=== PATIENT | female | born 1960 | race Caucasian/White ===

== ENCOUNTER 2024-07-13 08:33 | Emergency (ER) | payer OTHER, SELFPAY ==
--- NOTE | ~2024-07-13 | XR_ITS ---
EXAMINATION: XR CHEST CLINICAL INFORMATION: cough, chest pain COMPARISON: None available. TECHNIQUE: 2 views of the chest were obtained. FINDINGS: No significant abnormality is noted involving the heart, lungs, mediastinum, bony thorax or soft tissues. XR/XR chest 2V IMPRESSION: No acute disease Electronically signed by: Eber Ma MD 07/13/2024 09:49 AM [facility]
--- NOTE | 2024-07-13 08:36 | ECG_ITS ---
Test Reason : chest pain Blood Pressure : / mmHG Vent. Rate : 080 BPM Atrial Rate : 080 BPM P-R Int : 156 ms QRS Dur : 072 ms QT Int : 378 ms P-R-T Axes : 052 004 032 degrees QTc Int : 435 ms Normal sinus rhythm Normal ECG No previous ECGs available Referred By: Generic ED Physician Electronically Signed By:LATRICIA ERNANDEZ
[2024-07-13 08:41] VITALS: BP 139/87; PULSE 78; RESP 18; TEMP 35.9; O2SAT 98; BMI 31.2
[2024-07-13 09:02] LABS: Basophils Absolute Auto 0.1 X10*3/uL (0.0-0.2); Basophils Percent Auto 1.5 % (0-2); Eosinophils Absolute Auto 0.3 X10*3/uL (0.0-0.4); Eosinophils Percent Auto 6.4 % (0-4); Hematocrit 39.2 % (37.0-47.0); Hemoglobin 13.3 g/dl (12.0-16.0); Imm Gran Abs Auto 0.01 X10*3/uL (0.00-0.03); Imm Gran Pct Auto 0.2 % (0.0-0.4); Lymphocytes Absolute Auto 2.1 X10*3/uL (1.2-4.9); Lymphocytes Percent Auto 45.8 % (20-40); MANUAL DIFF FLAG SCAN; Mean Corpuscular HGB Conc 33.9 g/dl (31.0-35.0); Mean Corpuscular Hemoglobin 29.2 pg (27.0-33.0); Mean Corpuscular Volume 86.2 fL (80.0-98.0); Mean Platelet Volume 9.6 fL (9.4-12.3); Monocytes Absolute Auto 0.4 X10*3/uL (0.1-1.2); Monocytes Percent Auto 9.3 % (2-11); Neutrophils Absolute Auto 1.7 x10*3/uL (2.0-8.3); Neutrophils Percent Auto 36.8 % (45-73); Platelet Count 269 X10*3/uL (160-400); Red Blood Count 4.55 X10*6/uL (4.20-5.50); Red Cell Distribution Width 13.8 % (11.0-16.0); SCAN SMEAR FLAG 1; White Blood Count 4.5 X10*3/uL (4.8-10.8)
--- NOTE | 2024-07-13 09:16 | ED_ITS ---
HPI - Chest Pain General Chief Complaint: Chest Pain Stated Complaint: Chest pain, high BP Time Seen by Provider: 07/13/24 09:16 Source: patient, family (patient's son) and bilingual interpreter (patient declined an [facility] approved motor vehicle parts interpreter and requested her son interpret for her - patient verbalized understanding the risks involved with this decision.) Mode of arrival: ambulatory Limitations: language barrier (patient declined an [facility] approved motor vehicle parts interpreter and requested her son interpret for her - patient verbalized understanding the risks involved with this decision.) History of Present Illness ED Provider: Tessie López PA-C HPI narrative: Patient is a 64 year old assigned female at with a history of HTN presenting to the emergency department today with chest pain and cough. Patient states that since this morning she has felt weak with chest pain, and a cough. Patient states that her chest pain resolved. Patient denies any dizziness, lightheadedness, abdominal pain, nausea, vomiting, fever, chills, blurry vision, double vision, loss of vision, difficulty breathing, shortness of breath, back pain, night sweats, pain with urination, increased urinary frequency, increased urinary urgency, blood in her urine or stool, syncope or a near syncopal episode, recent trauma or falls, bowel incontinence, bladder incontinence, or any other complaints at this time. Relieving factors: nothing Exacerbating factors: nothing Related Data Previous Rx's ?Medication ?Instructions ?Recorded amoxicillin 875 mg-potassium 1 tab PO BID 10 days #20 tabs 07/13/24 clavulanate 125 mg tablet azithromycin 250 mg tablet See Rx Instructions PO .COMPLEX #6 07/13/24 tabs Allergies Allergy/AdvReac Type Severity Reaction Status Date / Time No Known Allergies Allergy Verified 07/13/24 08:46 Review of Systems 2 Constitutional: Constitutional: Reports no additional constitutional complaints, Denies chills, Denies fever(s) and Denies night sweats Eyes: Eyes: Reports no additional eye complaints, Denies blurry vision, Denies change in vision, Denies diplopia, Denies eye discharge, Denies loss of vision and Denies eye pain ENT: Denies dizziness Cardiovascular: Cardiovascular: Reports no additional cardiovascular complaints, Reports chest pain (now resolved), Denies lightheadedness, Denies Loss of Consciousness and Denies dyspnea Respiratory: Respiratory: Reports no additional respiratory complaints, Reports cough and Denies dyspnea Gastrointestinal: Gastrointestinal: Reports no additional gastrointestinal complaints, Denies abdominal pain, Denies melena, Denies hematochezia, Denies change in bowel habits and Denies change in stool character Genitourinary: Genitourinary: Denies hematuria, Denies urinary frequency, Denies dysuria, Denies urinary incontinence, Denies urinary hesitancy and Denies urinary urgency Musculoskeletal: Musculoskeletal: Reports no additional musculoskeletal complaints, Denies numbness and Denies tingling Neurologic: Denies dizziness, Denies loss of vision, Denies numbness and Denies tingling Psychiatric: Psychiatric: Reports no additional psychiatric complaints Endocrine: Endocrine: Reports no additional endocrine complaints Hematologic/Lymphatic: Hematologic/Lymphatic: Reports no additional hematologic/lymphatic complaints Allergic/Immunologic: Allergic/Immunologic: Reports no additional allergic/immunologic complaints PMFSH Past Medical History Attestation statement: The following information was validated with the patient. (patient's son validated all information) Source: old records reviewed and obtained from family (patient's son provided additional history and confirmed the history provided by the patient.) Social History Social History Advance Directives: No Advance Directives Information Provided: No Physical Exam 2 Vital Signs: Vital Signs: Last Vital Signs Temp 97.8 F 07/13/24 10:37 Pulse 66 07/13/24 10:37 Resp 14 07/13/24 10:37 BP 121/76 07/13/24 10:37 Pulse Ox 97 07/13/24 10:37 O2 Del Method Room Air 07/13/24 10:37 BMI result Body Mass Index 31.2 Const: General: cooperative, no acute distress, alert and awake Nutritional Appearance: well nourished Orientation/consciousness: patient oriented x3 Limitations: no limitations HEENT: Head: Yes normal to inspection and Yes atraumatic Ears: hearing grossly normal bilaterally and external ears normal General nose exam: Normal external nose present, no nasal discharge noted and no epistaxis Face and sinus: Yes normal facial exam, No abrasion and No laceration Mouth: Normal oral and palatal mucosa present, no drooling and no muffled voice Eyes: General: appearance normal, both eyes and all related structures P eriorbital: periorbital findings normal Eyelids: Yes eyelids normal C onjunctivae: conjunctivae normal Pupils: Equal, round and reactive pupils present EOM: EOMs intact bilaterally Neck: Neck: Yes normal visual inspection, Yes full ROM and Yes no lymphadenopathy Chest: Chest palpation & inspection: normal inspection of the chest Resp: Effort & Inspection: normal respiratory effort and able to speak in complete sentences GI: Inspection: Yes normal to inspection Neuro: General: patient oriented x3 and moves all extremities Cranial nerves: Yes Equal, round and reactive pupils present Cognition (Neuro): n ormal cognition Extrem: General: Yes normal to inspection, Yes full ROM and Yes capillary refill normal Psych: Appearance: grossly normal Mental Status: mental status grossly normal Affect: normal affect Attitude: cooperative Thought process: N ormal thought process present Thought content: Normal thought content present Insight: Good insight present (Psych) Medical Decision Making Medical Decision Making [facility] Narrative: Patient is a 64 year old assigned female at with a history of HTN presenting to the emergency department today with now resolved chest pain and a cough. Patient's physical exam was unremarkable. Patient's blood work was unremarkable. Patient's EKG was unremarkable. Patient's chest x-ray showed no acute process. I explained my physical exam findings as well as all test results to the patient and the patient's son. I answered all questions asked by the patient and the patient's son. Given patient's clinical presentation, will treat for atypical pneumonia. I stressed the importance of the patient taking her medication as directed (either prescribed or as the over the counter packaging recommends). I stressed the importance of the patient following up with her primary care provider. I stressed the importance of the patient returning to the emergency department immediately if her symptoms were to worsen or if she were to develop any dizziness, shortness of breath, difficulty breathing, chest pain, blurry vision, loss of vision, nausea, vomiting, abdominal pain, fever, chills, back pain, or any other complaints. Patient and the patient's son verbalized agreement and understanding with this treatment plan and discharge. Differential Diagnosis Differential Diagnoses: The differential diagnosis associated with the presentation includes Atypical chest pain NSTEMI STEMI Atypical pneumonia Admission/Observation Consideration of admission/observation: Escalation of care including admission/observation considered Patient would have been admitted to the hospital had her work up had any findings where hospital admission was appropriate and her clinical presentation warranted hospital admission. Lab Data [facility] Lab Attestation statement: I reviewed the patient's lab results. My interpretation of these results are in the MDM Rationale portion of this note. 07/13/24 08:56 07/13/24 08:56 Labs: Lab Results 07/13/24 Range/Units 08:56 WBC 4.5 L (4.8-10.8) X10*3/uL RBC 4.55 (4.20-5.50) X10*6/uL Hgb 13.3 (12.0-16.0) g/dl Hct 39.2 (37.0-47.0) % MCV 86.2 (80.0-98.0) fL MCH 29.2 (27.0-33.0) pg MCHC 33.9 (31.0-35.0) g/dl RDW 13.8 (11.0-16.0) % Plt Count 269 (160-400) X10*3/uL MPV 9.6 (9.4-12.3) fL Immature Gran % (Auto) 0.2 (0.0-0.4) % Neut % (Auto) 36.8 L (45-73) % Lymph % (Auto) 45.8 H (20-40) % Tillman % (Auto) 9.3 (2-11) % Eos % (Auto) 6.4 H (0-4) % Baso % (Auto) 1.5 (0-2) % Lymph # (Auto) 2.1 (1.2-4.9) X10*3/uL Tillman # (Auto) 0.4 (0.1-1.2) X10*3/uL Eos # (Auto) 0.3 (0.0-0.4) X10*3/uL Baso # (Auto) 0.1 (0.0-0.2) X10*3/uL Abs Immat Gran (auto) 0.01 (0.00-0.03) X10*3/uL Absolute Neuts (auto) 1.7 L (2.0-8.3) x10*3/uL Absolute Nucleated RBC 0.000 (0.0-0.012) X10*3/uL Nucleated RBC % (auto) 0.0 (0.0-0.2) /100WBC Smear Tech's Comments VERIFIED Sodium 142 (135-145) mmol/L Potassium 4.8 (3.3-5.1) mmol/L Chloride 109 H (96-108) mmol/L Carbon Dioxide 25 (22-29) mmol/L Anion Gap 13 (12-20) BUN 10 (9-16) mg/dL Creatinine 0.87 (0.5-1.4) mg/dL Estim Creat Clear Calc 73.9 Estimated GFR > 60 Random Glucose 109 (60-115) mg/dL Calcium 9.2 (8.4-10.2) mg/dL Troponin I High Sens < 2.7 (<3.5-17.0) ng/L Influenza Type A (PCR) NEGATIVE (Negative) Influenza Type B (PCR) NEGATIVE (Negative) RSV RNA Qual (PCR) NEGATIVE (Negative) SARS-CoV-2 RNA (RT-PCR) NEGATIVE (Negative) Independent Interpretation I performed an independent interpretation of an: EKG and Plain X-Ray Interpretation: My interpretation is in agreement with the radiologist's impression of this imaging study. L EXAMINATION: XR CHEST CLINICAL INFORMATION: cough, chest pain COMPARISON: None available. TECHNIQUE: 2 views of the chest were obtained. FINDINGS: No significant abnormality is noted involving the heart, lungs, mediastinum, bony thorax or soft tissues. XR/XR chest 2V IMPRESSION: No acute disease Electronically signed by: Eber Ma MD 07/13/2024 09:49 AM EST Dictated By: Eber Ma MD Signed By: Electronically signed by Eber Ma MD 07/13/24 0949 Vent. Rate: 080 BPM Atrial Rate: 080 BPM P-R Int: 156 ms QRS Dur: 072 ms QT Int: 378 ms P-R-T Axes: 052 004 032 degrees QTc Int: 435 ms Normal sinus rhythm Normal ECG No previous ECGs available DD/ [address]32 Radiology Impression Discussion of test interpretation with radiology: I have reviewed the radiologist's reading. Independent Historian Clinical information obtained from an independent historian. History obtained from or confirmed by: Other (patient's son provided additional history and confirmed the history provided by the patient.) Prescription Management I considered prescription management with: Antibiotic (patient prescribed an antibiotic to cover for possible atypical pneumonia) Chronic Conditions Patient?s care impacted by: Hypertension Discharge Plan Discharge Clinical Impression: Atypical chest pain, Respiratory infection Patient Disposition: Home, Self-Care Instructions: Chest Pain (DC), Upper Respiratory Infection (DC) Additional Instructions: Follow up with your primary care provider. Return to the emergency department immediately if your symptoms worsen or if you develop any dizziness, shortness of breath, difficulty breathing, chest pain, blurry vision, loss of vision, nausea, vomiting, abdominal pain, fever, chills, back pain, or any other complaints. Prescriptions: New azithromycin 250 mg tablet See Rx Instructions .ROUTE .COMPLEX Qty: 6 0RF Rx Instructions: For 250 mg dose pack: take 500 mg today (day 1), then 250 mg for 4 days (days 2-5) amoxicillin-pot clavulanate 875-125 mg tablet 1 tab PO BID 10 Days Qty: 20 0RF Referrals: [facility] Family Medicine [Provider Group] (Call to establish and follow up with a primary care provider. If you already have a primary care provider, please follow up with them. Llame para establecer y hacer un seguimiento con un proveedor de atenci?n primaria. Si ya tiene un proveedor de atenci?n primaria, patrick un seguimiento con ?l.) [facility] Primary CareMariajose [Provider Group] (Call to establish and follow up with a primary care provider. If you already have a primary care provider, please follow up with them. Llame para establecer y hacer un seguimiento con un proveedor de atenci?n primaria. Si ya tiene un proveedor de atenci?n primaria, patrick un seguimiento con ?l.) [facility] Primary CareGretel [Provider Group] (Call to establish and follow up with a primary care provider. If you already have a primary care provider, please follow up with them. Llame para establecer y hacer un seguimiento con un proveedor de atenci?n primaria. Si ya tiene un proveedor de atenci?n primaria, patrick un seguimiento con ?l.) Stand Alone Forms: Work/School Release Discharge Date/Time: 07/13/24 10:44 Print Language: Bengali
[2024-07-13 09:17] LABS: Anion Gap 13 (12-20); Blood Urea Nitrogen 10 mg/dL (9-16); Calcium 9.2 mg/dL (8.4-10.2); Carbon Dioxide 25 mmol/L (22-29); Chloride 109 mmol/L (96-108); Creatinine Clr Calc Pharmacy 73.9; Estimated Glomerular Filt Rate > 60; Glucose Random 109 mg/dL (60-115); Potassium 4.8 mmol/L (3.3-5.1); Sodium 142 mmol/L (135-145)
[2024-07-13 09:26] LABS: Troponin-I High Sensitivity < 2.7 ng/L (<3.5-17.0)
[2024-07-13 09:31] LABS: SLIDE REVIEW VERIFIED
[2024-07-13 09:45] LABS: Influenza A PCR NEGATIVE (Negative); Influenza B PCR NEGATIVE (Negative); Resp Syncy Virus RNA Qual PCR NEGATIVE (Negative); SARS COV2 PCR INHOUSE NEGATIVE (Negative)
--- OUTSIDE RECORDS SUMMARY | 2024-07-13 10:01 | XMS_ITS | Continuity of Care Document ---
Author Organization [facility] Address [address] [place] [address]- Care Team Providers Care Coal Passer Name Role Phone Yoanna Nelson MD Primary Care Physician [phone] Encounter [facility] Date(s): 12/03/23 - 01/02/[address] [id number] Allergies, Adverse Reactions, Alerts Substance Reaction Severity Status gabapentin numbness of tongue Active Immunizations Given and Recorded Vaccine Date Status Refusal Reason tetanus/diphtheria/pertussis, acel(Tdap) 05/13/20 Given tetanus/diphtheria/pertussis, acel(Tdap) 02/07/19 Given influenza virus vaccine, inactivated 1 11/06/17 Gi torin influenza virus vaccine, inactivated 07/09/15 Give n influenza virus vaccine, inactivated 08/03/14 Give n influenza virus vaccine, inactivated 2 11/02/12 Gi torin influenza virus vaccine, inactivated 3 05/24/10 Gi torin Measles/Mumps/Rubella Virus Vaccine 4 01/01/11 Giv en Influenza Vaccine (oldterm) 5 12/17/09 Given influ virus vac, H1N1, inactive(oldterm) 6 12/17/09 Given tetanus-diphtheria toxoids (Td) 7 12/17/09 Given 1Result Comment: [11/06/2017] pt denies allergies to eggs 2Admin Note: VIS GIVEN 3Admin Note: vis 03/26/10 4Admin Note: VIS GIVEN 08/31/02 5Admin Note: vis 6Admin Note: vis 7Admin Note: vis 01/24/94 Medications amLODIPine 5 mg oral tablet 1 tablet, By Mouth, Daily, # 90 tablet, 1 Refills, Maintenance, 11/10/23 5:27:00 EDT, [facility] #[id number], 167, cm, 10/01/23 14:12:00 EST, Height, 86, kg, 09/08/23 17:41:00 EST, Dry Weight Start Date: 11/10/23 Status: Ordered ARIPiprazole 5 mg oral tablet TAKE 1 TABLET BY MOUTH EVERY DAY Start Date: 02/13/22 Status: Ordered calcium (as carbonate)-vitamin D 500 mg-400 intl units oral tablet 1 tablet, By Mouth, 2 times a day, take with food as a supplement for calcium and vitamin D for osteopenia., # 60 tablet, 5 Refills, Maintenance, 08/24/23 14:36:00 EST, [facility] #[id number], Partial fill upon patient request if the prescription... Start Date: 08/24/23 Stop Date: 02/20/24 Status: Ordered Colace sodium 100 mg oral capsule 100 mg, 1, capsule, By Mouth, 2 times a day, PRN, # 100 capsule, Refills 3, Tot. Refills 3, Maintenance, for constipation, 12/31/22 19:35:00 EDT, Route to Pharmacy Electronically, [facility] #[id number], Partial fill upon patient request if the p... Start Date: 12/31/22 Status: Ordered Eucerin Daily Hydration topical lotion 1 application, Topically, 4 times a day, # 600 mL, 5 Refills, Maintenance, 09/01/23 16:25:00 EST, [facility] #[id number], Partial fill upon patient request if the prescription is for a schedule II opioid drug., 1 application Topically 4 times a d... Start Date: 09/01/23 Stop Date: 02/28/24 Status: Ordered FLUoxetine 40 mg oral capsule TAKE 1 CAPSULE BY MOUTH EVERY MORNING Start Date: 02/13/22 Status: Ordered hydrOXYzine pamoate 25 mg oral capsule 1 capsule = 25 mg, By Mouth, 3 times a day, PRN as needed for anxiety, TAKE 1 CAPSULE BY MOUTH THREE TIMES DAILY NEEDED FOR ANXIETY OR SLEEP Start Date: 02/13/22 Status: Ordered magnesium oxide 400 mg oral tablet 1 tablet = 400 mg, By Mouth, Daily, for 30 days, for headaches, # 30 tablet, 6 Refills, Acute 07/12/24 11:28:00 EST, 12/15/23 11:28:00 EDT, Tablet, [facility] #[id number], Partial fill upon patient request if the prescription is for a schedule II... Start Date: 12/15/23 Stop Date: 07/12/24 Status: Ordered MiraLax oral powder for reconstitution = 17 Gm, By Mouth, Daily, PRN Constipation, dissolve in water before taking, # 527 Gm, 5 Refills, Maintenance, 07/14/22 12:22:00 EST, REC Powder, [facility] #[id number], Partial fill upon patient request if the prescription is for a schedule II o... Start Date: 07/14/22 Status: Ordered naproxen 500 mg oral delayed release tablet See Instructions, TAKE 1 TABLET BY MOUTH TWICE DAILY TAKE WITH FOOD ONLY NEEDED FOR LOWER BACK PAIN. TRY NOT TO TAKE DAILY, # 50 tablet, 2 Refills, Maintenance, 10/29/22 15:56:00 EDT, [facility] #[id number], 166, cm, 10/16/22 10:45:00 EST, Hei... Start Date: 10/29/22 Status: Ordered NuLYTELY with Flavor Packs oral powder for reconstitution See Instructions, per GI office, # 4,000 mL, 0 Refills, Maintenance, 07/02/22 12:28:00 EST, [facility] #[id number], Partial fill upon patient request if the prescription is for a schedule II opioid drug., per GI office, 166, cm, 06/05/22 16:18:00... Start Date: 07/02/22 Status: Ordered olanzapine 5 mg oral tablet 5 mg, 1, tablet, By Mouth, Daily at bedtime, # 90 tablet, Refills 0, Maintenance, 12/07/23 8:51:00 EDT, Partial fill upon patient request if the prescription is for a schedule II opioid drug. Start Date: 12/07/23 Status: Ordered omeprazole 20 mg oral enteric coated capsule See Instructions, take 1 tablet by mouth 2 times a day, # 60 tablet, 2 Refills, Maintenance, 06/12/22 13:44:00 EDT, [facility] #[id number], Rx in Tongan, 166, cm, 06/05/22 16:18:00 EDT, Height,87, kg, 06/05/22 16:18:00 EDT, Dry Weight Start Date: 06/12/22 Status: Ordered orthopedic mattress orthopedic mattress, See Instructions, # 1 each, Refills 0, Tot. Refills 0, Maintenance, dx: chronic low back pain ICD10: M54.5 duration: 99, 09/17/23 12:04:00 EST, Supply Start Date: 09/17/23 Status: Ordered orthopedic mattress size orthopedic mattress size , See Instructions, # 1 each, Refills 0, Tot. Refills 0, Maintenance,for help with mobility dx: debility, frequent falls, low back pain ICD10: R53.81,, 09/04/23 9:22:00EST, Supply, 168, cm, 09/01/23 15:43:00 EST, Heig... Start Date: 09/04/23 Status: Ordered riboflavin 400 mg oral tablet 1 tablet = 400 mg, By Mouth, Daily, for headaches d/c prior scripts, # 30 tablet, 5 Refills, Maintenance, 12/15/23 11:31:00 EDT, Tablet, [facility] #[id number], Partial fill upon patient requestif the prescription is for a schedule II opioid... Start Date: 12/15/23 Stop Date: 06/12/24 Status: Ordered SUMAtriptan 25 mg oral tablet 1 tablet = 25 mg, By Mouth, Daily, PRN as needed for migraine headache, may repeat dose in 2 hours if needed; in german do not use more than 2-3 x in a week to abort migraine. disp 9 tab every 30 days., # 9 tablet, 5 Refills, Maintenance, 12/15/23... Start Date: 12/15/23 Status: Ordered Problem List Condition Confirmation Course Effective Dates Status Health Status Informant Cough Confirmed Active Consumption coagulopathy Confirmed Active Dyspnea- nl spirometry, bronchial challenge neg- ? 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 No TB tx. 2Pt referred by Dr. Witt-- [facility]. Pt did not keep sched appt. Case closed. Social History Social History Type Response Smoking Status Never smoker entered on: 11/23/14 Sex Patient Care team information Care Team Personnel Name: Kimber Mcclain RN Position: [facility] RN Member Role: Primary Care Nurse Name: Yoanna Nelson MD Position: [facility] Physician - Primary Care Member Role: PCP Address: Address: [address] [place] [address]- [place] Care Team Related Persons Name: DENYS GONZALES Address: [address] [place] [address] Name: EMILIANO YEH Address: [address] [place] [address]
--- OUTSIDE RECORDS SUMMARY | 2024-07-13 10:01 | XMS_ITS | Continuity of Care Document ---
Author Organization [facility] ter Address [address] [place] [address]- Care Team Providers Care Sccm Administrator Name Role Phone Socorro Kingston MD, I Primary Care Physician [phone] Encounter [facility] Date(s): 06/10/22 - 07/10/[address] [address]- Allergies, Adverse Reactions, Alerts Substance Reaction Severity [...] Given tetanus-diphtheria toxoids (Td) 7 12/17/09 Given Not Given Vaccine Date Status Refusal Reason pneumococcal 23-valent vaccine 8 10/28/20 Not Give n Patient Refuses 1Result Comment: [11/06/2017] pt denies allergies to eggs 2Admin Note: VIS GIVEN 2011- 3Admin Note: vis 03/26/10 4Admin Note: VIS GIVEN 08/31/02 5Admin Note: vis 6Admin Note: vis 7Admin Note: vis 01/24/94 8Result Comment: after med shift given with pros and cons Medications amLODIPine 5 mg oral tablet 1 tablet, By Mouth, Daily, # 90 tablet, 3 Refills, Maintenance, 05/04/22 13:25:00 EDT, [facility] #[id number], 166, cm, 03/17/22 10:16:00 EDT, Height, 92.6, kg, 06/13/21 15:24:00 EDT, Dry Weight Start Date: 05/04/22 Status: Ordered ARIPiprazole 5 mg oral tablet TAKE 1 TABLET BY MOUTH EVERY DAY Start Date: 02/13/22 Status: Ordered EC Naprosyn 500 mg oral enteric coated tablet See Instructions, 1 tab po bid x 7 days, then 1 tab po bid prn pain. take with food., # 30 tablet, 1 Refills, Maintenance, 03/17/22 10:50:00 EDT, [facility] #[id number], Partial fill upon patient request if the prescription is for a schedule II... Start Date: 03/17/22 Status: Ordered FLUoxetine 40 mg oral capsule TAKE 1 CAPSULE BY MOUTH EVERY MORNING Start Date: 02/13/22 Status: Ordered hydrOXYzine pamoate 25 mg oral capsule TAKE 1 CAPSULE BY MOUTH THREE TIMES DAILY NEEDED FOR ANXIETY OR SLEEP Start Date: 02/13/22 Status: Ordered Melatonin 5 mg oral tablet TAKE 1 TO 2 TABLETS BY MOUTH EVERY NIGHT AT BEDTIME NEEDED Start Date: 02/13/22 Status: Ordered NuLYTELY with Flavor Packs oral powder for reconstitution See Instructions, per GI office, # 4,000 mL, 0 Refills, Maintenance, 07/02/22 12:28:00 EST, [facility] #[id number], Partial fill upon patient request if the prescription is for a schedule II opioid drug., per GI office, 166, cm, 06/05/22 16:18:00... Start Date: 07/02/22 Status: Ordered omeprazole 20 mg oral enteric coated capsule See Instructions, take 1 tablet by mouth 2 times a day, # 60 tablet, 2 Refills, Maintenance, 06/12/22 13:44:00 EDT, [facility] #[id number], Rx in Jamaican, 166, cm, 06/05/22 16:18:00 EDT, Height,87, kg, 06/05/22 16:18:00 EDT, Dry Weight Start Date: 06/12/22 Status: Ordered Problem List Condition Confirmation Course [...] TB tx. 2Pt referred by Dr. Witt-- [facility]. Pt did not keep sched appt. Case closed. Social History Social History Type Response Smoking Status Never smoker entered on: 11/23/14 Sex Patient Care team information Care Team Personnel Name: Socorro Kingston MD, I Position: [facility] Primary Care Physician Member Role: PCP Address: Address: [address] [place] [address]- Name: Kimber Mcclain RN Position: [facility] RN Member Role: Primary Care Nurse Care Team Related Persons Name: DENYS GONZALES Address: home [address] [place] [address] Name: EMILIANO YEH Address: [address] [place] [address]
--- OUTSIDE RECORDS SUMMARY | 2024-07-13 10:01 | XMS_ITS | Continuity of Care Document ---
Author Organization [facility] Address [address] [place] [address]- Care Team Providers Care Coat Joiner Name Role Phone Yoanna Nelson MD Primary Care Physician [phone] Encounter [facility] Date(s): 04/24/23 - 05/24/[address] [address] Allergies, Adverse Reactions, Alerts Substance Reaction Severity [...] tablet, By Mouth, Daily, # 90 tablet, 0 Refills, Maintenance, 04/14/23 8:37:00 EDT, [facility] #[id number], 168, cm, 03/27/23 13:30:00 EDT, Height, 91.8, kg, 11/24/22 13:50:00 EDT, Dry Weight Start Date: 04/14/23 Status: Ordered ARIPiprazole 5 mg oral tablet TAKE 1 TABLET BY MOUTH EVERY DAY Start Date: 02/13/22 Status: Ordered calcium (as carbonate)-vitamin D 500 mg-400 intl units oral tablet 1 tablet, By Mouth, 2 times a day, take with food as a supplement for calcium and vitamin D for osteopenia., # 60 tablet, 3 Refills, Maintenance, 10/24/22 13:37:00 EST, [facility] #[id number], Partial fill upon patient request if the prescription... Start Date: 10/24/22 Status: Ordered Colace sodium 100 mg oral capsule 100 mg, 1, capsule, By Mouth, 2 times a day, PRN, # 100 capsule, Refills 3, Tot. Refills 3, Maintenance, for constipation, 12/31/22 19:35:00 EDT, Route to Pharmacy Electronically, [facility] #[id number], Partial fill upon patient request if the p... Start Date: 12/31/22 Status: Ordered FLUoxetine 40 mg oral capsule TAKE 1 CAPSULE BY MOUTH EVERY MORNING Start Date: 02/13/22 Status: Ordered hydrOXYzine pamoate 25 mg oral capsule TAKE 1 CAPSULE BY MOUTH THREE TIMES DAILY NEEDED FOR ANXIETY OR SLEEP Start Date: 02/13/22 Status: Ordered MiraLax oral powder for reconstitution = 17 Gm, By Mouth, Daily, PRN Constipation, dissolve in water before taking, # 527 Gm, 5 Refills, Maintenance, 07/14/22 12:22:00 EST, REC Powder, [facility] #[id number], Partial fill upon patient request if the prescription is for a schedule II o... Start Date: 07/14/22 Status: Ordered MiraLax oral powder for reconstitution = 17 Gm, By Mouth, Daily, dissolve in water before taking, # 255 Gm, 2 Refills, Acute 12/16/23 19:36:00 EDT, 12/31/22 19:35:00 EDT, REC Powder, [facility] #[id number], Partial fill upon patient request if the prescription is for a schedule II opi... Start Date: 12/31/22 Stop Date: 12/16/23 Status: Ordered naproxen 500 mg oral delayed release tablet See Instructions, TAKE 1 TABLET BY MOUTH TWICE DAILY TAKE WITH FOOD ONLY NEEDED FOR LOWER BACK PAIN. TRY NOT TO TAKE DAILY, # 50 tablet, 2 Refills, Maintenance, 10/29/22 15:56:00 EDT, [facility] #[id number], 166, cm, 10/16/22 10:45:00 EST, Hei... Start Date: 10/29/22 Status: Ordered NuLYTELY with Flavor Packs oral powder for reconstitution See Instructions, per GI office, # 4,000 mL, 0 Refills, Maintenance, 07/02/22 12:28:00 EST, [facility] #[id number], Partial fill upon patient request if the prescription is for a schedule II opioid drug., per GI office, 166, cm, 06/05/22 16:18:00... Start Date: 07/02/22 Status: Ordered omeprazole 20 mg oral enteric coated capsule See Instructions, take 1 tablet by mouth 2 times a day, # 60 tablet, 2 Refills, Maintenance, 06/12/22 13:44:00 EDT, [facility] #[id number], Rx in Faroese, 166, cm, 06/05/22 16:18:00 EDT, Height,87, kg, 06/05/22 16:18:00 EDT, Dry Weight Start Date: 06/12/22 Status: Ordered riboflavin 100 mg oral tablet 2 TABS, By Mouth, 2 times a day, for headaches, # 60 tablet, 5 Refills, Maintenance, 08/04/22 8:40:00 EST, Tablet, [facility] #[id number], Partial fill upon patient request if the prescription is for a schedule II opioid drug., 166, cm, 08/04/22... Start Date: 08/04/22 Stop Date: 01/31/23 Status: Ordered SUMAtriptan 25 mg oral tablet 1 tablet = 25 mg, By Mouth, Daily, PRN as needed for migraine headache, may repeat dose in 2 hours if needed; in thai do not use more than 2-3 x in a week to abort migraine. disp 9 tab every 30 days., # 9 tablet, 5 Refills, Maintenance, 10/01/22... Start Date: 10/01/22 Status: Ordered Problem List Condition Confirmation Course [...] TB tx. 2Pt referred by Dr. Witt-- [facility]. Pt did not keep sched appt. Case closed. Social History Social History Type Response Smoking Status Never smoker entered on: 11/23/14 Sex Patient Care team information Care Team Personnel Name: Kimber Mcclain RN Position: [facility] RN Member Role: Primary Care Nurse Name: Yoanna Nelson MD Position: [facility] Physician - Primary Care Member Role: PCP Address: Address: [address] [place] [address]- Care Team Related Persons Name: DENYS GONZALES Address: home [address] [place] [address] Name: EMILIANO YEH Address: [place] [address]
--- OUTSIDE RECORDS SUMMARY | 2024-07-13 10:01 | XMS_ITS | Continuity of Care Document ---
Author Organization [facility] Address [address] [place] [address]- Care Team Providers Care Staffing Analyst Name Role Phone Socorro Kingston MD, I Primary Care Physician [phone] Encounter [facility] Date(s): 11/24/22 - 11/24/[address] [address]- Discharge Disposition: A-D/C Home Attending Physician: Omari Ruiz MD Admitting Physician: Omari Ruiz MD Referring Physician: Omari Ruiz MD Allergies, Adverse Reactions, Alerts Substance Reaction Severity [...] tablet, 3 Refills, Maintenance, 05/04/22 13:25:00 EDT, [facility] #[id number], 166, cm, 03/17/22 10:16:00 EDT, Height, 92.6, [...] tablet, 3 Refills, Maintenance, 10/24/22 13:37:00 EST, [facility] #[id number], Partial fill upon patient request if the prescription... Start Date: 10/24/22 Status: Ordered FLUoxetine 40 mg oral capsule [...] Refills, Maintenance, 07/14/22 12:22:00 EST, REC Powder, [facility] #[id number], Partial fill upon patient request if the prescription is for a schedule II o... Start Date: 07/14/22 Status: Ordered naproxen 500 mg oral delayed release tablet See Instructions, TAKE 1 TABLET BY MOUTH TWICE DAILY TAKE WITH FOOD ONLY NEEDED FOR LOWER BACK PAIN. TRY NOT TO TAKE DAILY, # 50 tablet, 2 Refills, Maintenance, 10/29/22 15:56:00 EDT, [facility] #[id number], 166, cm, 10/16/22 10:45:00 EST, Hei... Start Date: 10/29/22 Status: Ordered NuLYTELY with Flavor Packs oral powder for reconstitution See Instructions, per GI office, # 4,000 mL, 0 Refills, Maintenance, 07/02/22 12:28:00 EST, [facility] #[id number], Partial fill upon patient request if the prescription is for a schedule II opioid drug., per GI office, 166, cm, 06/05/22 16:18:00... Start Date: 07/02/22 Status: Ordered omeprazole 20 mg oral enteric coated capsule See Instructions, take 1 tablet by mouth 2 times a day, # 60 tablet, 2 Refills, Maintenance, 06/12/22 13:44:00 EDT, [facility] #[id number], Rx in Mongolian, 166, cm, 06/05/22 16:18:00 EDT, Height,87, kg, 06/05/22 16:18:00 EDT, Dry Weight Start Date: 06/12/22 Status: Ordered riboflavin 100 mg oral tablet 2 TABS, By Mouth, 2 times a day, for headaches, # 60 tablet, 5 Refills, Maintenance, 08/04/22 8:40:00 EST, Tablet, [facility] #[id number], Partial fill upon patient request if the prescription is for a schedule II opioid drug., 166, cm, 08/04/22... Start Date: 08/04/22 Stop Date: 01/31/23 Status: Ordered SUMAtriptan 25 mg oral tablet 1 tablet = 25 mg, By Mouth, Daily, PRN as needed for migraine headache, may repeat dose in 2 hours if needed; in lithuanian do not use more than 2-3 x [...] did not keep sched appt. Case closed. Vital Signs Most recent to oldest [Reference Range]: 1 2 3 Height 168 cm (11/24/22 1:50 PM) Oxygen Saturation [94-100 %] 100 % (11/24/22 3:10 PM) 100 % (11/24/22 3:05 PM) 99 % (11/24/22 3:00 PM) Pulse Rate [55-90 bpm] 96 bpm *H* (11/24/22 1:50 PM) Blood Pressure [90-138/55-84 mm Hg] 116/77mm Hg (11/24/22 3:10 PM) 109/67mm Hg (11/24/22 3:05 PM) 103/65mm Hg (11/24/22 3:00 PM) Respiratory Rate [16-30 br/min] 12 br/min *L* (11/24/22 3:10 PM) 13 br/min *L* (11/24/22 3:05 PM) 14 br/min *L* (11/24/22 3:00 PM) Temperature [96.8-100.4 DegF] 97.3 DegF (11/24/22 2:50 PM) 97.2 DegF (11/24/22 1:50 PM) Mode of Delivery (Oxygen) Room air (11/24/22 2:50 PM) Room air (11/24/22 1:50 PM) Temperature Route Temporal (11/24/22 2:50 PM) Temporal (11/24/22 1:50 PM) Dry Weight 91.8 kg (11/24/22 1:50 PM) Dry Weight Obtained Via Standing scale (11/24/22 1:50 PM) Social History Social History Type Response Smoking Status Never smoker entered on: 11/23/14 Sex Patient Care team information Care Team Personnel Name: Socorro Kingston MD, I Position: S Primary Care Physician Member Role: PCP Address: Address: [address] [place] [address]- [place] Name: Kimber Mcclain RN Position: S RN Member Role: Primary Care Nurse Care Team Related Persons Name: OMARI GONZALES Address: home [address] [place] [address] Name: EMILIANO YEH Address: home [address] [place] [address]
--- OUTSIDE RECORDS SUMMARY | 2024-07-13 10:01 | XMS_ITS | Continuity of Care Document ---
Author Organization [facility] Address [address] [place] [address]- Care Team Providers Care Artificial Limb Fitter Name Role Phone Socorro Kingston MD, I Primary Care Physician [facility]counter [facility] Date(s): 08/02/21 - 09/01/[address] [address] Allergies, Adverse Reactions, Alerts Substance Reaction Severity [...] shift given with pros and cons Medications ARIPiprazole 5 mg oral tablet 5 mg, 1, tablet, By Mouth, Daily, Refills 0, Maintenance, 06/13/21 15:30:00 EDT, Partial fill upon patient request if the prescription is for a schedule II opioid drug. Start Date: 06/13/21 Status: Ordered FLUoxetine 40 mg oral capsule 1 capsule = 40 mg, By Mouth, Daily, 0 Refills, Maintenance, 06/13/21 15:29:00 EDT, Partial fill upon patient request if the prescription is for a schedule II opioid drug. Start Date: 06/13/21 Status: Ordered Meclizine By Mouth, 3 times a day, 0 Refills, Maintenance, 06/13/21 15:30:00 EDT, Partial fill upon patient request if the prescription is for a schedule II opioid drug. Start Date: 06/13/21 Status: Ordered Zofran 4 mg oral tablet 1 tablet = 4 mg, By Mouth, Every 8 hours, 0 Refills, Maintenance, 06/13/21 15:29:00 EDT, Partial fill upon patient request if the prescription is for a schedule II opioid drug. Start Date: 06/13/21 Status: Ordered Problem List Condition Effective Dates Status Health Status Inform ant Cough(Confirmed) Active Consumption coagulopathy(Confirmed) Active Dyspnea- nl spirometry, bron chial challenge neg- ? 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 No TB tx. 2Pt referred by Dr. Witt-- [facility]. Pt did not keep sched appt. Case closed. Social History Social History Type Response Smoking Status Never smoker entered on: 11/23/14 Sex
--- OUTSIDE RECORDS SUMMARY | 2024-07-13 10:01 | XMS_ITS | Continuity of Care Document ---
Author Organization [facility] ter Address [address] [place] [address]- Care Team Providers Care Social Service Agency Director Name Role Phone Socorro Kingston MD, I Primary Care Physician [phone] [place] [facility] Date(s): 06/14/21 - 07/24/[address] [address] Attending Physician: Socorro Kingston MD, I Admitting Physician: Socorro Kingston MD, I Referring Physician: Socorro Kingston MD, I Allergies, Adverse Reactions, Alerts Substance Reaction Severity [...] TB tx. 2Pt referred by Dr. Witt-- [facility]. Pt did not keep sched appt. Case closed. Social History Social History Type Response Smoking Status Never smoker entered on: 11/23/14 Sex
--- OUTSIDE RECORDS SUMMARY | 2024-07-13 10:02 | XMS_ITS | Continuity of Care Document ---
Author Organization [facility] Address [address] [place] [address]- Care Team Providers Care Esthetician Name Role Phone Thee MCCULLOUGH, Socorro Davidson Primary Care Physician Encounter [facility] Date(s): 02/12/22 - 03/14/[address] [address]- Attending Physician: Eliane Stout Admitting Physician: Eliane Stout Referring Physician: AdmEliane saldana Allergies, Adverse Reactions, Alerts Substance Reaction Severity [...] 2Admin Note: VIS GIVEN 3Admin Note: vis 8/10/10 4Admin Note: VIS GIVEN 08/31/02 5Admin Note: vis 6Admin Note: vis 7Admin Note: vis 01/24/94 8Result Comment: after med shift given with pros and cons Medications amLODIPine 5 mg oral tablet TAKE 1 TABLET BY MOUTH DAILY Start Date: 02/13/22 Status: Ordered ARIPiprazole 5 mg oral tablet TAKE 1 TABLET BY MOUTH EVERY DAY Start Date: 02/13/22 Status: Ordered FLUoxetine 40 mg oral capsule [...] BEDTIME NEEDED Start Date: 02/13/22 Status: Ordered Problem List Condition Effective Dates Status Health Status Inform ant Cough(Confirmed) Active Consumption coagulopathy(Confirmed) Active Dyspnea- nl spirometry, bron chial challenge neg- ? anxiety(Confirmed) Active Postprandial epigastric pain(Confirmed) Active Acid reflux disease(Confirmed) Active Heartburn(Confirmed) Active Heliobacterium(Confirmed) Active Hypercholesterolemia(Confirmed) Active Hernia, inguinal, left(Confirmed) Active Mediastinal mass(Confirmed) Active Neutropenia(Confirmed) Active Obese class I(Confirmed) Active Well woman exam with routine gynecological [...]
--- OUTSIDE RECORDS SUMMARY | 2024-07-13 10:02 | XMS_ITS | Continuity of Care Document ---
Author Organization [facility] Address [address] [place] [address]- Care Team Providers Care Pretzel Packer Name Role Phone Yoanna Nelson MD Primary Care Physician Encounter [facility] [id number] Date(s): 10/01/23 - 10/31/[address] [address]- Attending Physician: Eliane Stout Admitting Physician: Eliane Stout Referring Physician: Eliane Stout Allergies, Adverse Reactions, Alerts Substance Reaction Severity [...] Note: VIS GIVEN 08/31/02 5Admin Note: vis 8/11/9 6Admin Note: vis 7Admin Note: vis 01/24/94 Medications amLODIPine 5 mg oral tablet See Instructions, TAKE 1 TABLET BY MOUTH DAILY, # 90 tablet, 0 Refills, Maintenance, 08/14/23 12:12:00 EST, [facility] #[id number], 168, cm, 08/05/23 9:18:00 EST, Height, 91.8, kg, 11/24/22 13:50:00 EDT, Dry Weight Start Date: 08/14/23 Status: Ordered ARIPiprazole 5 mg oral tablet TAKE 1 TABLET BY MOUTH EVERY DAY Start Date: 02/13/22 Status: Ordered calcium (as carbonate)-vitamin D 500 mg-400 intl units oral tablet 1 tablet, By Mouth, 2 times a day, take with food as a supplement for calcium and vitamin D for osteopenia., # 60 tablet, 5 Refills, Maintenance, 08/24/23 14:36:00 EST, [facility] #[id number], Partial fill upon patient request if the prescription... Start Date: 08/24/23 Stop Date: 02/20/24 Status: Ordered Colace sodium 100 mg oral capsule 100 mg, 1, capsule, By Mouth, 2 times a day, PRN, # 100 capsule, Refills 3, Tot. Refills 3, Maintenance, for constipation, 12/31/22 19:35:00 EDT, Route to Pharmacy Electronically, [facility] #[id number], Partial fill upon patient request if the p... Start Date: 12/31/22 Status: Ordered Eucerin Daily Hydration topical lotion 1 application, Topically, 4 times a day, # 600 mL, 5 Refills, Maintenance, 09/01/23 16:25:00 EST, [facility] #[id number], Partial fill upon patient request if the [...] Refills, Maintenance, 07/14/22 12:22:00 EST, REC Powder, [facility] #[id number], Partial fill upon patient request if the prescription is for a schedule II o... Start Date: 07/14/22 Status: Ordered MiraLax oral powder for reconstitution = 17 Gm, By Mouth, Daily, dissolve in water before taking, # 255 Gm, 2 Refills, Acute 12/16/23 19:36:00 EDT, 12/31/22 19:35:00 EDT, REC Powder, [facility] #[id number], Partial fill upon patient request if the prescription is for a schedule II opi... Start Date: 12/31/22 Stop Date: 12/16/23 Status: Ordered naproxen 500 mg oral delayed release tablet See Instructions, TAKE 1 TABLET BY MOUTH TWICE DAILY TAKE WITH FOOD ONLY NEEDED FOR LOWER BACK PAIN. TRY NOT TO TAKE DAILY, # 50 tablet, 2 Refills, Maintenance, 10/29/22 15:56:00 EDT, [facility] #[id number], 166, cm, 10/16/22 10:45:00 EST, Hei... Start Date: 10/29/22 Status: Ordered NuLYTELY with Flavor Packs oral powder for reconstitution See Instructions, per GI office, # 4,000 mL, 0 Refills, Maintenance, 07/02/22 12:28:00 EST, [facility] #[id number], Partial fill upon patient request if the prescription is for a schedule II opioid drug., per GI office, 166, cm, 06/05/22 16:18:00... Start Date: 07/02/22 Status: Ordered omeprazole 20 mg oral enteric coated capsule See Instructions, take 1 tablet by mouth 2 times a day, # 60 tablet, 2 Refills, Maintenance, 06/12/22 13:44:00 EDT, [facility] #[id number], Rx in Sudanese, 166, cm, 06/05/22 16:18:00 EDT, Height,87, kg, [...] Heig... Start Date: 09/04/23 Status: Ordered riboflavin 100 mg oral tablet 2 tablet = 200 mg, By Mouth, 2 times a day, for headaches, # 120 tablet, 5 Refills, Maintenance, 06/15/23 11:00:00 EDT, Tablet, [facility] #[id number], Partial fill upon patient request if the prescription is for a schedule II opioid drug., 168,... Start Date: 06/15/23 Stop Date: 12/12/23 Status: Ordered SUMAtriptan 25 mg oral tablet 1 tablet = 25 mg, By Mouth, Daily, PRN as needed for migraine headache, may repeat dose in 2 hours if needed; in guyanese do not use more than 2-3 x in a week to abort migraine. disp 9 tab every 30 days., # 9 tablet, 5 Refills, Maintenance, 06/15/23... Start Date: 06/15/23 Status: Ordered Problem List Condition Confirmation Course [...] Status Never smoker entered on: 11/23/14 Sex Note * Dina Velarde: PERFORM, SIGN, VERIFY Event Display: Patient Education/Instruction Authored Date: [id number] [facility] Clinical Summary Person Information Visit Date 04/25/2016 2:25 PM Name JUNE RICKS Age 56 Years 1960 12:00 AM PCP Miryam MCCULLOUGH, Archie PCP Sex Female Race White Ethnicity / Language Sudanese You can now view a summary of your hospital visit from the comfort of your home through a free online portal called [employer]Link. HotLink is a website that allows you to securely view your medical information including discharge summary, medications and follow-up visits. You can also send a secure electronic message to your doctor???s office to request appointments, renew medicationsor just ask a question. You can enroll at [email or web address] or register during your next office visit. Smoking can increase your chances of developing chronic health problems and can cause harmful effects to other family members in your house. If you smoke, you are strongly encouraged to quit. Please call the [place] Smokers??? Helpline at 6-944-GKYBNOW (or ) or log on to [email or web address] for more information. Reason for Visit: Allergy Info: NKA Smoking Status Never smoker Vital Signs Height Weight BMI Blood Pressure / Temperature Pulse Rate Respiratory Rate 02 Sat Mode of Delivery / Medication Information HydrOXYzine (hydroxyzine pamoate 25 mg oral capsule) 1 capsule, Oral, 3 times a day, As Needed, foranxiety, Refills: 1 Omeprazole (omeprazole 20 mg oral enteric coated capsule) 1 capsule, Oral, twice a day, take on a empty stomach, wait 30 min, then eat, Refills: 11 Paroxetine (PARoxetine 20 mg oral tablet) 1 tablet, Oral, Daily, Refills: 11 Ranitidine (ranitidine 150 mg oral tablet) 1 tablet, Oral, twice a day, As Needed, Dyspepsia, Refills: 2 Sumatriptan (sumatriptan 25 mg oral tablet) 1 tablet, Oral, Daily, may repeat dose in 2 hours if needed; in guyanese, As Needed, as needed for migraine headache, Refills: 1 Future Orders No future orders Orders Completed this Visit No visit orders documented Problem List Problem Positive PPD Tuberculosis Heliobacterium Dyspnea PTSD - Post-traumatic stress disorder Left inguinal hernia Neutropenia Disseminated intravascular coagulation Cough Heartburn Gastroesophageal reflux disease Epigastric pain Diagnosis Procedures No Procedures Documented If the following labs have been performed in the last year, the most recent result is displayed below. Diagnostic Results Lab Result Value Date Lead Hemoglobin A1C 5.8 04/30/15 LDL HDL Triglycerides Total Cholesterol Disclaimer: The information provided is of a general nature and is intended to be used in conjunction with the recommendations and advice of your health care practitioner. Every effort has been made to ensure that the information provided is accurate and complete at the time it is provided to you however, as your needs change, or, as new information becomes available, different or additional instructions may be required. If you have questions, please consult with your primary care provider or pharmacist, as appropriate. This information is not intended to serve as substitution for assessment and evaluation by a qualified health care provider. If you do not have a primary care provider, you may find a [facility] provider by calling [facility] at [phone]. For information about the plan of care including goals and instructions for your diagnosis, please see the patient education orders section of this document. Patient Visit Summary: Future Appointments: [facility] 04/25/2016 2:50 PM Pending Follow-Up Instructions Patient Education Materials Additional Instructions: * Mary Hendrickson: PERFORM, SIGN, VERIFY Event Display: Patient Education/Instruction Authored Date: [id number] [facility] Clinical Summary Person Information Name JUNE RICKS Age 51 Years 1960 12:00 AM PCP Archie Witt MD PCP Reason for Visit: Allergy Info: NKA Vital Signs Height Weight BMI Blood Pressure / Temperature Pulse Rate Respiratory Rate 02 Sat Mode of Delivery / Medication Information Acetaminophen-Diphenhydramine (Excedrin PM oral tablet) 1 tablet, Oral, Daily at Bedtime, 14 tablet, Refills: 0 amiTRIPTYLINE (amitriptyline 25 mg oral tablet) 1 tablet, Oral, Daily at Bedtime, 30 tablet, Refills: 1 Bismuth Subsalicylate (bismuth subsalicylate 262 mg oral tablet) 1 tablet, Oral, twice a day, Take before Lunch and Dinner, 28 tablet, Refills: 0 Docusate (docusate sodium 100 mg oral capsule) 1 capsule, Oral, twice a day, with plenty of water. Take while taking tylox to prevent constipation, 6 capsule, As Needed, for constipation, Refills: 0 Ibuprofen (ibuprofen 600 mg oral tablet) 1 tablet, Oral, every 8 hours, 30 tablet, Refills: 1 Metronidazole (metronidazole 500 mg oral tablet) 1 tablet, Oral, twice a day, Take before Lunch andDinner, 28 tablet, Refills: 0 Omeprazole (Prilosec 20 mg oral enteric coated capsule) 1 capsule, Oral, twice a day, Take before Lunch and Dinner, 28 capsule, Refills: 0 Oxycodone / Acetaminophen (Tylox 500 mg-5 mg oral capsule) 1 capsule, Oral, every 4 hours, 18 capsule, As Needed, for pain, Refills: 0 Tetracycline (tetracycline 500 mg oral tablet) 1 tablet, Oral, twice a day, Take before Lunch and Dinner, 28 tablet, Refills: 0 Problem List Date Problem 01/20/11 Positive PPD If the following labs have been performed in the last year, the most recent result is displayed below. Diagnostic Results Lab Result Value Date Lead Hemoglobin A1C LDL HDL Triglycerides Total Cholesterol Disclaimer: The information provided is of a general nature and is intended to be used in conjunction with the recommendations and advice of your health care practitioner. Every effort has been made to ensure that the information provided is accurate and complete at the time it is provided to you however, as your needs change, or, as new information becomes available, different or additional instructions may be required. If you have questions, please consult with your primary care provider or pharmacist, as appropriate. This information is not intended to serve as substitution for assessment and evaluation by a qualified health care provider. If you do not have a primary care provider, you may find a [facility] provider by calling [facility] at [phone]. Patient Education Information Follow-up Details: Patient Education Material: Patient Care team information Care Team Personnel Name: Kimber Mcclain RN Position: [facility] RN Member Role: Primary Care Nurse Name: Yoanna Nelson MD Position: [facility] Physician - Primary Care Member Role: PCP Address: Address: [address] [place] [address]- Care Team Related Persons Name: DENYS GONZALES Address: [place] [address] Name: EMILIANO YEH Address: [place] [address]
--- OUTSIDE RECORDS SUMMARY | 2024-07-13 10:02 | XMS_ITS | Continuity of Care Document ---
Author Organization [facility] Address [address] [place] [address]- Care Team Providers Care Oyster Buyer Name Role Phone Thee MCCULLOUGH, Socorro Davidson Primary Care Physician Encounter [facility] Date(s): 07/16/22 - 08/15/[address] [address]- Allergies, Adverse Reactions, Alerts Substance Reaction Severity [...] tablet, 3 Refills, Maintenance, 05/04/22 13:25:00 EDT, [facility] #[id number], 166, cm, 03/17/22 10:16:00 EDT, Height, 92.6, [...] tablet, 1 Refills, Maintenance, 03/17/22 10:50:00 EDT, [facility] #[id number], Partial fill upon patient request if the [...] BEDTIME NEEDED Start Date: 02/13/22 Status: Ordered MiraLax oral powder for reconstitution = 17 Gm, By Mouth, Daily, PRN Constipation, dissolve in water before taking, # 527 Gm, 5 Refills, Maintenance, 07/14/22 12:22:00 EST, REC Powder, [facility] #[id number], Partial fill upon patient request if the prescription is for a schedule II o... Start Date: 07/14/22 Status: Ordered NuLYTELY with Flavor Packs oral powder for reconstitution See Instructions, per GI office, # 4,000 mL, 0 Refills, Maintenance, 07/02/22 12:28:00 EST, [facility] #[id number], Partial fill upon patient request if the prescription is for a schedule II opioid drug., per GI office, 166, cm, 06/05/22 16:18:00... Start Date: 07/02/22 Status: Ordered omeprazole 20 mg oral enteric coated capsule See Instructions, take 1 tablet by mouth 2 times a day, # 60 tablet, 2 Refills, Maintenance, 06/12/22 13:44:00 EDT, [facility] #[id number], Rx in Persian, 166, cm, 06/05/22 16:18:00 EDT, Height,87, kg, 06/05/22 16:18:00 EDT, Dry Weight Start Date: 06/12/22 Status: Ordered riboflavin 100 mg oral tablet 2 TABS, By Mouth, 2 times a day, for headaches, # 60 tablet, 5 Refills, Maintenance, 08/04/22 8:40:00 EST, Tablet, [facility] #[id number], Partial fill upon patient request if the prescription is for a schedule II opioid drug., 166, cm, 08/04/22... Start Date: 08/04/22 Stop Date: 01/31/23 Status: Ordered Problem List Condition Confirmation Course [...] TB tx. 2Pt referred by Dr. Witt-- [facility]. Pt did not keep sched appt. Case closed. Social History Social History Type Response Smoking Status Never smoker entered on: 11/23/14 Sex Patient Care team information Care Team Personnel Name: Socorro Kingston MD, I Position: [facility] Primary Care Physician Member Role: PCP Address: Address: [address] [place] [id number]- Name: Kimber Mcclain RN Position: [facility] RN Member Role: Primary Care Nurse Care Team Related Persons Name: JANETDENYS STEWART Address: [address] [place] [address] Name: EMILIANO YEH Address: [address] [place] [address]
--- OUTSIDE RECORDS SUMMARY | 2024-07-13 10:02 | XMS_ITS | Continuity of Care Document ---
Author Organization [facility] Address [address] [place] [id number]- Care Team Providers Care Oil Field Operator Name Role Phone Thee MCCULLOUGH, Socorro Davidson Primary Care Physician Encounter [facility] Date(s): 10/26/20 - 10/28/[address] [address] Discharge Disposition: A-D/C Home Attending Physician: Tarah Vang MD Admitting Physician: Curt Connors MD Referring Physician: Not on Staff, Referring MD Allergies, Adverse Reactions, Alerts Substance Reaction [...] shift given with pros and cons Medications acetaminophen 325 mg oral tablet 650 mg, 2, tablet, By Mouth, Every 4 hours, PRN, mild pain, # 90 tablet, Refills 0, Tot. Refills 0,Maintenance, Headache, 10/28/20 12:38:00 EDT, Route to Pharmacy Electronically, [facility], Partial fill upon patient request if the pres... Start Date: 10/28/20 Status: Ordered cholecalciferol 1000 intl units oral capsule 1 capsule = 1,000 International_Units, By Mouth, Daily, # 75 capsule, 0 Refills, Maintenance, 06/21/20 11:57:00 EST, Capsule, [facility] #[id number], 163, cm, 06/21/20 11:12:00 EST, Height, 89.3, kg, 10/21/18 22:10:00 EST, Dry Weight Start Date: 06/21/20 Status: Ordered diclofenac sodium 25 mg oral delayed release tablet 1 tablet = 25 mg, By Mouth, 3 times a day, PRN Pain. Nicaraguan sig. Discontinue Ibuprofen, # 90 tablet, 1 Refills, Maintenance, 05/21/20 15:40:00 EDT, EC Tablet, [facility] #[id number], 163, cm, 05/21/20 15:18:00 EDT, Height, 89.3, kg, 10/21/18 22:... Start Date: 05/21/20 Status: Ordered FLUoxetine 40 mg oral capsule 1 capsule = 40 mg, By Mouth, Daily, # 30 capsule, 0 Refills, Maintenance, 05/13/20 3:32:00 EDT, Capsule Start Date: 05/13/20 Status: Ordered hydrOXYzine hydrochloride 25 mg oral tablet 1 tablet = 25 mg, By Mouth, 2 times a day, take only if needed, prn anxiety, # 60 tablet, 3 Refills, Maintenance, 08/15/20 12:06:00 EST, [facility] #[id number], 163, cm, 07/16/20 16:12:00 EST, Height, 89.3, kg, 10/21/18 22:10:00 EST, Dry Weight Start Date: 08/15/20 Status: Ordered meclizine 25 mg oral tablet 1 tablet = 25 mg, By Mouth, 3 times a day, PRN Motion Sickness, # 90 tablet, 0 Refills, Maintenance, 10/28/20 12:37:00 EDT, Tablet, [facility], Partial fill upon patient request if the prescription is for a schedule II opioid drug., 167.... Start Date: 10/28/20 Status: Ordered omeprazole 20 mg oral enteric coated capsule 1 capsule = 20 mg, By Mouth, Daily, if needed for heartburn, # 90 capsule, 1 Refills, Maintenance, 08/15/20 12:07:00 EST, CR Capsule, [facility] #[id number], Partial fill upon patient request ifthe prescription is for a schedule II opioid drug.,... Start Date: 08/15/20 Status: Ordered Ondansetron = 4 mg, By Mouth, Every 8 hours, PRN Nausea & Vomiting, 0 Refills, Maintenance, 10/27/20 18:10:00 EST, Partial fill upon patient request if the prescription is for a schedule II opioid drug. Start Date: 10/27/20 Status: Ordered propranolol 60 mg oral capsule, extended release 60 mg, 1, capsule, By Mouth, Daily, Refills 0, Maintenance, 10/27/20 18:12:00 EST, Partial fill upon patient request if the prescription is for a schedule II opioid drug. Start Date: 10/27/20 Status: Ordered walker with wheel walker with wheel, See Instructions, # 1 each, Refills 0, Tot. Refills 0, Maintenance, walker with wheel Diagnosis : fall, pain, to assist ADLs, 05/14/20 10:36:00 EDT, Supply Start Date: 05/14/20 Status: Ordered Problem List Condition Effective Dates Status Health Status Inform ant Cough(Confirmed) Active Consumption coagulopathy(Confirmed) Active Dyspnea- nl spirometry, bron chial challenge neg- ? anxiety(Confirmed) Active Postprandial epigastric pain(Confirmed) Active Acid reflux disease(Confirmed) Active Heartburn(Confirmed) Active Heliobacterium(Confirmed) Active Hernia, inguinal, left(Confirmed) Active Mediastinal mass(Confirmed) Active Neutropenia(Confirmed) Active Care Coordination [facility] N kiara Ahuja [id number](Confirmed) Active Well woman exam with routine gynecological exam(Confirmed) Active 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 No TB tx. 2Pt referred by Dr. Witt-- [facility]. Pt did not keep sched appt. Case closed. Vital Signs Most recent to oldest [Reference Range]: 1 2 3 Height 167.4 cm (10/28/20 4:15 PM) 167.4 cm (10/28/20 11:05 AM) 167.4 cm (10/28/20 8:22 AM) Weight 89.4 kg (10/27/20 2:42 PM) Oxygen Saturation [94-100 %] 100 % (10/28/20 4:15 PM) 97 % (10/28/20 11:05 AM) 97 % (10/28/20 8:22 AM) Pulse Rate [55-90 bpm] 66 bpm (10/28/20 4:15 PM) 91 bpm *H* (10/28/20 11:05 AM) 68 bpm (10/28/20 8:22 AM) Body Mass Index [18.5-24.99] 31.9 *>HHI* (10/27/20 2:42 PM) Blood Pressure [90-138/55-84 mm Hg] 135/75mm Hg (10/28/20 4:15 PM) 125/79mm Hg (10/28/20 11:05 AM) 112/75mm Hg (10/28/20 4:33 AM) Respiratory Rate [16-30 br/min] 16 br/min (10/28/20 4:15 PM) 18 br/min (10/28/20 11:05 AM) 18 br/min (10/28/20 8:22 AM) Temperature [96.8-100.4 DegF] 96.6 DegF *L* (10/28/20 4:15 PM) 96.7 DegF *L* (10/28/20 11:05 AM) 96.6 DegF *L* (10/28/20 8:22 AM) Mode of Delivery (Oxygen) Room air (10/28/20 4:15 PM) Room air (10/28/20 11:05 AM) Room air (10/28/20 8:22 AM) Blood pressure sites Arm, left (10/28/20 4:15 PM) Arm, left (10/28/20 11:05 AM) Arm, left (10/28/20 4:33 AM) Temperature Route Temporal (10/28/20 4:15 PM) Temporal (10/28/20 11:05 AM) Temporal (10/28/20 8:22 AM) Dry Weight 89.4 kg (10/27/20 2:42 PM) Weight Obtained Via Standing scale (10/27/20 2:42 PM) Social History Social History Type Response Smoking Status Never smoker entered on: 11/23/14 Sex
--- OUTSIDE RECORDS SUMMARY | 2024-07-13 10:02 | XMS_ITS | Continuity of Care Document ---
Author Organization [facility] Address [address] [place] [address]- Care Team Providers Care Structural Drafter Name Role Phone Omar MCCULLOUGH, Yoanna Primary Care Physician Encounter [facility] Date(s): 10/26/23 - 11/25/[address] [address]- Allergies, Adverse Reactions, Alerts Substance Reaction Severity [...] tablet, 1 Refills, Maintenance, 11/10/23 5:27:00 EDT, [facility][id number], 167, cm, 10/01/23 14:12:00 EST, Height, 86, [...] tablet, 5 Refills, Maintenance, 08/24/23 14:36:00 EST, [facility] #[id number], Partial fill upon patient request if the prescription... Start Date: 08/24/23 Stop Date: 02/20/24 Status: Ordered Colace sodium 100 mg oral capsule 100 mg, 1, capsule, By Mouth, 2 times a day, PRN, # 100 capsule, Refills 3, Tot. Refills 3, Maintenance, for constipation, 12/31/22 19:35:00 EDT, Route to Pharmacy Electronically, [facility] #[id number], Partial fill upon patient request if the p... Start Date: 12/31/22 Status: Ordered Eucerin Daily Hydration topical lotion 1 application, Topically, 4 times a day, # 600 mL, 5 Refills, Maintenance, 09/01/23 16:25:00 EST, [facility] #[id number], Partial fill upon patient request if the [...] Refills, Maintenance, 07/14/22 12:22:00 EST, REC Powder, [facility] #[id number], Partial fill upon patient request if the prescription is for a schedule II o... Start Date: 07/14/22 Status: Ordered MiraLax oral powder for reconstitution = 17 Gm, By Mouth, Daily, dissolve in water before taking, # 255 Gm, 2 Refills, Acute 12/16/23 19:36:00 EDT, 12/31/22 19:35:00 EDT, REC Powder, [facility] #[id number], Partial fill upon patient request if the prescription is for a schedule II opi... Start Date: 12/31/22 Stop Date: 12/16/23 Status: Ordered naproxen 500 mg oral delayed release tablet See Instructions, TAKE 1 TABLET BY MOUTH TWICE DAILY TAKE WITH FOOD ONLY NEEDED FOR LOWER BACK PAIN. TRY NOT TO TAKE DAILY, # 50 tablet, 2 Refills, Maintenance, 10/29/22 15:56:00 EDT, [facility] #[id number], 166, cm, 10/16/22 10:45:00 EST, Hei... Start Date: 10/29/22 Status: Ordered NuLYTELY with Flavor Packs oral powder for reconstitution See Instructions, per GI office, # 4,000 mL, 0 Refills, Maintenance, 07/02/22 12:28:00 EST, [facility] #[id number], Partial fill upon patient request if the prescription is for a schedule II opioid drug., per GI office, 166, cm, 06/05/22 16:18:00... Start Date: 07/02/22 Status: Ordered omeprazole 20 mg oral enteric coated capsule See Instructions, take 1 tablet by mouth 2 times a day, # 60 tablet, 2 Refills, Maintenance, 06/12/22 13:44:00 EDT, [facility] #[id number], Rx in Austrian, 166, cm, 06/05/22 16:18:00 EDT, Height,87, kg, [...] 5 Refills, Maintenance, 06/15/23 11:00:00 EDT, Tablet, [facility][id number], Partial fill upon patient request if the prescription is for a schedule II opioid drug., 168,... Start Date: 06/15/23 Stop Date: 12/12/23 Status: Ordered SUMAtriptan 25 mg oral tablet 1 tablet = 25 mg, By Mouth, Daily, PRN as needed for migraine headache, may repeat dose in 2 hours if needed; in yakut do not use more than 2-3 x [...] TB tx. 2Pt referred by Dr. Witt-- [facility]. Pt did not keep sched appt. Case closed. Social History Social History Type Response Smoking Status Never smoker entered on: 11/23/14 Sex Patient Care team information Care Team Personnel Name: Kimber Mcclain RN Position: [facility] RN Member Role: Primary Care Nurse Name: Yoanna Nelson MD Position: [facility] Physician - Primary Care Member Role: PCP Address: Address: [address] [place] [address]- [place] Care Team Related Persons Name: DENYS GONZALES Address: [address] [place] [address] Name: EMILIANO YEH Address: [address] [place] [address]
--- OUTSIDE RECORDS SUMMARY | 2024-07-13 10:02 | XMS_ITS | Continuity of Care Document ---
Author Organization [facility] Address [address] [place] [address]- Care Team Providers Care Industrial Design Intern Name Role Phone Thee MCCULLOUGH, Socorro Davidson Primary Care Physician [phone] Encounter [facility] Date(s): 10/30/20 - 11/29/[address] [address]- Allergies, Adverse Reactions, Alerts Substance Reaction Severity [...] 10/28/20 12:38:00 EDT, Route to Pharmacy Electronically, [facility], Partial fill upon patient request if the pres... Start Date: 10/28/20 Status: Ordered cholecalciferol 1000 intl units oral capsule 1 capsule = 1,000 International_Units, By Mouth, Daily, # 75 capsule, 0 Refills, Maintenance, 06/21/20 11:57:00 EST, Capsule, [facility] #[id number], 163, cm, 06/21/20 11:12:00 EST, Height, 89.3, kg, 10/21/18 22:10:00 EST, Dry Weight Start Date: 06/21/20 Status: Ordered diclofenac sodium 25 mg oral delayed release tablet 1 tablet = 25 mg, By Mouth, 3 times a day, PRN Pain. Chilean sig. Discontinue Ibuprofen, # 90 tablet, 1 Refills, Maintenance, 05/21/20 15:40:00 EDT, EC Tablet, [facility] #[id number], 163, cm, 05/21/20 15:18:00 EDT, Height, 89.3, [...] tablet, 3 Refills, Maintenance, 08/15/20 12:06:00 EST, [facility] #[id number], 163, cm, 07/16/20 16:12:00 EST, Height, 89.3, kg, 10/21/18 22:10:00 EST, Dry Weight Start Date: 08/15/20 Status: Ordered meclizine 25 mg oral tablet 1 tablet = 25 mg, By Mouth, 3 times a day, PRN Motion Sickness, # 90 tablet, 0 Refills, Maintenance, 10/28/20 12:37:00 EDT, Tablet, [facility], Partial fill upon patient request if the prescription is for a schedule II opioid drug., 167.... Start Date: 10/28/20 Status: Ordered omeprazole 20 mg oral enteric coated capsule 1 capsule = 20 mg, By Mouth, Daily, if needed for heartburn, # 90 capsule, 1 Refills, Maintenance, 08/15/20 12:07:00 EST, CR Capsule, [facility] #[id number], Partial fill upon patient request ifthe prescription [...]
--- OUTSIDE RECORDS SUMMARY | 2024-07-13 10:02 | XMS_ITS | Continuity of Care Document ---
Author Organization [facility] Address [address] [place] [address] [address] [place] [address]- Care Team Providers Care Airplane Inspector Name Role Phone Yoanna Nelson MD Primary Care Physician [phone] Encounter [facility] Date(s): 03/27/23 - 04/03/[address] [place] [address]- Attending Physician: Nabil Lau MD Referring Physician: Yoanna Nelson MD Allergies, Adverse Reactions, Alerts Substance Reaction [...] vis 6Admin Note: vis 7Admin Note: vis 6/10/94 Medications amLODIPine 5 mg oral tablet 1 tablet, By Mouth, Daily, # 90 tablet, 3 Refills, Maintenance, 05/04/22 13:25:00 EDT, [facility] #[id number], 166, cm, 03/17/22 10:16:00 EDT, Height, 92.6, [...] tablet, 3 Refills, Maintenance, 10/24/22 13:37:00 EST, [facility] #[id number], Partial fill upon patient request if the prescription... Start Date: 10/24/22 Status: Ordered Colace sodium 100 mg oral capsule 100 mg, 1, capsule, By Mouth, 2 times a day, PRN, # 100 capsule, Refills 3, Tot. Refills 3, Maintenance, for constipation, 12/31/22 19:35:00 EDT, Route to Pharmacy Electronically, [facility] #[id number], Partial fill upon patient request if the [...] Refills, Maintenance, 07/14/22 12:22:00 EST, REC Powder, [facility] #[id number], Partial fill upon patient request if the prescription is for a schedule II o... Start Date: 07/14/22 Status: Ordered MiraLax oral powder for reconstitution = 17 Gm, By Mouth, Daily, dissolve in water before taking, # 255 Gm, 2 Refills, Acute 12/16/23 19:36:00 EDT, 12/31/22 19:35:00 EDT, REC Powder, [facility] #[id number], Partial fill upon patient request if the prescription is for a schedule II opi... Start Date: 12/31/22 Stop Date: 12/16/23 Status: Ordered naproxen 500 mg oral delayed release tablet See Instructions, TAKE 1 TABLET BY MOUTH TWICE DAILY TAKE WITH FOOD ONLY NEEDED FOR LOWER BACK PAIN. TRY NOT TO TAKE DAILY, # 50 tablet, 2 Refills, Maintenance, 10/29/22 15:56:00 EDT, [facility] #[id number], 166, cm, 10/16/22 10:45:00 EST, Hei... Start Date: 10/29/22 Status: Ordered NuLYTELY with Flavor Packs oral powder for reconstitution See Instructions, per GI office, # 4,000 mL, 0 Refills, Maintenance, 07/02/22 12:28:00 EST, [facility] #[id number], Partial fill upon patient request if the prescription is for a schedule II opioid drug., per GI office, 166, cm, 06/05/22 16:18:00... Start Date: 07/02/22 Status: Ordered omeprazole 20 mg oral enteric coated capsule See Instructions, take 1 tablet by mouth 2 times a day, # 60 tablet, 2 Refills, Maintenance, 06/12/22 13:44:00 EDT, [facility] #[id number], Rx in Tajik, 166, cm, 06/05/22 16:18:00 EDT, Height,87, kg, 06/05/22 16:18:00 EDT, Dry Weight Start Date: 06/12/22 Status: Ordered riboflavin 100 mg oral tablet 2 TABS, By Mouth, 2 times a day, for headaches, # 60 tablet, 5 Refills, Maintenance, 08/04/22 8:40:00 EST, Tablet, [facility] #[id number], Partial fill upon patient request if the prescription is for a schedule II opioid drug., 166, cm, 08/04/22... Start Date: 08/04/22 Stop Date: 01/31/23 Status: Ordered SUMAtriptan 25 mg oral tablet 1 tablet = 25 mg, By Mouth, Daily, PRN as needed for migraine headache, may repeat dose in 2 hours if needed; in czech do not use more than 2-3 x [...] TB tx. 2Pt referred by Dr. Witt-- [facility]. Pt did not keep sched appt. Case closed. Vital Signs Most recent to oldest [Reference Range]: 1 Height 168 cm (03/27/23 1:30 PM) Weight 90.5 kg (03/27/23 1:30 PM) Pulse Rate [55-90 bpm] 80 bpm (03/27/23 1:30 PM) Body Mass Index [18.5-24.99 kg/m2] 32.06 kg/m2 *>HHI* (03/27/23 1:30 PM) Blood Pressure [90-138/55-84 mm Hg] 121/ 77mm Hg (03/27/23 1:30 PM) Temperature [96.8-100.4 DegF] 98.8 DegF (03/27/23 1:30 PM) Temperature Route Temporal (03/27/23 1:30 PM) Social History Social History Type Response Smoking Status Never smoker entered on: 11/23/14 Sex Patient Care team information Care Team Personnel Name: Kimber Mcclain RN Position: [facility] RN Member Role: Primary Care Nurse Name: Yoanna Nelson MD Position: [facility] Physician - Primary Care Member Role: PCP Address: Address: [address] [place] [address]- [place] Care Team Related Persons Name: DENYS GONZALES Address: [address] [address] Name: EMILIANO YEH Address: [place] [address]
--- OUTSIDE RECORDS SUMMARY | 2024-07-13 10:02 | XMS_ITS | Continuity of Care Document ---
Author Organization [facility] ter Address [address] [place] [address]- Care Team Providers Care Erp Manager Name Role Phone Yoanna Nelson MD Primary Care Physician Encounter [facility] Date(s): 12/03/23 - 12/04/[address] [address]- Encounter Diagnosis Cholelithiasis(Final) - 12/04/23 Nausea(Final) - 12/04/23 Discharge Disposition: A-D/C Home Attending Physician: Buffy Mcmillan DO Admitting Physician: Buffy Mcmillan DO Referring Physician: Not on Staff, Referring MD [...] tablet, 1 Refills, Maintenance, 11/10/23 5:27:00 EDT, [facility] #[id number], 167, cm, 10/01/23 14:12:00 EST, Height, 86, [...] tablet, 5 Refills, Maintenance, 08/24/23 14:36:00 EST, [facility] #[id number], Partial fill upon patient request if the prescription... Start Date: 08/24/23 Stop Date: 02/20/24 Status: Ordered Colace sodium 100 mg oral capsule 100 mg, 1, capsule, By Mouth, 2 times a day, PRN, # 100 capsule, Refills 3, Tot. Refills 3, Maintenance, for constipation, 12/31/22 19:35:00 EDT, Route to Pharmacy Electronically, [facility] #[id number], Partial fill upon patient request if the p... Start Date: 12/31/22 Status: Ordered Eucerin Daily Hydration topical lotion 1 application, Topically, 4 times a day, # 600 mL, 5 Refills, Maintenance, 09/01/23 16:25:00 EST, [facility] #[id number], Partial fill upon patient request if the [...] Refills, Maintenance, 07/14/22 12:22:00 EST, REC Powder, [facility] #[id number], Partial fill upon patient request if the prescription is for a schedule II o... Start Date: 07/14/22 Status: Ordered MiraLax oral powder for reconstitution = 17 Gm, By Mouth, Daily, dissolve in water before taking, # 255 Gm, 2 Refills, Acute 12/16/23 19:36:00 EDT, 12/31/22 19:35:00 EDT, REC Powder, [facility] #[id number], Partial fill upon patient request if the prescription is for a schedule II opi... Start Date: 12/31/22 Stop Date: 12/16/23 Status: Ordered MorPHINE Inj 4 mg, Injection, IV Push Slowly, Every 5 minutes for 3 doses/times, PRN for Pain , Moderate, and SBP greater than 100, Routine, 12/04/23 6:36:00 EDT, Stop date Limited # of times Start Date: 12/04/23 Stop Date: 12/04/23 Status: Discontinued naproxen 500 mg oral delayed release tablet See Instructions, TAKE 1 TABLET BY MOUTH TWICE DAILY TAKE WITH FOOD ONLY NEEDED FOR LOWER BACK PAIN. TRY NOT TO TAKE DAILY, # 50 tablet, 2 Refills, Maintenance, 10/29/22 15:56:00 EDT, [facility] #[id number], 166, cm, 10/16/22 10:45:00 EST, Hei... Start Date: 10/29/22 Status: Ordered NuLYTELY with Flavor Packs oral powder for reconstitution See Instructions, per GI office, # 4,000 mL, 0 Refills, Maintenance, 07/02/22 12:28:00 EST, [facility] #[id number], Partial fill upon patient request if the prescription is for a schedule II opioid drug., per GI office, 166, cm, 06/05/22 16:18:00... Start Date: 07/02/22 Status: Ordered omeprazole 20 mg oral enteric coated capsule See Instructions, take 1 tablet by mouth 2 times a day, # 60 tablet, 2 Refills, Maintenance, 06/12/22 13:44:00 EDT, [facility] #[id number], Rx in Mosotho, 166, cm, 06/05/22 16:18:00 EDT, Height,87, kg, 06/05/22 16:18:00 EDT, Dry Weight Start Date: 06/12/22 Status: Ordered orthopedic mattress orthopedic mattress, See Instructions, # 1 each, Refills 0, Tot. Refills 0, Maintenance, dx: chronic low back pain ICD10: M54.5 duration: 99, 09/17/23 12:04:00 EST, Supply Start Date: 09/17/23 Status: Ordered orthopedic mattress size joaquin orthopedic mattress size , See Instructions, # [...] 5 Refills, Maintenance, 06/15/23 11:00:00 EDT, Tablet, [facility] #[id number], Partial fill upon patient request if the prescription is for a schedule II opioid drug., 168,... Start Date: 06/15/23 Stop Date: 12/12/23 Status: Ordered SUMAtriptan 25 mg oral tablet 1 tablet = 25 mg, By Mouth, Daily, PRN as needed for migraine headache, may repeat dose in 2 hours if needed; in french do not use more than 2-3 x [...] did not keep sched appt. Case closed. Results Radiology Reports * Exam Date Time Procedure Performing Provider Status 12/04/23 5:47 AM US RUQ Serroby , Norma; Auth (V erified) Notes: (US RUQ) Reason For Exam: Abdominal Pain;Other: RESULT: US RUQ US RUQ Hx of Present Illness: known PMH of without acute cholecystitis.(referred for surgery but declined ) reports 3 days of rt UQ pain rad to back, increased w food intake, + nausea, no fevers, chest symptoms; Reason: Other:; Abdominal Pain; Clinical Question(s): Cholecystitis COMPARISON: 09/15/2022. FINDINGS: Liver: Normal in size and echotexture. No focal lesion. Mildly nodular hepatic contour. Main portalvein patent with normal hepatopetal direction of flow. Gallbladder: Gallbladder is filled with gallstones yielding a [id number]-[id number]-[id number] complex. Normal wallthickness. No pericholecystic fluid. Negative Marks sign. Biliary Tree: No intrahepatic or extrahepatic bile duct dilation is identified. Common duct measures: 0.3 cm. Pancreas: Obscured by overlying bowel gas. Right kidney: 8.8 cm in length. Normal parenchymal echotexture and thickness. No hydronephrosis, stone or mass. IMPRESSION: The gallbladder is filled with stones yielding a [id number]-[id number] complex, no sonographic evidence for acute cholecystitis. I have personally reviewed the images and I agree with this report. WSN: [id number] Ordering Physician: Linda Frausto Dictated By: Braulio[Radiology] Tatyana MCCULLOUGH Dictated Date/Time: 12/04/23 6:47 am Reviewed By: Cameron Oates MD Signed By: Cameron Oates MD Signed Date/Time: 12/04/23 6:52 am Transcribed By: ANGIE Transcribed Date/Time: 12/04/23 6:37 am Vital Signs Most recent to oldest [Reference Range]: 1 2 3 Height 165 cm (12/04/23 6:29 AM) 165 cm (12/04/23 2:27 AM) 165 cm (12/03/23 11:07 PM) Weight 91.5 kg (12/04/23 6:29 AM) 91.5 kg (12/04/23 2:27 AM) 91.5 kg (12/03/23 11:07 PM) Oxygen Saturation [94-100 %] 99 % (12/04/23 9:10 AM) 98 % (12/04/23 7:32 AM) 99 % (12/04/23 6:29 AM) Pulse Rate [55-90 bpm] 65 bpm (12/04/23 9:10 AM) 61 bpm (12/04/23 7:32 AM) 61 bpm (12/04/23 6:29 AM) Body Mass Index [18.5-24.99 kg/m2] 33.61 kg/m2 *>HHI* (12/04/23 6:29 AM) 33.61 kg/m2 *>HHI* (12/04/23 2:27 AM) 33.61 kg/m2 *>HHI* (12/03/23 11:07 PM) Blood Pressure [90-138/55-84 mm Hg] 122/72mm Hg (12/04/23 9:10 AM) 126/80mm Hg (12/04/23 7:32 AM) 142/76mm Hg *H* (12/04/23 6:29 AM) Respiratory Rate [16-30 br/min] 16 br/min (12/04/23 9:10 AM) 16 br/min (12/04/23 7:36 AM) 16 br/min (12/04/23 7:32 AM) Temperature [96.8-100.4 DegF] 97.7 DegF (12/04/23 7:32 AM) 97.6 DegF (12/04/23 6:29 AM) 98.7 DegF (12/04/23 2:27 AM) Mode of Delivery (Oxygen) Room air (12/04/23 9:10 AM) Room air (12/04/23 7:32 AM) Room air (12/04/23 6:29 AM) Blood pressure sites Arm, right (12/04/23 9:10 AM) Arm, right (12/04/23 7:32 AM) Arm, right (12/04/23 6:29 AM) Temperature Route Oral (12/04/23 7:32 AM) Oral (12/04/23 6:29 AM) Oral (12/04/23 2:27 AM) Dry Weight 91.5 kg (12/04/23 6:29 AM) 91.5 kg (12/04/23 2:27 AM) 91.5 kg (12/03/23 11:07 PM) Social History Social History Type Response Smoking Status Never smoker entered on: 11/23/14 Sex History and physical note * Joseph Tan MD: PERFORM Event Display: History and Physical Hospital Authored Date: [id number] Patient: ??JUNE COHEN ? Age:??63 Years?Sex:??Female?:??1960?? Chief Complaint Abdominal pain and nausea History of Present Illness Patient is a 63-year-old woman with past medical history significant for prediabetes, obesity,??previous H. pylori status posttreatment, GERD??and latent tuberculosis??who presents today??for???19 with??a month of??colicky abdominal pain. ?? Patient says that over the last month while she has been having pain particularly after eating meals.?? She says that she has been taking pantoprazole which is a medication she was previously prescribed but it has not been helping.?? She says that the pain??will resolve between episodes and is??mainly focused in the right upper quadrant and epigastric area.?? She endorses??over the last 24 hours a more significant episode of pain that then resolved??right after arriving to the emergency department.?? She endorses some nausea but no vomiting and has been tolerating p.o. he also endorsed some di arrhea although it sounds as though she had been given??stool softeners in the outpatient setting as she has chronic constipation. ?? On arrival to the emergency department patient was stable, afebrile.?? Biochemical workup revealed no leukocytosis??no??abnormalities of electrolytes BUN and creatinine.?? LFTs all within normal range including AST ALT lipase and bilirubin. ??Patient had a right upper quadrant ultrasound that dem onstrated??large stone burden but no evidence of acute cholecystitis and a normal CBD size. Physical Exam Vitals & Measurements T:??97.7?F?? HR:??61??(Peripheral)?? RR:??16?? BP:??126/80?? SpO2:??98%?? HT:??165??cm?? WT:??91.5??kg?? BMI:??33.61?? General: No acute distress Head: Atraumatic, normocephalic ENT: Clear CV: Regular rate and rhythm Pulmonary: Even and unlabored breathing, no wheezing Abdomen: Abdomen was soft nondistended with tenderness to palpation in the right upper quadrant??and epigastric area Marks's negative Extremities: Demonstrates intact active range of motion Neuro: Appropriate, oriented, cooperative Assessment/Plan Patient is a 63-year-old woman with past medical history significant for prediabetes, obesity,??previous H. pylori status posttreatment, GERD??and latent tuberculosis??with past surgical history significant for bilateral inguinal hernia repairs who presents today??for???19 with??a month of??colickyabdominal pain and a right upper quadrant ultrasound??showing cholelithiasis. ?? Patient's symptomatology is??consistent with??symptomatic cholelithiasis. ??She has no evidence of biochemically??or radiographically of acute cholecystitis.?? She has no biochemical or radiographic evidence of choledocholithiasis.?? Patient's daughter who normally aids her is out of town??and rather than being admitted to the hospital??she would prefer to go home and??come back for elective cholecystectomy. ?? Plan Patient can be discharged from the emergency department as long as she is able to tolerate fluids Our office will reach out to the patient regarding elective??surgery time Patient is not on any blood thinners Our??office is number has been provided in the discharge workflow if she has concerns before her scheduled surgery.?? Please advise the patient to maintain low-fat diet??before surgery ?? ACS surgery??[id number] This plan was discussed with Dr. Peter ?? Problem List/Past Medical History Ongoing Acid reflux disease Consumption coagulopathy Cough Dyspnea- nl spirometry, bronchial challenge neg- ? anxiety Heartburn Heliobacterium Hernia, inguinal, left Hypercholesterolemia Mediastinal mass Neutropenia Obese class I Positive PPD- 26mm 12/27/2007, neg CXR Postprandial epigastric pain Prediabetes PTSD -Son was Killed in 2006 Tuberculosis- latent normal cxr 09/2011 Well woman exam with routine gynecological exam Procedure/Surgical History Upper gastrointestinal endoscopy including esophagus, stomach, and either the duodenum and/or jejunum as appropriate; diagnostic, with or without collection of specimen(s) by brushing or washing (separate procedure): 07/16/16 Left inguinal hernia- repaired: 05/31/15 EGD: 05/02/13 Colonoscopy- nl, but rpt in 2017 due to FHx: 03/02/12 Repair right inguinal hernia: 2005 Tubal Ligation: 1998 Home Medications Amlodipine: 1 tablet, By Mouth, Daily Aripiprazole: TAKE 1 TABLET BY MOUTH EVERY DAY Calcium And Vitamin D Combination: 1 tablet, By Mouth, 2 times a day, take with food as a supplement for calcium and vitamin D for osteopenia. Docusate: 100 mg = 1 capsule, By Mouth, 2 times a day, PRN (for constipation) Durable Medical Equipment (orthopedic mattress size [place]): See Instructions, for help with mobilitydx: debility, frequent falls, low back [id number]: R53.81, Durable Medical Equipment (orthopedic mattress): See Instructions, dx: chronic low back [id number]: M54.5duration: 99 Emollients, Topical: 1 application, Topically, 4 times a day Fluoxetine: TAKE 1 CAPSULE BY MOUTH EVERY MORNING HydrOXYzine: TAKE 1 CAPSULE BY MOUTH THREE TIMES DAILY NEEDED FOR ANXIETY OR SLEEP Naproxen: See Instructions, TAKE 1 TABLET BY MOUTH TWICE DAILY TAKE WITH FOOD ONLY NEEDED FOR LOWER BACK PAIN. TRY NOT TO TAKE DAILY Omeprazole: See Instructions, take 1 tablet by mouth 2 times a day PEG Electrolyte Solution: See Instructions, per GI office Polyethylene Glycol 3350: 17 Gm, By Mouth, Daily, PRN (Constipation), dissolve in water before taking Polyethylene Glycol 3350: 17 Gm, By Mouth, Daily, dissolve in water before taking Riboflavin: 200 mg = 2 tablet, By Mouth, 2 times a day, for headaches Sumatriptan: 25 mg = 1 tablet, By Mouth, Daily, PRN (as needed for migraine headache), may repeat dose in 2 hours if needed; in spanishdo not use more than 2-3 x in a week to abort migraine. disp 9 tab every 30 days. Allergies gabapentin??(numbness of tongue) Social History Alcohol Use: Past. Frequency: 1-2 times per month. Electronic Cigarette/Vaping Electronic Cigarette Use: Never. Employment/School Status: Disabled. Home/Environment Living situation: Home/Independent. Lives with: Children. Substance Abuse Use: Never. Tobacco Never smoker Family History Mother: CAD - Coronary artery disease; Hypertension Father: CAD - Coronary artery disease; Hypertension Lab Results Labs Last 24 Hours BLOOD COUNT & DIFF ? Event Name?? Event Result?? Date/Time?? WBC 5.3 k/mm3 12/03/23 23:47:00 RBC 4.26 m/mm3 12/03/23 23:47:00 Hgb 12.3 Gm/dL 12/03/23 23:47:00 Hct 36.7 % 12/03/23 23:47:00 MCV 86.2 femtoliters 12/03/23 23:47:00 MCH 28.9 pg 12/03/23 23:47:00 MCHC 33.5 g/dL 12/03/23 23:47:00 Platelet Count 315 k/mm3 12/03/23 23:47:00 MPV 9.8 femtoliters 12/03/23 23:47:00 Nucleated RBC (Automated) 0 #/100 WBC'S 12/03/23 23:47:00 ? CHEM GENERAL ? Event Name?? Event Result?? Date/Time?? Sodium 143 mmol/L 12/03/23 23:47:00 Chloride 107 mmol/L 12/03/23 23:47:00 Bicarbonate Level 25 mmol/L 12/03/23 23:47:00 Anion Gap 11 12/03/23 23:47:00 Glucose Level 107 mg/dL??High 12/03/23 23:47:00 BUN 11 mg/dL 12/03/23 23:47:00 Creatinine-Blood 0.9 mg/dL 12/03/23 23:47:00 Alkaline Phosphatase 138 units/L??High 12/03/23 23:47:00 Lipase 41 units/L 12/03/23 23:47:00 AST (SGOT) 17 units/L 12/03/23 23:47:00 ALT (SGPT) 9 units/L 12/03/23 23:47:00 Bilirubin, Total 0.3 mg/dL 12/03/23 23:47:00 ? * Juvenal Peter MD: PERFORM Event Display: History and Physical Hospital Authored Date: I have seen and examined the patient, the above note summarizes my encounter on the recorded date EKG study * Event Display: EKG Authored Date: * Event Display: ECG 12-Lead Authored Date: Please click on pdf link to open report * Event Display: ECG 12-Lead Authored Date: Ventricular Rate: 61 BPM Atrial Rate: 61 BPM P-R Interval: 168 ms QRS Duration: 74 ms Q-T Interval: 408 ms QTC Calculation(Bazett): 410 ms P [place]: 22 degrees R [place]: 23 degrees T [place]: 19 degrees Normal sinus rhythm Normal ECG When compared with ECG of 26-APR-2021 04:14, No significant change was found Confirmed by Bolivar Soriano ([id number]) on 12/04/2023 7:56:34 AM Mart: Bolivar Soriano Patient Care team information Care Team Personnel Name: Kimber Mcclain RN Position: [facility] RN Member Role: Primary Care Nurse Name: Yoanna Nelson MD Position: [facility] Physician - Primary Care Member Role: PCP Address: Address: [address] [place] [address]- Care Team Related Persons Name: DENYS GONZALES Address: [address] [place] [address] Name: EMILIANO YEH Address: home [address] [place] [address]
--- OUTSIDE RECORDS SUMMARY | 2024-07-13 10:02 | XMS_ITS | Continuity of Care Document ---
Author Organization [facility] Address [address] [place] [address]- Care Team Providers Care Barometers Calibrator Name Role Phone Socorro Kingston MD, I Primary Care Physician [phone] Encounter [facility] ACCT R [id number] Date(s): 01/01/21 - 01/31/[address] [address]- Attending Physician: Eliane Stout Admitting Physician: AdmEliane saldana Referring Physician: AdmtrEliane Allergies, Adverse Reactions, Alerts Substance Reaction Severity [...] Note: vis 03/26/10 4Admin Note: VIS GIVEN 1/15/03 5Admin Note: vis 6Admin Note: vis 7Admin Note: vis 01/24/94 8Result Comment: after med shift given with pros and cons Medications acetaminophen 325 mg oral tablet 650 mg, 2, tablet, By Mouth, Every 4 hours, PRN, mild pain, # 90 tablet, Refills 0, Tot. Refills 0,Maintenance, Headache, 10/28/20 12:38:00 EDT, Route to Pharmacy Electronically, [facility], Partial fill upon patient request if the pres... Start Date: 10/28/20 Status: Ordered cholecalciferol 1000 intl units oral capsule 1 capsule = 1,000 International_Units, By Mouth, Daily, # 75 capsule, 0 Refills, Maintenance, 06/21/20 11:57:00 EST, Capsule, [facility] #[id number], 163, cm, 06/21/20 11:12:00 EST, Height, 89.3, kg, 10/21/18 22:10:00 EST, Dry Weight Start Date: 06/21/20 Status: Ordered diclofenac sodium 25 mg oral delayed release tablet 1 tablet = 25 mg, By Mouth, 3 times a day, PRN Pain. Tanzanian sig. Discontinue Ibuprofen, # 90 tablet, 1 Refills, Maintenance, 05/21/20 15:40:00 EDT, EC Tablet, [facility] #[id number], 163, cm, 05/21/20 15:18:00 EDT, Height, 89.3, [...] tablet, 3 Refills, Maintenance, 08/15/20 12:06:00 EST, [facility] #[id number], 163, cm, 07/16/20 16:12:00 EST, Height, 89.3, kg, 10/21/18 22:10:00 EST, Dry Weight Start Date: 08/15/20 Status: Ordered meclizine 25 mg oral tablet 1 tablet = 25 mg, By Mouth, 3 times a day, PRN Motion Sickness, # 90 tablet, 0 Refills, Maintenance, 10/28/20 12:37:00 EDT, Tablet, [facility], Partial fill upon patient request if the prescription is for a schedule II opioid drug., 167.... Start Date: 10/28/20 Status: Ordered omeprazole 20 mg oral enteric coated capsule 1 capsule = 20 mg, By Mouth, Daily, if needed for heartburn, # 90 capsule, 1 Refills, Maintenance, 08/15/20 12:07:00 EST, CR Capsule, [facility] #[id number], Partial fill upon patient request ifthe prescription [...]
--- OUTSIDE RECORDS SUMMARY | 2024-07-13 10:02 | XMS_ITS | Continuity of Care Document ---
Author Organization [facility] Address [address] [place] [address]- Care Team Providers Care Electrical Manager Name Role Phone Yoanna Nelson MD Primary Care Physician Encounter [facility] Date(s): 03/30/24 - 04/29/[address] [address] Allergies, Adverse Reactions, Alerts [...] tablet, 1 Refills, Maintenance, 11/10/23 5:27:00 EDT, [facility] #[id number], 167, cm, 10/01/23 14:12:00 EST, Height, 86, kg, 09/08/23 17:41:00 EST, Dry Weight Start Date: 11/10/23 Status: Ordered ARIPiprazole 5 mg oral tablet TAKE 1 TABLET BY MOUTH EVERY DAY Start Date: 02/13/22 Status: Ordered ARIPiprazole 5 mg oral tablet 5 mg, 1, tablet, By Mouth, Daily, # 30 tablet, Refills 2, Tot. Refills 2, Maintenance, 04/04/24 15:40:00 EDT, Route to Pharmacy Electronically, [facility] #[id number], Partial fill upon patient request if the prescription is for a schedule II opi... Start Date: 04/04/24 Status: Ordered calcium (as carbonate)-vitamin D 500 mg-400 intl units oral tablet 1 tablet, By Mouth, 2 times a day, take with food as a supplement for calcium and vitamin D for osteopenia., # 60 tablet, 5 Refills, Maintenance, 08/24/23 14:36:00 EST, [facility] #[id number], Partial fill upon patient request if the prescription... Start Date: 08/24/23 Stop Date: 02/20/24 Status: Ordered Colace sodium 100 mg oral capsule 100 mg, 1, capsule, By Mouth, 2 times a day, PRN, # 100 capsule, Refills 3, Tot. Refills 3, Maintenance, for constipation, 12/31/22 19:35:00 EDT, Route to Pharmacy Electronically, [facility] #[id number], Partial fill upon patient request if the p... Start Date: 12/31/22 Status: Ordered Eucerin Daily Hydration topical lotion 1 application, Topically, 4 times a day, # 600 mL, 5 Refills, Maintenance, 09/01/23 16:25:00 EST, [facility] #[id number], Partial fill upon patient request if the prescription is for a schedule II opioid drug., 1 application Topically 4 times a d... Start Date: 09/01/23 Stop Date: 02/28/24 Status: Ordered FLUoxetine 40 mg oral capsule TAKE 1 CAPSULE BY MOUTH EVERY MORNING Start Date: 02/13/22 Status: Ordered FLUoxetine 40 mg oral capsule 1 capsule = 40 mg, By Mouth, Daily, # 30 capsule, 2 Refills, Maintenance, 04/04/24 15:39:00 EDT, Capsule, [facility] #[id number], Partial fill upon patient request if the prescription is for a schedule II opioid drug., 168, cm, 04/04/24 15:29:00... Start Date: 04/04/24 Status: Ordered hydrOXYzine hydrochloride 10 mg oral tablet 1 tablet = 10 mg, By Mouth, 4 times a day, PRN for anxiety, # 120 tablet, 2 Refills, Maintenance, 04/04/24 15:39:00 EDT, Tablet, [facility] #[id number], Partial fill upon patient request if the prescription is for a schedule II opioid drug., 168,... Start Date: 04/04/24 Stop Date: 07/03/24 Status: Ordered hydrOXYzine pamoate 25 mg oral [...] 07/12/24 11:28:00 EST, 12/15/23 11:28:00 EDT, Tablet, [facility] #[id number], Partial fill upon patient request if the prescription is for a schedule II... Start Date: 12/15/23 Stop Date: 07/12/24 Status: Ordered MiraLax oral powder for reconstitution = 17 Gm, By Mouth, Daily, PRN Constipation, dissolve in water before taking, # 527 Gm, 5 Refills, Maintenance, 07/14/22 12:22:00 EST, REC Powder, [facility] #[id number], Partial fill upon patient request if the prescription is for a schedule II o... Start Date: 07/14/22 Status: Ordered naproxen 500 mg oral delayed release tablet See Instructions, TAKE 1 TABLET BY MOUTH TWICE DAILY TAKE WITH FOOD ONLY NEEDED FOR LOWER BACK PAIN. TRY NOT TO TAKE DAILY, # 50 tablet, 2 Refills, Maintenance, 10/29/22 15:56:00 EDT, [facility] #[id number], 166, cm, 10/16/22 10:45:00 EST, Hei... Start Date: 10/29/22 Status: Ordered NuLYTELY with Flavor Packs oral powder for reconstitution See Instructions, per GI office, # 4,000 mL, 0 Refills, Maintenance, 07/02/22 12:28:00 EST, [facility] #[id number], Partial fill upon patient request if the [...] tablet, 2 Refills, Maintenance, 06/12/22 13:44:00 EDT, [facility] #[id number], Rx in Guatemalan, 166, cm, 06/05/22 16:18:00 EDT, Height,87, kg, 06/05/22 16:18:00 EDT, Dry Weight Start Date: 06/12/22 Status: Ordered orthopedic mattress orthopedic mattress, See Instructions, # 1 each, Refills 0, Tot. Refills 0, Maintenance, dx: chronic low back pain ICD10: M54.5 duration: 99, 01/29/24 10:23:00 EDT, Supply Start Date: 01/29/24 Status: Ordered orthopedic mattress size joaquin orthopedic [...] 5 Refills, Maintenance, 12/15/23 11:31:00 EDT, Tablet, [facility] #[id number], Partial fill upon patient requestif the prescription is for a schedule II opioid... Start Date: 12/15/23 Stop Date: 06/12/24 Status: Ordered SUMAtriptan 25 mg oral tablet 1 tablet = 25 mg, By Mouth, Daily, PRN as needed for migraine headache, may repeat dose in 2 hours if needed; in kazakh do not use more than 2-3 x [...] TB tx. 2Pt referred by Dr. Witt-- [facility]. Pt did not keep sched appt. Case closed. Social History Social History Type Response Smoking Status Never smoker entered on: 11/23/14 Sex Patient Care team information Care Team Personnel Name: Kimber Mcclain RN Position: [facility] RN Member Role: Primary Care Nurse Name: Yoanna Nelson MD Position: [facility] Physician - Primary Care Member Role: PCP Address: Address: [address] [place] [address]- Care Team Related Persons Name: JANETDENYS Address: home [address] [place] [address] Name: EMILIANO YEH Address: [address] [place] [address]
--- OUTSIDE RECORDS SUMMARY | 2024-07-13 10:02 | XMS_ITS | Continuity of Care Document ---
Author Organization [facility] Address [address] [place] [id number]- Care Team Providers Care Recreation Aide Name Role Phone Socorro Kingston MD, I Primary Care Physician [place] [facility] [place](s[place] 10/20/22 - 11/19/[address] [address] Attending Physician: Eliane Stout Admitting Physician: AdmEliane [...] tablet, 3 Refills, Maintenance, 05/04/22 13:25:00 EDT, [facility] #[id number], 166, cm, 03/17/22 10:16:00 EDT, Height, 92.6, [...] tablet, 3 Refills, Maintenance, 10/24/22 13:37:00 EST, [facility] #[id number], Partial fill upon patient request if the [...] Refills, Maintenance, 07/14/22 12:22:00 EST, REC Powder, [facility] #[id number], Partial fill upon patient request if the prescription is for a schedule II o... Start Date: 07/14/22 Status: Ordered naproxen 500 mg oral delayed release tablet See Instructions, TAKE 1 TABLET BY MOUTH TWICE DAILY TAKE WITH FOOD ONLY NEEDED FOR LOWER BACK PAIN. TRY NOT TO TAKE DAILY, # 50 tablet, 2 Refills, Maintenance, 10/29/22 15:56:00 EDT, [facility] #[id number], 166, cm, 10/16/22 10:45:00 EST, Hei... Start Date: 10/29/22 Status: Ordered NuLYTELY with Flavor Packs oral powder for reconstitution See Instructions, per GI office, # 4,000 mL, 0 Refills, Maintenance, 07/02/22 12:28:00 EST, [facility] #[id number], Partial fill upon patient request if the prescription is for a schedule II opioid drug., per GI office, 166, cm, 06/05/22 16:18:00... Start Date: 07/02/22 Status: Ordered omeprazole 20 mg oral enteric coated capsule See Instructions, take 1 tablet by mouth 2 times a day, # 60 tablet, 2 Refills, Maintenance, 06/12/22 13:44:00 EDT, [facility] #[id number], Rx in Omani, 166, cm, 06/05/22 16:18:00 EDT, Height,87, kg, 06/05/22 16:18:00 EDT, Dry Weight Start Date: 06/12/22 Status: Ordered riboflavin 100 mg oral tablet 2 TABS, By Mouth, 2 times a day, for headaches, # 60 tablet, 5 Refills, Maintenance, 08/04/22 8:40:00 EST, Tablet, [facility][id number], Partial fill upon patient request if the prescription is for a schedule II opioid drug., 166, cm, 08/04/22... Start Date: 08/04/22 Stop Date: 01/31/23 Status: Ordered SUMAtriptan 25 mg oral tablet 1 tablet = 25 mg, By Mouth, Daily, PRN as needed for migraine headache, may repeat dose in 2 hours if needed; in beninese do not use more than 2-3 x [...] TB tx. 2Pt referred by Dr. Witt-- [facility]. Pt did not keep sched appt. Case closed. Social History Social History Type Response Smoking Status Never smoker entered on: 11/23/14 Sex Patient Care team information Care Team Personnel Name: Thee MCCULLOUGH, Socorro Davidson Position: [facility] Primary Care Physician Member Role: PCP Address: Address: [address] [place] [address]- Name: Kimber Mcclain RN Position: [facility] RN Member Role: Primary Care Nurse Care Team Related Persons Name: DENYS GONZALES Address: [address] [place] [address] Name: EMILIANO YEH Address: [address] [place] [address]
--- OUTSIDE RECORDS SUMMARY | 2024-07-13 10:02 | XMS_ITS | Continuity of Care Document ---
Author Organization [facility] Address [address] [place] [address]- Care Team Providers Care Group Counselor Name Role Phone Yoanna Nelson MD Primary Care Physician [phone] [facility] Date(s): 09/08/23 - 09/09/[address] [address]- Encounter Diagnosis Viral illness(Final) - 09/08/23 Discharge Disposition: A-D/C Home Attending Physician: Luis Junior MD Admitting Physician: Luis Junior MD Referring Physician: Not on Staff, Referring [...] tablet, 0 Refills, Maintenance, 08/14/23 12:12:00 EST, [facility] #[id number], 168, cm, 08/05/23 9:18:00 EST, Height, 91.8, kg, 11/24/22 13:50:00 EDT, Dry Weight Start Date: 08/14/23 Status: Ordered ARIPiprazole 5 mg oral tablet TAKE 1 TABLET BY MOUTH EVERY DAY Start Date: 02/13/22 Status: Ordered Augmentin 875 mg-125 mg oral tablet 1 tablet, By Mouth, Every 12 hours, for 7 days, # 14 tablet, 0 Refills, Acute 09/15/23 22:12:00 EST, 09/08/23 22:12:00 EST, Tablet, [facility] #[id number], Partial fill upon patient request if the prescription is for a schedule II opioid drug., 1... Start Date: 09/08/23 Stop Date: 09/15/23 Status: Ordered calcium (as carbonate)-vitamin D 500 mg-400 intl units oral tablet 1 tablet, By Mouth, 2 times a day, take with food as a supplement for calcium and vitamin D for osteopenia., # 60 tablet, 5 Refills, Maintenance, 08/24/23 14:36:00 EST, [facility] #[id number], Partial fill upon patient request if the prescription... Start Date: 08/24/23 Stop Date: 02/20/24 Status: Ordered Colace sodium 100 mg oral capsule 100 mg, 1, capsule, By Mouth, 2 times a day, PRN, # 100 capsule, Refills 3, Tot. Refills 3, Maintenance, for constipation, 12/31/22 19:35:00 EDT, Route to Pharmacy Electronically, [facility] #[id number], Partial fill upon patient request if the p... Start Date: 12/31/22 Status: Ordered Eucerin Daily Hydration topical lotion 1 application, Topically, 4 times a day, # 600 mL, 5 Refills, Maintenance, 09/01/23 16:25:00 EST, [facility] #[id number], Partial fill upon patient request if the [...] Refills, Maintenance, 07/14/22 12:22:00 EST, REC Powder, [facility] #[id number], Partial fill upon patient request if the prescription is for a schedule II o... Start Date: 07/14/22 Status: Ordered MiraLax oral powder for reconstitution = 17 Gm, By Mouth, Daily, dissolve in water before taking, # 255 Gm, 2 Refills, Acute 12/16/23 19:36:00 EDT, 12/31/22 19:35:00 EDT, REC Powder, [facility] #[id number], Partial fill upon patient request if the prescription is for a schedule II opi... Start Date: 12/31/22 Stop Date: 12/16/23 Status: Ordered naproxen 500 mg oral delayed release tablet See Instructions, TAKE 1 TABLET BY MOUTH TWICE DAILY TAKE WITH FOOD ONLY NEEDED FOR LOWER BACK PAIN. TRY NOT TO TAKE DAILY, # 50 tablet, 2 Refills, Maintenance, 10/29/22 15:56:00 EDT, [facility] #[id number], 166, cm, 10/16/22 10:45:00 EST, Hei... Start Date: 10/29/22 Status: Ordered NuLYTELY with Flavor Packs oral powder for reconstitution See Instructions, per GI office, # 4,000 mL, 0 Refills, Maintenance, 07/02/22 12:28:00 EST, [facility] #[id number], Partial fill upon patient request if the prescription is for a schedule II opioid drug., per GI office, 166, cm, 06/05/22 16:18:00... Start Date: 07/02/22 Status: Ordered omeprazole 20 mg oral enteric coated capsule See Instructions, take 1 tablet by mouth 2 times a day, # 60 tablet, 2 Refills, Maintenance, 06/12/22 13:44:00 EDT, [facility] #[id number], Rx in Burkinan, 166, cm, 06/05/22 16:18:00 EDT, Height,87, kg, 06/05/22 16:18:00 EDT, Dry Weight Start Date: 06/12/22 Status: Ordered orthopedic mattress size orthopedic mattress [...] 5 Refills, Maintenance, 06/15/23 11:00:00 EDT, Tablet, [facility] #[id number], Partial fill upon patient request if the prescription is for a schedule II opioid drug., 168,... Start Date: 06/15/23 Stop Date: 12/12/23 Status: Ordered SUMAtriptan 25 mg oral tablet 1 tablet = 25 mg, By Mouth, Daily, PRN as needed for migraine headache, may repeat dose in 2 hours if needed; in barbadian do not use more than 2-3 x [...] Exam Date Time Procedure Performing Provider Status 09/08/23 9:38 PM Chest 2 Views Frontal and Lat Hugh Fraser; Jacqui Notes: (Chest 2 Views Frontal and Lat) Reason For Exam: Shortness of Breath, Fever;Other: RESULT: Chest 2 Views Frontal and Lat Chest 2 Views Frontal and Lat Hx of Present Illness: Patient comes in with left ear pain and reported drainage from the ear.; Reason: Other:; Shortness of Breath, Fever; Clinical Question(s): Pneumonia COMPARISON: 04/23/2021 FINDINGS: LINES AND TUBES: None. LUNGS AND PLEURA: Clear lungs. Normal pulmonary vascularity. No pleural effusion. No pneumothorax. HEART, MEDIASTINUM AND EVA: Heart is normal in size. Normal mediastinal and hilar contour. BONES AND SOFT TISSUES: No acute abnormality. IMPRESSION: No acute abnormality. WSN: [id number] Ordering Physician: Calin Spencer Dictated By: Maykel Centeno MD Dictated Date/Time: 09/08/23 9:41 pm Reviewed By: Maykel Centeno MD Signed By: Maykel Centeno MD Signed Date/Time: 09/08/23 9:41 pm Transcribed By: ANGIE Transcribed Date/Time: 09/08/23 9:41 pm * Exam Date Time Procedure Performing Provider Status 09/08/23 8:[address] Head/Brain W/O Contrast Braeden Laguerre (Verified) Notes: (CT Head/Brain W/O Contrast) Reason For Exam: Headache(s) RESULT: CT Head/Brain W/O Contrast CT Head/Brain W/O Contrast INDICATION: Hx of Present Illness: Patient comes in with left ear pain and reported drainage from the ear.; Reason: Headache(s); Clinical Question(s): Hematoma; Order Comment: TECHNIQUE: Noncontrast head CT using axial technique and reconstructed in axial and coronal planes.Iterative reconstruction techniques are used to optimize dose and image quality. CTDIvol Head: 47.40 mGy, DLP Head: 773 mGy*cm. COMPARISON: 05/13/2022. FINDINGS: Buttermaker Helper view findings, lines and tubes: None. BRAIN AND EXTRA-AXIAL SPACES: No parenchymal hemorrhage, midline shift, or mass effect. Warner-white matter differentiation is wellpreserved. No acute infarct. Ventricles, sulci, and basilar cisterns are normal. No white matter lesions. No subarachnoid hemorrhage. No subdural or epidural collection. CALVARIUM, SKULL BASE, AND SOFT TISSUES: No fractures or suspicious bony lesions. Moderate to severe mucosal thickening in the paranasal sinuses with associated effusions. Trace effusion in the left mastoid air cells without overlying bony abnormality. The right mastoid air cells are clear. Visualized orbits and globes are intact. The extracranial soft tissues are unremarkable. IMPRESSION: No acute intracranial pathology. Pansinusitis. Trace left mastoid air cell effusion without underlying bony abnormality. WSN: [id number] Ordering Physician: Luis Junior Dictated By: Dominik Martinez MD Dictated Date/Time: 09/08/23 8:54 pm Reviewed By: Dominik Martinez MD Signed By: Dominik Martinez MD Signed Date/Time: 09/08/23 8:54 pm Transcribed By: ANGIE Transcribed Date/Time: 09/08/23 8:51 pm Vital Signs Most recent to oldest [Reference Range]: 1 2 3 Height 167 cm (09/08/23 5:41 PM) 167 cm (09/08/23 3:49 PM) 167 cm (09/08/23 1:00 PM) Weight 86 kg (09/08/23 5:41 PM) 86 kg (09/08/23 3:49 PM) 86 kg (09/08/23 1:00 PM) Oxygen Saturation [94-100 %] 100 % (09/08/23 10:11 PM) 100 % (09/08/23 8:48 PM) 98 % (09/08/23 5:41 PM) Pulse Rate [55-90 bpm] 96 bpm *H* (09/08/23 10:11 PM) 78 bpm (09/08/23 8:48 PM) 97 bpm *H* (09/08/23 5:41 PM) Body Mass Index [18.5-24.99 kg/m2] 30.84 kg/m2 *>HHI* (09/08/23 5:41 PM) 30.84 kg/m2 *>HHI* (09/08/23 3:49 PM) 30.84 kg/m2 *>HHI* (09/08/23 1:00 PM) Blood Pressure [90-138/55-84 mm Hg] 138/84mm Hg (09/08/23 10:11 PM) 149/69mm Hg *H* (09/08/23 8:48 PM) 109/73mm Hg (09/08/23 5:41 PM) Respiratory Rate [16-30 br/min] 18 br/min (09/08/23 10:11 PM) 19 br/min (09/08/23 8:48 PM) 18 br/min (09/08/23 5:41 PM) Temperature [96.8-100.4 DegF] 99.1 DegF (09/08/23 10:11 PM) 98.6 DegF (09/08/23 8:48 PM) 98.8 DegF (09/08/23 5:41 PM) Mode of Delivery (Oxygen) Room air (09/08/23 10:11 PM) Room air (09/08/23 8:48 PM) Room air (09/08/23 5:41 PM) Blood pressure sites Arm, left (09/08/23 10:11 PM) Arm, left (09/08/23 8:48 PM) Arm, left (09/08/23 5:41 PM) Temperature Route Oral (09/08/23 10:11 PM) Oral (09/08/23 8:48 PM) Oral (09/08/23 5:41 PM) Dry Weight 86 kg (09/08/23 5:41 PM) 86 kg (09/08/23 3:49 PM) 86 kg (09/08/23 1:00 PM) Weight Obtained Via Patient/family state d (09/08/23 1:00 PM) Dry Weight Obtained Via Patient/family s tated (09/08/23 1:00 PM) Social History Social History Type Response Smoking Status Never smoker entered on: 11/23/14 Sex Patient Care team information Care Team Personnel Name: Kimber Mcclain RN Position: S RN Member Role: Primary Care Nurse Name: Yoanna Nelson MD Position: [facility] Physician - Primary Care Member Role: PCP Address: Address: [address] [place] [address]- Care Team Related Persons Name: DENYS GONZALES Address: home [address] [place] [address] Name: EMILIANO YEH Address: home [address] [place] [address]
--- OUTSIDE RECORDS SUMMARY | 2024-07-13 10:02 | XMS_ITS | Continuity of Care Document ---
Author Organization [facility] Address [address] [place] [address]- Care Team Providers Care Hospitality Host Name Role Phone Socorro Kingston MD, I Primary Care Physician [facility]counter [facility] Date(s): 04/26/21 - 05/26/[address] [address] Allergies, Adverse Reactions, Alerts Substance Reaction Severity Status gabapentin numbness of tongue Active Immunizations Given and Recorded Vaccine Date Status Refusal Reason tetanus/diphtheria/pertussis, acel(Tdap) 05/13/20 Given tetanus/diphtheria/pertussis, acel(Tdap) 02/07/19 Given influenza virus vaccine, inactivated 1 11/06/17 Gi troin influenza virus vaccine, inactivated 07/09/15 Give n [...] tablet 650 mg, 2, tablet, By Mouth, 3 times a day, PRN, # 50 tablet, Refills 1, Tot. Refills 1, Maintenance, Pain , Moderate, 03/25/21 16:28:00 EDT, Route to Pharmacy Electronically, [facility] #[id number], Partial fill upon patient request if the presc... Start Date: 03/25/21 Status: Ordered amLODIPine 5 mg oral tablet 5 mg, 1, tablet, By Mouth, Daily, # 90 tablet, Refills 3, Tot. Refills 3, Maintenance, 05/13/21 10:14:00 EDT, Route to Pharmacy Electronically, [facility] #[id number], Partial fill upon patient request if the prescription is for a schedule II opi... Start Date: 05/13/21 Status: Ordered walker with wheel walker with [...]
--- OUTSIDE RECORDS SUMMARY | 2024-07-13 10:03 | XMS_ITS | Continuity of Care Document ---
Author Organization [facility] ter Address [address] [place] [address]- Care Team Providers Care Adjunct Faculty For Medical Terminology Name Role Phone Socorro Kingston MD, I Primary Care Physician [phone] Encounter [facility] Date(s): 04/23/21 - 04/24/[address] [address]- Encounter Diagnosis Hypertension(Final) - 04/23/21 Discharge Disposition: A-D/C Home Attending Physician: Cely Lujan MD Admitting Physician: Gab Rodrigez MD Referring Physician: Not on Staff, Referring [...] 03/25/21 16:28:00 EDT, Route to Pharmacy Electronically, [facility] #[id number], Partial fill upon patient request if the presc... Start Date: 03/25/21 Status: Ordered Acetaminophen Tablet 650 mg, Tablet, By Mouth, Every 4 hours, PRN for Pain , Mild, Temperature Greater than 100.5, Routine, 04/23/21 14:23:00 EDT Start Date: 04/23/21 Stop Date: 04/25/21 Status: Discontinued amLODIPine 5 mg oral tablet 5 mg, 1, tablet, By Mouth, Daily, # 90 tablet, Refills 0, Tot. Refills 0, Maintenance, 04/24/21 11:55:00 EDT, Route to Pharmacy Electronically, [facility], Partial fill upon patient request if the prescription is for a schedule II opioid... Start Date: 04/24/21 Status: Ordered cefixime 400 mg oral tablet 1 tablet = 400 mg, By Mouth, Daily, # 5 tablet, 0 Refills, Acute 04/29/21 14:15:00 EDT, 04/24/21 11:54:00 EDT, [facility], Partial fill upon patient request if the prescription is for aschedule II opioid drug., 166, cm, 04/24/21 11:08:0... Start Date: 04/24/21 Stop Date: 04/29/21 Status: Ordered walker with wheel walker with [...] not keep sched appt. Case closed. Results Orders for Microbiology Reports Name Date Urine Culture (URINE CULTURE) 04/23/21 Microbiology Reports TEST:Urine Culture STATUS:Auth (Verified) BODY SITE: SOURCE:URINE COLLECTED DATE/TIME:04/23/21 5:50 AM Urine Culture SPECIMEN DESCRIPTION : URINE CLEAN CATCH/MIDSTREAM SPECIAL REQUESTS : NONE Reflexed from [id number] CULTURE : <10,000 COL/ML REPORT STATUS : FINAL 04/24/2021 Radiology Reports * Exam Date Time Procedure Performing Provider Status 04/23/21 9:35 AM Chest Portable Dajuan , Janet; Auth (Ve rified) Notes: (Chest Portable) Reason For Exam: Angina RESULT: Chest Portable Examination: Portable chest performed on 04/23/2021. History: Hypertension. Chest tightness. Findings: A frontal view of the chest is compared to a prior study dated 01/04/2018. The cardiac and mediastinal silhouettes are within normal limits. The lungs are clear. Minimal scoliosis is redemonstrated within the thoracic spine. IMPRESSION: There is no acute cardiopulmonary disease. WSN: [id number] Ordering Physician: Sol Carreno Dictated By: Lsisette French MD Dictated Date/Time: 04/23/21 10:22 a Reviewed By: Lissette French MD Signed By: Lissette French MD Signed Date/Time: 04/23/21 10:22 am Transcribed By: ANGIE Transcribed Date/Time: 04/23/21 10:21 am Vital Signs Most recent to oldest [Reference Range]: 1 2 3 Height 166 cm (04/24/21 11:08 AM) 166 cm (04/24/21 7:04 AM) 166 cm (04/24/21 3:43 AM) Weight 92.6 kg (04/23/21 5:09 PM) Oxygen Saturation [94-100 %] 98 % (04/24/21 11:08 AM) 100 % (04/24/21 7:04 AM) 100 % (04/24/21 3:43 AM) Pulse Rate [55-90 bpm] 65 bpm (04/24/21 11:08 AM) 64 bpm (04/24/21 7:04 AM) 62 bpm (04/24/21 3:43 AM) Body Mass Index [18.5-24.99] 33.6 *>HHI* (04/23/21 5:09 PM) Blood Pressure [90-138/55-84 mm Hg] 122/63mm Hg (04/24/21 11:08 AM) 123/60mm Hg (04/24/21 7:04 AM) 146/97mm Hg *H* (04/24/21 3:43 AM) Respiratory Rate [16-30 br/min] 18 br/min (04/24/21 12:43 PM) 18 br/min (04/24/21 11:37 AM) 20 br/min (04/24/21 11:08 AM) Temperature [96.8-100.4 DegF] 97.6 DegF (04/24/21 11:08 AM) 97.6 DegF (04/24/21 7:04 AM) 97.8 DegF (04/24/21 3:43 AM) Mode of Delivery (Oxygen) Room air (04/24/21 11:08 AM) Room air (04/24/21 7:04 AM) Room air (04/24/21 3:43 AM) Blood pressure sites Arm, right (04/24/21 11:08 AM) Arm, right (04/24/21 7:04 AM) Arm, right (04/24/21 3:43 AM) Temperature Route Oral (04/24/21 11:08 AM) Oral (04/24/21 7:04 AM) Oral (04/24/21 3:43 AM) Dry Weight 92.6 kg (04/23/21 5:09 PM) Weight Obtained Via Bed scale (04/23/21 5:09 PM) Dry Weight Obtained Via Bed scale (04/23/21 5:09 PM) Social History Social History Type Response Smoking Status Never smoker entered on: 11/23/14 Sex
--- OUTSIDE RECORDS SUMMARY | 2024-07-13 10:03 | XMS_ITS | Continuity of Care Document ---
Author Organization [facility] Address [address] [place] [address]- Care Team Providers Care Speech Language Therapist Name Role Phone Yoanna Nelson MD Primary Care Physician Encounter [facility] Date(s): 07/20/23 - 08/19/[address] [address] Allergies, Adverse Reactions, Alerts Substance Reaction [...] tablet, 0 Refills, Maintenance, 08/14/23 12:12:00 EST, [facility] #[id number], 168, cm, 08/05/23 9:18:00 EST, Height, 91.8, [...] tablet, 3 Refills, Maintenance, 10/24/22 13:37:00 EST, [facility] #[id number], Partial fill upon patient request if the prescription... Start Date: 10/24/22 Status: Ordered Colace sodium 100 mg oral capsule 100 mg, 1, capsule, By Mouth, 2 times a day, PRN, # 100 capsule, Refills 3, Tot. Refills 3, Maintenance, for constipation, 12/31/22 19:35:00 EDT, Route to Pharmacy Electronically, [facility] #[id number], Partial fill upon patient request if the [...] Refills, Maintenance, 07/14/22 12:22:00 EST, REC Powder, [facility] #[id number], Partial fill upon patient request if the prescription is for a schedule II o... Start Date: 07/14/22 Status: Ordered MiraLax oral powder for reconstitution = 17 Gm, By Mouth, Daily, dissolve in water before taking, # 255 Gm, 2 Refills, Acute 12/16/23 19:36:00 EDT, 12/31/22 19:35:00 EDT, REC Powder, [facility] #[id number], Partial fill upon patient request if the prescription is for a schedule II opi... Start Date: 12/31/22 Stop Date: 12/16/23 Status: Ordered naproxen 500 mg oral delayed release tablet See Instructions, TAKE 1 TABLET BY MOUTH TWICE DAILY TAKE WITH FOOD ONLY NEEDED FOR LOWER BACK PAIN. TRY NOT TO TAKE DAILY, # 50 tablet, 2 Refills, Maintenance, 10/29/22 15:56:00 EDT, [facility] #[id number], 166, cm, 10/16/22 10:45:00 EST, Hei... Start Date: 10/29/22 Status: Ordered NuLYTELY with Flavor Packs oral powder for reconstitution See Instructions, per GI office, # 4,000 mL, 0 Refills, Maintenance, 07/02/22 12:28:00 EST, [facility] #[id number], Partial fill upon patient request if the prescription is for a schedule II opioid drug., per GI office, 166, cm, 06/05/22 16:18:00... Start Date: 07/02/22 Status: Ordered omeprazole 20 mg oral enteric coated capsule See Instructions, take 1 tablet by mouth 2 times a day, # 60 tablet, 2 Refills, Maintenance, 06/12/22 13:44:00 EDT, [facility] #[id number], Rx in Kyrgyz, 166, cm, 06/05/22 16:18:00 EDT, Height,87, kg, 06/05/22 16:18:00 EDT, Dry Weight Start Date: 06/12/22 Status: Ordered riboflavin 100 mg oral tablet 2 tablet = 200 mg, By Mouth, 2 times a day, for headaches, # 120 tablet, 5 Refills, Maintenance, 06/15/23 11:00:00 EDT, Tablet, [facility] #[id number], Partial fill upon patient request if the prescription is for a schedule II opioid drug., 168,... Start Date: 06/15/23 Stop Date: 12/12/23 Status: Ordered SUMAtriptan 25 mg oral tablet 1 tablet = 25 mg, By Mouth, Daily, PRN as needed for migraine headache, may repeat dose in 2 hours if needed; in kyrgyz do not use more than 2-3 x [...] TB tx. 2Pt referred by Dr. Witt-- [facility]. Pt did not keep sched appt. Case closed. Social History Social History Type Response Smoking Status Never smoker entered on: 11/23/14 Sex Patient Care team information Care Team Personnel Name: Kimber Mcclain RN Position: [facility] RN Member Role: Primary Care Nurse Name: Yoanna Nelson MD Position: [facility] Physician - Primary Care Member Role: PCP Address: Address: [address] [place] [address]- Care Team Related Persons Name: DENYS GONZALES Address: home [address] [place] [address] Name: EMILIANO YEH Address: home [address] [place] [address]
--- OUTSIDE RECORDS SUMMARY | 2024-07-13 10:03 | XMS_ITS | Continuity of Care Document ---
Author Organization [facility] Address [address] [place] [address]- Care Team Providers Care Associate Programmer Name Role Phone Yoanna Nelson MD Primary Care Physician Encounter [facility] Date(s): 03/28/24 - 04/27/[address] [address] Allergies, Adverse Reactions, Alerts Substance [...] tablet, 1 Refills, Maintenance, 11/10/23 5:27:00 EDT, [facility] #[id number], 167, cm, 10/01/23 14:12:00 EST, Height, 86, kg, 09/08/23 17:41:00 EST, Dry Weight Start Date: 11/10/23 Status: Ordered ARIPiprazole 5 mg oral tablet TAKE 1 TABLET BY MOUTH EVERY DAY Start Date: 02/13/22 Status: Ordered ARIPiprazole 5 mg oral tablet 5 mg, 1, tablet, By Mouth, Daily, # 30 tablet, Refills 2, Tot. Refills 2, Maintenance, 04/04/24 15:40:00 EDT, Route to Pharmacy Electronically, [facility] #[id number], Partial fill upon patient request if the prescription is for a schedule II opi... Start Date: 04/04/24 Status: Ordered calcium (as carbonate)-vitamin D 500 mg-400 intl units oral tablet 1 tablet, By Mouth, 2 times a day, take with food as a supplement for calcium and vitamin D for osteopenia., # 60 tablet, 5 Refills, Maintenance, 08/24/23 14:36:00 EST, [facility] #[id number], Partial fill upon patient request if the prescription... Start Date: 08/24/23 Stop Date: 02/20/24 Status: Ordered Colace sodium 100 mg oral capsule 100 mg, 1, capsule, By Mouth, 2 times a day, PRN, # 100 capsule, Refills 3, Tot. Refills 3, Maintenance, for constipation, 12/31/22 19:35:00 EDT, Route to Pharmacy Electronically, [facility] #[id number], Partial fill upon patient request if the p... Start Date: 12/31/22 Status: Ordered Eucerin Daily Hydration topical lotion 1 application, Topically, 4 times a day, # 600 mL, 5 Refills, Maintenance, 09/01/23 16:25:00 EST, [facility] #[id number], Partial fill upon patient request if the [...] 2 Refills, Maintenance, 04/04/24 15:39:00 EDT, Capsule, [facility] #[id number], Partial fill upon patient request if the prescription is for a schedule II opioid drug., 168, cm, 04/04/24 15:29:00... Start Date: 04/04/24 Status: Ordered hydrOXYzine hydrochloride 10 mg oral tablet 1 tablet = 10 mg, By Mouth, 4 times a day, PRN for anxiety, # 120 tablet, 2 Refills, Maintenance, 04/04/24 15:39:00 EDT, Tablet, [facility] #[id number], Partial fill upon patient request if the [...] 07/12/24 11:28:00 EST, 12/15/23 11:28:00 EDT, Tablet, [facility] #[id number], Partial fill upon patient request if the prescription is for a schedule II... Start Date: 12/15/23 Stop Date: 07/12/24 Status: Ordered MiraLax oral powder for reconstitution = 17 Gm, By Mouth, Daily, PRN Constipation, dissolve in water before taking, # 527 Gm, 5 Refills, Maintenance, 07/14/22 12:22:00 EST, REC Powder, [facility] #[id number], Partial fill upon patient request if the prescription is for a schedule II o... Start Date: 07/14/22 Status: Ordered naproxen 500 mg oral delayed release tablet See Instructions, TAKE 1 TABLET BY MOUTH TWICE DAILY TAKE WITH FOOD ONLY NEEDED FOR LOWER BACK PAIN. TRY NOT TO TAKE DAILY, # 50 tablet, 2 Refills, Maintenance, 10/29/22 15:56:00 EDT, [facility] #[id number], 166, cm, 10/16/22 10:45:00 EST, Hei... Start Date: 10/29/22 Status: Ordered NuLYTELY with Flavor Packs oral powder for reconstitution See Instructions, per GI office, # 4,000 mL, 0 Refills, Maintenance, 07/02/22 12:28:00 EST, [facility] #[id number], Partial fill upon patient request if the [...] tablet, 2 Refills, Maintenance, 06/12/22 13:44:00 EDT, [facility] #[id number], Rx in Turkmen, 166, cm, 06/05/22 16:18:00 EDT, Height,87, kg, [...] 12/15/23 11:31:00 EDT, Tablet, [facility] #[id number], Partial fill upon patient requestif the prescription is for a schedule II opioid... Start Date: 12/15/23 Stop Date: 06/12/24 Status: Ordered SUMAtriptan 25 mg oral tablet 1 tablet = 25 mg, By Mouth, Daily, PRN as needed for migraine headache, may repeat dose in 2 hours if needed; in vietnamese do not use more than 2-3 x [...] TB tx. 2Pt referred by Dr. Witt-- [facility]. Pt did not keep sched appt. Case closed. Social History Social History Type Response Smoking Status Never smoker entered on: 11/23/14 Sex Patient Care team information Care Team Personnel Name: Kimber Mcclain RN Position: [facility] RN Member Role: Primary Care Nurse Name: Yoanna Nelson MD Position: [facility] Physician - Primary Care Member Role: PCP Address: Address: [address] [place] [address]- Care Team Related Persons Name: JANETDENYS Address: home [address] [place] [address] Name: EMILIANO YEH Address: home [address] [place] [address]
--- OUTSIDE RECORDS SUMMARY | 2024-07-13 10:03 | XMS_ITS | Continuity of Care Document ---
Author Organization [facility] ter Address [address] [place] [address]- Care Team Providers Care Director Of Analytics Name Role Phone Socorro Kingston MD, I Primary Care Physician [place] [facility] [place] 01/04/21 - 01/04/[address] [address]- Discharge Disposition: A-D/C Walkout Attending Physician: Not on Staff, Attending MD Admitting Physician: Not on Staff, Admitting MD Referring Physician: Not on Staff, Referring [...] 10/28/20 12:38:00 EDT, Route to Pharmacy Electronically, [facility], Partial fill upon patient request if the pres... Start Date: 10/28/20 Status: Ordered cholecalciferol 1000 intl units oral capsule 1 capsule = 1,000 International_Units, By Mouth, Daily, # 75 capsule, 0 Refills, Maintenance, 06/21/20 11:57:00 EST, Capsule, [facility] #[id number], 163, cm, 06/21/20 11:12:00 EST, Height, 89.3, kg, 10/21/18 22:10:00 EST, Dry Weight Start Date: 06/21/20 Status: Ordered diclofenac sodium 25 mg oral delayed release tablet 1 tablet = 25 mg, By Mouth, 3 times a day, PRN Pain. Welsh sig. Discontinue Ibuprofen, # 90 tablet, 1 Refills, Maintenance, 05/21/20 15:40:00 EDT, EC Tablet, [facility] #[id number], 163, cm, 05/21/20 15:18:00 EDT, Height, 89.3, [...] tablet, 3 Refills, Maintenance, 08/15/20 12:06:00 EST, [facility] #[id number], 163, cm, 07/16/20 16:12:00 EST, Height, 89.3, kg, 10/21/18 22:10:00 EST, Dry Weight Start Date: 08/15/20 Status: Ordered meclizine 25 mg oral tablet 1 tablet = 25 mg, By Mouth, 3 times a day, PRN Motion Sickness, # 90 tablet, 0 Refills, Maintenance, 10/28/20 12:37:00 EDT, Tablet, [facility], Partial fill upon patient request if the prescription is for a schedule II opioid drug., 167.... Start Date: 10/28/20 Status: Ordered omeprazole 20 mg oral enteric coated capsule 1 capsule = 20 mg, By Mouth, Daily, if needed for heartburn, # 90 capsule, 1 Refills, Maintenance, 08/15/20 12:07:00 EST, CR Capsule, [facility] #[id number], Partial fill upon patient request ifthe prescription [...] Most recent to oldest [Reference Range]: 1 Oxygen Saturation [94-100 %] 100 % (01/04/21 1:03 PM) Pulse Rate [55-90 bpm] 74 bpm (01/04/21 1:03 PM) Blood Pressure [90-138/55-84 mm Hg] 156/ 92mm Hg *H* (01/04/21 1:03 PM) Respiratory Rate [16-30 br/min] 16 br/mi n (01/04/21 1:03 PM) Temperature [96.8-100.4 DegF] 97.7 DegF (01/04/21 1:03 PM) Mode of Delivery (Oxygen) Room air (01/04/21 1:03 PM) Blood pressure sites Arm, right (01/04/21 1:03 PM) Temperature Route Oral (01/04/21 1:03 PM) Social History Social History Type Response Smoking Status Never smoker entered on: 11/23/14 Sex
--- OUTSIDE RECORDS SUMMARY | 2024-07-13 10:03 | XMS_ITS | Continuity of Care Document ---
Author Organization [facility] Address [address] [place] [address]- Care Team Providers Care Melter Supervisor [employer] Name Role Phone Thee MCCULLOUGH, Socorro Davidson Primary Care Physician Encounter [facility] Date(s): 05/11/20 - 06/10/[address] [address]- [facility] Allergies, Adverse Reactions, Alerts Substance Reaction Severity [...] Note: vis 7Admin Note: vis 01/24/94 Medications ARIPiprazole 5 mg oral tablet 5 mg, 1, tablet, By Mouth, Daily, # 90 tablet, Refills 0, Maintenance, 09/27/19 9:15:30 EDT Start Date: 05/13/19 Status: Ordered diclofenac sodium 25 mg oral delayed release tablet 1 tablet = 25 mg, By Mouth, 3 times a day, PRN Pain. Georgian sig. Discontinue Ibuprofen, # 90 tablet, 1 Refills, Maintenance, 05/21/20 15:40:00 EDT, EC Tablet, [facility] #[id number], 163, cm, 05/21/20 15:18:00 EDT, Height, 89.3, kg, 10/21/18 22:... Start Date: 05/21/20 Status: Ordered FLUoxetine 40 mg oral capsule 1 capsule = 40 mg, By Mouth, Daily, # 30 capsule, 0 Refills, Maintenance, 05/13/20 3:32:00 EDT, Capsule Start Date: 05/13/20 Status: Ordered gabapentin 300 mg oral capsule 300 mg, 1, capsule, By Mouth, Daily at bedtime, Refills 0, Maintenance, 05/13/20 3:33:00 EDT Start Date: 05/13/20 Status: Ordered hydrOXYzine hydrochloride 25 mg oral tablet 1 tablet = 25 mg, By Mouth, 2 times a day, take only if needed, prn anxiety, # 60 tablet, 1 Refills, Maintenance, 10/29/18 17:36:45 EDT Start Date: 10/29/18 Status: Ordered propranolol 60 mg oral capsule, extended release See Instructions, TAKE 1 CAPSULE BY MOUTH DAILY, # 30 capsule, Refills 5, Tot. Refills 5, Maintenance, 05/21/20 15:35:00 EDT, Instructions Replace Required Details, Route to Pharmacy Electronically, [facility] #[id number], 163, cm, 05/21/20 15:18... Start Date: 05/21/20 Status: Ordered raNITIdine 150 mg oral tablet 1 tablet = 150 mg, By Mouth, Daily at bedtime, # 30 tablet, 11 Refills, Maintenance, 02/22/20 11:40:31 EDT, Tablet Start Date: 02/22/20 Stop Date: 02/16/21 Status: Ordered SUMAtriptan 50 mg oral tablet 1 tablet = 50 mg, By Mouth, Once, PRN as needed for migraine headache, may repeat dose after 2 hours up to a maximum of 2 tabs in 24 hours, # 9 tablet, 2 Refills, Soft Stop, 09/27/18 10:06:06 EST, Tablet Start Date: 09/27/18 Status: Ordered walker with wheel walker with [...] Active Heliobacterium(Confirmed) Active Hernia, inguinal, left(Confirmed) Active Neutropenia(Confirmed) Active Care Coordination CP Karina Aponte (Confirmed) Active Well woman exam with routine gynecological exam(Confirmed) Active 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 No TB tx. 2Pt referred by Dr. Witt-- [facility]. Pt did not keep sched appt. Case closed. Social History Social History Type Response Smoking Status Never smoker entered on: 11/23/14 Sex
--- OUTSIDE RECORDS SUMMARY | 2024-07-13 10:03 | XMS_ITS | Continuity of Care Document ---
Author Organization [facility] Address [address] [place] [address]- Care Team Providers Care Security Consultant Name Role Phone Yoanna Nelson MD Primary Care Physician Encounter [facility] Date(s): 11/08/22 - 03/08/[address] [facility] [address] [address]- Attending Physician: Monica Dominguez MD Admitting Physician: Monica Dominguez MD Referring Physician: Kelton MONTESSORI LEAD TEACHER, Cristel Allergies, Adverse Reactions, Alerts Substance Reaction Severity [...] tablet, 3 Refills, Maintenance, 05/04/22 13:25:00 EDT, [facility] #[id number], 166, cm, 03/17/22 10:16:00 EDT, Height, 92.6, [...] tablet, 3 Refills, Maintenance, 10/24/22 13:37:00 EST, [facility] #[id number], Partial fill upon patient request if the prescription... Start Date: 10/24/22 Status: Ordered Colace sodium 100 mg oral capsule 100 mg, 1, capsule, By Mouth, 2 times a day, PRN, # 100 capsule, Refills 3, Tot. Refills 3, Maintenance, for constipation, 12/31/22 19:35:00 EDT, Route to Pharmacy Electronically, [facility] #[id number], Partial fill upon patient request if the [...] Refills, Maintenance, 07/14/22 12:22:00 EST, REC Powder, [facility] #[id number], Partial fill upon patient request if the prescription is for a schedule II o... Start Date: 07/14/22 Status: Ordered MiraLax oral powder for reconstitution = 17 Gm, By Mouth, Daily, dissolve in water before taking, # 255 Gm, 2 Refills, Acute 12/16/23 19:36:00 EDT, 12/31/22 19:35:00 EDT, REC Powder, [facility] #[id number], Partial fill upon patient request if the prescription is for a schedule II opi... Start Date: 12/31/22 Stop Date: 12/16/23 Status: Ordered naproxen 500 mg oral delayed release tablet See Instructions, TAKE 1 TABLET BY MOUTH TWICE DAILY TAKE WITH FOOD ONLY NEEDED FOR LOWER BACK PAIN. TRY NOT TO TAKE DAILY, # 50 tablet, 2 Refills, Maintenance, 10/29/22 15:56:00 EDT, [email or web address] #[id number], 166, cm, 10/16/22 10:45:00 EST, Hei... Start Date: 10/29/22 Status: Ordered NuLYTELY with Flavor Packs oral powder for reconstitution See Instructions, per GI office, # 4,000 mL, 0 Refills, Maintenance, 07/02/22 12:28:00 EST, [facility] #[id number], Partial fill upon patient request if the prescription is for a schedule II opioid drug., per GI office, 166, cm, 06/05/22 16:18:00... Start Date: 07/02/22 Status: Ordered omeprazole 20 mg oral enteric coated capsule See Instructions, take 1 tablet by mouth 2 times a day, # 60 tablet, 2 Refills, Maintenance, 06/12/22 13:44:00 EDT, [email or web address] #[id number], Rx in Maldivian, 166, cm, 06/05/22 16:18:00 EDT, Height,87, kg, 06/05/22 16:18:00 EDT, Dry Weight Start Date: 06/12/22 Status: Ordered riboflavin 100 mg oral tablet 2 TABS, By Mouth, 2 times a day, for headaches, # 60 tablet, 5 Refills, Maintenance, 08/04/22 8:40:00 EST, Tablet, [email or web address] #[id number], Partial fill upon patient request if the prescription is for a schedule II opioid drug., 166, cm, 08/04/22... Start Date: 08/04/22 Stop Date: 01/31/23 Status: Ordered SUMAtriptan 25 mg oral tablet 1 tablet = 25 mg, By Mouth, Daily, PRN as needed for migraine headache, may repeat dose in 2 hours if needed; in northern irish do not use more than 2-3 x [...] TB tx. 2[facility] Pt did not keep sched appt. Case closed. Social History Social History Type Response Smoking Status Never smoker entered on: 11/23/14 Sex Patient Care team information Care Team Personnel Name: Kimber Mcclain RN Position: [facility] RN Member Role: Primary Care Nurse Name: Yoanna Nelson MD Position: [facility] Physician - Primary Care Member Role: PCP Address: Address: [address] [place] [address]- [place] Care Team Related Persons Name: DENYS GONZALES Address: home [address] [place] [address] Name: EMILIANO YEH Address: home [address] [place] [address]
--- OUTSIDE RECORDS SUMMARY | 2024-07-13 10:03 | XMS_ITS | Continuity of Care Document ---
Author Organization [facility] Address [address] [place] [address]- Care Team Providers Care Army Manager Name Role Phone Socorro Kingston MD, I Primary Care Physician [phone] Encounter [facility] Date(s): 05/13/21 - 07/10/[address] [address] Attending Physician: Not on Staff, Attending MD Allergies, Adverse Reactions, Alerts Substance Reaction [...]
--- OUTSIDE RECORDS SUMMARY | 2024-07-13 10:03 | XMS_ITS | Continuity of Care Document ---
Author Organization [facility] Address [address] [place] [address]- Care Team Providers Care Warp Hauler Name Role Phone Thee MCCULLOUGH, Socorro Davidson Primary Care Physician [phone] Encounter [facility] ACCT R [id number] Date(s): 12/15/19 - 01/14/[address] [address]- [facility] Attending Physician: Eliane Stout Admitting Physician: Eliane Stout Referring Physician: AdmtrEliane Allergies, Adverse Reactions, Alerts Substance Reaction Severity Status gabapentin numbness of tongue Active Immunizations Given and Recorded Vaccine Date Status Refusal Reason tetanus/diphtheria/pertussis, acel(Tdap) 02/07/19 Given influenza virus vaccine, [...] Note: vis 7Admin Note: vis 01/24/94 Medications Advil Liquigel = 200 mg, By Mouth, Every 6 hours, 0 Refills, Maintenance, 05/13/19 9:15:47 EDT Start Date: 05/13/19 Status: Ordered ARIPiprazole 5 mg oral tablet 5 mg, 1, tablet, By Mouth, Daily, # 90 tablet, Refills 0, Maintenance, 05/13/19 9:15:30 EDT Start Date: 05/13/19 Status: Ordered aspirin 81 mg oral tablet 1 tablet = 81 mg, By Mouth, Daily, 0 Refills, Maintenance, 08/23/18 9:47:41 EST Start Date: 08/23/18 Status: Ordered hydrOXYzine hydrochloride 25 mg oral tablet 1 tablet = 25 mg, By Mouth, 2 times a day, take only if needed, prn anxiety, # 60 tablet, 1 Refills, Maintenance, 10/29/18 17:36:45 EDT Start Date: 10/29/18 Status: Ordered NuLYTELY with Flavor Packs oral powder for reconstitution See Instructions, 1 glass every 15-30 minutes until finished, # 4,000 mL, 0 Refills, Maintenance, 10/14/19 13:14:00 EST, [facility] #[id number], 1 glass every 15-30 minutes until finished, 163, cm, 05/13/19 9:14:00 EDT, Height, 89.3, kg, 10/21/18... Start Date: 10/14/19 Status: Ordered omeprazole 20 mg oral enteric coated capsule See Instructions, TAKE 1 CAPSULE BY MOUTH DAILY, # 30 capsule, 2 Refills, Maintenance, 04/19/19 13:54:03 EDT Start Date: 04/19/19 Status: Ordered propranolol 60 mg oral capsule, extended release See Instructions, TAKE 1 CAPSULE BY MOUTH DAILY, # 30 capsule, Refills 5, Tot. Refills 5, Maintenance, 04/19/19 13:54:39 EDT, Instructions Replace Required Details, Route to Pharmacy Electronically, [id number], [facility]... Start Date: 04/19/19 Status: Ordered raNITIdine 150 mg oral tablet [...] EST, Tablet Start Date: 09/27/18 Status: Ordered Problem List Condition Effective Dates [...]
--- OUTSIDE RECORDS SUMMARY | 2024-07-13 10:03 | XMS_ITS | Continuity of Care Document ---
Author Organization [facility] Address [address] [place] [address]- Care Team Providers Care Epic Application Coordinator Name Role Phone Thee MCCULLOUGH, Socorro Davidson Primary Care Physician Encounter [facility] [place]CT R [id number] Date(s): 05/22/21 - 06/21/[address] [address]- Attending Physician: Eliane Stout Admitting Physician: Eliane [...]
--- OUTSIDE RECORDS SUMMARY | 2024-07-13 10:03 | XMS_ITS | Continuity of Care Document ---
Author Organization [facility] Address [address] [place] [address]- Care Team Providers Care Senior Radiation Protection Technician Name Role Phone oYanna Nelson MD Primary Care Physician Encounter [facility] Date(s): 06/10/23 - 07/10/[address] [address] Attending Physician: Eliane Stout Admitting Physician: AdmEliane saldana Referring Physician: Admtr, ArMele Allergies, Adverse Reactions, Alerts Substance Reaction Severity [...] DAILY, # 90 tablet, 0 Refills, Maintenance, 06/10/23 11:08:00 EDT, [facility] #[id number], 168, cm, 06/10/23 10:41:00 EDT, Height, 91.8, kg, 11/24/22 13:50:00 EDT, Dry Weight Start Date: 06/10/23 Status: Ordered ARIPiprazole 5 mg oral tablet TAKE 1 TABLET BY MOUTH EVERY DAY Start Date: 02/13/22 Status: Ordered calcium (as carbonate)-vitamin D 500 mg-400 intl units oral tablet 1 tablet, By Mouth, 2 times a day, take with food as a supplement for calcium and vitamin D for osteopenia., # 60 tablet, 3 Refills, Maintenance, 10/24/22 13:37:00 EST, [facility] #[id number], Partial fill upon patient request if the prescription... Start Date: 10/24/22 Status: Ordered Colace sodium 100 mg oral capsule 100 mg, 1, capsule, By Mouth, 2 times a day, PRN, # 100 capsule, Refills 3, Tot. Refills 3, Maintenance, for constipation, 12/31/22 19:35:00 EDT, Route to Pharmacy Electronically, [facility] #[id number], Partial fill upon patient request if the [...] Refills, Maintenance, 07/14/22 12:22:00 EST, REC Powder, [facility] #[id number], Partial fill upon patient request if the prescription is for a schedule II o... Start Date: 07/14/22 Status: Ordered MiraLax oral powder for reconstitution = 17 Gm, By Mouth, Daily, dissolve in water before taking, # 255 Gm, 2 Refills, Acute 12/16/23 19:36:00 EDT, 12/31/22 19:35:00 EDT, REC Powder, [facility] #[id number], Partial fill upon patient request if the prescription is for a schedule II opi... Start Date: 12/31/22 Stop Date: 12/16/23 Status: Ordered naproxen 500 mg oral delayed release tablet See Instructions, TAKE 1 TABLET BY MOUTH TWICE DAILY TAKE WITH FOOD ONLY NEEDED FOR LOWER BACK PAIN. TRY NOT TO TAKE DAILY, # 50 tablet, 2 Refills, Maintenance, 10/29/22 15:56:00 EDT, [facility] #[id number], 166, cm, 10/16/22 10:45:00 EST, Hei... Start Date: 10/29/22 Status: Ordered NuLYTELY with Flavor Packs oral powder for reconstitution See Instructions, per GI office, # 4,000 mL, 0 Refills, Maintenance, 07/02/22 12:28:00 EST, [facility] #[id number], Partial fill upon patient request if the prescription is for a schedule II opioid drug., per GI office, 166, cm, 06/05/22 16:18:00... Start Date: 07/02/22 Status: Ordered omeprazole 20 mg oral enteric coated capsule See Instructions, take 1 tablet by mouth 2 times a day, # 60 tablet, 2 Refills, Maintenance, 06/12/22 13:44:00 EDT, [facility] #[id number], Rx in [place], 166, cm, 06/05/22 16:18:00 EDT, Height,87, kg, 06/05/22 16:18:00 EDT, Dry Weight Start Date: 06/12/22 Status: Ordered riboflavin 100 mg oral tablet 2 tablet = 200 mg, By Mouth, 2 times a day, for headaches, # 120 tablet, 5 Refills, Maintenance, 06/15/23 11:00:00 EDT, Tablet, [facility] #[id number], Partial fill upon patient request if the prescription is for a schedule II opioid drug., 168,... Start Date: 06/15/23 Stop Date: 12/12/23 Status: Ordered SUMAtriptan 25 mg oral tablet 1 tablet = 25 mg, By Mouth, Daily, PRN as needed for migraine headache, may repeat dose in 2 hours if needed; in somali do not use more than 2-3 x [...] smoker entered on: 11/23/14 Sex Note * DiSantis, Dina: PERFORM, SIGN, VERIFY Event Display: Patient Education/Instruction Authored Date: [id number] [facility] [place] Clinical Summary Person Information Visit Date 04/25/2016 2:25 PM Name JUNE RICKS Age 56 Years 1960 12:00 AM PCP Archie Witt MD PCP Sex Female Race White Ethnicity / Language [place] You can now view a summary of your hospital visit from the comfort of your home through a free online portal called iDubba. iDubba is a website that allows you to securely view your medical information including discharge summary, medications and follow-up visits. You can also send a secure electronic message to your doctor???s office to request appointments, renew medicationsor just ask a question. You can enroll at [email or web address] or register during your next office visit. Smoking can increase your chances of developing chronic health problems and can cause harmful effects to other family members in your house. If you smoke, you are strongly encouraged to quit. Please call the [place] Smokers??? Helpline at 4-013-VZTLNOW (or ) or log on to [email or web address] for more information. Reason for Visit: Allergy [...] dose in 2 hours if needed; in somali, As Needed, as needed for migraine headache, [...] primary care provider, you may find a [facility] provider by calling [facility] at [phone]. For information about the plan of care including goals and instructions for your diagnosis, please see the patient education orders section of this document. Patient Visit Summary: Future Appointments: Type Location Start Finish State Return [facility] [place] 04/25/2016 2:25 PM 04/25/2016 2:50 PM Pending Follow-Up Instructions Patient Education Materials Additional Instructions: * Mary Hendrickson: PERFORM, SIGN, VERIFY Event Display: Patient Education/Instruction Authored Date: [id number] [facility] Person Information Name JUNE RICKS Age 51 Years 1960 12:00 AM PCP Miryam MCCULLOUGH, Archie PCP Reason for Visit: Allergy Info: NKA [...] primary care provider, you may find a [facility] provider by calling [facility] [employer] [facility] at [phone]. Patient Education Information Follow-up Details: Patient Education Material: Patient Care team information Care Team Personnel Name: Kimber Mcclain RN Position: [facility] RN Member Role: Primary Care Nurse Name: Yoanna Nelson MD Position: [facility] Physician - Primary Care Member Role: PCP Address: Address: [address] [place] [address]- Care Team Related Persons Name: DENYS GONZALES Address: home [address] [place] [address] Name: EMILIANO YEH Address: [place] [address]
--- OUTSIDE RECORDS SUMMARY | 2024-07-13 10:03 | XMS_ITS | Continuity of Care Document ---
Author Organization [facility] Cammy hoffmans [employer] Address [address], [address] [place] [address]- Care Team Providers Care Public Transit Trolley Driver Name Role Phone Thee MCCULLOUGH, Socorro Davidson Primary Care Physician [phone] Encounter [facility] Date(s): 06/27/21 - 07/27/21 [facility] [employer] [address], [address] [place], [place] [address] Attending Physician: Eliane Stout Admitting Physician: Eliane [...]
--- OUTSIDE RECORDS SUMMARY | 2024-07-13 10:03 | XMS_ITS | Continuity of Care Document ---
Author Organization [facility] Address [address] [place] [address]- Care Team Providers Care Is Consultant Name Role Phone Thee MCCULLOUGH, Socorro Davidson Primary Care Physician Encounter [facility] Date(s): 03/26/22 - 04/25/[address] [address] Allergies, Adverse Reactions, Alerts Substance Reaction [...] tablet, 1 Refills, Maintenance, 03/17/22 10:50:00 EDT, [facility] #[id number], Partial fill upon patient request if the [...] TB tx. 2Pt referred by Dr. Witt-- [facility]. Pt did not keep sched appt. Case closed. Social History Social History Type Response Smoking Status Never smoker entered on: 11/23/14 Sex Care Team Personnel Name: Socorro Kingston MD, I Address: [address] [place] [address] [place] [address]- [place]
--- OUTSIDE RECORDS SUMMARY | 2024-07-13 10:03 | XMS_ITS | Continuity of Care Document ---
Author Organization [facility] Address [address] [place] [address]- Care Team Providers Care Diazo Technician Name Role Phone Socorro Kingston MD, I Primary Care Physician [phone] Encounter [facility] Date(s): 03/04/21 - 04/03/[address] [address]- Allergies, Adverse Reactions, Alerts Substance Reaction Severity [...] 03/25/21 16:28:00 EDT, Route to Pharmacy Electronically, [facility] #[id number], Partial fill upon patient request if the presc... Start Date: 03/25/21 Status: Ordered ARIPiprazole 5 mg oral tablet TAKE 1 TABLET BY MOUTH EVERY DAY [facility] psychiatric technician assistant Start Date: 03/25/21 Status: Ordered FLUoxetine 40 mg oral capsule TAKE 1 CAPSULE BY MOUTH EVERY MORNING [facility] psychiatric technician assistant Start Date: 03/25/21 Status: Ordered hydrOXYzine pamoate 25 mg oral capsule TAKE 1 CAPSULE BY MOUTH THREE TIMES DAILY NEEDED FOR ANXIETY OR SLEEP [facility] psychiatric technician assistant Start Date: 03/25/21 Status: Ordered meclizine 25 mg oral tablet 1 tablet = 25 mg, By Mouth, 3 times a day, PRN Motion Sickness, # 90 tablet, 0 Refills, Maintenance, 10/28/20 12:37:00 EDT, Tablet, [facility], Partial fill upon patient request if the prescription is for a schedule II opioid drug., 167.... Start Date: 10/28/20 Status: Ordered Melatonin 5 mg oral tablet TAKE 1 TO 2 TABLETS BY MOUTH AT BEDTIME NEEDED [facility] psychiatric technician assistant Start Date: 03/25/21 Status: Ordered walker with wheel walker with [...]
--- OUTSIDE RECORDS SUMMARY | 2024-07-13 10:03 | XMS_ITS | Continuity of Care Document ---
Author Organization [facility] Address [address] [place] [address]- Care Team Providers Care Rehabilitation Services Director Name Role Phone Thee MCCULLOUGH, Socorro Davidson Primary Care Physician [phone] Encounter [facility] Date(s): 09/14/22 - 10/23/[address] [address] Attending Physician: Cristel Melara NP Admitting Physician: Cristel Melara NP Referring Physician: Cristel Melara NP Allergies, Adverse Reactions, Alerts Substance Reaction Severity [...] tablet, 3 Refills, Maintenance, 05/04/22 13:25:00 EDT, [facility] #[id number], 166, cm, 03/17/22 10:16:00 EDT, Height, 92.6, kg, 06/13/21 15:24:00 EDT, Dry Weight Start Date: 05/04/22 Status: Ordered ARIPiprazole 5 mg oral tablet TAKE 1 TABLET BY MOUTH EVERY DAY Start Date: 02/13/22 Status: Ordered EC Naprosyn 500 mg oral enteric coated tablet 1 tablet = 500 mg, By Mouth, 2 times a day, take with food only if needed for low back pain. try not to take daily., # 50 tablet, 0 Refills, Maintenance, 10/01/22 12:16:00 EST, [facility] #[id number], Partial fill upon patient request if the pres... Start Date: 10/01/22 Status: Ordered FLUoxetine 40 mg oral capsule [...] Refills, Maintenance, 07/14/22 12:22:00 EST, REC Powder, [facility] #[id number], Partial fill upon patient request if the prescription is for a schedule II o... Start Date: 07/14/22 Status: Ordered NuLYTELY with Flavor Packs oral powder for reconstitution See Instructions, per GI office, # 4,000 mL, 0 Refills, Maintenance, 07/02/22 12:28:00 [facility][id number], Partial fill upon patient request if the prescription is for a schedule II opioid drug., per GI office, 166, cm, 06/05/22 16:18:00... Start Date: 07/02/22 Status: Ordered omeprazole 20 mg oral enteric coated capsule See Instructions, take 1 tablet by mouth 2 times a day, # 60 tablet, 2 Refills, Maintenance, 06/12/22 13:44:00 EDT, [facility] #[id number], Rx in [place]an, 166, cm, 06/05/22 16:18:00 EDT, Height,87, kg, 06/05/22 16:18:00 EDT, Dry Weight Start Date: 06/12/22 Status: Ordered riboflavin 100 mg oral tablet 2 TABS, By Mouth, 2 times a day, for headaches, # 60 tablet, 5 Refills, Maintenance, 08/04/22 8:40:00 EST, Tablet, [facility] #[id number], Partial fill upon patient request if the prescription is for a schedule II opioid drug., 166, cm, 08/04/22... Start Date: 08/04/22 Stop Date: 01/31/23 Status: Ordered SUMAtriptan 25 mg oral tablet 1 tablet = 25 mg, By Mouth, Daily, PRN as needed for migraine headache, may repeat dose in 2 hours if needed; in frisian do not use more than 2-3 x [...] TB tx. 2Pt referred by Dr. Witt-- [facility]. Pt did not keep sched appt. Case closed. Social History Social History Type Response Smoking Status Never smoker entered on: 11/23/14 Sex Patient Care team information Care Team Personnel Name: Socorro Kingston MD, I Position: [facility] Primary Care Physician Member Role: PCP Address: Address: [address] [place] [address]- Name: Kimber Mcclain RN Position: [facility] RN Member Role: Primary Care Nurse Care Team Related Persons Name: DENYS GONZALES Address: home [address] [place] [address] Name: EMILIANO YEH Address: home [address] [place] [address]
--- OUTSIDE RECORDS SUMMARY | 2024-07-13 10:03 | XMS_ITS | Continuity of Care Document ---
Author Organization [facility] ter Address [address] [place] [address]- Care Team Providers Care Credit Control Manager Name Role Phone Yoanna Nelson MD Primary Care Physician Encounter [place] Date(s): 12/09/23 - 12/09/[address] [address] Discharge Disposition: A-D/C Home Attending Physician: Juvenal Peter MD Admitting Physician: Juvenal Peter MD Referring Physician: Juvenal Peter MD Allergies, Adverse Reactions, Alerts Substance Reaction [...] Note: vis 7Admin Note: vis 01/24/94 Medications acetaminophen 325 mg oral tablet 650 mg, 2, tablet, By Mouth, Every 4 hours, PRN, for 10 days, # 120 tablet, Refills 0, Tot. Refills0, Acute 12/19/23 9:43:00 EDT, Pain , Mild, 12/09/23 9:43:00 EDT, Route to Pharmacy Electronically,[facility] #[id number], Partial fill upon sandip... Start Date: 12/09/23 Stop Date: 12/19/23 Status: Ordered amLODIPine 5 mg oral tablet 1 tablet, By Mouth, Daily, # 90 tablet, 1 Refills, Maintenance, 11/10/23 5:27:00 EDT, [facility] #[id number], 167, cm, 10/01/23 14:12:00 EST, Height, 86, [...] tablet, 5 Refills, Maintenance, 08/24/23 14:36:00 EST, [facility] #[id number], Partial fill upon patient request if the prescription... Start Date: 08/24/23 Stop Date: 02/20/24 Status: Ordered Colace sodium 100 mg oral capsule 100 mg, 1, capsule, By Mouth, 2 times a day, PRN, # 100 capsule, Refills 3, Tot. Refills 3, Maintenance, for constipation, 12/31/22 19:35:00 EDT, Route to Pharmacy Electronically, [facility] #[id number], Partial fill upon patient request if the p... Start Date: 12/31/22 Status: Ordered Eucerin Daily Hydration topical lotion 1 application, Topically, 4 times a day, # 600 mL, 5 Refills, Maintenance, 09/01/23 16:25:00 EST, [facility] #[id number], Partial fill upon patient request if the [...] 17 Gm, By Mouth, Daily, PRN Constipation, for 14 days, # 238 Gm, 0 Refills, Acute 12/23/23 9:44:00 EDT, 12/09/23 9:44:00 EDT, REC Powder, [facility] #[id number], Partial fill upon patient request if the prescription is for a schedule II opioid... Start Date: 12/09/23 Stop Date: 12/23/23 Status: Ordered MiraLax oral powder for reconstitution = 17 Gm, By Mouth, Daily, PRN Constipation, dissolve in water before taking, # 527 Gm, 5 Refills, Maintenance, 07/14/22 12:22:00 EST, REC Powder, [facility] #[id number], Partial fill upon patient request if the prescription is for a schedule II o... Start Date: 07/14/22 Status: Ordered naproxen 500 mg oral delayed release tablet See Instructions, TAKE 1 TABLET BY MOUTH TWICE DAILY TAKE WITH FOOD ONLY NEEDED FOR LOWER BACK PAIN. TRY NOT TO TAKE DAILY, # 50 tablet, 2 Refills, Maintenance, 10/29/22 15:56:00 EDT, [facility] #[id number], 166, cm, 10/16/22 10:45:00 EST, Hei... Start Date: 10/29/22 Status: Ordered NuLYTELY with Flavor Packs oral powder for reconstitution See Instructions, per GI office, # 4,000 mL, 0 Refills, Maintenance, 07/02/22 12:28:00 EST, [facility] #[id number], Partial fill upon patient request if the [...] tablet, 2 Refills, Maintenance, 06/12/22 13:44:00 EDT, [facility] #[id number], Rx in Nepalese, 166, cm, 06/05/22 16:18:00 EDT, Height,87, kg, [...] EST, Heig... Start Date: 09/04/23 Status: Ordered oxyCODONE 5 mg oral tablet 5 mg, By Mouth, Every 4 hours, PRN, for 3 days, # 12 tablet, Refills 0, Tot. Refills 0, Acute 12/12/23 9:44:00 EDT, Pain , Moderate, 12/09/23 9:44:00 EDT, Route to Pharmacy Electronically, [facility] #[id number], Partial fill upon patient request... Start Date: 12/09/23 Stop Date: 12/12/23 Status: Ordered riboflavin 100 mg oral tablet 2 tablet = 200 mg, By Mouth, 2 times a day, for headaches, # 120 tablet, 5 Refills, Maintenance, 06/15/23 11:00:00 EDT, Tablet, [facility] #[id number], Partial fill upon patient request if the prescription is for a schedule II opioid drug., 168,... Start Date: 06/15/23 Stop Date: 12/12/23 Status: Ordered SUMAtriptan 25 mg oral tablet 1 tablet = 25 mg, By Mouth, Daily, PRN as needed for migraine headache, may repeat dose in 2 hours if needed; in pitc[place] islander do not use more than 2-3 x [...] Range]: 1 2 3 Height 168 cm (12/09/23 7:04 AM) 168 cm (12/07/23 9:14 AM) Weight 88.1 kg (12/09/23 7:04 AM) 89.5 kg (12/07/23 9:14 AM) Oxygen Saturation [94-100 %] 97 % (12/09/23 1:00 PM) 95 % (12/09/23 12:15 PM) 94 % (12/09/23 12:00 PM) Pulse Rate [55-90 bpm] 77 bpm (12/09/23 7:04 AM) Body Mass Index [18.5-24.99 kg/m2] 31.21 kg/m2 *>HHI* (12/09/23 7:04 AM) 31.71 kg/m2 *>HHI* (12/07/23 9:14 AM) Blood Pressure [90-138/55-84 mm Hg] 116/78mm Hg (12/09/23 12:15 PM) 110/78mm Hg (12/09/23 12:00 PM) 111/75mm Hg (12/09/23 11:45 AM) Respiratory Rate [16-30 br/min] 18 br/min (12/09/23 12:15 PM) 19 br/min (12/09/23 12:00 PM) 15 br/min *L* (12/09/23 11:45 AM) Temperature [96.8-100.4 DegF] 97.6 DegF (12/09/23 12:00 PM) 98.4 DegF (12/09/23 9:15 AM) 97.7 DegF (12/09/23 7:04 AM) Liters per Minute 6 L/min (12/09/23 9:15 AM) Mode of Delivery (Oxygen) Room air (12/09/23 1:00 PM) Room air (12/09/23 12:00 PM) Room air (12/09/23 9:45 AM) Blood pressure sites Arm, left (12/09/23 9:15 AM) Arm, right (12/09/23 7:04 AM) Temperature Route Temporal (12/09/23 12:00 PM) Temporal (12/09/23 9:15 AM) Temporal (12/09/23 7:04 AM) Dry Weight 89.5 kg (12/07/23 9:14 AM) Weight Obtained Via Standing scale (12/09/23 7:04 AM) Patient/family stated (12/07/23 9:14 AM) Dry Weight Obtained Via Patient/family s tated (12/07/23 9:14 AM) Social History Social History Type Response Smoking Status Never smoker entered on: 11/23/14 Sex Note * Jesika Moss RN: PERFORM Event Display: Discharge/Transfer Note Hospital Authored Date: [id number] Nursing Discharge Note Entered On: 12/09/2023 13:14 EDT Performed On: 12/09/2023 13:14 EDT by Jesika Moss RN Nursing Discharge Note 2 Discharge Time : 12/09/2023 13:14 EDT Discharge Level of Care at Discharge : Home/Fci/Foster Care Patient Left Unit Via : Wheelchair Patient Accompanied Off Unit with : Responsible adult DC Instructions Provided & Signed by Pt : Yes Patient Understands D/C Instructions : Yes Patient Instructions Discharge Signed : Yes Did Pt have Specialty Bed or Wound Vac : No Jesika Moss RN - 12/09/2023 13:14 EDT * Krista Newman RN: PERFORM Event Display: Patient Education/Instruction Authored Date: Surgery Adult Discharge Instructions [address] [address] Name: JUNE GOMEZ : 1960?? Visit: 12/09/2023 06:02?? Current Date: 12/09/2023 12:40 ?? Account: [id number]?? Surgery Discharge Instructions We would like to thank you for allowing us to assist you with your healthcare needs. The following includes patient education materials and information regarding your injury/illness. Our entire staffstrives to provide an excellent experience for our patients and their families. PLEASE ENSURE YOU FOLLOW-UP PER THE INSTRUCTIONS BELOW! ?? YOUR OPINION IS IMPORTANT TO US! Please complete the survey you may receive by mail or email. Your feedback will be used to make improvements to the healthcare experiences of our patients and their families. Surveys are administered by [email or web address] ?? If further treatment with your primary care physician or another doctor is recommended, it is important for you to keep the appointment. Call your primary care physician or return to the Emergency Department immediately if your condition worsens, fails to improve, or new symptoms develop. If you need to find a doctor, you can call [facility] for a referral at [phone] or toll free at [phone]) or log in to [email or web address].. ?? [facility], in keeping with [facility] guidance, no longer requires face masks for staff, patientsor visitors in most situations. Similiar to time spent indoors at other locations, there is the chance that you were exposed to repiratory viruses during your time with us (such as flu or COVID-19). If you develop symptoms concerning for a viral respiratory infection, please seek testing (and treatment if indicated) from your medical provider or home test kit. ?? You can view and manage your care through the patient portal or by using a health care jania of your choosing. [employer] is a website that allows you to securely view your medical information including your hospital discharge summary, office visit summaries, medications and follow-up visits. You can also request appointments, renew medications, and request access to your medical information using a health care jania of your choosing, or just ask a question. You are entitled to know the individuals who participated in your treatment. This information is available within your medical record and will be provided upon your request. You can enroll at [email or web address] or register d uring your next office visit. You have been discharged from [facility], Patient Care Unit: PANU??. If you have any questions regarding these instructions after you leave, please call us and we will be happy to assist you. [facility] Your Care Team Attending Physician Juvenal Peter MD?? Consulting Providers Juvenal Peter MD?? Discharging Providers Joseph Tan MD Reason for Admission SYMPTOMATIC CHOLELITHIASIS INPT OR 23HR Primary Care Provider Yoanna Nelson MD? Advance Directive Health Care Proxy on File Yes - Health Care Proxy What to do next Instructions From Your Doctor If you develop fever, chills, increased pain, nausea, vomiting, bleeding, or increased redness or pus around the wound please call General Surgery office number provided. ? Activity -No heavy lifting >10 lbs for 2 weeks when seen on follow up?? - Increase activity as tolerated - We Encourage cough and deep breathing ?? Wound care:?? -No tub baths until incisions have healed -Your??incisions are closed with absorbable??sutures, which is covered by Band- Aids and Steri-Strips or skin tape -You in may shower in 24??hours ?? Pain control:?? -You may take Ibuprofen 600 mg every 8 hours and Acetaminophen 650 mg every 4 hours for pain over the counter. If your pain is not controlled with these medications; take the prescribed narcotic medication(oxycodone); be careful not to take more than 4000 mg of Acetaminophen in 24 hours or more than 3200 mg of Ibuprofen in 24hrs.?? - No driving until off narcotics for 24 hours?? -You may fill your narcotic prescription for less tablets/pills than prescribed ?? Diet:?? Please eat low fat diet and slowly reintroduce more fatty foods into your diet over the next 2-3 weeks. ?? Orders? 12/09/23 9:27:00 EDT?? Instructions from your Care Team Ok to shower tomorrow (12/09), ok??for soap and water to run over incisions, do not scrub, pat dry.? Do not submerge in water until fully healed.? Please call to confirm follow up appt.? Scheduled Follow-Up Appointments Thursday 11:00 AM EDT ?? With: Kelton HAIDER, Cristel Where: [facility] [address] [facility] [address], [address] [place] [address]- Status: Pending You Need to Schedule the Following Appointments Follow Up with??Brittani MCCULLOUGH, Juvenal Why: please call to make a follow up appointment that fits your schedule in 2-3 weeks Where: [address] [facility] [place] [address]- Discharge Medications JUNE COHEN :1960 Visit Date:12/09/2023 Medications: Please continue your medications until treatment is completed or stopped by your provider. You may resume your daily prescription medications. Discuss any questions related to medications with your provider. What How Much When Instructions Next Dose New Acetaminophen (acetaminophen 325 mg oral tablet) 2 tab(s) Oral Every 4 hours as needed for Pain , Mild Duration: 10 Days Pickup at [facility] #[id number] as needed every 4 hours New Oxycodone (oxyCODONE 5 mg oral tablet) 5 Milligram Oral Every 4 hours as needed for Pain , Moderate Duration: 3 Days Pickup at [facility] #[id number] as needed every 4 hours Changed Polyethylene Glycol 3350 (MiraLax oral powder for reconstitution) 17 gram Oral Daily as needed for Constipation Duration: 14 Days Pickup at [facility] #[id number] as needed daily Unchanged Amlodipine (amLODIPine 5 mg oral tablet) 1 tab(s) Oral Daily resume home schedule Unchanged Aripiprazole (ARIPiprazole 5 mg oral tablet) TAKE 1 TABLET BY MOUTH EVERY DAY ?? resume home schedule Unchanged Calcium And Vitamin D Combination (calcium (as carbonate)-vitamin D 500 mg-400 intl unitsoral tablet) 1 tab(s) Oral Twice a day Duration: 30 Days take with food as a supplement for calcium and vitamin D for osteopenia. ?? resume home schedule Unchanged Docusate (Colace sodium 100 mg oral capsule) 1 capsule Oral Twice a day as needed for for constipation resume home schedule Unchanged Durable Medical Equipment (orthopedic mattress size joaquin) See instructions for help with mobility dx: debility, frequent falls, low back pain ICD10: R53.81, ?? resume home schedule Unchanged Durable Medical Equipment (orthopedic mattress) See instructions dx: chronic low back pain ICD10: M54.5 duration: 99 ?? resume home schedule Unchanged Emollients, Topical (Eucerin Daily Hydration topical lotion) 1 jania Topically 4 times a day Duration: 30 Days resume home schedule Unchanged Fluoxetine (FLUoxetine 40 mg oral capsule) TAKE 1 CAPSULE BY MOUTH EVERY MORNING ?? resume home schedule Unchanged HydrOXYzine (hydrOXYzine pamoate 25 mg oral capsule) 1 capsule Oral 3 times a day as needed for as needed for anxiety TAKE 1 CAPSULE BY MOUTH THREE TIMES DAILY NEEDED FOR ANXIETY OR SLEEP ?? resume home schedule Unchanged Naproxen (naproxen 500 mg oral delayed release tablet) See instructions TAKE 1 TABLET BY MOUTH TWICE DAILY TAKE WITH FOOD ONLY NEEDED FOR LOWER BACK PAIN. TRY NOT TO TAKE DAILY ?? resume home schedule Unchanged Olanzapine (olanzapine 5 mg oral tablet) 1 tab(s) Oral Daily at Bedtime resume home schedule Unchanged Omeprazole (omeprazole 20 mg oral enteric coated capsule) See instructions take 1 tablet by mouth 2 times a day ?? resume home schedule Unchanged PEG Electrolyte Solution (NuLYTELY with Flavor Packs oral powder for reconstitution) See instructions per GI office ? Unchanged Riboflavin (riboflavin 100 mg oral tablet) 2 tab(s) Oral Twice a day Duration: 30 Days for headaches ?? resume home schedule Unchanged Sumatriptan (SUMAtriptan 25 mg oral tablet) 1 tab(s) Oral Daily as needed for as needed for migraine headache may repeat dose in 2 hours if needed; in [place] islander do not use more than 2-3 x in a week to abort migraine. disp 9 tab every 30 days. ?? resume home schedule [facility]acy Information [id number]: [address] [place], [place] [id number] [phone] Allergies (NKA means No Known Allergies) gabapentin??(numbness of tongue) Education Materials Below is the list of Educational Leaflet Providered with your Discharge Instructions. [employer] Patient Education - Surgery Medical Daystay Surgical Overnight Discharge Instructions?? [employer] Patient Education - Discharge Instructions for Laparoscopic Gallbladder Removal Surgery (Cholecystectomy)?? Valuables and Belongings I fully understand and agree that [facility] accepts no responsibility for all my personal property including clothing, toilet articles, radios, jewelry, dentures, hearing aids, rings, money, or any other property that is in my possession or is brought to me after admission. I understand certain valuables may be placed in a hospital safe for a short period of time. I understand that the hospital is not liable for loss or damage due to accident, fire, or other natural occurrence while said property is in the safe. I accept full responsibility for any personal property that I keep with me, and will not hold the hospital responsible in case of loss or disappearance. I acknowledge that i have been encouraged to send valuables and belongings home. ?? Review of Valuable and Belonging List: With patient Possessions released to: locker room Date for Pt to Sign Valuables/Belongings: 12/09/23 07:05:00 ?? Valuables & Belongings ?? Clothes Electronic devices Jewelry Monetary Items Personal devices Miscellaneous Medications (Valuables) Valuables at Bedside Shirt, Shoes, Undergarments, Other: bonnet Cell phone ? Valuables Sent Home ? Valuables Sent to Security ? Other Discharge Information ? Pulmonary Rehab Status?? Pulmonary Rehab Discharge Status?? Respiratory Rate: 18 br/min ? Common Emergency Awareness Tips IS IT A STROKE? Act FAST and Check for these signs: FACE Does the face look uneven? ARM Does one arm drift down? SPEECH Does their speech sound strange? TIME Call at any sign of stroke ?? Heart Attack Signs Chest discomfort: Most heart attacks involve discomfort in the center of the chest and lasts more than a few minutes, or goes away and comes back. It can feel like uncomfortable pressure, squeezing, fullness or pain. Discomfort in upper body: Symptoms can include pain or discomfort in one or both arms, back, neck, jaw or stomach. Shortness of breath: With or without discomfort. Other signs: Breaking out in a cold sweat, nausea, or lightheaded. Remember, MINUTES DO MATTER. If you experience any of these heart attack warning signs, call to get immediate medical attention! ?? Smoking can increase your chances of developing chronic health problems and can cause harmful effects to other family members in your house. If you smoke, you are strongly encouraged to quit. Please call [facility] Link at [phone] or [phone]) or log in to [email or web address] for referrals to smoking cessation programs. ?? The National Suicide Prevention Hotline is available 09/03 if you or someone you know needs to find a reason to keep living. By calling 3-695-469-[employer] (3644) you'll be connected to a skilled, trained counselor at a crisis center in your area. SURGERY DISCHARGE INSTRUCTIONS SIGNATURE PAGE RAMBO JASON JUNE Location:[facility] Registration Date and Time:12/09/2023 06:02 EDT Primary Care Physician: Yoanna Nelson MD, Attending Physician: Juvenal Peter MD, I JUNE COHEN, have received the above patient education materials/instructions and have verbalized understanding. If ambulance or transport services are being used I further acknowledge being given a choice of service. ?? If you need to contact me, please call me at this number: . Patient/Health Data Administrator Name: Patient/Health Data Administrator Signature: Relationship to Patient: Witness Name/Signature: Date: * Jesika Moss RN: PERFORM Event Display: Patient Education Leaflets Authored Date: [id number] Surgery Medical Daystay Surgical Overnight Discharge Instructions ?? 295 Medical Daystay/Surgical Overnight Discharge Instructions ? Since your coordination and judgment may be altered by medication and/or anesthesia, a responsible adult must drive you home from the hospital. ? If you have received medication for pain or sedation while under our care, you should not drive, operate machinery, drink alcohol, or sign any legal documents for 24 hours.?? You should have someone with you at home tonight. ? Remain at home the day of discharge.?? You may be up and about unless otherwise instructed by your physician. ? You may resume your daily prescription medication schedule.?? Any depressant medication should be avoided for 24 hours unless otherwise instructed by your surgeon or anesthesiologist. ? Call your physician for a follow-up appointment.? If you experience unusual or severe pain not relied by your pain medication, excessive bleedingor drainage, persistent nausea and vomiting, excessive swelling or redness, foul odor from incisionsite or fever over 100.6F, you need to call your physician. ? A follow-up phone call by a nurse will be made the day after your procedure.?? If you have stayed with us over night, you will not be receiving a follow-up phone call. ? Nausea and vomiting are a common side effect of prescription pain medication.?? We recommend that pills are not taken on an empty stomach.?? While taking any prescription pain medication you should not drive or drink alcohol. ? * Ajay FALCON, Jesika: PERFORM Event Display: Patient Education Leaflets Authored Date: [id number] Discharge Instructions for Laparoscopic Gallbladder Removal Surgery (Cholecystectomy) ?? [address] Instrucciones de trevin para la cirug??a laparosc??pica de extirpaci??n de la ves??cula biliar (colecistectom??a) Le realizaron latisha cirug??a para extirparle la ves??cula biliar. Gege procedimiento se llama colecistectom??a. Se realiz?? con la t??cnica laparosc??pica. [place] quiere decir que le hicieron varias incisiones nestor??as. Las personas que se someten a gege tipo de cirug??a suelen recuperarse con mayor rapidez. Tambi??n experimentan menos dolor que con la cirug??a abierta de ves??cula biliar.?? Puede llevar latisha devonte plena y gil sin myers ves??cula biliar. Significa que puede seguir comiendo losalimentos y haciendo las actividades que disfruta. M??s abajo encontrar?? pautas de cuidados en el hogar despu??s de la cirug??a. Cuidados en el hogar C??mo cuidarse en myers casa:? Descanse mucho. No se preocupe si se siente cansado willian las primeras dos semanas despu??s de la operaci??n. Es com??n sentir fatiga. [place] latisha siesta cuando se sienta cansado.? L??vese cuidadosamente la piel cercana a la incisi??n con agua y un jab??n suave todos los d??as. Despu??s de la cirug??a, espere un d??a para ducharse, a menos que el proveedor de atenci??n m??dica le indique lo contrario. ??? Siga myers alimentaci??n normal. Vicki no consuma comidasgrasosas ni muy condimentadas willian algunos d??as. Muchos cirujanos recomiendan seguir latisha dieta con bajo contenido de grasas willian el primer mes despu??s de la cirug??a. No coma alimentos fritosdurante gege per??odo. ??? Puede caminar por la casa, hacer trabajo de oficina, subir escaleras o viajar en autom??thomas si se siente capaz de hacerlo. ??? P??adán a alguien que lo lleve a alexandru citas m??dicas willian los laurie d??as siguientes. No conduzca hasta que no deje de agustín los analg??sicos. Aseg??rese de que pueda pisar el freno sin demora. ??? Consuma m??s alimentos ricos en fibra y use unablandador de heces si tiene estre??imiento. Los analg??sicos pueden causar estre??imiento. Consulte con el proveedor si necesita m??s ayuda. ??? No se siente en latisha ba??era, en latisha piscina ni en unaba??era de hidromasaje hasta que el proveedor de atenci??n m??dica le indique que puede hacerlo. Espere hasta que se cierre la incisi??n. Tambi??n espere hasta que le quiten todas las sondas quir??rgicas (drenajes). ?? Seguimiento Programe latisha visita de control con el cirujano seg??n le indiquen. Llame al proveedor de atenci??n m??dica si los siguientes s??ntomas no desaparecen willian la semana siguiente a la operaci??n: ??? Cansancio extremo (fatiga) ??? Dolor en la frandy de la incisi??n ??? Diarrea o estre??imiento ??? P??rdida del apetito ?? Cu??ndo llamar a myers proveedor de atenci??n m??dica Llame enseguida a myers proveedor de atenci??n m??dica si presenta alguno de los siguientes s??ntomas:??? Color amarillento en la piel o los ojos (ictericia) ??? Escalofr??os ??? Fiebre de 100.4?F (38.0?C) o superior, o seg??n le indique el proveedor? Enrojecimiento o hinchaz??n en la incisi??n ??? Supuraci??n o mal olor proveniente de la incisi??n ??? Dolor en la incisi??n que empeora ??? Orina de color oscuro o de color ??xido ??? Heces de color kathy en lugar de color kevin??n ??? Dolor de est??selin en aumento ??? Sangrado por el recto ??? Problemas para respirar o falta de aliento??? Hinchaz??n en las piernas ?? Last Reviewed Date: 2021 ?? [id number] [employer]. Todos los derechos reservados. Esta informaci??n no pretende sustituir la atenci??n m??dica profesional. S??lo myers m??dico puede diagnosticar y tratar un problema de april. ?? Patient Care team information Care Team Personnel Name: Kimber Mcclian RN Position: [facility] RN Member Role: Primary Care Nurse Name: Yoanna Nelson MD Position: [facility] Physician - Primary Care Member Role: PCP Address: Address: [address] [place] [address]- Care Team Related Persons Name: DENYS GONZALES Address: home [address] [place] [address] Name: EMILIANO YEH Address: home [address] [place] [address]
--- OUTSIDE RECORDS SUMMARY | 2024-07-13 10:03 | XMS_ITS | Continuity of Care Document ---
Author Organization [facility] Address [address] [place] [address]- Care Team Providers Care Radiologist Name Role Phone Socorro Kingston MD, I Primary Care Physician [facility]counter [facility] Date(s): 03/27/21 - 04/26/[address] [address]- Allergies, Adverse Reactions, Alerts Substance Reaction Severity [...] 03/25/21 16:28:00 EDT, Route to Pharmacy Electronically, [facility][id number], Partial fill upon patient request if the presc... Start Date: 03/25/21 Status: Ordered amLODIPine 5 mg oral tablet 5 mg, 1, tablet, By Mouth, Daily, # 90 tablet, Refills 0, Tot. Refills 0, Maintenance, 04/24/21 11:55:00 EDT, Route to Pharmacy Electronically, [facility], Partial fill upon patient request if the prescription is for a schedule II opioid... Start Date: 04/24/21 Status: Ordered cefixime 400 mg oral tablet 1 tablet = 400 mg, By Mouth, Daily, # 5 tablet, 0 Refills, Acute 04/29/21 14:15:00 EDT, 04/24/21 11:54:00 EDT, [facility], Partial fill upon patient [...]
--- OUTSIDE RECORDS SUMMARY | 2024-07-13 10:04 | XMS_ITS | Continuity of Care Document ---
Author Organization [facility] Address [address] [place] [address]- Care Team Providers Care Cathode Washer Name Role Phone Socorro Kingston MD, I Primary Care Physician [facility] Date(s): 07/09/21 - 08/11/[address] [address]- Attending Physician: Not on Staff, Attending MD Referring Physician: Socorro Kingston MD, I Allergies, [...]
--- OUTSIDE RECORDS SUMMARY | 2024-07-13 10:04 | XMS_ITS | Continuity of Care Document ---
Author Organization [facility] Address [address] [place] [address]- Care Team Providers Care Industrial Truck Mechanic Name Role Phone Omar MCCULLOUGH, Yoanna Primary Care Physician Encounter [facility] Date(s): 10/12/23 - 11/11/[address] [address] Attending Physician: Eliane Stout Admitting Physician: AdmEliane [...] tablet, 1 Refills, Maintenance, 11/10/23 5:27:00 EDT, [facility] #[id number], 167, cm, 10/01/23 14:12:00 EST, Height, 86, [...] tablet, 5 Refills, Maintenance, 08/24/23 14:36:00 EST, [facility] #[id number], Partial fill upon patient request if the prescription... Start Date: 08/24/23 Stop Date: 02/20/24 Status: Ordered Colace sodium 100 mg oral capsule 100 mg, 1, capsule, By Mouth, 2 times a day, PRN, # 100 capsule, Refills 3, Tot. Refills 3, Maintenance, for constipation, 12/31/22 19:35:00 EDT, Route to Pharmacy Electronically, [facility] #[id number], Partial fill upon patient request if the p... Start Date: 12/31/22 Status: Ordered Eucerin Daily Hydration topical lotion 1 application, Topically, 4 times a day, # 600 mL, 5 Refills, Maintenance, 09/01/23 16:25:00 EST, [facility] #[id number], Partial fill upon patient request if the [...] Refills, Maintenance, 07/14/22 12:22:00 EST, REC Powder, [facility] #[id number], Partial fill upon patient request if the prescription is for a schedule II o... Start Date: 07/14/22 Status: Ordered MiraLax oral powder for reconstitution = 17 Gm, By Mouth, Daily, dissolve in water before taking, # 255 Gm, 2 Refills, Acute 12/16/23 19:36:00 EDT, 12/31/22 19:35:00 EDT, REC Powder, [facility] #[id number], Partial fill upon patient request if the prescription is for a schedule II opi... Start Date: 12/31/22 Stop Date: 12/16/23 Status: Ordered naproxen 500 mg oral delayed release tablet See Instructions, TAKE 1 TABLET BY MOUTH TWICE DAILY TAKE WITH FOOD ONLY NEEDED FOR LOWER BACK PAIN. TRY NOT TO TAKE DAILY, # 50 tablet, 2 Refills, Maintenance, 10/29/22 15:56:00 EDT, [facility] #[id number], 166, cm, 10/16/22 10:45:00 EST, Hei... Start Date: 10/29/22 Status: Ordered NuLYTELY with Flavor Packs oral powder for reconstitution See Instructions, per GI office, # 4,000 mL, 0 Refills, Maintenance, 07/02/22 12:28:00 EST, [facility] #[id number], Partial fill upon patient request if the prescription is for a schedule II opioid drug., per GI office, 166, cm, 06/05/22 16:18:00... Start Date: 07/02/22 Status: Ordered omeprazole 20 mg oral enteric coated capsule See Instructions, take 1 tablet by mouth 2 times a day, # 60 tablet, 2 Refills, Maintenance, 06/12/22 13:44:00 EDT, [facility] #[id number], Rx in Indian, 166, cm, 06/05/22 16:18:00 EDT, Height,87, kg, [...] 5 Refills, Maintenance, 06/15/23 11:00:00 EDT, Tablet, [facility] #[id number], Partial fill upon patient request if the prescription is for a schedule II opioid drug., 168,... Start Date: 06/15/23 Stop Date: 12/12/23 Status: Ordered SUMAtriptan 25 mg oral tablet 1 tablet = 25 mg, By Mouth, Daily, PRN as needed for migraine headache, may repeat dose in 2 hours if needed; in turkish do not use more than 2-3 x [...] Team Personnel Name: Kimber Mcclain RN Position: [facility] RN Member Role: Primary Care Nurse Name: Yoanna Nelson MD Position: [facility] Physician - Primary Care Member Role: PCP Address: Address: [address] [place] [address]- [place] Care Team Related Persons Name: DENYS GONZALES Address: [place] [address] Name: EMILIANO YEH Address: [place] [address]
--- OUTSIDE RECORDS SUMMARY | 2024-07-13 10:04 | XMS_ITS | Continuity of Care Document ---
Author Organization [facility] Address [address] [place] [address]- Care Team Providers Care Robotics Engineer Name Role Phone Socorro Kingston MD, I Primary Care Physician [phone] [facility]counter [facility] Date(s): 12/05/19 - 12/12/[address] [address]- [facility] Attending Physician: Socorro Kingston MD, I Allergies, Adverse [...] mL, 0 Refills, Maintenance, 10/14/19 13:14:00 EST, [facility] #[id number], 1 glass every 15-30 minutes until finished, [...] Replace Required Details, Route to Pharmacy Electronically, [id number], [facility]... Start Date: 04/19/19 Status: Ordered raNITIdine 150 [...] TB tx. 2Pt referred by Dr. Witt-- [facility]. Pt did not keep sched appt. Case closed. Social History Social History Type Response Smoking Status Never smoker entered on: 11/23/14 Sex
--- OUTSIDE RECORDS SUMMARY | 2024-07-13 10:04 | XMS_ITS | Continuity of Care Document ---
Author Organization [facility] Address Unknown Care Team Providers Care Automation Engineering Technician Name Role Phone Thee MCCULLOUGH, Socorro Davidson Primary Care Physician [facility] Date(s): 11/14/21 - 12/14/21 [facility] Attending Physician: Eliane Stout Admitting Physician: Eliane [...]
--- OUTSIDE RECORDS SUMMARY | 2024-07-13 10:04 | XMS_ITS | Continuity of Care Document ---
Author Organization [facility] Address [address] [place] [address]- Care Team Providers Care Key Attendant Name Role Phone Yoanna Nelson MD Primary Care Physician [facility] Date(s): 11/10/23 - 12/10/[address] [address] Allergies, Adverse Reactions, Alerts Substance [...] Mild, 12/09/23 9:43:00 EDT, Route to Pharmacy Electronically,[facility] #[id number], Partial fill upon sandip... Start Date: 12/09/23 Stop Date: 12/19/23 Status: Ordered amLODIPine 5 mg oral tablet 1 tablet, By Mouth, Daily, # 90 tablet, 1 Refills, Maintenance, 11/10/23 5:27:00 EDT, [facility] #[id number], 167, cm, 10/01/23 14:12:00 EST, Height, 86, [...] tablet, 5 Refills, Maintenance, 08/24/23 14:36:00 EST, [facility] #[id number], Partial fill upon patient request if the prescription... Start Date: 08/24/23 Stop Date: 02/20/24 Status: Ordered Colace sodium 100 mg oral capsule 100 mg, 1, capsule, By Mouth, 2 times a day, PRN, # 100 capsule, Refills 3, Tot. Refills 3, Maintenance, for constipation, 12/31/22 19:35:00 EDT, Route to Pharmacy Electronically, [facility] #[id number], Partial fill upon patient request if the p... Start Date: 12/31/22 Status: Ordered Eucerin Daily Hydration topical lotion 1 application, Topically, 4 times a day, # 600 mL, 5 Refills, Maintenance, 09/01/23 16:25:00 EST, [facility] #[id number], Partial fill upon patient request if the [...] 9:44:00 EDT, 12/09/23 9:44:00 EDT, REC Powder, [facility] #[id number], Partial fill upon patient request if the prescription is for a schedule II opioid... Start Date: 12/09/23 Stop Date: 12/23/23 Status: Ordered MiraLax oral powder for reconstitution = 17 Gm, By Mouth, Daily, PRN Constipation, dissolve in water before taking, # 527 Gm, 5 Refills, Maintenance, 07/14/22 12:22:00 EST, REC Powder, [facility] #[id number], Partial fill upon patient request if the prescription is for a schedule II o... Start Date: 07/14/22 Status: Ordered naproxen 500 mg oral delayed release tablet See Instructions, TAKE 1 TABLET BY MOUTH TWICE DAILY TAKE WITH FOOD ONLY NEEDED FOR LOWER BACK PAIN. TRY NOT TO TAKE DAILY, # 50 tablet, 2 Refills, Maintenance, 10/29/22 15:56:00 EDT, [facility] #[id number], 166, cm, 10/16/22 10:45:00 EST, Hei... Start Date: 10/29/22 Status: Ordered NuLYTELY with Flavor Packs oral powder for reconstitution See Instructions, per GI office, # 4,000 mL, 0 Refills, Maintenance, 07/02/22 12:28:00 EST, [facility] #[id number], Partial fill upon patient request if the [...] tablet, 2 Refills, Maintenance, 06/12/22 13:44:00 EDT, [facility] #[id number], Rx in Pry[place]in[place], 166, cm, 06/05/22 16:18:00 EDT, Height,87, kg, [...] 12/09/23 9:44:00 EDT, Route to Pharmacy Electronically, [facility] #[id number], Partial fill upon patient request... Start Date: 12/09/23 Stop Date: 12/12/23 Status: Ordered riboflavin 100 mg oral tablet 2 tablet = 200 mg, By Mouth, 2 times a day, for headaches, # 120 tablet, 5 Refills, Maintenance, 06/15/23 11:00:00 EDT, Tablet, [facility] #[id number], Partial fill upon patient request if the prescription is for a schedule II opioid drug., 168,... Start Date: 06/15/23 Stop Date: 12/12/23 Status: Ordered SUMAtriptan 25 mg oral tablet 1 tablet = 25 mg, By Mouth, Daily, PRN as needed for migraine headache, may repeat dose in 2 hours if needed; in taiwanese do not use more than 2-3 x [...] TB tx. 2Pt referred by Dr. Witt-- [facility]. Pt did not keep sched appt. Case closed. Social History Social History Type Response Smoking Status Never smoker entered on: 11/23/14 Sex Patient Care team information Care Team Personnel Name: Kimber Mcclain RN Position: [facility] RN Member Role: Primary Care Nurse Name: Yoanna Nelson MD Position: [facility] Physician - Primary Care Member Role: PCP Address: Address: [address] [place] [address]- Care Team Related Persons Name: DENYS GONZALES Address: [address] [place] [address] Name: EMILIANO YEH Address: [address] [place] [address]
--- OUTSIDE RECORDS SUMMARY | 2024-07-13 10:04 | XMS_ITS | Continuity of Care Document ---
Author Organization [facility] Address [address] [place] [address]- Care Team Providers Care Excelsior Machine Feeder Name Role Phone Thee MCCULLOUGH, Socorro Davidson Primary Care Physician [phone] [place] [facility] [place] [id number] Date(s): 08/15/20 - 09/14/[address] [address]- Attending Physician: Eliane Stout Admitting Physician: AdmtrEliane Referring Physician: Admtr, ArMele Allergies, Adverse Reactions, [...] 9:15:30 EDT Start Date: 05/13/19 Status: Ordered cholecalciferol 1000 intl units oral capsule 1 capsule = 1,000 International_Units, By Mouth, Daily, # 75 capsule, 0 Refills, Maintenance, 06/21/20 11:57:00 EST, Capsule, [facility] #[id number], 163, cm, 06/21/20 11:12:00 EST, Height, 89.3, kg, 10/21/18 22:10:00 EST, Dry Weight Start Date: 06/21/20 Status: Ordered diclofenac sodium 25 mg oral delayed release tablet 1 tablet = 25 mg, By Mouth, 3 times a day, PRN Pain. Burkinan sig. Discontinue Ibuprofen, # 90 tablet, 1 Refills, Maintenance, 05/21/20 15:40:00 EDT, EC Tablet, [facility] #[id number], 163, cm, 05/21/20 15:18:00 EDT, Height, 89.3, [...] tablet, 3 Refills, Maintenance, 08/15/20 12:06:00 EST, [facility] #[id number], 163, cm, 07/16/20 16:12:00 EST, Height, 89.3, kg, 10/21/18 22:10:00 EST, Dry Weight Start Date: 08/15/20 Status: Ordered NuLYTELY with Flavor Packs oral powder for reconstitution See Instructions, 240 mL By Mouth Every 15 minutes, # 4,000 mL, 0 Refills, Maintenance, 08/06/20 14:57:00 EST, [facility] #[id number], Partial fill upon patient request if the prescription is for a schedule II opioid drug., 240 mL By Mouth Every... Start Date: 08/06/20 Status: Ordered omeprazole 20 mg oral enteric coated capsule 1 capsule = 20 mg, By Mouth, Daily, if needed for heartburn, # 90 capsule, 1 Refills, Maintenance, 08/15/20 12:07:00 EST, CR Capsule, [facility] #[id number], Partial fill upon patient request ifthe prescription is for a schedule II opioid drug.,... 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 No TB tx. 2Pt referred by Dr. Witt-- [facility]. Pt did not keep sched appt. Case closed. Social History Social History Type Response Smoking Status Never smoker entered on: 11/23/14 Sex
--- OUTSIDE RECORDS SUMMARY | 2024-07-13 10:04 | XMS_ITS | Continuity of Care Document ---
Author Organization [facility] Address [address] [place] [address]- Care Team Providers Care Electric Range Assembler Name Role Phone Socorro Kingston MD, I Primary Care Physician [phone] [facility]counter [facility] Date(s): 04/10/21 - 07/19/[address] [address]- Attending Physician: Socorro Kingston MD, I Admitting [...]
--- OUTSIDE RECORDS SUMMARY | 2024-07-13 10:04 | XMS_ITS | Continuity of Care Document ---
Author Organization [facility] Address [address] [place] [address]- Care Team Providers Care Media Center Director School Name Role Phone Yoanan Nelson MD Primary Care Physician [phone] Encounter [facility] [place] [id number] Date(s): 01/09/23 - 02/08/[address] [address]- Attending Physician: Eliane Stout Admitting Physician: Eliane [...] tablet, 3 Refills, Maintenance, 05/04/22 13:25:00 EDT, [facility] #[id number], 166, cm, 03/17/22 10:16:00 EDT, Height, 92.6, [...] tablet, 3 Refills, Maintenance, 10/24/22 13:37:00 EST, [facility] #[id number], Partial fill upon patient request if the prescription... Start Date: 10/24/22 Status: Ordered Colace sodium 100 mg oral capsule 100 mg, 1, capsule, By Mouth, 2 times a day, PRN, # 100 capsule, Refills 3, Tot. Refills 3, Maintenance, for constipation, 12/31/22 19:35:00 EDT, Route to Pharmacy Electronically, [facility] #[id number], Partial fill upon patient request if the [...] Refills, Maintenance, 07/14/22 12:22:00 EST, REC Powder, [facility] #[id number], Partial fill upon patient request if the prescription is for a schedule II o... Start Date: 07/14/22 Status: Ordered MiraLax oral powder for reconstitution = 17 Gm, By Mouth, Daily, dissolve in water before taking, # 255 Gm, 2 Refills, Acute 12/16/23 19:36:00 EDT, 12/31/22 19:35:00 EDT, REC Powder, [facility] #[id number], Partial fill upon patient request if the prescription is for a schedule II opi... Start Date: 12/31/22 Stop Date: 12/16/23 Status: Ordered naproxen 500 mg oral delayed release tablet See Instructions, TAKE 1 TABLET BY MOUTH TWICE DAILY TAKE WITH FOOD ONLY NEEDED FOR LOWER BACK PAIN. TRY NOT TO TAKE DAILY, # 50 tablet, 2 Refills, Maintenance, 10/29/22 15:56:00 EDT, [facility] #[id number], 166, cm, 10/16/22 10:45:00 EST, Hei... Start Date: 10/29/22 Status: Ordered NuLYTELY with Flavor Packs oral powder for reconstitution See Instructions, per GI office, # 4,000 mL, 0 Refills, Maintenance, 07/02/22 12:28:00 EST, [facility] #[id number], Partial fill upon patient request if the prescription is for a schedule II opioid drug., per GI office, 166, cm, 06/05/22 16:18:00... Start Date: 07/02/22 Status: Ordered omeprazole 20 mg oral enteric coated capsule See Instructions, take 1 tablet by mouth 2 times a day, # 60 tablet, 2 Refills, Maintenance, 06/12/22 13:44:00 EDT, [facility] #[id number], Rx in Malian, 166, cm, 06/05/22 16:18:00 EDT, Height,87, kg, 06/05/22 16:18:00 EDT, Dry Weight Start Date: 06/12/22 Status: Ordered riboflavin 100 mg oral tablet 2 TABS, By Mouth, 2 times a day, for headaches, # 60 tablet, 5 Refills, Maintenance, 08/04/22 8:40:00 EST, Tablet, [facility] #[id number], Partial fill upon patient request if the prescription is for a schedule II opioid drug., 166, cm, 08/04/22... Start Date: 08/04/22 Stop Date: 01/31/23 Status: Ordered SUMAtriptan 25 mg oral tablet 1 tablet = 25 mg, By Mouth, Daily, PRN as needed for migraine headache, may repeat dose in 2 hours if needed; in tristanian do not use more than 2-3 x [...] VERIFY Event Display: Patient Education/Instruction Authored Date: [id number] [facility] Person Information Visit Date 04/25/2016 2:25 PM Name JUNE RICKS Age 56 Years 1960 12:00 AM PCP Archie Witt MD PCP Sex Female Race White Ethnicity / Language Malian You can now view a summary of your hospital visit from the comfort of your home through a free online portal called [employer]. [employer] is a website that allows you to securely view your medical information including discharge summary, medications and follow-up visits. You can also send a secure electronic message to your doctor???s office to request appointments, renew medicationsor just ask a question. You can enroll at [email or web address] or register during your next office visit. Smoking can increase your chances of developing chronic health problems and can cause harmful effects to other family members in your house. If you smoke, you are strongly encouraged to quit. Please call the [place] Smokers??? Helpline at 9-946-VWMRNOW (or ) or log on to [email or web address] for more information. Reason for Visit: Allergy [...] dose in 2 hours if needed; in tristanian, As Needed, as needed for migraine headache, [...] primary care provider, you may find a [facility] provider by calling [facility] at [phone]. For information about the plan of care including goals and instructions for your diagnosis, please see the patient education orders section of this document. Patient Visit Summary: Future Appointments: Type Location Start Finish State Return [facility] 04/25/2016 2:25 PM 04/25/2016 2:50 PM Pending Follow-Up Instructions Patient Education Materials Additional Instructions: * Mary Hendrickson: PERFORM, SIGN, VERIFY Event Display: Patient Education/Instruction Authored Date: [id number] [facility] Clinical Summary Person Information Name JUNE RICKS [...] primary care provider, you may find a [facility] provider by calling [facility] at [phone]. Patient Education Information Follow-up Details: Patient Education Material: Patient Care team information Care Team Personnel Name: Kimber Mcclain RN Position: [facility] RN Member Role: Primary Care Nurse Name: Yoanna Nelson MD Position: [facility] Physician - Primary Care Member Role: PCP Address: Address: [address] [place] [address]- Care Team Related Persons Name: DENYS GONZALES Address: [address] [place] [address] Name: EMILIANO YEH Address: [address] [place] [address]
--- OUTSIDE RECORDS SUMMARY | 2024-07-13 10:04 | XMS_ITS | Continuity of Care Document ---
Author Organization [facility] Address [address] [place] [address]- Care Team Providers Care Director Global Sales Name Role Phone Yoanna Nelson MD Primary Care Physician Encounter [facility] Date(s): 08/05/23 - 09/04/23 [facility] [address] [place] [id number] Attending Physician: Eliane Stout Admitting Physician: AdmEliane saldana Referring Physician: Admtr ArMele Allergies, Adverse Reactions, Alerts Substance Reaction [...] tablet, 0 Refills, Maintenance, 08/14/23 12:12:00 EST, [facility] #[id number], 168, cm, 08/05/23 9:18:00 EST, Height, 91.8, [...] tablet, 5 Refills, Maintenance, 08/24/23 14:36:00 EST, [facility] #[id number], Partial fill upon patient request if the prescription... Start Date: 08/24/23 Stop Date: 02/20/24 Status: Ordered Colace sodium 100 mg oral capsule 100 mg, 1, capsule, By Mouth, 2 times a day, PRN, # 100 capsule, Refills 3, Tot. Refills 3, Maintenance, for constipation, 12/31/22 19:35:00 EDT, Route to Pharmacy Electronically, [facility] #[id number], Partial fill upon patient request if the p... Start Date: 12/31/22 Status: Ordered Eucerin Daily Hydration topical lotion 1 application, Topically, 4 times a day, # 600 mL, 5 Refills, Maintenance, 09/01/23 16:25:00 EST, [facility] #[id number], Partial fill upon patient request if the [...] Refills, Maintenance, 07/14/22 12:22:00 EST, REC Powder, [facility] #[id number], Partial fill upon patient request if the prescription is for a schedule II o... Start Date: 07/14/22 Status: Ordered MiraLax oral powder for reconstitution = 17 Gm, By Mouth, Daily, dissolve in water before taking, # 255 Gm, 2 Refills, Acute 12/16/23 19:36:00 EDT, 12/31/22 19:35:00 EDT, REC Powder, [facility] #[id number], Partial fill upon patient request if the prescription is for a schedule II opi... Start Date: 12/31/22 Stop Date: 12/16/23 Status: Ordered naproxen 500 mg oral delayed release tablet See Instructions, TAKE 1 TABLET BY MOUTH TWICE DAILY TAKE WITH FOOD ONLY NEEDED FOR LOWER BACK PAIN. TRY NOT TO TAKE DAILY, # 50 tablet, 2 Refills, Maintenance, 10/29/22 15:56:00 EDT, [facility] #[id number], 166, cm, 10/16/22 10:45:00 EST, Hei... Start Date: 10/29/22 Status: Ordered NuLYTELY with Flavor Packs oral powder for reconstitution See Instructions, per GI office, # 4,000 mL, 0 Refills, Maintenance, 07/02/22 12:28:00 EST, [facility] #[id number], Partial fill upon patient request if the prescription is for a schedule II opioid drug., per GI office, 166, cm, 06/05/22 16:18:00... Start Date: 07/02/22 Status: Ordered omeprazole 20 mg oral enteric coated capsule See Instructions, take 1 tablet by mouth 2 times a day, # 60 tablet, 2 Refills, Maintenance, 06/12/22 13:44:00 EDT, [facility] #[id number], Rx in [place], 166, cm, 06/05/22 16:18:00 EDT, Height,87, kg, 06/05/22 16:18:00 EDT, Dry Weight Start Date: 06/12/22 Status: Ordered orthopedic mattress size joaquin orthopedic mattress size rock[place], See Instructions, # 1 each, Refills 0, [...] 5 Refills, Maintenance, 06/15/23 11:00:00 EDT, Tablet, [facility] #[id number], Partial fill upon patient request if the prescription is for a schedule II opioid drug., 168,... Start Date: 06/15/23 Stop Date: 12/12/23 Status: Ordered SUMAtriptan 25 mg oral tablet 1 tablet = 25 mg, By Mouth, Daily, PRN as needed for migraine headache, may repeat dose in 2 hours if needed; in yi do not use more than 2-3 x [...] Care team information Care Team Personnel Name: Sarahi FALCON, Kimber Position: S RN Member Role: Primary Care Nurse Name: Yoanna Nelson MD Position: [facility] Physician - Primary Care Member Role: PCP Address: Address: [address] [place] [address]- Care Team Related Persons Name: DENYS GONZALES Address: home [address] [place] [address] Name: EMILIANO YEH Address: home [address] [place] [address]
--- OUTSIDE RECORDS SUMMARY | 2024-07-13 10:04 | XMS_ITS | Continuity of Care Document ---
Author Organization [facility] Cammy Miller n's [facility] Address [address] [place] [address]- Care Team Providers Care Professor Of Political Science Name Role Phone Thee MCCULLOUGH, Socorro Davidson Primary Care Physician Encounter [facility] Date(s): 06/17/21 - 07/17/21 [facility] [address] [place] [address]- Allergies, Adverse Reactions, Alerts Substance Reaction Severity [...]
--- OUTSIDE RECORDS SUMMARY | 2024-07-13 10:04 | XMS_ITS | Continuity of Care Document ---
Author Organization [facility] Address [address] [place] [address]- Care Team Providers Care Fire Battalion Chief Name Role Phone Thee MCCULLOUGH, Socorro Davidson Primary Care Physician [phone] Encounter [id number] Date(s): 01/18/20 - 02/17/[address] [address]- [facility] Attending Physician: Eliane Stout Admitting Physician: [...] mL, 0 Refills, Maintenance, 10/14/19 13:14:00 EST, [facility] #[id number], 1 glass every 15-30 minutes until finished, [...] Replace Required Details, Route to Pharmacy Electronically, [id number], [facility]... Start Date: 04/19/19 Status: Ordered raNITIdine 150 [...]
--- OUTSIDE RECORDS SUMMARY | 2024-07-13 10:04 | XMS_ITS | Continuity of Care Document ---
Author Organization [facility] Address [address] [place] [address]- Care Team Providers Care Traffic Ii Manager Name Role Phone Thee MCCULLOUGH, Socorro Davidson Primary Care Physician Encounter [facility] Date(s): 08/06/20 - 09/05/20 [facility] [address] [place] [id number] Attending Physician: Eliane Stout Admitting [...] 0 Refills, Maintenance, 06/21/20 11:57:00 EST, Capsule, [facility] #[id number], 163, cm, 06/21/20 11:12:00 EST, Height, 89.3, kg, 10/21/18 22:10:00 EST, Dry Weight Start Date: 06/21/20 Status: Ordered diclofenac sodium 25 mg oral delayed release tablet 1 tablet = 25 mg, By Mouth, 3 times a day, PRN Pain. Bolivian sig. Discontinue Ibuprofen, # 90 tablet, 1 Refills, Maintenance, 05/21/20 15:40:00 EDT, EC Tablet, [facility] #[id number], 163, cm, 05/21/20 15:18:00 EDT, Height, 89.3, [...] tablet, 3 Refills, Maintenance, 08/15/20 12:06:00 EST, [facility] #[id number], 163, cm, 07/16/20 16:12:00 EST, Height, 89.3, kg, 10/21/18 22:10:00 EST, Dry Weight Start Date: 08/15/20 Status: Ordered NuLYTELY with Flavor Packs oral powder for reconstitution See Instructions, 240 mL By Mouth Every 15 minutes, # 4,000 mL, 0 Refills, Maintenance, 08/06/20 14:57:00 EST, [facility] #[id number], Partial fill upon patient request if the prescription is for a schedule II opioid drug., 240 mL By Mouth Every... Start Date: 08/06/20 Status: Ordered omeprazole 20 mg oral enteric coated capsule 1 capsule = 20 mg, By Mouth, Daily, if needed for heartburn, # 90 capsule, 1 Refills, Maintenance, 08/15/20 12:07:00 EST, CR Capsule, [facility] #[id number], Partial fill upon patient request ifthe prescription [...] Active Care Coordination N-CP N kiara Ahuja [phone](Confirmed) Active Well woman exam with routine gynecological [...]
--- OUTSIDE RECORDS SUMMARY | 2024-07-13 10:04 | XMS_ITS | Continuity of Care Document ---
Author Organization [facility] Address [address], [address] Floor, [address] [place] [address]- Care Team Providers Care Silo Erector Name Role Phone Thee MCCULLOUGH, Socorro Davidson Primary Care Physician Encounter [facility] Date(s): 06/19/22 - 07/19/22 [facility] [address], [address], [address] [place] [id number] Allergies, Adverse Reactions, Alerts [...] tablet, 3 Refills, Maintenance, 05/04/22 13:25:00 EDT, [facility] #[id number], 166, cm, 03/17/22 10:16:00 EDT, Height, 92.6, [...] tablet, 1 Refills, Maintenance, 03/17/22 10:50:00 EDT, [facility] #[id number], Partial fill upon patient request if the [...] Refills, Maintenance, 07/14/22 12:22:00 EST, REC Powder, [facility] #[id number], Partial fill upon patient request if the prescription is for a schedule II o... Start Date: 07/14/22 Status: Ordered NuLYTELY with Flavor Packs oral powder for reconstitution See Instructions, per GI office, # 4,000 mL, 0 Refills, Maintenance, 07/02/22 12:28:00 EST, [facility] #[id number], Partial fill upon patient request if the prescription is for a schedule II opioid drug., per GI office, 166, cm, 06/05/22 16:18:00... Start Date: 07/02/22 Status: Ordered omeprazole 20 mg oral enteric coated capsule See Instructions, take 1 tablet by mouth 2 times a day, # 60 tablet, 2 Refills, Maintenance, 06/12/22 13:44:00 EDT, [facility] #[id number], Rx in Burmese, 166, cm, 06/05/22 16:18:00 EDT, Height,87, kg, [...] TB tx. 2Pt referred by Dr. Witt-- [facility]. Pt did not keep sched appt. Case closed. Social History Social History Type Response Smoking Status Never smoker entered on: 11/23/14 Sex Patient Care team information Care Team Personnel Name: Socorro Kingston MD, I Position: [facility] Primary Care Physician Member Role: PCP Address: Address: [address] [place] [address]- Name: Kimber Mcclain RN Position: S RN Member Role: Primary Care Nurse Care Team Related Persons Name: DENYS GONZALES Address: home [address] [place] [address] Name: EMILIANO YEH Address: home [address] [place] [address]
--- OUTSIDE RECORDS SUMMARY | 2024-07-13 10:04 | XMS_ITS | Continuity of Care Document ---
Author Organization [facility] ter Address [address] [place] [address]- Care Team Providers Care Cloth Designer Name Role Phone Socorro Kingston MD, I Primary Care Physician Encounter [facility] Date(s): 05/14/20 - 06/13/[address] [address]- [facility] Attending Physician: Not on Staff, Attending MD [...] Mouth, 3 times a day, PRN Pain. Chinese sig. Discontinue Ibuprofen, # 90 tablet, 1 Refills, Maintenance, 05/21/20 15:40:00 EDT, EC Tablet, [facility] #[id number], 163, cm, 05/21/20 15:18:00 EDT, Height, 89.3, [...] 17:36:45 EDT Start Date: 10/29/18 Status: Ordered meclizine 25 mg oral tablet 1 tablet = 25 mg, By Mouth, 3 times a day, PRN for dizziness, for 7 days, # 21 tablet, 0 Refills, Acute 06/18/20 11:42:00 EST, 06/11/20 11:42:00 EDT, Tablet, [facility] #[id number], 163, cm, 06/11/20 10:50:00 EDT, Height, 89.3, kg, 10/21/18 22:10... Start Date: 06/11/20 Stop Date: 06/18/20 Status: Ordered propranolol 60 mg oral capsule, extended release See Instructions, TAKE 1 CAPSULE BY MOUTH DAILY, # 30 capsule, Refills 5, Tot. Refills 5, Maintenance, 05/21/20 15:35:00 EDT, Instructions Replace Required Details, Route to Pharmacy Electronically, [facility] #[id number], 163, cm, 05/21/20 15:18... Start Date: 05/21/20 [...] EDT, Supply Start Date: 05/14/20 Status: Ordered Zofran 4 mg oral tablet 1 tablet = 4 mg, By Mouth, Every 8 hours, # 15 tablet, 0 Refills, Maintenance, 06/11/20 11:42:00 EDT, [facility] #[id number], 163, cm, 06/11/20 10:50:00 EDT, Height, 89.3, kg, 10/21/18 22:10:00 EST, Dry Weight Start Date: 06/11/20 Stop Date: 06/16/20 Status: Ordered Problem List Condition Effective Dates Status Health Status Inform ant Cough(Confirmed) Active Consumption coagulopathy(Confirmed) Active Dyspnea- nl spirometry, bron chial challenge neg- ? anxiety(Confirmed) Active Postprandial epigastric pain(Confirmed) Active Acid reflux disease(Confirmed) Active Heartburn(Confirmed) Active Heliobacterium(Confirmed) Active Hernia, inguinal, left(Confirmed) Active Neutropenia(Confirmed) Active Care Coordination [facility] Karina Aponte (Confirmed) Active Well woman exam [...]
--- OUTSIDE RECORDS SUMMARY | 2024-07-13 10:04 | XMS_ITS | Continuity of Care Document ---
Author Organization [facility] Address [address] [place] [address]- Care Team Providers Care Vice President Sales And Marketing Name Role Phone Yoanna Nelson MD Primary Care Physician [phone] Encounter [facility] Date(s): 06/08/24 - 07/08/[address] [address] Encounter Type: Triage Allergies, Adverse Reactions, Alerts Substance Criticality Severity Reaction Reaction Severity Status gabapentin numbness of tongue [...] Daily, # 90 tablet, 1 Refills, Maintenance, 05/30/24 2:59:00 PM EDT, [facility] #[id number], 168, cm, 05/10/24 15:44:00 EDT, Height, 89.5, kg, 12/07/23 9:14:00 EDT, Dry Weight Start Date: 05/30/24 Status: Ordered Quantity: 90.0 Unit: tablet Repeat number: 2 ARIPiprazole 5 mg oral tablet TAKE 1 TABLET BY MOUTH EVERY DAY Start Date: 02/13/22 Status: Ordered Repeat number: 1 ARIPiprazole 5 mg oral tablet 5 mg, 1, tablet, By Mouth, Daily, # 30 tablet, Refills 2, Tot. Refills 2, Maintenance, 04/04/24 3:40:00 PM EDT, Route to Pharmacy Electronically, [facility] #[id number], Partial fill upon patientrequest if the prescription is for a schedule II opioid drug., 168, cm, 04/04/24 15:29:00 EDT, Height, 89.5, kg, 12/07/23 9:14:00 EDT, Dry Weight Start Date: 04/04/24 Status: Ordered Quantity: 30.0 Unit: tablet Repeat number: 3 benzonatate 100 mg oral capsule 1 capsule = 100 mg, By Mouth, 3 times a day, # 42 capsule, 1 Refills, Maintenance, 06/13/24 3:17:00PM EDT, [facility] #[id number], Partial fill upon patient request if the prescription is for aschedule II opioid drug., 168, cm, 06/13/24 15:13:00 EDT, Height, 89.5, kg, 12/07/23 9:14:00 EDT, Dry Weight Start Date: 06/13/24 Stop Date: 07/11/24 Status: Ordered Quantity: 42.0 Unit: capsule Repeat number: 2 calcium (as carbonate)-vitamin D 500 mg-400 intl units oral tablet 1 tablet, By Mouth, 2 times a day, take with food as a supplement for calcium and vitamin D for osteopenia., # 60 tablet, 5 Refills, Maintenance, 08/24/23 2:36:00 PM EST, [facility] #[id number], Partial fill upon patient request if the prescription is for a schedule II opioid drug., 1 tablet By Mouth 2 times a day,x30 days,Instr:take with food as a supplement for calcium and vitamin D for osteopenia., 168, cm, 08/05/23 9:18:00 EST, Height, 91.8, kg, 11/24/22 13:50:00 EDT, Dry Weight Start Date: 08/24/23 Stop Date: 02/20/24 Status: Ordered Quantity: 60.0 Unit: tablet Repeat number: 6 Colace sodium 100 mg oral capsule 100 mg, 1, capsule, By Mouth, 2 times a day, PRN, # 100 capsule, Refills 3, Tot. Refills 3, Maintenance, for constipation, 12/31/22 7:35:00 PM EDT, Route to Pharmacy Electronically, [facility] #[id number], Partial fill upon patient request if the prescription is for a schedule II opioid drug., 168, cm, 12/26/22 14:14:00 EDT, Height, 91.8, kg, 11/24/22 13:50:00 EDT, Dry Weight Start Date: 12/31/22 Status: Ordered Quantity: 100.0 Unit: capsule Repeat number: 4 Eucerin Daily Hydration topical lotion 1 application, Topically, 4 times a day, # 600 mL, 5 Refills, Maintenance, 09/01/23 4:25:00 PM EST, [facility] #[id number], Partial fill upon patient request if the prescription is for a scheduleII opioid drug., 1 application Topically 4 times a day,x30 days, 168, cm, 09/01/23 15:43:00 EST, Height, 91.8, kg, 11/24/22 13:50:00 EDT, Dry Weight Start Date: 09/01/23 Stop Date: 02/28/24 Status: Ordered Quantity: 600.0 Unit: mL Repeat number: 6 FLUoxetine 40 mg oral capsule TAKE 1 CAPSULE BY MOUTH EVERY MORNING Start Date: 02/13/22 Status: Ordered Repeat number: 1 FLUoxetine 40 mg oral capsule 1 capsule = 40 mg, By Mouth, Daily, # 30 capsule, 2 Refills, Maintenance, 04/04/24 3:39:00 PM EDT, Capsule, [facility] #[id number], Partial fill upon patient request if the prescription is for a schedule II opioid drug., 168, cm, 04/04/24 15:29:00 EDT, Height, 89.5, kg, 12/07/23 9:14:00 EDT, Dry Weight Start Date: 04/04/24 Status: Ordered Quantity: 30.0 Unit: capsule Repeat number: 3 hydrOXYzine hydrochloride 10 mg oral tablet 1 tablet = 10 mg, By Mouth, 4 times a day, PRN for anxiety, # 120 tablet, 2 Refills, Maintenance, 04/04/24 3:39:00 PM EDT, Tablet, [facility] #[id number], Partial fill upon patient request if theprescription is for a schedule II opioid drug., 168, cm, 04/04/24 15:29:00 EDT, Height, 89.5, kg, 12/07/23 9:14:00 EDT, Dry Weight Start Date: 04/04/24 Stop Date: 07/03/24 Status: Ordered Quantity: 120.0 Unit: tablet Repeat number: 3 hydrOXYzine pamoate 25 mg oral capsule 1 capsule = 25 mg, By Mouth, 3 times a day, PRN as needed for anxiety, TAKE 1 CAPSULE BY MOUTH THREE TIMES DAILY NEEDED FOR ANXIETY OR SLEEP Start Date: 02/13/22 Status: Ordered Repeat number: 1 magnesium oxide 400 mg oral tablet 1 tablet = 400 mg, By Mouth, Daily, for 30 days, for headaches, # 30 tablet, 6 Refills, Acute 01/02/25 11:30:00 AM EDT, 06/06/24 11:30:00 AM EDT, Tablet, [facility] #[id number], Partial fill uponpatient request if the prescription is for a schedule II opioid drug., 168, cm, 05/10/24 15:44:00 EDT, Height, 89.5, kg, 12/07/23 9:14:00 EDT, Dry Weight Start Date: 06/06/24 Stop Date: 01/02/25 Status: Ordered Quantity: 30.0 Unit: tablet Repeat number: 7 MiraLax oral powder for reconstitution = 17 Gm, By Mouth, Daily, PRN Constipation, dissolve in water before taking, # 527 Gm, 5 Refills, Maintenance, 07/14/22 12:22:00 PM EST, REC Powder, [facility] #[id number], Partial fill upon patient request if the prescription is for a schedule II opioid drug., 17 Gm By Mouth Daily,PRN:Constipation,Instr:dissolve in water before taking, 166, cm, 07/14/22 11:33:00 EST, Height, 87, kg, 06/05/22 16:18:00 EDT, Dry Weight Start Date: 07/14/22 Status: Ordered Quantity: 527.0 Unit: g Repeat number: 6 naproxen 500 mg oral delayed release tablet See Instructions, TAKE 1 TABLET BY MOUTH TWICE DAILY TAKE WITH FOOD ONLY NEEDED FOR LOWER BACK PAIN. TRY NOT TO TAKE DAILY, # 50 tablet, 2 Refills, Maintenance, 10/29/22 3:56:00 PM EDT, [facility] #[id number], 166, cm, 10/16/22 10:45:00 EST, Height, 87, kg, 06/05/22 16:18:00 EDT, Dry Weight Start Date: 10/29/22 Status: Ordered Quantity: 50.0 Unit: tablet Repeat number: 1 NuLYTELY with Flavor Packs oral powder for reconstitution See Instructions, per GI office, # 4,000 mL, 0 Refills, Maintenance, 07/02/22 12:28:00 PM EST, [facility] #[id number], Partial fill upon patient request if the prescription is for a schedule II opioid drug., per GI office, 166, cm, 06/05/22 16:18:00 EDT, Height, 87, kg, 06/05/22 16:18:00 EDT, Dry Weight Start Date: 07/02/22 Status: Ordered Quantity: 4000.0 Unit: mL Repeat number: 1 olanzapine 5 mg oral tablet 5 mg, 1, tablet, By Mouth, Daily at bedtime, # 90 tablet, Refills 0, Maintenance, 12/07/23 8:51:00 AM EDT, Partial fill upon patient request if the prescription is for a schedule II opioid drug. Start Date: 12/07/23 Status: Ordered Quantity: 90.0 Unit: tablet Repeat number: 1 omeprazole 20 mg oral enteric coated capsule 1 capsule = 20 mg, By Mouth, 2 times a day, # 60 capsule, 5 Refills, Maintenance, 05/10/24 4:06:00 PM EDT, [facility] #[id number], Rx in Kyrgyz, 168, cm, 05/10/24 15:44:00 EDT, Height, 89.5, kg,12/07/23 9:14:00 EDT, Dry Weight Start Date: 05/10/24 Stop Date: 11/06/24 Status: Ordered Quantity: 60.0 Unit: capsule Repeat number: 6 orthopedic mattress orthopedic mattress, See Instructions, # 1 each, Refills 0, Tot. Refills 0, Maintenance, dx: chronic low back pain ICD10: M54.5 duration: 99, 01/29/24 10:23:00 AM EDT, Supply Start Date: 01/29/24 Status: Ordered Quantity: 1.0 Unit: each Repeat number: 1 orthopedic mattress size orthopedic mattress size , See Instructions, # 1 each, Refills 0, Tot. Refills 0, Maintenance,for help with mobility dx: debility, frequent falls, low back pain ICD10: R53.81,, 09/04/23 9:22:00 AM EST, Supply, 168, cm, 09/01/23 15:43:00 EST, Height, 91.8, kg, 11/24/22 13:50:00 EDT, Dry Weight Start Date: 09/04/23 Status: Ordered Quantity: 1.0 Unit: each Repeat number: 1 Readi-Cat 2 Smoothie Banana 2% oral suspension See Instructions, take one 240mL bottle [address] scan and 1 240 mL bottle 1 hour before, #480 mL, 0 Refills, Maintenance, 05/20/24 3:13:00 PM EDT, [facility] #[id number], Partial fill upon patient request if the prescription is for a schedule II opioid drug., take one 240mL bottle [address] scan and 1 240 mL bottle 1 hour before, 168, cm, 05/10/24 15:44:00 EDT, Height, 89.5,kg, 12/07/23 9:14:00 EDT, Dry Weight Start Date: 05/20/24 Status: Ordered Quantity: 480.0 Unit: mL Repeat number: 1 riboflavin 400 mg oral tablet 1 tablet = 400 mg, By Mouth, Daily, for headaches d/c prior scripts, # 30 tablet, 5 Refills, Maintenance, 06/06/24 11:30:00 AM EDT, Tablet, [facility] #[id number], Partial fill upon patient request if the prescription is for a schedule II opioid drug., 168, cm, 05/10/24 15:44:00 EDT, Height, 89.5, kg, 12/07/23 9:14:00 EDT, Dry Weight Start Date: 06/06/24 Stop Date: 12/03/24 Status: Ordered Quantity: 30.0 Unit: tablet Repeat number: 6 SUMAtriptan 25 mg oral tablet 1 tablet = 25 mg, By Mouth, Daily, PRN as needed for migraine headache, may repeat dose in 2 hours if needed; in angolan do not use more than 2-3 x in a week to abort migraine. disp 9 tab every 30 days., # 9 tablet, 5 Refills, Maintenance, 06/06/24 11:30:00 AM EDT, [facility] #[id number], 9 tabs /month, 168, cm, 05/10/24 15:44:00 EDT, Height, 89.5, kg, 12/07/23 9:14:00 EDT, Dry Weight Start Date: 06/06/24 Status: Ordered Quantity: 9.0 Unit: tablet Repeat number: 6 Ventolin HFA 108 mcg/inh inhalation aerosol with adapter 2 puffs, Inhalation, Every 6 hours, PRN NEEDED FOR WHEEZING/SHORTNESS OF BREATH, # 18 Gm, 5 Refills, Maintenance, 07/07/24 12:54:00 PM EST, [facility] #[id number], 168, cm, 06/13/24 15:13:00 EDT, Height, 89.5, kg, 12/07/23 9:14:00 EDT, Dry Weight Start Date: 07/07/24 Status: Ordered Quantity: 18.0 Unit: g Repeat number: 1 Problem List Condition Confirmation Course Effective Dates [...] TB tx. 2Pt referred by Dr. Witt-- [facility]. Pt did not keep sched appt. Case closed. Social History Social History Type Response Smoking Status Never smoker entered on: 11/23/14 Sex Sex Representation Female (finding) Patient Care team information Care Team Personnel Name: Asha Feliz RN Position: [facility] RN Member Role: Primary Care Nurse Name: Kimber Mcclain RN Position: S RN Member Role: Primary Care Nurse Name: Yoanna Nelson MD Position: [facility] Physician - Primary Care Member Role: PCP Address: [address] [place] [address] Telecom: Care Team Related Persons Name: DENYS GONZALES Name: EMILIANO YEH Insurance Providers Guarantor name: JUNE RICKS [facility] Plan Information #: 1 Payer: [facility] Member Number: NA Policy Number: NA Group Number: NA
--- OUTSIDE RECORDS SUMMARY | 2024-07-13 10:04 | XMS_ITS | Continuity of Care Document ---
Author Organization [facility] Address [address] [place] [address]- Care Team Providers Care Janitor And Cleaner Name Role Phone Thee MCCULLOUGH, Socorro Davidson Primary Care Physician [phone] [facility]counter [facility] Date[facility]s): 05/28/21 - 06/27/[address] [address]- Allergies, Adverse Reactions, Alerts Substance Reaction Severity [...]
--- OUTSIDE RECORDS SUMMARY | 2024-07-13 10:04 | XMS_ITS | Continuity of Care Document ---
Author Organization [facility] Address [address] [place] [address]- Care Team Providers Care Primary School Teacher Name Role Phone Thee MCCULLOUGH, Socorro Davidson Primary Care Physician [facility] Date(s): 11/13/20 - 12/13/[address] [address]- Allergies, Adverse Reactions, Alerts Substance Reaction Severity [...] 10/28/20 12:38:00 EDT, Route to Pharmacy Electronically, [facility], Partial fill upon patient request if the pres... Start Date: 10/28/20 Status: Ordered cholecalciferol 1000 intl units oral capsule 1 capsule = 1,000 International_Units, By Mouth, Daily, # 75 capsule, 0 Refills, Maintenance, 06/21/20 11:57:00 EST, Capsule, [facility] #[id number], 163, cm, 06/21/20 11:12:00 EST, Height, 89.3, kg, 10/21/18 22:10:00 EST, Dry Weight Start Date: 06/21/20 Status: Ordered diclofenac sodium 25 mg oral delayed release tablet 1 tablet = 25 mg, By Mouth, 3 times a day, PRN Pain. Portuguese sig. Discontinue Ibuprofen, # 90 tablet, 1 Refills, Maintenance, 05/21/20 15:40:00 EDT, EC Tablet, [facility] #[id number], 163, cm, 05/21/20 15:18:00 EDT, Height, 89.3, [...] tablet, 3 Refills, Maintenance, 08/15/20 12:06:00 EST, [facility] #[id number], 163, cm, 07/16/20 16:12:00 EST, Height, 89.3, kg, 10/21/18 22:10:00 EST, Dry Weight Start Date: 08/15/20 Status: Ordered meclizine 25 mg oral tablet 1 tablet = 25 mg, By Mouth, 3 times a day, PRN Motion Sickness, # 90 tablet, 0 Refills, Maintenance, 10/28/20 12:37:00 EDT, Tablet, [facility], Partial fill upon patient request if the prescription is for a schedule II opioid drug., 167.... Start Date: 10/28/20 Status: Ordered omeprazole 20 mg oral enteric coated capsule 1 capsule = 20 mg, By Mouth, Daily, if needed for heartburn, # 90 capsule, 1 Refills, Maintenance, 08/15/20 12:07:00 EST, CR Capsule, [facility] #[id number], Partial fill upon patient request ifthe prescription [...] No TB tx. 2Pt referred by Dr. Wtit-- [facility]. Pt did not keep sched appt. Case closed. Social History Social History Type Response Smoking Status Never smoker entered on: 11/23/14 Sex
--- OUTSIDE RECORDS SUMMARY | 2024-07-13 10:04 | XMS_ITS | Continuity of Care Document ---
Author Organization [facility] Address [address] [place] [address]- Care Team Providers Care Shellfish Dredge Operator Name Role Phone Thee MCCULLOUGH, Socorro Davidson Primary Care Physician En[place] [facility] [place] [facility] R [id number] Date(s): 10/16/21 - 11/15/[address] [address]- Attending Physician: Eliane Stout Admitting Physician: Eliane [...] allergies to eggs 2Admin Note: VIS GIVEN 2011-13 3Admin Note: vis 03/26/10 4Admin Note: VIS [...]
--- OUTSIDE RECORDS SUMMARY | 2024-07-13 10:05 | XMS_ITS | Continuity of Care Document ---
Author Organization [facility] ter Address [address] [place] [address]- Care Team Providers Care Search Engine Optimization Analyst Name Role Phone Socorro Kingston MD, I Primary Care Physician [phone] [place] [facility] [place] Date(s): 05/13/22 - 05/14/[address] [address]- Encounter Diagnosis Visual hallucination(Final) - 05/14/22 Discharge Disposition: A-D/C Home Attending Physician: Luis [...] cons Medications amLODIPine 5 mg oral tablet 5 mg, Tablet, By Mouth, 05/14/22 9:00:00 EDT Start Date: 05/14/22 Stop Date: 05/14/22 Status: Completed amLODIPine 5 mg oral tablet 1 tablet, By Mouth, Daily, # 90 tablet, 3 Refills, Maintenance, 05/04/22 13:25:00 EDT, [facility] #[id number], 166, cm, 03/17/22 10:16:00 EDT, Height, 92.6, [...] tablet, 1 Refills, Maintenance, 03/17/22 10:50:00 EDT, [facility] #[id number], Partial fill upon patient request if the [...] Date: 02/13/22 Status: Ordered Problem List Condition Confirmation Course [...] to oldest [Reference Range]: 1 2 3 Oxygen Saturation [94-100 %] 97 % (05/14/22 10:07 AM) 98 % (05/14/22 6:54 AM) 95 % (05/14/22 12:28 AM) Pulse Rate [55-90 bpm] 94 bpm *H* (05/14/22 10:07 AM) 94 bpm *H* (05/14/22 6:54 AM) 86 bpm (05/14/22 12:28 AM) Blood Pressure [90-138/55-84 mm Hg] 108/72mm Hg (05/14/22 10:07 AM) 111/73mm Hg (05/14/22 9:06 AM) 99/64mm Hg (05/14/22 6:54 AM) Respiratory Rate [16-30 br/min] 20 br/min (05/14/22 10:07 AM) 18 br/min (05/14/22 6:54 AM) 22 br/min (05/14/22 12:28 AM) Temperature [96.8-100.4 DegF] 98.1 DegF (05/14/22 10:07 AM) 98.4 DegF (05/13/22 11:08 PM) Mode of Delivery (Oxygen) Room air (05/14/22 10:07 AM) Room air (05/14/22 6:54 AM) Room air (05/14/22 12:28 AM) Blood pressure sites Arm, right (05/14/22 10:07 AM) Arm, right (05/14/22 6:54 AM) Arm, right (05/14/22 12:28 AM) Temperature Route Oral (05/14/22 10:07 AM) Oral (05/13/22 11:08 PM) Social History Social History Type Response Smoking Status Never smoker entered on: 11/23/14 Sex Patient Care team information Personnel Name: Socorro Kingston MD, I Address: Address: [address] [place] [address]-
--- OUTSIDE RECORDS SUMMARY | 2024-07-13 10:05 | XMS_ITS | Continuity of Care Document ---
Author Organization [facility] Address [address] [place] [address] [address] [place] [address]- Care Team Providers Care Agricultural And Forestry Supervisor Name Role Phone Socorro Kingston MD, I Primary Care Physician [place] [facility] [facility] [place] 10/16/22 - 10/23/[address] [place] [address]- Attending Physician: Nabil Lau MD Referring Physician: Socorro Kingston MD, I [...] tablet, 3 Refills, Maintenance, 05/04/22 13:25:00 EDT, [facility] #[id number], 166, cm, 03/17/22 10:16:00 EDT, Height, 92.6, [...] tablet, 0 Refills, Maintenance, 10/01/22 12:16:00 EST, [facility] #[id number], Partial fill upon patient request if the [...] Refills, Maintenance, 07/14/22 12:22:00 EST, REC Powder, [facility] #[id number], Partial fill upon patient request if the prescription is for a schedule II o... Start Date: 07/14/22 Status: Ordered NuLYTELY with Flavor Packs oral powder for reconstitution See Instructions, per GI office, # 4,000 mL, 0 Refills, Maintenance, 07/02/22 12[facility]28[id number], Partial fill upon patient request if the prescription is for a schedule II opioid drug., per GI office, 166, cm, 06/05/22 16:18:00... Start Date: 07/02/22 Status: Ordered omeprazole 20 mg oral enteric coated capsule See Instructions, take 1 tablet by mouth 2 times a day, # 60 tablet, 2 Refills, Maintenance, 06/12/22 13:44:00 EDT, [facility] #[id number], Rx in Icelandic, 166, cm, 06/05/22 16:18:00 EDT, Height,87, kg, 06/05/22 16:18:00 EDT, Dry Weight Start Date: 06/12/22 Status: Ordered riboflavin 100 mg oral tablet 2 TABS, By Mouth, 2 times a day, for headaches, # 60 tablet, 5 Refills, Maintenance, 08/04/22 8:40:00 EST, Tablet, [facility] #[id number], Partial fill upon patient request if the prescription is for a schedule II opioid drug., 166, cm, 08/04/22... Start Date: 08/04/22 Stop Date: 01/31/23 Status: Ordered SUMAtriptan 25 mg oral tablet 1 tablet = 25 mg, By Mouth, Daily, PRN as needed for migraine headache, may repeat dose in 2 hours if needed; in wolof do not use more than 2-3 x [...] TB tx. 2Pt referred by Dr. Witt-- [facility]. Pt did not keep sched appt. Case closed. Vital Signs Most recent to oldest [Reference Range]: 1 Height 166 cm (10/16/22 10:45 AM) Weight 91.3 kg (10/16/22 10:45 AM) Pulse Rate [55-90 bpm] 71 bpm (10/16/22 10:45 AM) Body Mass Index [18.5-24.99 kg/m2] 33.13 kg/m2 *>HHI* (10/16/22 10:45 AM) Blood Pressure [90-138/55-84 mm Hg] 129/ 80mm Hg (10/16/22 10:45 AM) Respiratory Rate [16-30 br/min] 18 br/mi n (10/16/22 10:45 AM) Temperature [96.8-100.4 DegF] 96.9 DegF (10/16/22 10:45 AM) Blood pressure sites Arm, right (10/16/22 10:45 AM) Temperature Route Temporal (10/16/22 10:45 AM) Weight Obtained Via Standing scale (10/16/22 10:45 AM) Social History Social History Type Response Smoking Status Never smoker entered on: 11/23/14 Sex Patient Care team information Care Team Personnel Name: Socorro Kingston MD, I Position: [facility] Primary Care Physician Member Role: PCP Address: Address: [address] [place] [address]- Name: Kimber Mcclain RN Position: [facility] RN Member Role: Primary Care Nurse Care Team Related Persons Name: DENYS GONZALSE Address: home [address] [place] [address] Name: EMILIANO YEH Address: home [address] [place] [address]
--- OUTSIDE RECORDS SUMMARY | 2024-07-13 10:05 | XMS_ITS | Continuity of Care Document ---
Author Organization [facility] Address [address] [place] [address]- Care Team Providers Care Bill Poster Installer Name Role Phone Thee MCCULLOUGH, Socorro Davidson Primary Care Physician [place] [facility] [place] 04/02/22 [facility] [address] [place], [place] [id number]- Attending Physician: Eliane Stout Admitting Physician: Eliane [...] tablet, 1 Refills, Maintenance, 03/17/22 10:50:00 EDT, [facility] #[id number], Partial fill upon patient request if the [...]
--- OUTSIDE RECORDS SUMMARY | 2024-07-13 10:05 | XMS_ITS | Continuity of Care Document ---
Author Organization [facility] Address [address] [place] [address]- Care Team Providers Care Engine Tester Name Role Phone Socorro Kingston MD, I Primary Care Physician [phone] Encounter [facility] Date(s): 10/16/20 - 11/17/[address] [address] Attending Physician: Socorro Kingston MD, I Admitting [...] 10/28/20 12:38:00 EDT, Route to Pharmacy Electronically, [facility], Partial fill upon patient request if the pres... Start Date: 10/28/20 Status: Ordered cholecalciferol 1000 intl units oral capsule 1 capsule = 1,000 International_Units, By Mouth, Daily, # 75 capsule, 0 Refills, Maintenance, 06/21/20 11:57:00 EST, Capsule, [facility] #[id number], 163, cm, 06/21/20 11:12:00 EST, Height, 89.3, kg, 10/21/18 22:10:00 EST, Dry Weight Start Date: 06/21/20 Status: Ordered diclofenac sodium 25 mg oral delayed release tablet 1 tablet = 25 mg, By Mouth, 3 times a day, PRN Pain. Emirati sig. Discontinue Ibuprofen, # 90 tablet, 1 Refills, Maintenance, 05/21/20 15:40:00 EDT, EC Tablet, [facility] #[id number], 163, cm, 05/21/20 15:18:00 EDT, Height, 89.3, [...] tablet, 3 Refills, Maintenance, 08/15/20 12:06:00 EST, [facility] #[id number], 163, cm, 07/16/20 16:12:00 EST, Height, 89.3, kg, 10/21/18 22:10:00 EST, Dry Weight Start Date: 08/15/20 Status: Ordered meclizine 25 mg oral tablet 1 tablet = 25 mg, By Mouth, 3 times a day, PRN Motion Sickness, # 90 tablet, 0 Refills, Maintenance, 10/28/20 12:37:00 EDT, Tablet, [facility], Partial fill upon patient request if the prescription is for a schedule II opioid drug., 167.... Start Date: 10/28/20 Status: Ordered omeprazole 20 mg oral enteric coated capsule 1 capsule = 20 mg, By Mouth, Daily, if needed for heartburn, # 90 capsule, 1 Refills, Maintenance, 08/15/20 12:07:00 EST, CR Capsule, [facility] #[id number], Partial fill upon patient request ifthe prescription [...]
--- OUTSIDE RECORDS SUMMARY | 2024-07-13 10:05 | XMS_ITS | Continuity of Care Document ---
Author Organization [facility] Address [address], [address] [place] [address]- Care Team Providers Care Stucco Applicator Name Role Phone Thee MCCULLOUGH, Socorro Davidson Primary Care Physician [place] [facility] [place] 06[place]05[place]22 - 07/05/22 [facility] [address] [place], [place] [address] Attending Physician: Eliane Stout Admitting Physician: Eliane [...] tablet, 3 Refills, Maintenance, 05/04/22 13:25:00 EDT, [facility] #[id number], 166, cm, 03/17/22 10:16:00 EDT, Height, 92.6, [...] tablet, 1 Refills, Maintenance, 03/17/22 10:50:00 EDT, [facility] #[id number], Partial fill upon patient request if the [...] mL, 0 Refills, Maintenance, 07/02/22 12:28:00 EST, [facility] #[id number], Partial fill upon patient request if the prescription is for a schedule II opioid drug., per GI office, 166, cm, 06/05/22 16:18:00... Start Date: 07/02/22 Status: Ordered omeprazole 20 mg oral enteric coated capsule See Instructions, take 1 tablet by mouth 2 times a day, # 60 tablet, 2 Refills, Maintenance, 06/12/22 13:44:00 EDT, [facility] #[id number], Rx in Azerbaijani, 166, cm, 06/05/22 16:18:00 EDT, Height,87, kg, [...] TB tx. 2Pt referred by Dr. Witt-- [facility]. Pt did not keep sched appt. Case closed. Social History Social History Type Response Smoking Status Never smoker entered on: 11/23/14 Sex Patient Care team information Care Team Personnel Name: Socorro Kingston MD, I Position: [facility] Primary Care Physician Member Role: PCP Address: Address: [address] [place] [address]- Name: Kimber Mcclain RN Position: [facility] RN Member Role: Primary Care Nurse Care Team Related Persons Name: DENYS GONZALES Address: home [address] [place] [address] Name: EMILIANO YEH Address: home [address] [place] [address]
--- OUTSIDE RECORDS SUMMARY | 2024-07-13 10:05 | XMS_ITS | Continuity of Care Document ---
Author Organization [facility] Address [address] [place] [address]- Care Team Providers Care Dobby Looms Pegger Name Role Phone Thee MCCULLOUGH, Socorro Davidson Primary Care Physician [phone] Encounter [facility] Date(s): 07/03/20 - 08/02/[address] [address]- Allergies, Adverse Reactions, Alerts Substance Reaction Severity [...] 0 Refills, Maintenance, 06/21/20 11:57:00 EST, Capsule, [facility] #[id number], 163, cm, 06/21/20 11:12:00 EST, Height, 89.3, kg, 10/21/18 22:10:00 EST, Dry Weight Start Date: 06/21/20 Status: Ordered diclofenac sodium 25 mg oral delayed release tablet 1 tablet = 25 mg, By Mouth, 3 times a day, PRN Pain. Welsh sig. Discontinue Ibuprofen, # 90 tablet, 1 Refills, Maintenance, 05/21/20 15:40:00 EDT, EC Tablet, [facility] #[id number], 163, cm, 05/21/20 15:18:00 EDT, Height, 89.3, [...] Replace Required Details, Route to Pharmacy Electronically, [facility] #[id number], 163, cm, 05/21/20 15:18... Start Date: 05/21/20 Status: Ordered raNITIdine 150 mg oral tablet 1 tablet = 150 mg, By Mouth, Daily at bedtime, # 30 tablet, 11 Refills, Maintenance, 02/22/20 11:40:31 EDT, Tablet Start Date: 02/22/20 Stop Date: 02/16/21 Status: Ordered walker with wheel walker with [...] Mediastinal mass(Confirmed) Active Neutropenia(Confirmed) Active Care Coordination [facility] Karina Aponte (Confirmed) Active Well woman exam [...]
--- OUTSIDE RECORDS SUMMARY | 2024-07-13 10:05 | XMS_ITS | Continuity of Care Document ---
Author Organization [facility] Address [address] [place] [address]- Care Team Providers Care Gas Blender Name Role Phone Thee MCCULLOUGH, Socorro Davidson Primary Care Physician [facility]counter [facility] Date(s): 05/06/21 - 06/05/[address] [address]- Allergies, Adverse Reactions, Alerts Substance Reaction Severity [...] 03/25/21 16:28:00 EDT, Route to Pharmacy Electronically, [facility] #[id number], Partial fill upon patient request if the presc... Start Date: 03/25/21 Status: Ordered amLODIPine 5 mg oral tablet 5 mg, 1, tablet, By Mouth, Daily, # 90 tablet, Refills 3, Tot. Refills 3, Maintenance, 05/13/21 10:14:00 EDT, Route to Pharmacy Electronically, [facility] #[id number], Partial fill upon patient request if the [...]
--- OUTSIDE RECORDS SUMMARY | 2024-07-13 10:05 | XMS_ITS | Continuity of Care Document ---
Author Organization [facility] Address [address] [place] [address]- Care Team Providers Care Mash Filter Operator Name Role Phone Thee MCCULLOUGH, Socorro Davidson Primary Care Physician [facility]counter [facility] Date(s): 08/22/20 - 09/21/[address] [address]- Allergies, Adverse Reactions, Alerts Substance Reaction Severity [...] 0 Refills, Maintenance, 06/21/20 11:57:00 EST, Capsule, [facility] #[id number], 163, cm, 06/21/20 11:12:00 EST, Height, 89.3, kg, 10/21/18 22:10:00 EST, Dry Weight Start Date: 06/21/20 Status: Ordered diclofenac sodium 25 mg oral delayed release tablet 1 tablet = 25 mg, By Mouth, 3 times a day, PRN Pain. Korean sig. Discontinue Ibuprofen, # 90 tablet, 1 Refills, Maintenance, 05/21/20 15:40:00 EDT, EC Tablet, [facility] #[id number], 163, cm, 05/21/20 15:18:00 EDT, Height, 89.3, [...] tablet, 3 Refills, Maintenance, 08/15/20 12:06:00 EST, [facility] #[id number], 163, cm, 07/16/20 16:12:00 EST, Height, 89.3, kg, 10/21/18 22:10:00 EST, Dry Weight Start Date: 08/15/20 Status: Ordered NuLYTELY with Flavor Packs oral powder for reconstitution See Instructions, 240 mL By Mouth Every 15 minutes, # 4,000 mL, 0 Refills, Maintenance, 08/06/20 14:57:00 EST, [facility] #[id number], Partial fill upon patient request if the prescription is for a schedule II opioid drug., 240 mL By Mouth Every... Start Date: 08/06/20 Status: Ordered omeprazole 20 mg oral enteric coated capsule 1 capsule = 20 mg, By Mouth, Daily, if needed for heartburn, # 90 capsule, 1 Refills, Maintenance, 08/15/20 12:07:00 EST, CR Capsule, [facility] #[id number], Partial fill upon patient request ifthe prescription [...] Mediastinal mass(Confirmed) Active Neutropenia(Confirmed) Active Care Coordination [facility] N kiara Ahuja [phone](Confirmed) Active Well woman exam with routine gynecological [...]
--- OUTSIDE RECORDS SUMMARY | 2024-07-13 10:05 | XMS_ITS | Continuity of Care Document ---
Author Organization [facility] Address [address] [place] [address]- Care Team Providers Care Embedded Systems Developer Name Role Phone Yoanna Nelson MD Primary Care Physician [facility]counter [facility] Date(s): 12/12/22 - 01/18/[address] [address] Attending Physician: Not on Staff, Attending MD [...] tablet, 3 Refills, Maintenance, 05/04/22 13:25:00 EDT, [email or web address] #[id number], 166, cm, 03/17/22 10:16:00 EDT, Height, 92.6, [...] tablet, 3 Refills, Maintenance, 10/24/22 13:37:00 EST, [email or web address] #[id number], Partial fill upon patient request if the prescription... Start Date: 10/24/22 Status: Ordered Colace sodium 100 mg oral capsule 100 mg, 1, capsule, By Mouth, 2 times a day, PRN, # 100 capsule, Refills 3, Tot. Refills 3, Maintenance, for constipation, 12/31/22 19:35:00 EDT, Route to Pharmacy Electronically, [email or web address] #[id number], Partial fill upon patient request if the [...] Refills, Maintenance, 07/14/22 12:22:00 EST, REC Powder, [email or web address] #[id number], Partial fill upon patient request if the prescription is for a schedule II o... Start Date: 07/14/22 Status: Ordered MiraLax oral powder for reconstitution = 17 Gm, By Mouth, Daily, dissolve in water before taking, # 255 Gm, 2 Refills, Acute 12/16/23 19:36:00 EDT, 12/31/22 19:35:00 EDT, REC Powder, [email or web address] #[id number], Partial fill upon patient request if the prescription is for a schedule II opi... Start Date: 12/31/22 Stop Date: 12/16/23 Status: Ordered naproxen 500 mg oral delayed release tablet See Instructions, TAKE 1 TABLET BY MOUTH TWICE DAILY TAKE WITH FOOD ONLY NEEDED FOR LOWER BACK PAIN. TRY NOT TO TAKE DAILY, # 50 tablet, 2 Refills, Maintenance, 10/29/22 15:56:00 EDT, [email or web address] #[id number], 166, cm, 10/16/22 10:45:00 EST, Hei... Start Date: 10/29/22 Status: Ordered NuLYTELY with Flavor Packs oral powder for reconstitution See Instructions, per GI office, # 4,000 mL, 0 Refills, Maintenance, 07/02/22 12:28:00 EST, [email or web address] #[id number], Partial fill upon patient request if the prescription is for a schedule II opioid drug., per GI office, 166, cm, 06/05/22 16:18:00... Start Date: 07/02/22 Status: Ordered omeprazole 20 mg oral enteric coated capsule See Instructions, take 1 tablet by mouth 2 times a day, # 60 tablet, 2 Refills, Maintenance, 06/12/22 13:44:00 EDT, [email or web address] #[id number], Rx in Moroccan, 166, cm, 06/05/22 16:18:00 EDT, Height,87, kg, 06/05/22 16:18:00 EDT, Dry Weight Start Date: 06/12/22 Status: Ordered riboflavin 100 mg oral tablet 2 TABS, By Mouth, 2 times a day, for headaches, # 60 tablet, 5 Refills, Maintenance, 08/04/22 8:40:00 EST, Tablet, [email or web address] #[id number], Partial fill upon patient request if the prescription is for a schedule II opioid drug., 166, cm, 08/04/22... Start Date: 08/04/22 Stop Date: 01/31/23 Status: Ordered SUMAtriptan 25 mg oral tablet 1 tablet = 25 mg, By Mouth, Daily, PRN as needed for migraine headache, may repeat dose in 2 hours if needed; in maltese do not use more than 2-3 x [...] Team Personnel Name: Kimber Mcclain RN Position: [facility] RN Member Role: Primary Care Nurse Name: Yoanna Nelson MD Position: [facility] Physician - Primary Care Member Role: PCP Address: Address: [address] [place] [address]- [place] Care Team Related Persons Name: DENYS GONZALES Address: home [address] [place] [address] Name: EMILIANO YEH Address: home [address] [place] [address]
--- OUTSIDE RECORDS SUMMARY | 2024-07-13 10:05 | XMS_ITS | Continuity of Care Document ---
Author Organization [facility] Address [address] [place] [address]- Care Team Providers Care Combat Information Center Officer Name Role Phone Socorro Kingston MD, I Primary Care Physician [phone] [facility]counter [facility] Date(s): 01/21/21 - 02/20/21 [facility] [address] [place] [address] Allergies, Adverse Reactions, Alerts Substance Reaction [...] 10/28/20 12:38:00 EDT, Route to Pharmacy Electronically, [facility], Partial fill upon patient request if the pres... Start Date: 10/28/20 Status: Ordered cholecalciferol 1000 intl units oral capsule 1 capsule = 1,000 International_Units, By Mouth, Daily, # 75 capsule, 0 Refills, Maintenance, 06/21/20 11:57:00 EST, Capsule, [email or web address] #[id number], 163, cm, 06/21/20 11:12:00 EST, Height, 89.3, kg, 10/21/18 22:10:00 EST, Dry Weight Start Date: 06/21/20 Status: Ordered diclofenac sodium 25 mg oral delayed release tablet 1 tablet = 25 mg, By Mouth, 3 times a day, PRN Pain. Turkmen sig. Discontinue Ibuprofen, # 90 tablet, 1 Refills, Maintenance, 05/21/20 15:40:00 EDT, EC Tablet, [facility] #[id number], 163, cm, 05/21/20 15:18:00 EDT, Height, 89.3, [...] tablet, 3 Refills, Maintenance, 08/15/20 12:06:00 EST, [email or web address] #[id number], 163, cm, 07/16/20 16:12:00 EST, Height, 89.3, kg, 10/21/18 22:10:00 EST, Dry Weight Start Date: 08/15/20 Status: Ordered meclizine 25 mg oral tablet 1 tablet = 25 mg, By Mouth, 3 times a day, PRN Motion Sickness, # 90 tablet, 0 Refills, Maintenance, 10/28/20 12:37:00 EDT, Tablet, [facility], Partial fill upon patient request if the prescription is for a schedule II opioid drug., 167.... Start Date: 10/28/20 Status: Ordered omeprazole 20 mg oral enteric coated capsule 1 capsule = 20 mg, By Mouth, Daily, if needed for heartburn, # 90 capsule, 1 Refills, Maintenance, 08/15/20 12:07:00 EST, CR Capsule, [facility] #[id number], Partial fill upon patient request ifthe prescription [...]
--- OUTSIDE RECORDS SUMMARY | 2024-07-13 10:05 | XMS_ITS | Continuity of Care Document ---
Author Organization [facility] Address [address] [place] [address]- Care Team Providers Care Wood Preserving Plant Laborer Name Role Phone Omar MCCULLOUGH, Yoanna Primary Care Physician [facility] - 09/23/[address] [address]- Allergies, Adverse Reactions, Alerts Substance Reaction Severity [...] tablet, 0 Refills, Maintenance, 08/14/23 12:12:00 EST, [facility] #[id number], 168, cm, 08/05/23 9:18:00 EST, Height, 91.8, [...] tablet, 5 Refills, Maintenance, 08/24/23 14:36:00 EST, [facility] #[id number], Partial fill upon patient request if the prescription... Start Date: 08/24/23 Stop Date: 02/20/24 Status: Ordered Colace sodium 100 mg oral capsule 100 mg, 1, capsule, By Mouth, 2 times a day, PRN, # 100 capsule, Refills 3, Tot. Refills 3, Maintenance, for constipation, 12/31/22 19:35:00 EDT, Route to Pharmacy Electronically, [facility] #[id number], Partial fill upon patient request if the p... Start Date: 12/31/22 Status: Ordered Eucerin Daily Hydration topical lotion 1 application, Topically, 4 times a day, # 600 mL, 5 Refills, Maintenance, 09/01/23 16:25:00 EST, [facility] #[id number], Partial fill upon patient request if the [...] Refills, Maintenance, 07/14/22 12:22:00 EST, REC Powder, [facility] #[id number], Partial fill upon patient request if the prescription is for a schedule II o... Start Date: 07/14/22 Status: Ordered MiraLax oral powder for reconstitution = 17 Gm, By Mouth, Daily, dissolve in water before taking, # 255 Gm, 2 Refills, Acute 12/16/23 19:36:00 EDT, 12/31/22 19:35:00 EDT, REC Powder, [facility] #[id number], Partial fill upon patient request if the prescription is for a schedule II opi... Start Date: 12/31/22 Stop Date: 12/16/23 Status: Ordered naproxen 500 mg oral delayed release tablet See Instructions, TAKE 1 TABLET BY MOUTH TWICE DAILY TAKE WITH FOOD ONLY NEEDED FOR LOWER BACK PAIN. TRY NOT TO TAKE DAILY, # 50 tablet, 2 Refills, Maintenance, 10/29/22 15:56:00 EDT, [facility] #[id number], 166, cm, 10/16/22 10:45:00 EST, Hei... Start Date: 10/29/22 Status: Ordered NuLYTELY with Flavor Packs oral powder for reconstitution See Instructions, per GI office, # 4,000 mL, 0 Refills, Maintenance, 07/02/22 12:28:00 EST, [facility] #[id number], Partial fill upon patient request if the prescription is for a schedule II opioid drug., per GI office, 166, cm, 06/05/22 16:18:00... Start Date: 07/02/22 Status: Ordered omeprazole 20 mg oral enteric coated capsule See Instructions, take 1 tablet by mouth 2 times a day, # 60 tablet, 2 Refills, Maintenance, 06/12/22 13:44:00 EDT, [facility] #[id number], Rx in [place], 166, cm, 06/05/22 16:18:00 EDT, Height,87, kg, [...] 5 Refills, Maintenance, 06/15/23 11:00:00 EDT, Tablet, [facility] #[id number], Partial fill upon patient request if the prescription is for a schedule II opioid drug., 168,... Start Date: 06/15/23 Stop Date: 12/12/23 Status: Ordered SUMAtriptan 25 mg oral tablet 1 tablet = 25 mg, By Mouth, Daily, PRN as needed for migraine headache, may repeat dose in 2 hours if needed; in [place] do not use more than 2-3 x [...] Team Personnel Name: Kimber Mcclain RN Position: [facility] RN Member Role: Primary Care Nurse Name: Yoanna Nelson MD Position: [facility] Physician - Primary Care Member Role: PCP Address: Address: [address] [place] [address]- [place] Care Team Related Persons Name: DENYS GONZALES Address: home [address] [place] [address] Name: EMILIANO YEH Address: home [address] [place] [address]
--- OUTSIDE RECORDS SUMMARY | 2024-07-13 10:05 | XMS_ITS | Continuity of Care Document ---
Author Organization [facility] Address [address] [place] [address]- Care Team Providers Care Keypunch Operator Name Role Phone Thee MCCULLOUGH, Socorro Davidson Primary Care Physician [facility] 03/29/[facility] - 06/21/[address] [address]- Attending Physician: Not on Staff, Attending MD [...] 08/31/02 5Admin Note: vis 6Admin Note: vis 10/2/9 7Admin Note: vis 01/24/94 8Result Comment: after [...]
--- OUTSIDE RECORDS SUMMARY | 2024-07-13 10:05 | XMS_ITS | Continuity of Care Document ---
Author Organization [facility] Address [address] [place] [address]- Care Team Providers Care Mathematician Research Name Role Phone Yoanna Nelson MD Primary Care Physician [phone] [facility] Date[facility]s): 08/13/23 - 09/12/[address] [address] Allergies, Adverse Reactions, Alerts Substance [...] tablet, 0 Refills, Maintenance, 08/14/23 12:12:00 EST, [facility] #[id number], 168, cm, 08/05/23 9:18:00 EST, Height, 91.8, [...] 09/15/23 22:12:00 EST, 09/08/23 22:12:00 EST, Tablet, [facility] #[id number], Partial fill upon patient request if the [...] tablet, 5 Refills, Maintenance, 08/24/23 14:36:00 EST, [facility] #[id number], Partial fill upon patient request if the prescription... Start Date: 08/24/23 Stop Date: 02/20/24 Status: Ordered Colace sodium 100 mg oral capsule 100 mg, 1, capsule, By Mouth, 2 times a day, PRN, # 100 capsule, Refills 3, Tot. Refills 3, Maintenance, for constipation, 12/31/22 19:35:00 EDT, Route to Pharmacy Electronically, [facility] #[id number], Partial fill upon patient request if the p... Start Date: 12/31/22 Status: Ordered Eucerin Daily Hydration topical lotion 1 application, Topically, 4 times a day, # 600 mL, 5 Refills, Maintenance, 09/01/23 16:25:00 EST, [facility] #[id number], Partial fill upon patient request if the [...] Refills, Maintenance, 07/14/22 12:22:00 EST, REC Powder, [facility] #[id number], Partial fill upon patient request if the prescription is for a schedule II o... Start Date: 07/14/22 Status: Ordered MiraLax oral powder for reconstitution = 17 Gm, By Mouth, Daily, dissolve in water before taking, # 255 Gm, 2 Refills, Acute 12/16/23 19:36:00 EDT, 12/31/22 19:35:00 EDT, REC Powder, [facility] #[id number], Partial fill upon patient request if the prescription is for a schedule II opi... Start Date: 12/31/22 Stop Date: 12/16/23 Status: Ordered naproxen 500 mg oral delayed release tablet See Instructions, TAKE 1 TABLET BY MOUTH TWICE DAILY TAKE WITH FOOD ONLY NEEDED FOR LOWER BACK PAIN. TRY NOT TO TAKE DAILY, # 50 tablet, 2 Refills, Maintenance, 10/29/22 15:56:00 EDT, [facility] #[id number], 166, cm, 10/16/22 10:45:00 EST, Hei... Start Date: 10/29/22 Status: Ordered NuLYTELY with Flavor Packs oral powder for reconstitution See Instructions, per GI office, # 4,000 mL, 0 Refills, Maintenance, 07/02/22 12:28:00 EST, [facility] #[id number], Partial fill upon patient request if the prescription is for a schedule II opioid drug., per GI office, 166, cm, 06/05/22 16:18:00... Start Date: 07/02/22 Status: Ordered omeprazole 20 mg oral enteric coated capsule See Instructions, take 1 tablet by mouth 2 times a day, # 60 tablet, 2 Refills, Maintenance, 06/12/22 13:44:00 EDT, [facility] #[id number], Rx in Faro[place], 166, cm, 06/05/22 16:18:00 [...] 5 Refills, Maintenance, 06/15/23 11:00:00 EDT, Tablet, [facility] #[id number], Partial fill upon patient request if the prescription is for a schedule II opioid drug., 168,... Start Date: 06/15/23 Stop Date: 12/12/23 Status: Ordered SUMAtriptan 25 mg oral tablet 1 tablet = 25 mg, By Mouth, Daily, PRN as needed for migraine headache, may repeat dose in 2 hours if needed; in [place] do not use more than 2-3 x [...] Team Personnel Name: Kimber Mcclain RN Position: [facility] RN Member Role: Primary Care Nurse Name: Yoanna Nelson MD Position: [facility] Physician - Primary Care Member Role: PCP Address: Address: [address] [place] [address]- Care Team Related Persons Name: DENYS GONZALES Address: [address] [place] [address] Name: EMILIANO YEH Address: [place] [address] [place] [address]
--- OUTSIDE RECORDS SUMMARY | 2024-07-13 10:05 | XMS_ITS | Continuity of Care Document ---
Author Organization [facility] Address [address] [place] [address]- Care Team Providers Care Manual Winder Name Role Phone Thee MCCULLOUGH, Socorro Davidson Primary Care Physician [phone] [facility]s): 07/27/20 - 08/26/[address] [address]- Allergies, Adverse Reactions, Alerts Substance Reaction Severity [...] 0 Refills, Maintenance, 06/21/20 11:57:00 EST, Capsule, [facility] #[id number], 163, cm, 06/21/20 11:12:00 EST, Height, 89.3, kg, 10/21/18 22:10:00 EST, Dry Weight Start Date: 06/21/20 Status: Ordered diclofenac sodium 25 mg oral delayed release tablet 1 tablet = 25 mg, By Mouth, 3 times a day, PRN Pain. Yoruba sig. Discontinue Ibuprofen, # 90 tablet, 1 Refills, Maintenance, 05/21/20 15:40:00 EDT, EC Tablet, [facility] #[id number], 163, cm, 05/21/20 15:18:00 EDT, Height, 89.3, [...] tablet, 3 Refills, Maintenance, 08/15/20 12:06:00 EST, [facility] #[id number], 163, cm, 07/16/20 16:12:00 EST, Height, 89.3, kg, 10/21/18 22:10:00 EST, Dry Weight Start Date: 08/15/20 Status: Ordered NuLYTELY with Flavor Packs oral powder for reconstitution See Instructions, 240 mL By Mouth Every 15 minutes, # 4,000 mL, 0 Refills, Maintenance, 08/06/20 14:57:00 EST, [facility] #[id number], Partial fill upon patient request if the prescription is for a schedule II opioid drug., 240 mL By Mouth Every... Start Date: 08/06/20 Status: Ordered omeprazole 20 mg oral enteric coated capsule 1 capsule = 20 mg, By Mouth, Daily, if needed for heartburn, # 90 capsule, 1 Refills, Maintenance, 08/15/20 12:07:00 EST, CR Capsule, [facility] #[id number], Partial fill upon patient request ifthe prescription [...] Mediastinal mass(Confirmed) Active Neutropenia(Confirmed) Active Care Coordination CP aKrina Aponte (Confirmed) Active Well woman exam with [...]
--- OUTSIDE RECORDS SUMMARY | 2024-07-13 10:05 | XMS_ITS | Continuity of Care Document ---
Author Organization [facility] Address [address] [place] [address]- Care Team Providers Care Airplane First Officer Name Role Phone Yoanna Nelson MD Primary Care Physician [facility] Date[facility]s): 07/21/23 - 08/20/[address] [address] Allergies, Adverse Reactions, Alerts [...] tablet, 0 Refills, Maintenance, 08/14/23 12:12:00 EST, [facility] #[id number], 168, cm, 08/05/23 9:18:00 EST, Height, 91.8, [...] tablet, 3 Refills, Maintenance, 10/24/22 13:37:00 EST, [facility] #[id number], Partial fill upon patient request if the prescription... Start Date: 10/24/22 Status: Ordered Colace sodium 100 mg oral capsule 100 mg, 1, capsule, By Mouth, 2 times a day, PRN, # 100 capsule, Refills 3, Tot. Refills 3, Maintenance, for constipation, 12/31/22 19:35:00 EDT, Route to Pharmacy Electronically, [facility] #[id number], Partial fill upon patient request if the [...] Refills, Maintenance, 07/14/22 12:22:00 EST, REC Powder, [facility] #[id number], Partial fill upon patient request if the prescription is for a schedule II o... Start Date: 07/14/22 Status: Ordered MiraLax oral powder for reconstitution = 17 Gm, By Mouth, Daily, dissolve in water before taking, # 255 Gm, 2 Refills, Acute 12/16/23 19:36:00 EDT, 12/31/22 19:35:00 EDT, REC Powder, [facility] #[id number], Partial fill upon patient request if the prescription is for a schedule II opi... Start Date: 12/31/22 Stop Date: 12/16/23 Status: Ordered naproxen 500 mg oral delayed release tablet See Instructions, TAKE 1 TABLET BY MOUTH TWICE DAILY TAKE WITH FOOD ONLY NEEDED FOR LOWER BACK PAIN. TRY NOT TO TAKE DAILY, # 50 tablet, 2 Refills, Maintenance, 10/29/22 15:56:00 EDT, [facility] #[id number], 166, cm, 10/16/22 10:45:00 EST, Hei... Start Date: 10/29/22 Status: Ordered NuLYTELY with Flavor Packs oral powder for reconstitution See Instructions, per GI office, # 4,000 mL, 0 Refills, Maintenance, 07/02/22 12:28:00 EST, [facility] #[id number], Partial fill upon patient request if the prescription is for a schedule II opioid drug., per GI office, 166, cm, 06/05/22 16:18:00... Start Date: 07/02/22 Status: Ordered omeprazole 20 mg oral enteric coated capsule See Instructions, take 1 tablet by mouth 2 times a day, # 60 tablet, 2 Refills, Maintenance, 06/12/22 13:44:00 EDT, [facility] #[id number], Rx [place], 166, cm, 06/05/22 16:18:00 EDT, Height,87, kg, 06/05/22 16:18:00 EDT, Dry Weight Start Date: 06/12/22 Status: Ordered riboflavin 100 mg oral tablet 2 tablet = 200 mg, By Mouth, 2 times a day, for headaches, # 120 tablet, 5 Refills, Maintenance, 06/15/23 11:00:00 EDT, Tablet, [facility] #[id number], Partial fill upon patient request if the prescription is for a schedule II opioid drug., 168,... Start Date: 06/15/23 Stop Date: 12/12/23 Status: Ordered SUMAtriptan 25 mg oral tablet 1 tablet = 25 mg, By Mouth, Daily, PRN as needed for migraine headache, may repeat dose in 2 hours if needed; in [place] do not use more than 2-3 x [...] TB tx. 2Pt referred by Dr. Witt-- [facility]. Pt did not keep sched appt. Case closed. Social History Social History Type Response Smoking Status Never smoker entered on: 11/23/14 Sex Patient Care team information Care Team Personnel Name: Kimber Mcclain RN Position: [facility] RN Member Role: Primary Care Nurse Name: Yoanna Nelson MD Position: [facility] Physician - Primary Care Member Role: PCP Address: Address: [address] [place] [address]- Care Team Related Persons Name: DENYS GONZALES Address: [address] [place] [address] Name: EMILIANO YEH Address: [address] [place] [address]
--- OUTSIDE RECORDS SUMMARY | 2024-07-13 10:05 | XMS_ITS | Continuity of Care Document ---
Author Organization [facility] Address [address] [place] [address]- Care Team Providers Care Laser Specialist Name Role Phone Thee MCCULLOUGH, Socorro Davidson Primary Care Physician [facility] Date[facility]s): 11/07/20 - 12/07/[address] [address]- Allergies, Adverse Reactions, Alerts Substance Reaction Severity [...] 10/28/20 12:38:00 EDT, Route to Pharmacy Electronically, [facility], Partial fill upon patient request if the pres... Start Date: 10/28/20 Status: Ordered cholecalciferol 1000 intl units oral capsule 1 capsule = 1,000 International_Units, By Mouth, Daily, # 75 capsule, 0 Refills, Maintenance, 06/21/20 11:57:00 EST, Capsule, [facility] #[id number], 163, cm, 06/21/20 11:12:00 EST, Height, 89.3, kg, 10/21/18 22:10:00 EST, Dry Weight Start Date: 06/21/20 Status: Ordered diclofenac sodium 25 mg oral delayed release tablet 1 tablet = 25 mg, By Mouth, 3 times a day, PRN Pain. Ethiopian sig. Discontinue Ibuprofen, # 90 tablet, 1 Refills, Maintenance, 05/21/20 15:40:00 EDT, EC Tablet, [facility] #[id number], 163, cm, 05/21/20 15:18:00 EDT, Height, 89.3, [...] tablet, 3 Refills, Maintenance, 08/15/20 12:06:00 EST, [facility] #[id number], 163, cm, 07/16/20 16:12:00 EST, Height, 89.3, kg, 10/21/18 22:10:00 EST, Dry Weight Start Date: 08/15/20 Status: Ordered meclizine 25 mg oral tablet 1 tablet = 25 mg, By Mouth, 3 times a day, PRN Motion Sickness, # 90 tablet, 0 Refills, Maintenance, 10/28/20 12:37:00 EDT, Tablet, [facility], Partial fill upon patient request if the prescription is for a schedule II opioid drug., 167.... Start Date: 10/28/20 Status: Ordered omeprazole 20 mg oral enteric coated capsule 1 capsule = 20 mg, By Mouth, Daily, if needed for heartburn, # 90 capsule, 1 Refills, Maintenance, 08/15/20 12:07:00 EST, CR Capsule, [facility] #[id number], Partial fill upon patient request ifthe prescription [...]
--- OUTSIDE RECORDS SUMMARY | 2024-07-13 10:06 | XMS_ITS | Continuity of Care Document ---
Author Organization [facility] Address [address] [place] [address]- Care Team Providers Care Animal Treatment Investigator Name Role Phone Socorro Kingston MD, I Primary Care Physician [phone] Encounter [facility] Date(s): 04/26/21 - 04/26/[address] [address]- Discharge Disposition: A-D/C Walkout Attending Physician: Not [...] 03/25/21 16:28:00 EDT, Route to Pharmacy Electronically, [facility] #[id number], Partial fill upon patient request if the presc... Start Date: 03/25/21 Status: Ordered amLODIPine 5 mg oral tablet 5 mg, 1, tablet, By Mouth, Daily, # 90 tablet, Refills 0, Tot. Refills 0, Maintenance, 04/24/21 11:55:00 EDT, Route to Pharmacy Electronically, [facility], Partial fill upon patient request if the prescription is for a schedule II opioid... Start Date: 04/24/21 Status: Ordered cefixime 400 mg oral tablet 1 tablet = 400 mg, By Mouth, Daily, # 5 tablet, 0 Refills, Acute 04/29/21 14:15:00 EDT, 04/24/21 11:54:00 EDT, [facility], Partial fill upon patient request if [...] recent to oldest [Reference Range]: 1 2 Oxygen Saturation [94-100 %] 98 % (04/26/21 4:52 AM) 100 % (04/26/21 2:18 AM) Pulse Rate [55-90 bpm] 66 bpm (04/26/21 4:52 AM) 87 bpm (04/26/21 2:18 AM) Blood Pressure [90-138/55-84 mm Hg] 133/ 87mm Hg (04/26/21 4:52 AM) 151/88mm Hg *H* (04/26/21 2:18 AM) Respiratory Rate [16-30 br/min] 18 br/mi n (04/26/21 4:52 AM) 20 br/min (04/26/21 2:18 AM) Temperature [96.8-100.4 DegF] 97.8 DegF (04/26/21 4:52 AM) 98.2 DegF (04/26/21 2:18 AM) Mode of Delivery (Oxygen) Room air (04/26/21 4:52 AM) Room air (04/26/21 2:18 AM) Blood pressure sites Arm, right (04/26/21 4:52 AM) Arm, right (04/26/21 2:18 AM) Temperature Route Oral (04/26/21 4:52 AM) Oral (04/26/21 2:18 AM) Social History Social History Type Response Smoking Status Never smoker entered on: 11/23/14 Sex
--- OUTSIDE RECORDS SUMMARY | 2024-07-13 10:06 | XMS_ITS | Continuity of Care Document ---
Author Organization [facility] Address [address] [place] [address]- Care Team Providers Care Reporting Manager Name Role Phone Thee MCCULLOUGH, Socorro Davidson Primary Care Physician [facility] Date[facility]s): 05/12/20 - 05/14/[address] [address]- [facility] Encounter Diagnosis Back pain(Final) - 05/12/20 Back pain(Final) - 05/13/20 Discharge Disposition: A-D/C Home Attending Physician: Zeenat Cr MD Admitting Physician: Curt Connors MD Referring [...] 9:15:30 EDT Start Date: 05/13/19 Status: Ordered FLUoxetine 40 mg oral capsule [...] Replace Required Details, Route to Pharmacy Electronically, [id number], [facility]... Start Date: 04/19/19 Status: Ordered raNITIdine 150 [...] EST, Tablet Start Date: 09/27/18 Status: Ordered Tylenol 325 mg oral tablet 650 mg, 2, tablet, By Mouth, Every 6 hours, Refills 0, Maintenance, 05/14/20 10:35:00 EDT Start Date: 05/14/20 Status: Ordered walker with wheel walker with [...] inguinal, left(Confirmed) Active Neutropenia(Confirmed) Active Care Coordination [facility] Karina Aponte (Confirmed) Active Well woman exam [...] Exam Date Time Procedure Performing Provider Status 05/12/20 10:42 PM Elbow Min 3 Views Right Deotte Romainl y; Auth (Verified) Notes: (Elbow Min 3 Views Right) Reason For Exam: with Pain;Trauma RESULT: Elbow Min 3 Views Right Elbow Min 3 Views Left, Elbow Min 3 Views Right INDICATION / CLINICAL QUESTION: Fell off ladder onto concrete. Posttraumatic pain in elbows. TECHNIQUE: AP, lateral, and oblique views of each elbow. COMPARISON: None. FINDINGS: There is no fracture or focal bony lesion. There is no dislocation. There is no joint effusion. There is no evidence of arthritis. IMPRESSION: 1. There is no bone or joint abnormality seen either elbow.. WSN: [id number] Ordering Physician: Sondra Fernandez Dictated By: Zhen Chicas MD Dictated Date/Time: 05/12/20 10:46 p Reviewed By: Zhen Chicas MD Signed By: Zhen Chicas MD Signed Date/Time: 05/12/20 10:46 pm Transcribed By: ANGIE Transcribed Date/Time: 05/12/20 10:43 pm * Exam Date Time Procedure Performing Provider Status 05/12/20 10:42 PM Elbow Min 3 Views Left Brittani Maher Mariaelena Bhakta (Verified) Notes: (Elbow Min 3 Views Left) Reason For Exam: with Pain;Trauma RESULT: Elbow Min 3 Views Left Elbow Min 3 Views Left, Elbow Min 3 Views Right INDICATION / CLINICAL QUESTION: Fell off ladder onto concrete. Posttraumatic pain in elbows. TECHNIQUE: AP, lateral, and oblique views of each elbow. COMPARISON: None. FINDINGS: There is no fracture or focal bony lesion. There is no dislocation. There is no joint effusion. There is no evidence of arthritis. IMPRESSION: 1. There is no bone or joint abnormality seen either elbow.. WSN: [id number] Ordering Physician: Sondra Fernandez Dictated By: Zhen Chicas MD Dictated Date/Time: 05/12/20 10:46 p Reviewed By: Zhen Chicas MD Signed By: Zhen Chicas MD Signed Date/Time: 05/12/20 10:46 pm Transcribed By: ANGIE Transcribed Date/Time: 05/12/20 10:43 pm Vital Signs Most recent to oldest [Reference Range]: 1 2 3 Oxygen Saturation [94-100 %] 100 % (05/14/20 11:52 AM) 100 % (05/14/20 8:14 AM) 99 % (05/14/20 4:06 AM) Pulse Rate [55-90 bpm] 78 bpm (05/14/20 11:52 AM) 66 bpm (05/14/20 8:14 AM) 81 bpm (05/14/20 4:06 AM) Blood Pressure [90-138/55-84 mm Hg] 102/64mm Hg (05/14/20 11:52 AM) 104/61mm Hg (05/14/20 8:14 AM) 106/78mm Hg (05/14/20 4:06 AM) Respiratory Rate [16-30 br/min] 20 br/min (05/14/20 11:52 AM) 18 br/min (05/14/20 8:14 AM) 14 br/min *L* (05/14/20 4:06 AM) Temperature [96.8-100.4 DegF] 98.4 DegF (05/14/20 11:52 AM) 98.8 DegF (05/14/20 8:14 AM) 98.4 DegF (05/14/20 4:06 AM) Mode of Delivery (Oxygen) Room air (05/14/20 11:52 AM) Room air (05/14/20 8:14 AM) Room air (05/14/20 4:06 AM) Blood pressure sites Arm, right (05/14/20 11:52 AM) Arm, right (05/14/20 8:14 AM) Arm, right (05/14/20 4:06 AM) Temperature Route Oral (05/14/20 11:52 AM) Oral (05/14/20 8:14 AM) Oral (05/14/20 4:06 AM) Social History Social History Type Response Smoking Status Never smoker entered on: 11/23/14 Sex
--- OUTSIDE RECORDS SUMMARY | 2024-07-13 10:06 | XMS_ITS | Continuity of Care Document ---
Author Organization [facility] Address [address] [facility], [address], [address] [place] [address]- Care Team Providers Care Site Safety Manager Name Role Phone Thee MCCULLOUGH, Socorro Davidson Primary Care Physician [facility] Date[facility]s): 07/03/20 - 08/02/20 [facility] [address], [address], [address] [place] [id number] Allergies, Adverse Reactions, Alerts Substance Reaction Severity [...] 0 Refills, Maintenance, 06/21/20 11:57:00 EST, Capsule, [facility] #[id number], 163, cm, 06/21/20 11:12:00 EST, Height, 89.3, kg, 10/21/18 22:10:00 EST, Dry Weight Start Date: 06/21/20 Status: Ordered diclofenac sodium 25 mg oral delayed release tablet 1 tablet = 25 mg, By Mouth, 3 times a day, PRN Pain. English sig. Discontinue Ibuprofen, # 90 tablet, 1 Refills, Maintenance, 05/21/20 15:40:00 EDT, EC Tablet, [facility] #[id number], 163, cm, 05/21/20 15:18:00 EDT, Height, 89.3, [...] Replace Required Details, Route to Pharmacy Electronically, [facility] #[id number], 163, cm, 05/21/20 15:18... Start Date: 05/21/20 [...] Mediastinal mass(Confirmed) Active Neutropenia(Confirmed) Active Care Coordination [facility] Karina Aponte (Confirmed) Active Well [...]
--- OUTSIDE RECORDS SUMMARY | 2024-07-13 10:06 | XMS_ITS | Continuity of Care Document ---
Author Organization [facility] Address [address] [place] [address]- Care Team Providers Care Crystal Slicer Name Role Phone Thee MCCULLOUGH, Socorro Davidson Primary Care Physician [facility] 10[facility] - 11/08/[address] [address]- Allergies, Adverse Reactions, Alerts Substance Reaction Severity [...] tablet, 3 Refills, Maintenance, 05/04/22 13:25:00 EDT, [facility] #[id number], 166, cm, 03/17/22 10:16:00 EDT, Height, 92.6, [...] tablet, 3 Refills, Maintenance, 10/24/22 13:37:00 EST, [facility] #[id number], Partial fill upon patient request if the [...] Refills, Maintenance, 07/14/22 12:22:00 EST, REC Powder, [facility] #[id number], Partial fill upon patient request if the prescription is for a schedule II o... Start Date: 07/14/22 Status: Ordered naproxen 500 mg oral delayed release tablet See Instructions, TAKE 1 TABLET BY MOUTH TWICE DAILY TAKE WITH FOOD ONLY NEEDED FOR LOWER BACK PAIN. TRY NOT TO TAKE DAILY, # 50 tablet, 2 Refills, Maintenance, 10/29/22 15:56:00 EDT, [facility] #[id number], 166, cm, 10/16/22 10:45:00 EST, Hei... Start Date: 10/29/22 Status: Ordered NuLYTELY with Flavor Packs oral powder for reconstitution See Instructions, per GI office, # 4,000 mL, 0 Refills, Maintenance, 07/02/22 12:28:00 EST, [facility] #[id number], Partial fill upon patient request if the prescription is for a schedule II opioid drug., per GI office, 166, cm, 06/05/22 16:18:00... Start Date: 07/02/22 Status: Ordered omeprazole 20 mg oral enteric coated capsule See Instructions, take 1 tablet by mouth 2 times a day, # 60 tablet, 2 Refills, Maintenance, 06/12/22 13:44:00 EDT, [facility] #[id number], Rx in [place] Islander, 166, cm, 06/05/22 16:18:00 EDT, Height,87, kg, 06/05/22 16:18:00 EDT, Dry Weight Start Date: 06/12/22 Status: Ordered riboflavin 100 mg oral tablet 2 TABS, By Mouth, 2 times a day, for headaches, # 60 tablet, 5 Refills, Maintenance, 08/04/22 8:40:00 EST, Tablet, [facility] #[id number], Partial fill upon patient request if the prescription is for a schedule II opioid drug., 166, cm, 08/04/22... Start Date: 08/04/22 Stop Date: 01/31/23 Status: Ordered SUMAtriptan 25 mg oral tablet 1 tablet = 25 mg, By Mouth, Daily, PRN as needed for migraine headache, may repeat dose in 2 hours if needed; in filipino do not use more than 2-3 x [...] Personnel Name: Socorro Kingston MD, I Position: [facility] Primary Care Physician Member Role: PCP Address: Address: [address] [place] [address]- Name: Kimber Mcclain RN Position: [facility] RN Member Role: Primary Care Nurse Care Team Related Persons Name: DENYS GONZALES Address: home [address] [place] [address] Name: EMILIANO YEH Address: [address] [place] [address]
--- OUTSIDE RECORDS SUMMARY | 2024-07-13 10:06 | XMS_ITS | Continuity of Care Document ---
Author Organization [facility] Address [address] [place] [address]- Care Team Providers Care Dairy Cattle Farm Manager Name Role Phone Socorro Kingston MD, I Primary Care Physician [facility] Date[facility]s): 10/24/21 - 12/27/[address] [address] Attending Physician: Socorro Kingston MD, I [...]
--- OUTSIDE RECORDS SUMMARY | 2024-07-13 10:06 | XMS_ITS | Continuity of Care Document ---
Author Organization [facility] Address [address] [place] [address]- Care Team Providers Care Baggagemaster Name Role Phone Thee MCCULLOUGH, Socorro Davidson Primary Care Physician [facility] Date[facility]s): 11/19/20 - 12/19/[address] [address]- Allergies, Adverse Reactions, Alerts Substance Reaction Severity [...] 10/28/20 12:38:00 EDT, Route to Pharmacy Electronically, [facility], Partial fill upon patient request if the pres... Start Date: 10/28/20 Status: Ordered cholecalciferol 1000 intl units oral capsule 1 capsule = 1,000 International_Units, By Mouth, Daily, # 75 capsule, 0 Refills, Maintenance, 06/21/20 11:57:00 EST, Capsule, [facility] #[id number], 163, cm, 06/21/20 11:12:00 EST, Height, 89.3, kg, 10/21/18 22:10:00 EST, Dry Weight Start Date: 06/21/20 Status: Ordered diclofenac sodium 25 mg oral delayed release tablet 1 tablet = 25 mg, By Mouth, 3 times a day, PRN Pain. Maltese sig. Discontinue Ibuprofen, # 90 tablet, 1 Refills, Maintenance, 05/21/20 15:40:00 EDT, EC Tablet, [facility] #[id number], 163, cm, 05/21/20 15:18:00 EDT, Height, 89.3, [...] tablet, 3 Refills, Maintenance, 08/15/20 12:06:00 EST, [facility] #[id number], 163, cm, 07/16/20 16:12:00 EST, Height, 89.3, kg, 10/21/18 22:10:00 EST, Dry Weight Start Date: 08/15/20 Status: Ordered meclizine 25 mg oral tablet 1 tablet = 25 mg, By Mouth, 3 times a day, PRN Motion Sickness, # 90 tablet, 0 Refills, Maintenance, 10/28/20 12:37:00 EDT, Tablet, [facility], Partial fill upon patient request if the prescription is for a schedule II opioid drug., 167.... Start Date: 10/28/20 Status: Ordered omeprazole 20 mg oral enteric coated capsule 1 capsule = 20 mg, By Mouth, Daily, if needed for heartburn, # 90 capsule, 1 Refills, Maintenance, 08/15/20 12:07:00 EST, CR Capsule, [facility] #[id number], Partial fill upon patient request ifthe prescription [...]
--- OUTSIDE RECORDS SUMMARY | 2024-07-13 10:06 | XMS_ITS | Continuity of Care Document ---
Author Organization [facility] Address [address] [place] [address]- Care Team Providers Care Ruby Engineer Name Role Phone Omar MCCULLOUGH, Yoanna Primary Care Physician [phone] [facility] Date(s): 09/30/23 - 10/30/[address] [address]- Allergies, Adverse Reactions, Alerts Substance Reaction Severity [...] tablet, 0 Refills, Maintenance, 08/14/23 12:12:00 EST, [facility] #[id number], 168, cm, 08/05/23 9:18:00 EST, Height, 91.8, [...] tablet, 5 Refills, Maintenance, 08/24/23 14:36:00 EST, [facility] #[id number], Partial fill upon patient request if the prescription... Start Date: 08/24/23 Stop Date: 02/20/24 Status: Ordered Colace sodium 100 mg oral capsule 100 mg, 1, capsule, By Mouth, 2 times a day, PRN, # 100 capsule, Refills 3, Tot. Refills 3, Maintenance, for constipation, 12/31/22 19:35:00 EDT, Route to Pharmacy Electronically, [facility] #[id number], Partial fill upon patient request if the p... Start Date: 12/31/22 Status: Ordered Eucerin Daily Hydration topical lotion 1 application, Topically, 4 times a day, # 600 mL, 5 Refills, Maintenance, 09/01/23 16:25:00 EST, [facility] #[id number], Partial fill upon patient request if the [...] Refills, Maintenance, 07/14/22 12:22:00 EST, REC Powder, [facility] #[id number], Partial fill upon patient request if the prescription is for a schedule II o... Start Date: 07/14/22 Status: Ordered MiraLax oral powder for reconstitution = 17 Gm, By Mouth, Daily, dissolve in water before taking, # 255 Gm, 2 Refills, Acute 12/16/23 19:36:00 EDT, 12/31/22 19:35:00 EDT, REC Powder, [facility] #[id number], Partial fill upon patient request if the prescription is for a schedule II opi... Start Date: 12/31/22 Stop Date: 12/16/23 Status: Ordered naproxen 500 mg oral delayed release tablet See Instructions, TAKE 1 TABLET BY MOUTH TWICE DAILY TAKE WITH FOOD ONLY NEEDED FOR LOWER BACK PAIN. TRY NOT TO TAKE DAILY, # 50 tablet, 2 Refills, Maintenance, 10/29/22 15:56:00 EDT, [facility] #[id number], 166, cm, 10/16/22 10:45:00 EST, Hei... Start Date: 10/29/22 Status: Ordered NuLYTELY with Flavor Packs oral powder for reconstitution See Instructions, per GI office, # 4,000 mL, 0 Refills, Maintenance, 07/02/22 12:28:00 EST, [facility] #[id number], Partial fill upon patient request if the prescription is for a schedule II opioid drug., per GI office, 166, cm, 06/05/22 16:18:00... Start Date: 07/02/22 Status: Ordered omeprazole 20 mg oral enteric coated capsule See Instructions, take 1 tablet by mouth 2 times a day, # 60 tablet, 2 Refills, Maintenance, 06/12/22 13:44:00 EDT, [facility] #[id number], Rx in Kittitian, 166, cm, 06/05/22 16:18:00 EDT, Height,87, kg, [...] 5 Refills, Maintenance, 06/15/23 11:00:00 EDT, Tablet, [facility] #[id number], Partial fill upon patient request if the prescription is for a schedule II opioid drug., 168,... Start Date: 06/15/23 Stop Date: 12/12/23 Status: Ordered SUMAtriptan 25 mg oral tablet 1 tablet = 25 mg, By Mouth, Daily, PRN as needed for migraine headache, may repeat dose in 2 hours if needed; in malaysian do not use more than 2-3 x [...] TB tx. 2Pt referred by Dr. Witt-- [facility]. Pt did not keep sched appt. Case closed. Social History Social History Type Response Smoking Status Never smoker entered on: 11/23/14 Sex Patient Care team information Care Team Personnel Name: Kimber Mcclain RN Position: [facility] RN Member Role: Primary Care Nurse Name: Yoanna Nelson MD Position: [facility] Physician - Primary Care Member Role: PCP Address: Address: [address] [place] [address]- [place] Care Team Related Persons Name: DENYS GONZALES Address: [address] [place] [address] Name: EMILIANO YEH Address: home [address] [place] [address]
--- OUTSIDE RECORDS SUMMARY | 2024-07-13 10:06 | XMS_ITS | Continuity of Care Document ---
Author Organization [facility] Address Unknown Care Team Providers Care Flume Maker Name Role Phone Socorro Kingston MD, I Primary Care Physician Encounter [facility] Date(s): 10/22/21 - 12/14/21 [facility] Attending Physician: Elijah Paulson Referring Physician: Socorro Kingston MD, I Allergies, [...]
--- OUTSIDE RECORDS SUMMARY | 2024-07-13 10:06 | XMS_ITS | Continuity of Care Document ---
Author Organization [facility] Address [address] [place] [address]- Care Team Providers Care Manager Clinical Informatics Name Role Phone Socorro Kingston MD, I Primary Care Physician [facility] Date(s): 08/13/22 - 10/08/[address] [address]- Attending Physician: Socorro Kingston MD, I Admitting Physician: Socorro Kingston MD, I Allergies, Adverse [...] tablet, 3 Refills, Maintenance, 05/04/22 13:25:00 EDT, [facility] #[id number], 166, cm, 03/17/22 10:16:00 EDT, Height, 92.6, [...] tablet, 0 Refills, Maintenance, 10/01/22 12:16:00 EST, [facility] #[id number], Partial fill upon patient request if the [...] Refills, Maintenance, 07/14/22 12:22:00 EST, REC Powder, [facility] #[id number], Partial fill upon patient request if the prescription is for a schedule II o... Start Date: 07/14/22 Status: Ordered NuLYTELY with Flavor Packs oral powder for reconstitution See Instructions, per GI office, # 4,000 mL, 0 Refills, Maintenance, 07/02/22 12:28:[id number], Partial fill upon patient request if the prescription is for a schedule II opioid drug., per GI office, 166, cm, 06/05/22 16:18:00... Start Date: 07/02/22 Status: Ordered omeprazole 20 mg oral enteric coated capsule See Instructions, take 1 tablet by mouth 2 times a day, # 60 tablet, 2 Refills, Maintenance, 06/12/22 13:44:00 EDT, [facility] #[id number], Rx in Belgian, 166, cm, 06/05/22 16:18:00 EDT, Height,87, kg, 06/05/22 16:18:00 EDT, Dry Weight Start Date: 06/12/22 Status: Ordered riboflavin 100 mg oral tablet 2 TABS, By Mouth, 2 times a day, for headaches, # 60 tablet, 5 Refills, Maintenance, 08/04/22 8:40:00 EST, Tablet, [facility] #[id number], Partial fill upon patient request if the prescription is for a schedule II opioid drug., 166, cm, 08/04/22... Start Date: 08/04/22 Stop Date: 01/31/23 Status: Ordered SUMAtriptan 25 mg oral tablet 1 tablet = 25 mg, By Mouth, Daily, PRN as needed for migraine headache, may repeat dose in 2 hours if needed; in swedish do not use more than 2-3 x [...] TB tx. 2Pt referred by Dr. Witt-- [facility]. Pt did not keep sched appt. Case closed. Social History Social History Type Response Smoking Status Never smoker entered on: 11/23/14 Sex Patient Care team information Care Team Personnel Name: Socorro Kingston MD, I Position: [facility] Primary Care Physician Member Role: PCP Address: Address: [address] [place] [address]- Name: Kimber Mcclain RN Position: [facility] RN Member Role: Primary Care Nurse Care Team Related Persons Name: DENYS GONZALES Address: home [address] [place] [address] Name: EMILIANO YEH Address: home [address] [place] [address]
--- OUTSIDE RECORDS SUMMARY | 2024-07-13 10:06 | XMS_ITS | Continuity of Care Document ---
Author Organization [facility] Address [address] [place] [address]- Care Team Providers Care Locator Name Role Phone Omar MCCULLOUGH, Yoanna Primary Care Physician [facility] Date[facility]s): 10/06/23 - 11/05/[address] [address]- Allergies, Adverse Reactions, Alerts Substance Reaction Severity [...] tablet, 0 Refills, Maintenance, 08/14/23 12:12:00 EST, [facility] #[id number], 168, cm, 08/05/23 9:18:00 EST, Height, 91.8, [...] tablet, 5 Refills, Maintenance, 08/24/23 14:36:00 EST, [facility] #[id number], Partial fill upon patient request if the prescription... Start Date: 08/24/23 Stop Date: 02/20/24 Status: Ordered Colace sodium 100 mg oral capsule 100 mg, 1, capsule, By Mouth, 2 times a day, PRN, # 100 capsule, Refills 3, Tot. Refills 3, Maintenance, for constipation, 12/31/22 19:35:00 EDT, Route to Pharmacy Electronically, [facility] #[id number], Partial fill upon patient request if the p... Start Date: 12/31/22 Status: Ordered Eucerin Daily Hydration topical lotion 1 application, Topically, 4 times a day, # 600 mL, 5 Refills, Maintenance, 09/01/23 16:25:00 EST, [facility] #[id number], Partial fill upon patient request if the [...] Refills, Maintenance, 07/14/22 12:22:00 EST, REC Powder, [facility] #[id number], Partial fill upon patient request if the prescription is for a schedule II o... Start Date: 07/14/22 Status: Ordered MiraLax oral powder for reconstitution = 17 Gm, By Mouth, Daily, dissolve in water before taking, # 255 Gm, 2 Refills, Acute 12/16/23 19:36:00 EDT, 12/31/22 19:35:00 EDT, REC Powder, [facility] #[id number], Partial fill upon patient request if the prescription is for a schedule II opi... Start Date: 12/31/22 Stop Date: 12/16/23 Status: Ordered naproxen 500 mg oral delayed release tablet See Instructions, TAKE 1 TABLET BY MOUTH TWICE DAILY TAKE WITH FOOD ONLY NEEDED FOR LOWER BACK PAIN. TRY NOT TO TAKE DAILY, # 50 tablet, 2 Refills, Maintenance, 10/29/22 15:56:00 EDT, [facility] #[id number], 166, cm, 10/16/22 10:45:00 EST, Hei... Start Date: 10/29/22 Status: Ordered NuLYTELY with Flavor Packs oral powder for reconstitution See Instructions, per GI office, # 4,000 mL, 0 Refills, Maintenance, 07/02/22 12:28:00 EST, [facility] #[id number], Partial fill upon patient request if the prescription is for a schedule II opioid drug., per GI office, 166, cm, 06/05/22 16:18:00... Start Date: 07/02/22 Status: Ordered omeprazole 20 mg oral enteric coated capsule See Instructions, take 1 tablet by mouth 2 times a day, # 60 tablet, 2 Refills, Maintenance, 06/12/22 13:44:00 EDT, [facility] #[id number], Rx in Iraqi, 166, cm, 06/05/22 16:18:00 EDT, Height,87, kg, [...] 5 Refills, Maintenance, 06/15/23 11:00:00 EDT, Tablet, [facility] #[id number], Partial fill upon patient request if the prescription is for a schedule II opioid drug., 168,... Start Date: 06/15/23 Stop Date: 12/12/23 Status: Ordered SUMAtriptan 25 mg oral tablet 1 tablet = 25 mg, By Mouth, Daily, PRN as needed for migraine headache, may repeat dose in 2 hours if needed; in ethiopian do not use more than 2-3 x [...] TB tx. 2Pt referred by Dr. Witt-- [facility]. Pt did not keep sched appt. Case closed. Social History Social History Type Response Smoking Status Never smoker entered on: 11/23/14 Sex Patient Care team information Care Team Personnel Name: Kimber Mcclain RN Position: [facility] RN Member Role: Primary Care Nurse Name: Yoanna Nelson MD Position: [facility] Physician - Primary Care Member Role: PCP Address: Address: [address] [place] [address]- [place] Care Team Related Persons Name: DENYS GONZALES Address: home [address] [place] [address] Name: EMILIANO YEH Address: home [address] [place] [address]
--- OUTSIDE RECORDS SUMMARY | 2024-07-13 10:06 | XMS_ITS | Continuity of Care Document ---
Author Organization [facility] Address [address] [place] [address]- Care Team Providers Care Radio Reporter Name Role Phone Yoanna Nelson MD Primary Care Physician [facility] Date[facility]s): 08/14/23 - 09/13/[address] [address] Allergies, Adverse Reactions, Alerts Substance Reaction Severity [...] tablet, 0 Refills, Maintenance, 08/14/23 12:12:00 EST, [facility] #[id number], 168, cm, 08/05/23 9:18:00 EST, Height, 91.8, [...] 09/15/23 22:12:00 EST, 09/08/23 22:12:00 EST, Tablet, [facility] #[id number], Partial fill upon patient request if the [...] tablet, 5 Refills, Maintenance, 08/24/23 14:36:00 EST, [facility] #[id number], Partial fill upon patient request if the prescription... Start Date: 08/24/23 Stop Date: 02/20/24 Status: Ordered Colace sodium 100 mg oral capsule 100 mg, 1, capsule, By Mouth, 2 times a day, PRN, # 100 capsule, Refills 3, Tot. Refills 3, Maintenance, for constipation, 12/31/22 19:35:00 EDT, Route to Pharmacy Electronically, [facility] #[id number], Partial fill upon patient request if the p... Start Date: 12/31/22 Status: Ordered Eucerin Daily Hydration topical lotion 1 application, Topically, 4 times a day, # 600 mL, 5 Refills, Maintenance, 09/01/23 16:25:00 EST, [facility] #[id number], Partial fill upon patient request if the [...] Refills, Maintenance, 07/14/22 12:22:00 EST, REC Powder, [facility] #[id number], Partial fill upon patient request if the prescription is for a schedule II o... Start Date: 07/14/22 Status: Ordered MiraLax oral powder for reconstitution = 17 Gm, By Mouth, Daily, dissolve in water before taking, # 255 Gm, 2 Refills, Acute 12/16/23 19:36:00 EDT, 12/31/22 19:35:00 EDT, REC Powder, [facility] #[id number], Partial fill upon patient request if the prescription is for a schedule II opi... Start Date: 12/31/22 Stop Date: 12/16/23 Status: Ordered naproxen 500 mg oral delayed release tablet See Instructions, TAKE 1 TABLET BY MOUTH TWICE DAILY TAKE WITH FOOD ONLY NEEDED FOR LOWER BACK PAIN. TRY NOT TO TAKE DAILY, # 50 tablet, 2 Refills, Maintenance, 10/29/22 15:56:00 EDT, [facility] #[id number], 166, cm, 10/16/22 10:45:00 EST, Hei... Start Date: 10/29/22 Status: Ordered NuLYTELY with Flavor Packs oral powder for reconstitution See Instructions, per GI office, # 4,000 mL, 0 Refills, Maintenance, 07/02/22 12:28:00 EST, [facility] #[id number], Partial fill upon patient request if the prescription is for a schedule II opioid drug., per GI office, 166, cm, 06/05/22 16:18:00... Start Date: 07/02/22 Status: Ordered omeprazole 20 mg oral enteric coated capsule See Instructions, take 1 tablet by mouth 2 times a day, # 60 tablet, 2 Refills, Maintenance, 06/12/22 13:44:00 EDT, [facility] #[id number], Rx in [place] Islander, 166, cm, 06/05/22 [...] 5 Refills, Maintenance, 06/15/23 11:00:00 EDT, Tablet, [facility] #[id number], Partial fill upon patient request if the prescription is for a schedule II opioid drug., 168,... Start Date: 06/15/23 Stop Date: 12/12/23 Status: Ordered SUMAtriptan 25 mg oral tablet 1 tablet = 25 mg, By Mouth, Daily, PRN as needed for migraine headache, may repeat dose in 2 hours if needed; in burkinan do not use more than 2-3 x [...] TB tx. 2Pt referred by Dr. Witt-- [facility]. Pt did not keep sched appt. [...] Care Member Role: PCP Address: Address: [address] [place] [address]- Care Team Related Persons Name: DENYS GONZALES Address: home [address] [place] [address] Name: EMILIANO YEH Address: [place] [address] [place] [address]
--- OUTSIDE RECORDS SUMMARY | 2024-07-13 10:06 | XMS_ITS | Continuity of Care Document ---
Author Organization [facility] Address [address] [place] [address]- Care Team Providers Care Manager Of Environmental Services Name Role Phone Thee MCCULLOUGH, Socorro Davidson Primary Care Physician [phone] Encounter [facility] Date(s): 07/17/20 - 08/16/20 [facility] [address] [place] [address] Attending Physician: Eliane Stout Admitting Physician: [...] Note: vis 7Admin Note: vis 6/10/94 Medications ARIPiprazole 5 mg oral tablet 5 mg, 1, tablet, By Mouth, Daily, # 90 tablet, Refills 0, Maintenance, 05/13/19 9:15:30 EDT Start Date: 05/13/19 Status: Ordered cholecalciferol 1000 intl units oral capsule 1 capsule = 1,000 International_Units, By Mouth, Daily, # 75 capsule, 0 Refills, Maintenance, 06/21/20 11:57:00 EST, Capsule, [facility] #[id number], 163, cm, 06/21/20 11:12:00 EST, Height, 89.3, kg, 10/21/18 22:10:00 EST, Dry Weight Start Date: 06/21/20 Status: Ordered diclofenac sodium 25 mg oral delayed release tablet 1 tablet = 25 mg, By Mouth, 3 times a day, PRN Pain. English sig. Discontinue Ibuprofen, # 90 tablet, 1 Refills, Maintenance, 05/21/20 15:40:00 EDT, EC Tablet, [facility] #[id number], 163, cm, 05/21/20 15:18:00 EDT, Height, 89.3, [...] tablet, 3 Refills, Maintenance, 08/15/20 12:06:00 EST, [facility] #[id number], 163, cm, 07/16/20 16:12:00 EST, Height, 89.3, kg, 10/21/18 22:10:00 EST, Dry Weight Start Date: 08/15/20 Status: Ordered NuLYTELY with Flavor Packs oral powder for reconstitution See Instructions, 240 mL By Mouth Every 15 minutes, # 4,000 mL, 0 Refills, Maintenance, 08/06/20 14:57:00 EST, [facility] #[id number], Partial fill upon patient request if the prescription is for a schedule II opioid drug., 240 mL By Mouth Every... Start Date: 08/06/20 Status: Ordered omeprazole 20 mg oral enteric coated capsule 1 capsule = 20 mg, By Mouth, Daily, if needed for heartburn, # 90 capsule, 1 Refills, Maintenance, 08/15/20 12:07:00 EST, CR Capsule, [facility] #[id number], Partial fill upon patient request ifthe prescription [...] Mediastinal mass(Confirmed) Active Neutropenia(Confirmed) Active Care Coordination [facility] Karina Aponte (Confirmed) Active Well [...]
--- OUTSIDE RECORDS SUMMARY | 2024-07-13 10:06 | XMS_ITS | Continuity of Care Document ---
Author Organization [facility] Address [address] [place] [address]- Care Team Providers Care Mdm Developer Name Role Phone Thee MCCULLOUGH, Socorro Davidson Primary Care Physician [facility] Date(s): 10/02/22 - 11/01/[address] [address]- Allergies, Adverse Reactions, Alerts Substance Reaction Severity [...] tablet, 3 Refills, Maintenance, 05/04/22 13:25:00 EDT, [facility] #[id number], 166, cm, 03/17/22 10:16:00 EDT, Height, 92.6, [...] tablet, 3 Refills, Maintenance, 10/24/22 13:37:00 EST, [facility] #[id number], Partial fill upon patient request if the [...] Refills, Maintenance, 07/14/22 12:22:00 EST, REC Powder, [facility] #[id number], Partial fill upon patient request if the prescription is for a schedule II o... Start Date: 07/14/22 Status: Ordered naproxen 500 mg oral delayed release tablet See Instructions, TAKE 1 TABLET BY MOUTH TWICE DAILY TAKE WITH FOOD ONLY NEEDED FOR LOWER BACK PAIN. TRY NOT TO TAKE DAILY, # 50 tablet, 2 Refills, Maintenance, 10/29/22 15:56:00 EDT, [facility] #[id number], 166, cm, 10/16/22 10:45:00 EST, Hei... Start Date: 10/29/22 Status: Ordered NuLYTELY with Flavor Packs oral powder for reconstitution See Instructions, per GI office, # 4,000 mL, 0 Refills, Maintenance, 07/02/22 12:28:00 EST, [facility] #[id number], Partial fill upon patient request if the prescription is for a schedule II opioid drug., per GI office, 166, cm, 06/05/22 16:18:00... Start Date: 07/02/22 Status: Ordered omeprazole 20 mg oral enteric coated capsule See Instructions, take 1 tablet by mouth 2 times a day, # 60 tablet, 2 Refills, Maintenance, 06/12/22 13:44:00 EDT, [facility] #[id number], Rx in South Sudanese, 166, cm, 06/05/22 16:18:00 EDT, Height,87, kg, 06/05/22 16:18:00 EDT, Dry Weight Start Date: 06/12/22 Status: Ordered riboflavin 100 mg oral tablet 2 TABS, By Mouth, 2 times a day, for headaches, # 60 tablet, 5 Refills, Maintenance, 08/04/22 8:40:00 EST, Tablet, [facility] #[id number], Partial fill upon patient request if the prescription is for a schedule II opioid drug., 166, cm, 08/04/22... Start Date: 08/04/22 Stop Date: 01/31/23 Status: Ordered SUMAtriptan 25 mg oral tablet 1 tablet = 25 mg, By Mouth, Daily, PRN as needed for migraine headache, may repeat dose in 2 hours if needed; in croatian do not use more than 2-3 x [...] Personnel Name: Socorro Kingston MD, I Position: [facility] Primary Care Physician Member Role: PCP Address: Address: [address] [place] [address]- Name: Kimber Mcclain RN Position: [facility] RN Member Role: Primary Care Nurse Care Team Related Persons Name: DENYS GONZALES Address: home [address] [place] [address] Name: EMILIANO YEH Address: home [address] [place] [address]
--- OUTSIDE RECORDS SUMMARY | 2024-07-13 10:06 | XMS_ITS | Continuity of Care Document ---
Author Organization [facility] Address [address] [place] [address]- Care Team Providers Care Care Center Manager Name Role Phone Thee MCCULLOUGH, Socorro Davidson Primary Care Physician Encounter [id number] Date(s): 03/17/22 - 04/16/[address] [address]- Attending Physician: Eliane Stout Admitting Physician: AdmEliane [...] tablet, 1 Refills, Maintenance, 03/17/22 10:50:00 EDT, [facility] #[id number], Partial fill upon patient request if the [...] on: 11/23/14 Sex Care Team Personnel Name: Thee MCCULLOUGH, Socorro Davidson Address: [address] [place] [address]-
--- OUTSIDE RECORDS SUMMARY | 2024-07-13 10:06 | XMS_ITS | Continuity of Care Document ---
Author Organization [facility] Address [address] [place] [address]- Care Team Providers Care Film Reproducer Name Role Phone Socorro Kingston MD, I Primary Care Physician [facility] Date[facility]s): 02/09/19 - 02/05/[address] [address]- [facility] Attending Physician: Dominick Roberts MD Admitting Physician: Dominick Roberts MD Allergies, Adverse Reactions, Alerts Substance Reaction [...] 17:36:45 EDT Start Date: 10/29/18 Status: Ordered Mapap 500 mg oral tablet 1 tablet = 500 mg, By Mouth, Every 4 hours, PRN as needed for pain, for 14 days, # 50 tablet, 1 Refills, Acute 02/15/20 13:11:00 EDT, 01/18/20 13:11:00 EDT, Tablet, [facility] #[id number], 163, cm, 05/13/19 9:14:00 EDT, Height, 89.3, kg, 10/21/18... Start Date: 01/18/20 Stop Date: 02/15/20 Status: Ordered NuLYTELY with Flavor Packs oral powder for reconstitution See Instructions, 1 glass every 15-30 minutes until finished, # 4,000 mL, 0 Refills, Maintenance, 10/14/19 13:14:00 EST, [facility] #[id number], 1 glass every 15-30 minutes until finished, [...] Replace Required Details, Route to Pharmacy Electronically, [id number], [facility]... Start Date: 04/19/19 Status: Ordered raNITIdine [...] inguinal, left(Confirmed) Active Neutropenia(Confirmed) Active Care Coordination [facility] Karina Aponte (Confirmed) Active Well woman exam [...]
--- OUTSIDE RECORDS SUMMARY | 2024-07-13 10:07 | XMS_ITS | Continuity of Care Document ---
Author Organization [facility] Address [address] [place] [address]- Care Team Providers Care Marble Ceiling Installer Name Role Phone Yoanna Nelson MD Primary Care Physician [phone] Encounter [facility] Date(s): 05/26/23 - 07/09/[address] [address]- Attending Physician: Yoanna Nelson MD Admitting Physician: Yoanna Nelson MD Referring Physician: Yoanna Nelson MD Allergies, [...] tablet, 0 Refills, Maintenance, 06/10/23 11:08:00 EDT, [facility] #[id number], 168, cm, 06/10/23 10:41:00 EDT, Height, 91.8, [...] tablet, 3 Refills, Maintenance, 10/24/22 13:37:00 EST, [facility] #[id number], Partial fill upon patient request if the prescription... Start Date: 10/24/22 Status: Ordered Colace sodium 100 mg oral capsule 100 mg, 1, capsule, By Mouth, 2 times a day, PRN, # 100 capsule, Refills 3, Tot. Refills 3, Maintenance, for constipation, 12/31/22 19:35:00 EDT, Route to Pharmacy Electronically, [facility] #[id number], Partial fill upon patient request if the [...] Refills, Maintenance, 07/14/22 12:22:00 EST, REC Powder, [facility] #[id number], Partial fill upon patient request if the prescription is for a schedule II o... Start Date: 07/14/22 Status: Ordered MiraLax oral powder for reconstitution = 17 Gm, By Mouth, Daily, dissolve in water before taking, # 255 Gm, 2 Refills, Acute 12/16/23 19:36:00 EDT, 12/31/22 19:35:00 EDT, REC Powder, [facility] #[id number], Partial fill upon patient request if the prescription is for a schedule II opi... Start Date: 12/31/22 Stop Date: 12/16/23 Status: Ordered naproxen 500 mg oral delayed release tablet See Instructions, TAKE 1 TABLET BY MOUTH TWICE DAILY TAKE WITH FOOD ONLY NEEDED FOR LOWER BACK PAIN. TRY NOT TO TAKE DAILY, # 50 tablet, 2 Refills, Maintenance, 10/29/22 15:56:00 EDT, [facility] #[id number], 166, cm, 10/16/22 10:45:00 EST, Hei... Start Date: 10/29/22 Status: Ordered NuLYTELY with Flavor Packs oral powder for reconstitution See Instructions, per GI office, # 4,000 mL, 0 Refills, Maintenance, 07/02/22 12:28:00 EST, [facility] #[id number], Partial fill upon patient request if the prescription is for a schedule II opioid drug., per GI office, 166, cm, 06/05/22 16:18:00... Start Date: 07/02/22 Status: Ordered omeprazole 20 mg oral enteric coated capsule See Instructions, take 1 tablet by mouth 2 times a day, # 60 tablet, 2 Refills, Maintenance, 06/12/22 13:44:00 EDT, [facility] #[id number], Rx in Slovenian, 166, cm, 06/05/22 16:18:00 EDT, Height,87, kg, 06/05/22 16:18:00 EDT, Dry Weight Start Date: 06/12/22 Status: Ordered riboflavin 100 mg oral tablet 2 tablet = 200 mg, By Mouth, 2 times a day, for headaches, # 120 tablet, 5 Refills, Maintenance, 06/15/23 11:00:00 EDT, Tablet, [facility] #[id number], Partial fill upon patient request if the prescription is for a schedule II opioid drug., 168,... Start Date: 06/15/23 Stop Date: 12/12/23 Status: Ordered SUMAtriptan 25 mg oral tablet 1 tablet = 25 mg, By Mouth, Daily, PRN as needed for migraine headache, may repeat dose in 2 hours if needed; in comoran do not use more than 2-3 x [...] TB tx. 2Pt referred by Dr. Witt-- [facility]. Pt did not keep sched appt. Case closed. Social History Social History Type Response Smoking Status Never smoker entered on: 11/23/14 Sex Patient Care team information Care Team Personnel Name: Kimber Mcclain RN Position: [facility] RN Member Role: Primary Care Nurse Name: Yoanna Nelson MD Position: [facility] Physician - Primary Care Member Role: PCP Address: Address: [address] [place] [address]- Care Team Related Persons Name: DENYS GONZALES Address: home [address] [place] [address] Name: EMILIANO YEH Address: [place] [address]
--- OUTSIDE RECORDS SUMMARY | 2024-07-13 10:07 | XMS_ITS | Continuity of Care Document ---
Author Organization [facility] Address [address] [place] [address]- Care Team Providers Care Sterile Processing Tech Name Role Phone Thee MCCULLOUGH, Socorro Davidson Primary Care Physician [facility]counter [facility] Date(s): 10/08/21 - 11/07/[address] [address]- Allergies, Adverse Reactions, Alerts Substance Reaction Severity [...] TB tx. 2Pt referred by Dr. Witt-- [facility]. Pt did not keep sched appt. Case closed. Social History Social History Type Response Smoking Status Never smoker entered on: 11/23/14 Sex
--- OUTSIDE RECORDS SUMMARY | 2024-07-13 10:07 | XMS_ITS | Continuity of Care Document ---
Author Organization [facility] Address [address] [place] [address] Dr [address] [place] [address]- Care Team Providers Care Lacquer Coater Name Role Phone Socorro Kingston MD, I Primary Care Physician [facility]counter [facility] Date(s): 09/08/22 - 09/15/[address] [place] [address]- Referring Physician: Socorro Kingston MD, I Allergies, [...] tablet, 3 Refills, Maintenance, 05/04/22 13:25:00 EDT, [facility] #[id number], 166, cm, 03/17/22 10:16:00 EDT, Height, 92.6, [...] tablet, 1 Refills, Maintenance, 03/17/22 10:50:00 EDT, [facility] #[id number], Partial fill upon patient request if the [...] Refills, Maintenance, 07/14/22 12:22:00 EST, REC Powder, [facility] #[id number], Partial fill upon patient request if the prescription is for a schedule II o... Start Date: 07/14/22 Status: Ordered NuLYTELY with Flavor Packs oral powder for reconstitution See Instructions, per GI office, # 4,000 mL, 0 Refills, Maintenance, 07/02/22 12:28:00 EST, [facility] #[id number], Partial fill upon patient request if the prescription is for a schedule II opioid drug., per GI office, 166, cm, 06/05/22 16:18:00... Start Date: 07/02/22 Status: Ordered omeprazole 20 mg oral enteric coated capsule See Instructions, take 1 tablet by mouth 2 times a day, # 60 tablet, 2 Refills, Maintenance, 06/12/22 13:44:00 EDT, [facility] #[id number], Rx in Burkinan, 166, cm, 06/05/22 16:18:00 EDT, Height,87, kg, 06/05/22 16:18:00 EDT, Dry Weight Start Date: 06/12/22 Status: Ordered riboflavin 100 mg oral tablet 2 TABS, By Mouth, 2 times a day, for headaches, # 60 tablet, 5 Refills, Maintenance, 08/04/22 8:40:00 EST, Tablet, [facility] #[id number], Partial fill upon patient request if the [...] oldest [Reference Range]: 1 Height 166 cm (09/08/22 3:22 PM) Weight 88.3 kg (09/08/22 3:22 PM) Pulse Rate [55-90 bpm] 73 bpm (09/08/22 3:22 PM) Body Mass Index [18.5-24.99 kg/m2] 32.04 kg/m2 *>HHI* (09/08/22 3:22 PM) Blood Pressure [90-138/55-84 mm Hg] 116/ 76mm Hg (09/08/22 3:22 PM) Temperature [96.8-100.4 DegF] 96.7 DegF *L* (09/08/22 3:22 PM) Blood pressure sites Arm, left (09/08/22 3:22 PM) Temperature Route Temporal (09/08/22 3:22 PM) Weight Obtained Via Standing scale (09/08/22 3:22 PM) Social History Social History Type Response Smoking Status Never smoker entered on: 11/23/14 Sex Patient Care team information Care Team Personnel Name: Socorro Kingston MD, I Position: [facility] Primary Care Physician Member Role: PCP Address: Address: [address] [place] [address] Name: Kimber Mcclain RN Position: [facility] RN Member Role: Primary Care Nurse Care Team Related Persons Name: DENYS GONZALES Address: home [address] [place] [address] Name: EMILIANO YEH Address: home [address] [place] [address]
--- OUTSIDE RECORDS SUMMARY | 2024-07-13 10:07 | XMS_ITS | Continuity of Care Document ---
Author Organization [facility] Address [address] [place] [address]- Care Team Providers Care Neurology Tech Name Role Phone Yonana Nelson MD Primary Care Physician Encounter [facility] Date(s): 04/04/24 - 05/04/[address] [address]- Attending Physician: Eliane Stout Admitting Physician: AdmtrEliane Referring Physician: Admtr, Ar8 Allergies, Adverse Reactions, Alerts Substance Reaction Severity [...] tablet, 1 Refills, Maintenance, 11/10/23 5:27:00 EDT, [facility] #[id number], 167, cm, 10/01/23 14:12:00 EST, Height, 86, kg, 09/08/23 17:41:00 EST, Dry Weight Start Date: 11/10/23 Status: Ordered ARIPiprazole 5 mg oral tablet TAKE 1 TABLET BY MOUTH EVERY DAY Start Date: 02/13/22 Status: Ordered ARIPiprazole 5 mg oral tablet 5 mg, 1, tablet, By Mouth, Daily, # 30 tablet, Refills 2, Tot. Refills 2, Maintenance, 04/04/24 15:40:00 EDT, Route to Pharmacy Electronically, [facility] #[id number], Partial fill upon patient request if the prescription is for a schedule II opi... Start Date: 04/04/24 Status: Ordered calcium (as carbonate)-vitamin D 500 mg-400 intl units oral tablet 1 tablet, By Mouth, 2 times a day, take with food as a supplement for calcium and vitamin D for osteopenia., # 60 tablet, 5 Refills, Maintenance, 08/24/23 14:36:00 EST, [facility] #[id number], Partial fill upon patient request if the prescription... Start Date: 08/24/23 Stop Date: 02/20/24 Status: Ordered Colace sodium 100 mg oral capsule 100 mg, 1, capsule, By Mouth, 2 times a day, PRN, # 100 capsule, Refills 3, Tot. Refills 3, Maintenance, for constipation, 12/31/22 19:35:00 EDT, Route to Pharmacy Electronically, [facility] #[id number], Partial fill upon patient request if the p... Start Date: 12/31/22 Status: Ordered Eucerin Daily Hydration topical lotion 1 application, Topically, 4 times a day, # 600 mL, 5 Refills, Maintenance, 09/01/23 16:25:00 EST, [facility] #[id number], Partial fill upon patient request if the [...] 2 Refills, Maintenance, 04/04/24 15:39:00 EDT, Capsule, [facility] #[id number], Partial fill upon patient request if the prescription is for a schedule II opioid drug., 168, cm, 04/04/24 15:29:00... Start Date: 04/04/24 Status: Ordered hydrOXYzine hydrochloride 10 mg oral tablet 1 tablet = 10 mg, By Mouth, 4 times a day, PRN for anxiety, # 120 tablet, 2 Refills, Maintenance, 04/04/24 15:39:00 EDT, Tablet, [facility] #[id number], Partial fill upon patient request if the [...] 07/12/24 11:28:00 EST, 12/15/23 11:28:00 EDT, Tablet, [facility] #[id number], Partial fill upon patient request if the prescription is for a schedule II... Start Date: 12/15/23 Stop Date: 07/12/24 Status: Ordered MiraLax oral powder for reconstitution = 17 Gm, By Mouth, Daily, PRN Constipation, dissolve in water before taking, # 527 Gm, 5 Refills, Maintenance, 07/14/22 12:22:00 EST, REC Powder, [facility] #[id number], Partial fill upon patient request if the prescription is for a schedule II o... Start Date: 07/14/22 Status: Ordered naproxen 500 mg oral delayed release tablet See Instructions, TAKE 1 TABLET BY MOUTH TWICE DAILY TAKE WITH FOOD ONLY NEEDED FOR LOWER BACK PAIN. TRY NOT TO TAKE DAILY, # 50 tablet, 2 Refills, Maintenance, 10/29/22 15:56:00 EDT, [facility] #[id number], 166, cm, 10/16/22 10:45:00 EST, Hei... Start Date: 10/29/22 Status: Ordered NuLYTELY with Flavor Packs oral powder for reconstitution See Instructions, per GI office, # 4,000 mL, 0 Refills, Maintenance, 07/02/22 12:28:00 EST, [facility] #[id number], Partial fill upon patient request if the [...] tablet, 2 Refills, Maintenance, 06/12/22 13:44:00 EDT, [facility] #[id number], Rx in Amharic, 166, cm, 06/05/22 16:18:00 EDT, Height,87, kg, [...] 5 Refills, Maintenance, 12/15/23 11:31:00 EDT, Tablet, [facility] #[id number], Partial fill upon patient requestif the prescription is for a schedule II opioid... Start Date: 12/15/23 Stop Date: 06/12/24 Status: Ordered SUMAtriptan 25 mg oral tablet 1 tablet = 25 mg, By Mouth, Daily, PRN as needed for migraine headache, may repeat dose in 2 hours if needed; in amharic do not use more than 2-3 x [...] VERIFY Event Display: Patient Education/Instruction Authored Date: [id number] [facility] Clinical Summary Person Information Visit Date 04/25/2016 2:25 PM Name JUNE RICKS Age 56 Years 1960 12:00 AM PCP Ar[facility] Witt MD [id number] Sex Female Race White Ethnicity / Language Amharic You can now view a summary of your hospital visit from the comfort of your home through a free online portal called [employer]. [employer] is a website that allows you to securely view your medical information including discharge summary, medications and follow-up visits. You can also send a secure electronic message to your doctor???s office to request appointments, renew medicationsor just ask a question. You can enroll at [email or web address] or register during your next office visit. Smoking can increase your chances of developing chronic health problems and can cause harmful effects to other family members in your house. If you smoke, you are strongly encouraged to quit. Please call the [place] Smokers??? Helpline at 7-602-QACGNOW (or ) or log on to [email or web address] for more information. Reason for Visit: Allergy [...] dose in 2 hours if needed; in amharic, As Needed, as needed for migraine headache, [...] primary care provider, you may find a [facility] provider by calling [facility] [employer] at [phone]. For information about the plan of care including goals and instructions for your diagnosis, please see the patient education orders section of this document. Patient Visit Summary: Future Appointments: Type Location Start Finish State Return [facility] 04/25/2016 2:25 PM 04/25/2016 2:50 PM Pending Follow-Up Instructions Patient Education Materials Additional Instructions: * Mary Hendrickson: PERFORM, SIGN, VERIFY Event Display: Patient Education/Instruction Authored Date: [id number] [facility] Clinical Summary Person Information Name JUNE RICKS [...] primary care provider, you may find a [facility] provider by calling [facility] at [phone]. Patient Education Information Follow-up Details: Patient Education Material: Patient Care team information Care Team Personnel Name: Kimber Mcclain RN Position: [facility] RN Member Role: Primary Care Nurse Name: Yoanna Nelson MD Position: [facility] Physician - Primary Care Member Role: PCP Address: Address: [address] [place] [address]- Care Team Related Persons Name: DENYS GONZALES Address: home [address] [place] [address] Name: EMILIANO YEH Address: home [address] [place] [address]
--- OUTSIDE RECORDS SUMMARY | 2024-07-13 10:07 | XMS_ITS | Continuity of Care Document ---
Author Organization [facility] Address [address] [place] [address]- Care Team Providers Care Cigar Making Supervisor Name Role Phone Thee MCCULLOUGH, Socorro Davidson Primary Care Physician [facility] Date(s): 12/11/21 - 01/10/[address] [address] Allergies, Adverse Reactions, Alerts Substance Reaction [...]
--- OUTSIDE RECORDS SUMMARY | 2024-07-13 10:07 | XMS_ITS | Continuity of Care Document ---
Author Organization [facility] Address [address] [place] [address]- Care Team Providers Care Applier Name Role Phone Thee MCCULLOUGH, Socorro Davidson Primary Care Physician [facility]counter [facility] Date(s): 03/26/22 - 04/25/[address] [address] Allergies, Adverse Reactions, Alerts Substance [...] tablet, 1 Refills, Maintenance, 03/17/22 10:50:00 EDT, [facility] #[id number], Partial fill upon patient request if the [...] Personnel Name: Socorro Kingston MD, I Address: [address] [place] [address] [place] [address]- [place]
--- OUTSIDE RECORDS SUMMARY | 2024-07-13 10:07 | XMS_ITS | Continuity of Care Document ---
Author Organization [facility] Address [address], [address] [place] [address]- Care Team Providers Care Block And Case Maker Name Role Phone Socorro Kingston MD, I Primary Care Physician [phone] [place] [facility] [place]): 06/05/22 - 06/12/22 [facility] [address] [place] [address]- Attending Physician: Eber Cisneros MD Referring Physician: Socorro Kingston MD, I [...] tablet, 3 Refills, Maintenance, 05/04/22 13:25:00 EDT, [facility] #[id number], 166, cm, 03/17/22 10:16:00 EDT, Height, 92.6, [...] tablet, 1 Refills, Maintenance, 03/17/22 10:50:00 EDT, [facility] #[id number], Partial fill upon patient request if the [...] BEDTIME NEEDED Start Date: 02/13/22 Status: Ordered omeprazole 20 mg oral enteric coated capsule See Instructions, take 1 tablet by mouth 2 times a day, # 60 tablet, 2 Refills, Maintenance, 06/12/22 13:44:00 EDT, [facility] #[id number], Rx in [place] Arabian, 166, cm, 06/05/22 16:18:00 EDT, Height,87, kg, [...] TB tx. 2Pt referred by Dr. Witt-- [facility]. Pt did not keep sched appt. Case closed. Vital Signs Most recent to oldest [Reference Range]: 1 Height 166 cm (06/05/22 4:18 PM) Weight 87 kg (06/05/22 4:18 PM) Pulse Rate [55-90 bpm] 79 bpm (06/05/22 4:18 PM) Body Mass Index [18.5-24.99 kg/m2] 31.57 kg/m2 *>HHI* (06/05/22 4:18 PM) Blood Pressure [90-138/55-84 mm Hg] 120/ 75mm Hg (06/05/22 4:18 PM) Blood pressure sites Arm, right (06/05/22 4:18 PM) Dry Weight 87 kg (06/05/22 4:18 PM) Weight Obtained Via Standing scale (06/05/22 4:18 PM) Dry Weight Obtained Via Standing scale (06/05/22 4:18 PM) Social History Social History Type Response Smoking Status Never smoker entered on: 11/23/14 Sex Patient Care team information Personnel Name: Socorro Kingston MD, I Address: Address: [address] [place] [address]
--- OUTSIDE RECORDS SUMMARY | 2024-07-13 10:07 | XMS_ITS | Continuity of Care Document ---
Author Organization [facility] Address [address] [place] [address]- Care Team Providers Care Winding Department Supervisor Name Role Phone Thee MCCULLOUGH, Socorro Davidson Primary Care Physician [facility] Date[facility]s): 08/04/22 - 09/03/[address] [address]- Allergies, Adverse Reactions, Alerts Substance Reaction Severity [...] tablet, 3 Refills, Maintenance, 05/04/22 13:25:00 EDT, [facility] #[id number], 166, cm, 03/17/22 10:16:00 EDT, Height, 92.6, [...] tablet, 1 Refills, Maintenance, 03/17/22 10:50:00 EDT, [facility] #[id number], Partial fill upon patient request if the [...] Refills, Maintenance, 07/14/22 12:22:00 EST, REC Powder, [facility] #[id number], Partial fill upon patient request if the prescription is for a schedule II o... Start Date: 07/14/22 Status: Ordered NuLYTELY with Flavor Packs oral powder for reconstitution See Instructions, per GI office, # 4,000 mL, 0 Refills, Maintenance, 07/02/22 12:28:00 EST, [facility] #[id number], Partial fill upon patient request if the prescription is for a schedule II opioid drug., per GI office, 166, cm, 06/05/22 16:18:00... Start Date: 07/02/22 Status: Ordered omeprazole 20 mg oral enteric coated capsule See Instructions, take 1 tablet by mouth 2 times a day, # 60 tablet, 2 Refills, Maintenance, 06/12/22 13:44:00 EDT, [facility] #[id number], Rx in Turkish, 166, cm, 06/05/22 16:18:00 EDT, Height,87, kg, 06/05/22 16:18:00 EDT, Dry Weight Start Date: 06/12/22 Status: Ordered riboflavin 100 mg oral tablet 2 TABS, By Mouth, 2 times a day, for headaches, # 60 tablet, 5 Refills, Maintenance, 08/04/22 8:40:00 EST, Tablet, [facility] #[id number], Partial fill upon patient request if the [...] TB tx. 2Pt referred by Dr. Witt-- [facility]. Pt did not keep sched appt. Case closed. Social History Social History Type Response Smoking Status Never smoker entered on: 11/23/14 Sex Patient Care team information Care Team Personnel Name: Socorro Kingston MD, I Position: [facility] Primary Care Physician Member Role: PCP Address: Address: [address] [place] [id number]- Name: Kimber Mcclain RN Position: [facility] RN Member Role: Primary Care Nurse Care Team Related Persons Name: JANETDENYS STEWART Address: home [address] [place] [address] Name: EMILIANO YEH Address: [address] [place] [address]
--- OUTSIDE RECORDS SUMMARY | 2024-07-13 10:07 | XMS_ITS | Continuity of Care Document ---
Author Organization [facility] Address [address] [place] [address]- Care Team Providers Care Terrazzo Grinder Name Role Phone Socorro Kingston MD, I Primary Care Physician [facility] [place]s): 12/03/21 - 04/02/22 [facility] [address] [place] [address]- Attending Physician: Noel Robledo MD Admitting Physician: Noel Robledo MD Referring Physician: Socorro Kingston MD, I [...] tablet, 1 Refills, Maintenance, 03/17/22 10:50:00 EDT, [facility] #[id number], Partial fill upon patient request if the [...]
--- OUTSIDE RECORDS SUMMARY | 2024-07-13 10:07 | XMS_ITS | Continuity of Care Document ---
Author Organization [facility] Address [address] [place] [address]- Care Team Providers Care Legal Aide Name Role Phone Socorro Kingston MD, I Primary Care Physician [place] [facility] [place] 10/11/22 - 11/19/[address] [address] Attending Physician: Socorro Kingston MD, I [...] tablet, 3 Refills, Maintenance, 05/04/22 13:25:00 EDT, [facility] #[id number], 166, cm, 03/17/22 10:16:00 EDT, Height, 92.6, [...] tablet, 3 Refills, Maintenance, 10/24/22 13:37:00 EST, [facility] #[id number], Partial fill upon patient request if the [...] Refills, Maintenance, 07/14/22 12:22:00 EST, REC Powder, [facility] #[id number], Partial fill upon patient request if the prescription is for a schedule II o... Start Date: 07/14/22 Status: Ordered naproxen 500 mg oral delayed release tablet See Instructions, TAKE 1 TABLET BY MOUTH TWICE DAILY TAKE WITH FOOD ONLY NEEDED FOR LOWER BACK PAIN. TRY NOT TO TAKE DAILY, # 50 tablet, 2 Refills, Maintenance, 10/29/22 15:56:00 EDT, [facility] #[id number], 166, cm, 10/16/22 10:45:00 EST, Hei... Start Date: 10/29/22 Status: Ordered NuLYTELY with Flavor Packs oral powder for reconstitution See Instructions, per GI office, # 4,000 mL, 0 Refills, Maintenance, 07/02/22 12:28:00 EST, [facility] #[id number], Partial fill upon patient request if the prescription is for a schedule II opioid drug., per GI office, 166, cm, 06/05/22 16:18:00... Start Date: 07/02/22 Status: Ordered omeprazole 20 mg oral enteric coated capsule See Instructions, take 1 tablet by mouth 2 times a day, # 60 tablet, 2 Refills, Maintenance, 06/12/22 13:44:00 EDT, [facility] #[id number], Rx in Bhutanese, 166, cm, 06/05/22 16:18:00 EDT, Height,87, kg, 06/05/22 16:18:00 EDT, Dry Weight Start Date: 06/12/22 Status: Ordered riboflavin 100 mg oral tablet 2 TABS, By Mouth, 2 times a day, for headaches, # 60 tablet, 5 Refills, Maintenance, 08/04/22 8:40:00 EST, Tablet, [facility] #[id number], Partial fill upon patient request if the prescription is for a schedule II opioid drug., 166, cm, 08/04/22... Start Date: 08/04/22 Stop Date: 01/31/23 Status: Ordered SUMAtriptan 25 mg oral tablet 1 tablet = 25 mg, By Mouth, Daily, PRN as needed for migraine headache, may repeat dose in 2 hours if needed; in colombian do not use more than 2-3 x [...] Dr. Witt-- [facility]. Pt did not keep sched appt. Case closed. Social History Social History Type Response Smoking Status Never smoker entered on: 11/23/14 Sex Patient Care team information Care Team Personnel Name: Socorro Kingston MD, I Position: [facility] Primary Care Physician Member Role: PCP Address: Address: [address] [place] [address]- Name: Kimber Mcclain RN Position: [facility] RN Member Role: Primary Care Nurse Care Team Related Persons Name: DENYS GONZALES Address: home [address] [place] [address] Name: EMILIANO YEH Address: home [address] [place] [address]
--- OUTSIDE RECORDS SUMMARY | 2024-07-13 10:07 | XMS_ITS | Continuity of Care Document ---
Author Organization [facility] Address [address] [place] [address] Dr [address] [place] [address]- Care Team Providers Care Engineering Recruiter Name Role Phone Yoanna Nelson MD Primary Care Physician [facility] Date(s): 03/27/23 - 04/26/[address] [place], [place] [address] Attending Physician: Eliane Stout Admitting Physician: AdmtrEliane [...] influenza virus vaccine, inactivated 3 05/24/10 [facility] Measles/Mumps/Rubella Virus Vaccine 4 01/01/11 Giv en [...] tablet, 0 Refills, Maintenance, 04/14/23 8:37:00 EDT, [facility] #[id number], 168, cm, 03/27/23 13:30:00 EDT, Height, 91.8, [...] tablet, 3 Refills, Maintenance, 10/24/22 13:37:00 EST, [facility] #[id number], Partial fill upon patient request if the prescription... Start Date: 10/24/22 Status: Ordered Colace sodium 100 mg oral capsule 100 mg, 1, capsule, By Mouth, 2 times a day, PRN, # 100 capsule, Refills 3, Tot. Refills 3, Maintenance, for constipation, 12/31/22 19:35:00 EDT, Route to Pharmacy Electronically, [facility] #[id number], Partial fill upon patient request if the [...] Refills, Maintenance, 07/14/22 12:22:00 EST, REC Powder, [facility] #[id number], Partial fill upon patient request if the prescription is for a schedule II o... Start Date: 07/14/22 Status: Ordered MiraLax oral powder for reconstitution = 17 Gm, By Mouth, Daily, dissolve in water before taking, # 255 Gm, 2 Refills, Acute 12/16/23 19:36:00 EDT, 12/31/22 19:35:00 EDT, REC Powder, [facility] #[id number], Partial fill upon patient request if the prescription is for a schedule II opi... Start Date: 12/31/22 Stop Date: 12/16/23 Status: Ordered naproxen 500 mg oral delayed release tablet See Instructions, TAKE 1 TABLET BY MOUTH TWICE DAILY TAKE WITH FOOD ONLY NEEDED FOR LOWER BACK PAIN. TRY NOT TO TAKE DAILY, # 50 tablet, 2 Refills, Maintenance, 10/29/22 15:56:00 EDT, [facility] #[id number], 166, cm, 10/16/22 10:45:00 EST, Hei... Start Date: 10/29/22 Status: Ordered NuLYTELY with Flavor Packs oral powder for reconstitution See Instructions, per GI office, # 4,000 mL, 0 Refills, Maintenance, 07/02/22 12:28:00 EST, [facility] #[id number], Partial fill upon patient request if the prescription is for a schedule II opioid drug., per GI office, 166, cm, 06/05/22 16:18:00... Start Date: 07/02/22 Status: Ordered omeprazole 20 mg oral enteric coated capsule See Instructions, take 1 tablet by mouth 2 times a day, # 60 tablet, 2 Refills, Maintenance, 06/12/22 13:44:00 EDT, [facility] #[id number], Rx in Indonesian, 166, cm, 06/05/22 16:18:00 EDT, Height,87, kg, 06/05/22 16:18:00 EDT, Dry Weight Start Date: 06/12/22 Status: Ordered riboflavin 100 mg oral tablet 2 TABS, By Mouth, 2 times a day, for headaches, # 60 tablet, 5 Refills, Maintenance, 08/04/22 8:40:00 EST, Tablet, [facility] #[id number], Partial fill upon patient request if the prescription is for a schedule II opioid drug., 166, cm, 08/04/22... Start Date: 08/04/22 Stop Date: 01/31/23 Status: Ordered SUMAtriptan 25 mg oral tablet 1 tablet = 25 mg, By Mouth, Daily, PRN as needed for migraine headache, may repeat dose in 2 hours if needed; in ukrainian do not use more than 2-3 x [...] TB tx. 2Pt referred by Dr. Witt-- [facility]. Pt did not keep sched appt. Case closed. Social History Social History Type Response Smoking Status Never smoker entered on: 11/23/14 Sex Patient Care team information Care Team Personnel Name: Kimber Mcclain RN Position: [facility] RN Member Role: Primary Care Nurse Name: Yoanna Nelson MD Position: [facility] Physician - Primary Care Member Role: PCP Address: Address: [address] [place] [address]- Care Team Related Persons Name: DENYS GONZALES Address: home [address] [place] [address] Name: EMILIANO YEH Address: home [address] [place] [address]
--- OUTSIDE RECORDS SUMMARY | 2024-07-13 10:07 | XMS_ITS | Continuity of Care Document ---
Author Organization [facility] Address [address] [place] [address]- Care Team Providers Care Pastry Cook Name Role Phone Thee MCCULLOUGH, Socorro Davidson Primary Care Physician [facility]counter [facility] Date(s): 07/16/22 - 08/15/[address] [address]- Allergies, Adverse Reactions, Alerts Substance Reaction Severity [...] tablet, 3 Refills, Maintenance, 05/04/22 13:25:00 EDT, [facility] #[id number], 166, cm, 03/17/22 10:16:00 EDT, Height, 92.6, [...] tablet, 1 Refills, Maintenance, 03/17/22 10:50:00 EDT, [facility] #[id number], Partial fill upon patient request if the [...] Refills, Maintenance, 07/14/22 12:22:00 EST, REC Powder, [facility] #[id number], Partial fill upon patient request if the prescription is for a schedule II o... Start Date: 07/14/22 Status: Ordered NuLYTELY with Flavor Packs oral powder for reconstitution See Instructions, per GI office, # 4,000 mL, 0 Refills, Maintenance, 07/02/22 12:28:00 EST, [facility] #[id number], Partial fill upon patient request if the prescription is for a schedule II opioid drug., per GI office, 166, cm, 06/05/22 16:18:00... Start Date: 07/02/22 Status: Ordered omeprazole 20 mg oral enteric coated capsule See Instructions, take 1 tablet by mouth 2 times a day, # 60 tablet, 2 Refills, Maintenance, 06/12/22 13:44:00 EDT, [facility] #[id number], Rx in English, 166, cm, 06/05/22 16:18:00 EDT, Height,87, kg, 06/05/22 16:18:00 EDT, Dry Weight Start Date: 06/12/22 Status: Ordered riboflavin 100 mg oral tablet 2 TABS, By Mouth, 2 times a day, for headaches, # 60 tablet, 5 Refills, Maintenance, 08/04/22 8:40:00 EST, Tablet, [facility] #[id number], Partial fill upon patient request if the [...] tx. 2Pt referred by Dr. Witt-- [facility]. Pt did not keep sched appt. Case closed. Social History Social History Type Response Smoking Status Never smoker entered on: 11/23/14 Sex Patient Care team information Care Team Personnel Name: Socorro Kingston MD, I Position: [facility] Primary Care Physician Member Role: PCP Address: Address: [address] [place] [address]- Name: Kimber Mcclain RN Position: [facility] RN Member Role: Primary Care Nurse Care Team Related Persons Name: JANETDENYS STEWATR Address: home [address] [place] [address] Name: EMILIANO YEH Address: [place] [address] [place] [address]
--- OUTSIDE RECORDS SUMMARY | 2024-07-13 10:07 | XMS_ITS | Continuity of Care Document ---
Author Organization [facility] Address [address] [place] [address]- Care Team Providers Care Assistant Winemaker Name Role Phone Omar MCCULLOUGH, Yoanna Primary Care Physician [facility]counter [facility] Date(s): 02/20/23 - 03/22/[address] [address]- Allergies, Adverse Reactions, Alerts Substance Reaction Severity [...] tablet, 3 Refills, Maintenance, 05/04/22 13:25:00 EDT, [facility] #[id number], 166, cm, 03/17/22 10:16:00 EDT, Height, 92.6, [...] tablet, 3 Refills, Maintenance, 10/24/22 13:37:00 EST, [facility] #[id number], Partial fill upon patient request if the prescription... Start Date: 10/24/22 Status: Ordered Colace sodium 100 mg oral capsule 100 mg, 1, capsule, By Mouth, 2 times a day, PRN, # 100 capsule, Refills 3, Tot. Refills 3, Maintenance, for constipation, 12/31/22 19:35:00 EDT, Route to Pharmacy Electronically, [facility] #[id number], Partial fill upon patient request if the [...] Refills, Maintenance, 07/14/22 12:22:00 EST, REC Powder, [facility] #[id number], Partial fill upon patient request if the prescription is for a schedule II o... Start Date: 07/14/22 Status: Ordered MiraLax oral powder for reconstitution = 17 Gm, By Mouth, Daily, dissolve in water before taking, # 255 Gm, 2 Refills, Acute 12/16/23 19:36:00 EDT, 12/31/22 19:35:00 EDT, REC Powder, [facility] #[id number], Partial fill upon patient request if the prescription is for a schedule II opi... Start Date: 12/31/22 Stop Date: 12/16/23 Status: Ordered naproxen 500 mg oral delayed release tablet See Instructions, TAKE 1 TABLET BY MOUTH TWICE DAILY TAKE WITH FOOD ONLY NEEDED FOR LOWER BACK PAIN. TRY NOT TO TAKE DAILY, # 50 tablet, 2 Refills, Maintenance, 10/29/22 15:56:00 EDT, [facility] #[id number], 166, cm, 10/16/22 10:45:00 EST, Hei... Start Date: 10/29/22 Status: Ordered NuLYTELY with Flavor Packs oral powder for reconstitution See Instructions, per GI office, # 4,000 mL, 0 Refills, Maintenance, 07/02/22 12:28:00 EST, [facility] #[id number], Partial fill upon patient request if the prescription is for a schedule II opioid drug., per GI office, 166, cm, 06/05/22 16:18:00... Start Date: 07/02/22 Status: Ordered omeprazole 20 mg oral enteric coated capsule See Instructions, take 1 tablet by mouth 2 times a day, # 60 tablet, 2 Refills, Maintenance, 06/12/22 13:44:00 EDT, [facility] #[id number], Rx in Jamaican, 166, cm, 06/05/22 16:18:00 EDT, Height,87, kg, 06/05/22 16:18:00 EDT, Dry Weight Start Date: 06/12/22 Status: Ordered riboflavin 100 mg oral tablet 2 TABS, By Mouth, 2 times a day, for headaches, # 60 tablet, 5 Refills, Maintenance, 08/04/22 8:40:00 EST, Tablet, [facility] #[id number], Partial fill upon patient request if the prescription is for a schedule II opioid drug., 166, cm, 08/04/22... Start Date: 08/04/22 Stop Date: 01/31/23 Status: Ordered SUMAtriptan 25 mg oral tablet 1 tablet = 25 mg, By Mouth, Daily, PRN as needed for migraine headache, may repeat dose in 2 hours if needed; in guatemalan do not use more than 2-3 x [...] 2Pt referred by Dr. Witt-- [facility]. Pt did not keep sched appt. Case closed. Social History Social History Type Response Smoking Status Never smoker entered on: 11/23/14 Sex Patient Care team information Care Team Personnel Name: Kimber Mcclain RN Position: [facility] RN Member Role: Primary Care Nurse Name: Yoanna Nelson MD Position: [facility] Physician - Primary Care Member Role: PCP Address: Address: [address] [place] [address]- [place] Care Team Related Persons Name: DENYS GONZALES Address: home [address] [place] [address] Name: EMILIANO YEH Address: home [address] [place] [address]
--- OUTSIDE RECORDS SUMMARY | 2024-07-13 10:07 | XMS_ITS | Continuity of Care Document ---
Author Organization [facility] Address [address] [place] [address]- Care Team Providers Care Engine Inspector Name Role Phone Thee MCCULLOUGH, Socorro Davidson Primary Care Physician Encounter [facility] Date(s): 05/25/21 - 08/29/[address] [address] Attending Physician: Omari Ruiz MD Admitting Physician: Omari Ruiz MD Allergies, Adverse Reactions, [...]
--- OUTSIDE RECORDS SUMMARY | 2024-07-13 10:07 | XMS_ITS | Continuity of Care Document ---
Author Organization [facility] Address [address], [address] [place] [address]- Care Team Providers Care Procurement Manager Name Role Phone Thee MCCULLOUGH, Socorro Davidson Primary Care Physician [phone] Encounter [facility] Date(s): 06/13/21 - 07/27/21 [facility] [address], [address] [place], [place] [address] Attending Physician: Blayne MCCULLOUGH, Eber Rodriges Allergies, Adverse Reactions, Alerts Substance Reaction Severity [...]
--- OUTSIDE RECORDS SUMMARY | 2024-07-13 10:08 | XMS_ITS | Continuity of Care Document ---
Author Organization [facility] Address [address] [facility], [address] [place] [address]- Care Team Providers Care Hat Renovator Name Role Phone Thee MCCULLOUGH, Socorro Davidson Primary Care Physician Encounter [facility] Date(s): 06/13/21 - 06/20/21 [facility] [address] [facility], 4th [address] [place], [place] [address] Attending Physician: Elisa Maloney MD Admitting Physician: Eber Cisneros MD Referring Physician: Socorro [...] TB tx. 2Pt referred by Dr. Witt-- [facility]. Pt did not keep sched appt. Case closed. Vital Signs Most recent to oldest [Reference Range]: 1 Height 166 cm (06/13/21 3:24 PM) Weight 92.6 kg (06/13/21 3:24 PM) Pulse Rate [55-90 bpm] 92 bpm *H* (06/13/21 3:24 PM) Body Mass Index [18.5-24.99] 33.6 *>HHI* (06/13/21 3:24 PM) Blood Pressure [90-138/55-84 mm Hg] 122/ 80mm Hg (06/13/21 3:24 PM) Blood pressure sites Arm, right (06/13/21 3:24 PM) Dry Weight 92.6 kg (06/13/21 3:24 PM) Weight Obtained Via Standing scale (06/13/21 3:24 PM) Dry Weight Obtained Via Standing scale (06/13/21 3:24 PM) Social History Social History Type Response Smoking Status Never smoker entered on: 11/23/14 Sex
--- OUTSIDE RECORDS SUMMARY | 2024-07-13 10:08 | XMS_ITS | Continuity of Care Document ---
Author Organization [facility] Address [address] [place] [address] [address] [place] [address]- Care Team Providers Care Servicer Name Role Phone Yoanna Nelson MD Primary Care Physician [place] [facility] Date(s): 11/18/22 - 04/16/[address] [place] [address]- Attending Physician: Nabil Lau MD Referring Physician: [...] tablet, 0 Refills, Maintenance, 04/14/23 8:37:00 EDT, [facility] #[id number], 168, cm, 03/27/23 13:30:00 EDT, Height, 91.8, [...] tablet, 3 Refills, Maintenance, 10/24/22 13:37:00 EST, [facility] #[id number], Partial fill upon patient request if the prescription... Start Date: 10/24/22 Status: Ordered Colace sodium 100 mg oral capsule 100 mg, 1, capsule, By Mouth, 2 times a day, PRN, # 100 capsule, Refills 3, Tot. Refills 3, Maintenance, for constipation, 12/31/22 19:35:00 EDT, Route to Pharmacy Electronically, [facility] #[id number], Partial fill upon patient request if the [...] Refills, Maintenance, 07/14/22 12:22:00 EST, REC Powder, [facility] #[id number], Partial fill upon patient request if the prescription is for a schedule II o... Start Date: 07/14/22 Status: Ordered MiraLax oral powder for reconstitution = 17 Gm, By Mouth, Daily, dissolve in water before taking, # 255 Gm, 2 Refills, Acute 12/16/23 19:36:00 EDT, 12/31/22 19:35:00 EDT, REC Powder, [facility] #[id number], Partial fill upon patient request if the prescription is for a schedule II opi... Start Date: 12/31/22 Stop Date: 12/16/23 Status: Ordered naproxen 500 mg oral delayed release tablet See Instructions, TAKE 1 TABLET BY MOUTH TWICE DAILY TAKE WITH FOOD ONLY NEEDED FOR LOWER BACK PAIN. TRY NOT TO TAKE DAILY, # 50 tablet, 2 Refills, Maintenance, 10/29/22 15:56:00 EDT, [facility] #[id number], 166, cm, 10/16/22 10:45:00 EST, Hei... Start Date: 10/29/22 Status: Ordered NuLYTELY with Flavor Packs oral powder for reconstitution See Instructions, per GI office, # 4,000 mL, 0 Refills, Maintenance, 07/02/22 12:28:00 EST, [facility] #[id number], Partial fill upon patient request if the prescription is for a schedule II opioid drug., per GI office, 166, cm, 06/05/22 16:18:00... Start Date: 07/02/22 Status: Ordered omeprazole 20 mg oral enteric coated capsule See Instructions, take 1 tablet by mouth 2 times a day, # 60 tablet, 2 Refills, Maintenance, 06/12/22 13:44:00 EDT, [facility] #[id number], Rx in Paraguayan, 166, cm, 06/05/22 16:18:00 EDT, Height,87, kg, 06/05/22 16:18:00 EDT, Dry Weight Start Date: 06/12/22 Status: Ordered riboflavin 100 mg oral tablet 2 TABS, By Mouth, 2 times a day, for headaches, # 60 tablet, 5 Refills, Maintenance, 08/04/22 8:40:00 EST, Tablet, [facility] #[id number], Partial fill upon patient request if the prescription is for a schedule II opioid drug., 166, cm, 08/04/22... Start Date: 08/04/22 Stop Date: 01/31/23 Status: Ordered SUMAtriptan 25 mg oral tablet 1 tablet = 25 mg, By Mouth, Daily, PRN as needed for migraine headache, may repeat dose in 2 hours if needed; in eritrean do not use more than 2-3 x [...] TB tx. 2Pt referred by Dr. Witt-- [facility]. Pt did not keep sched appt. Case closed. Social History Social History Type Response Smoking Status Never smoker entered on: 11/23/14 Sex Patient Care team information Care Team Personnel Name: Kimber Mcclain RN Position: [facility] RN Member Role: Primary Care Nurse Name: Yoanna Nelson MD Position: [facility] Physician - Primary Care Member Role: PCP Address: Address: [address] [place] [address]- Care Team Related Persons Name: DENYS GONZALES Address: home [address] [place] [address] Name: EMILIANO YEH Address: [place] [address] [place] [address]
--- OUTSIDE RECORDS SUMMARY | 2024-07-13 10:08 | XMS_ITS | Continuity of Care Document ---
Author Organization [facility] Address [address] [place] [address]- Care Team Providers Care Tobacco Feeder Catcher Name Role Phone Yoanna Nelson MD Primary Care Physician [place] [facility] [place] - 11/11/[address] [address] Attending Physician: Yoanna Nelson MD Admitting Physician: [...] tablet, 1 Refills, Maintenance, 11/10/23 5:27:00 EDT, [facility] #[id number], 167, cm, 10/01/23 14:12:00 EST, Height, 86, [...] tablet, 5 Refills, Maintenance, 08/24/23 14:36:00 EST, [facility] #[id number], Partial fill upon patient request if the prescription... Start Date: 08/24/23 Stop Date: 02/20/24 Status: Ordered Colace sodium 100 mg oral capsule 100 mg, 1, capsule, By Mouth, 2 times a day, PRN, # 100 capsule, Refills 3, Tot. Refills 3, Maintenance, for constipation, 12/31/22 19:35:00 EDT, Route to Pharmacy Electronically, [facility] #[id number], Partial fill upon patient request if the p... Start Date: 12/31/22 Status: Ordered Eucerin Daily Hydration topical lotion 1 application, Topically, 4 times a day, # 600 mL, 5 Refills, Maintenance, 09/01/23 16:25:00 EST, [facility] #[id number], Partial fill upon patient request if the [...] Refills, Maintenance, 07/14/22 12:22:00 EST, REC Powder, [facility] #[id number], Partial fill upon patient request if the prescription is for a schedule II o... Start Date: 07/14/22 Status: Ordered MiraLax oral powder for reconstitution = 17 Gm, By Mouth, Daily, dissolve in water before taking, # 255 Gm, 2 Refills, Acute 12/16/23 19:36:00 EDT, 12/31/22 19:35:00 EDT, REC Powder, [facility] #[id number], Partial fill upon patient request if the prescription is for a schedule II opi... Start Date: 12/31/22 Stop Date: 12/16/23 Status: Ordered naproxen 500 mg oral delayed release tablet See Instructions, TAKE 1 TABLET BY MOUTH TWICE DAILY TAKE WITH FOOD ONLY NEEDED FOR LOWER BACK PAIN. TRY NOT TO TAKE DAILY, # 50 tablet, 2 Refills, Maintenance, 10/29/22 15:56:00 EDT, [facility] #[id number], 166, cm, 10/16/22 10:45:00 EST, Hei... Start Date: 10/29/22 Status: Ordered NuLYTELY with Flavor Packs oral powder for reconstitution See Instructions, per GI office, # 4,000 mL, 0 Refills, Maintenance, 07/02/22 12:28:00 EST, [facility] #[id number], Partial fill upon patient request if the prescription is for a schedule II opioid drug., per GI office, 166, cm, 06/05/22 16:18:00... Start Date: 07/02/22 Status: Ordered omeprazole 20 mg oral enteric coated capsule See Instructions, take 1 tablet by mouth 2 times a day, # 60 tablet, 2 Refills, Maintenance, 06/12/22 13:44:00 EDT, [facility] #[id number], Rx in Kuwaiti, 166, cm, 06/05/22 16:18:00 EDT, Height,87, kg, [...] 5 Refills, Maintenance, 06/15/23 11:00:00 EDT, Tablet, [facility] #[id number], Partial fill upon patient request if the [...] TB tx. 2Pt referred by Dr. Witt-- [facility]. Pt did not keep sched appt. Case closed. Social History Social History Type Response Smoking Status Never smoker entered on: 11/23/14 Sex Patient Care team information Care Team Personnel Name: Kimber Mcclain RN Position: [facility] RN Member Role: Primary Care Nurse Name: Yoanna Nelsno MD Position: [facility] Physician - Primary Care Member Role: PCP Address: Address: [address] [place] [address]- [place] Care Team Related Persons Name: DENYS GONZALES Address: home [address] [place] [address] Name: EMILIANO YEH Address: [place] [address]
--- OUTSIDE RECORDS SUMMARY | 2024-07-13 10:08 | XMS_ITS | Continuity of Care Document ---
Author Organization [facility] Address [address] [place] [address]- Care Team Providers Care Cook Larder Name Role Phone Socorro Kingston MD, I Primary Care Physician [phone] [place] [facility] [place] - 01/10/[address] [address]- Attending Physician: Socorro Kingston MD, I Admitting [...] 10/28/20 12:38:00 EDT, Route to Pharmacy Electronically, [facility], Partial fill upon patient request if the pres... Start Date: 10/28/20 Status: Ordered cholecalciferol 1000 intl units oral capsule 1 capsule = 1,000 International_Units, By Mouth, Daily, # 75 capsule, 0 Refills, Maintenance, 06/21/20 11:57:00 EST, Capsule, [facility] #[id number], 163, cm, 06/21/20 11:12:00 EST, Height, 89.3, kg, 10/21/18 22:10:00 EST, Dry Weight Start Date: 06/21/20 Status: Ordered diclofenac sodium 25 mg oral delayed release tablet 1 tablet = 25 mg, By Mouth, 3 times a day, PRN Pain. English sig. Discontinue Ibuprofen, # 90 tablet, 1 Refills, Maintenance, 05/21/20 15:40:00 EDT, EC Tablet, [facility] #15374, 163, cm, 05/21/20 15:18:00 EDT, Height, 89.3, [...] tablet, 3 Refills, Maintenance, 08/15/20 12:06:00 EST, [facility] #[id number], 163, cm, 07/16/20 16:12:00 EST, Height, 89.3, kg, 10/21/18 22:10:00 EST, Dry Weight Start Date: 08/15/20 Status: Ordered meclizine 25 mg oral tablet 1 tablet = 25 mg, By Mouth, 3 times a day, PRN Motion Sickness, # 90 tablet, 0 Refills, Maintenance, 10/28/20 12:37:00 EDT, Tablet, [facility], Partial fill upon patient request if the prescription is for a schedule II opioid drug., 167.... Start Date: 10/28/20 Status: Ordered omeprazole 20 mg oral enteric coated capsule 1 capsule = 20 mg, By Mouth, Daily, if needed for heartburn, # 90 capsule, 1 Refills, Maintenance, 08/15/20 12:07:00 EST, CR Capsule, [facility] #[id number], Partial fill upon patient request ifthe prescription [...]
--- OUTSIDE RECORDS SUMMARY | 2024-07-13 10:08 | XMS_ITS | Continuity of Care Document ---
Author Organization [facility] Address [address] [place] [address]- Care Team Providers Care Senior Validation Engineer Name Role Phone Thee MCCULLOUGH, Socorro Davidson Primary Care Physician [phone] Encounter [facility] Date(s): 05/21/21 - 06/20/[address] [address]- Allergies, Adverse Reactions, Alerts Substance Reaction Severity [...]
--- OUTSIDE RECORDS SUMMARY | 2024-07-13 10:08 | XMS_ITS | Continuity of Care Document ---
Author Organization [facility] Address [address] [place] [address]- Care Team Providers Care Medical Coding Specialist Name Role Phone Thee MCCULLOUGH, Socorro Davidson Primary Care Physician Encounter [facility] Date(s): 07/09/20 - 08/08/[address] [address]- Allergies, Adverse Reactions, Alerts Substance Reaction Severity [...] 0 Refills, Maintenance, 06/21/20 11:57:00 EST, Capsule, [facility] #[id number], 163, cm, 06/21/20 11:12:00 EST, Height, 89.3, kg, 10/21/18 22:10:00 EST, Dry Weight Start Date: 06/21/20 Status: Ordered diclofenac sodium 25 mg oral delayed release tablet 1 tablet = 25 mg, By Mouth, 3 times a day, PRN Pain. Albanian sig. Discontinue Ibuprofen, # 90 tablet, 1 Refills, Maintenance, 05/21/20 15:40:00 EDT, EC Tablet, [facility] #[id number], 163, cm, 05/21/20 15:18:00 EDT, Height, 89.3, [...] mL, 0 Refills, Maintenance, 08/06/20 14:57:00 EST, [facility] #[id number], Partial fill upon patient request if the prescription is for a schedule II opioid drug., 240 mL By Mouth Every... Start Date: 08/06/20 Status: Ordered propranolol 60 mg oral capsule, extended release See Instructions, TAKE 1 CAPSULE BY MOUTH DAILY, # 30 capsule, Refills 5, Tot. Refills 5, Maintenance, 05/21/20 15:35:00 EDT, Instructions Replace Required Details, Route to Pharmacy Electronically, [facility] #[id number], 163, cm, 05/21/20 15:18... Start Date: 05/21/20 [...] Mediastinal mass(Confirmed) Active Neutropenia(Confirmed) Active Care Coordination [facility] Karina Aponte (Confirmed) Active Well [...]
--- OUTSIDE RECORDS SUMMARY | 2024-07-13 10:08 | XMS_ITS | Continuity of Care Document ---
Author Organization [facility] Address [address] [place] [address]- Care Team Providers Care Dental Technologist Name Role Phone Thee MCCULLOUGH, Socorro Davidson Primary Care Physician [place] [facility] [place] [facility] [id number] Date(s): 10/01/22 - 10/31/[address] [address]- Attending Physician: Eliane Stout Admitting Physician: Eliane [...] tablet, 3 Refills, Maintenance, 05/04/22 13:25:00 EDT, [facility] #[id number], 166, cm, 03/17/22 10:16:00 EDT, Height, 92.6, [...] tablet, 3 Refills, Maintenance, 10/24/22 13:37:00 EST, [facility] #[id number], Partial fill upon patient request if the [...] Refills, Maintenance, 07/14/22 12:22:00 EST, REC Powder, [facility] #[id number], Partial fill upon patient request if the prescription is for a schedule II o... Start Date: 07/14/22 Status: Ordered naproxen 500 mg oral delayed release tablet See Instructions, TAKE 1 TABLET BY MOUTH TWICE DAILY TAKE WITH FOOD ONLY NEEDED FOR LOWER BACK PAIN. TRY NOT TO TAKE DAILY, # 50 tablet, 2 Refills, Maintenance, 10/29/22 15:56:00 EDT, [facility] #[id number], 166, cm, 10/16/22 10:45:00 EST, Hei... Start Date: 10/29/22 Status: Ordered NuLYTELY with Flavor Packs oral powder for reconstitution See Instructions, per GI office, # 4,000 mL, 0 Refills, Maintenance, 07/02/22 12:28:00 EST, [facility] #[id number], Partial fill upon patient request if the prescription is for a schedule II opioid drug., per GI office, 166, cm, 06/05/22 16:18:00... Start Date: 07/02/22 Status: Ordered omeprazole 20 mg oral enteric coated capsule See Instructions, take 1 tablet by mouth 2 times a day, # 60 tablet, 2 Refills, Maintenance, 06/12/22 13:44:00 EDT, [facility] #[id number], Rx in Northern Irish, 166, cm, 06/05/22 16:18:00 EDT, Height,87, kg, 06/05/22 16:18:00 EDT, Dry Weight Start Date: 06/12/22 Status: Ordered riboflavin 100 mg oral tablet 2 TABS, By Mouth, 2 times a day, for headaches, # 60 tablet, 5 Refills, Maintenance, 08/04/22 8:40:00 EST, Tablet, [facility] #[id number], Partial fill upon patient request if the [...] VERIFY Event Display: Patient Education/Instruction Authored Date: [id number] [facility] Clinical Summary Person Information Visit Date 04/25/2016 2:25 PM Name JUNE RICKS Age 56 Years 1960 12:00 AM PCP Archie Witt MD PCP Sex Female Race White Ethnicity / Language Northern Irish You can now view a summary of your hospital visit from the comfort of your home through a free online portal called [employer]brain. [employer] is a website that allows you to securely view your medical information including discharge summary, medications and follow-up visits. You can also send a secure electronic message to your doctor???s office to request appointments, renew medicationsor just ask a question. You can enroll at [email or web address] or register during your next office visit. Smoking can increase your chances of developing chronic health problems and can cause harmful effects to other family members in your house. If you smoke, you are strongly encouraged to quit. Please call the [place] Smokers??? Helpline at 6-631-NLHVNOW (or ) or log on to [email or web address] for more information. Reason for Visit: Allergy [...] dose in 2 hours if needed; in colombian, As Needed, as needed for migraine headache, [...] primary care provider, you may find a [facility] provider by calling [facility] at [phone]. For information about the plan of care including goals and instructions for your diagnosis, please see the patient education orders section of this document. Patient Visit Summary: Future Appointments: Type Location Start Finish State Return [facility] 04/25/2016 2:25 PM 04/25/2016 2:50 PM Pending Follow-Up Instructions Patient Education Materials Additional Instructions: * Mary Hendrickson: PERFORM, SIGN, VERIFY Event Display: Patient Education/Instruction Authored Date: [id number] [facility] Clinical Summary Person Information Name JUNE [...] primary care provider, you may find a [facility] provider by calling [facility] at [phone]. Patient Education Information Follow-up Details: Patient Education Material: Patient Care team information Care Team Personnel Name: Socorro Kingston MD, I Position: [facility] Primary Care Physician Member Role: PCP Address: Address: [address] [place] [address]- Name: Kimber Mcclain RN Position: [facility] RN Member Role: Primary Care Nurse Care Team Related Persons Name: DENYS GONZALES Address: [place] [address] Name: EMILIANO YEH Address: [place] [address]
--- OUTSIDE RECORDS SUMMARY | 2024-07-13 10:08 | XMS_ITS | Continuity of Care Document ---
Author Organization [facility] Address [address] [place] [address]- Care Team Providers Care Lead Php Developer Name Role Phone Thee MCCULLOUGH, Socorro Davidson Primary Care Physician Encounter [facility] [place] [id number] Date(s): 07/24/21 - 08/23/[address] [address]- Attending Physician: Eliane Stout Admitting Physician: Eliane [...]
--- OUTSIDE RECORDS SUMMARY | 2024-07-13 10:08 | XMS_ITS | Continuity of Care Document ---
Author Organization [facility] Address [address] [place] [address]- Care Team Providers Care Pulling Unit Operator Name Role Phone Yoanna Nelson MD Primary Care Physician Encounter [facility] Date(s): 05/30/24 - 06/29/[address] [address] Encounter Type: Triage Allergies, Adverse Reactions, Alerts [...] Note: vis 7Admin Note: vis 01/24/94 Medications Albuterol (Eqv-Proventil HFA) 90 mcg/inh inhalation aerosol 2 puffs, Inhalation, Every 6 hours, PRN Wheezing/Shortness of Breath, # 18 Gm, 0 Refills, Maintenance, 06/13/24 3:17:00 PM EDT, [facility] #[id number], Partial fill upon patient request if the prescription is for a schedule II opioid drug., 168, cm, 06/13/24 15:13:00 EDT, Height, 89.5, kg, 12/07/23 9:14:00 EDT, Dry Weight Start Date: 06/13/24 Status: Ordered Quantity: 18.0 Unit: g Repeat number: 1 amLODIPine 5 mg oral tablet 1 tablet, By Mouth, Daily, # 90 tablet, 1 Refills, Maintenance, 05/30/24 2:59:00 PM EDT, [facility] #[id number], 168, cm, 05/10/24 15:44:00 EDT, Height, 89.5, [...] 3:40:00 PM EDT, Route to Pharmacy Electronically, [facility] #[id number], Partial fill upon patientrequest if the prescription [...] capsule, 1 Refills, Maintenance, 06/13/24 3:17:00PM EDT, [facility] #[id number], Partial fill upon patient request if the [...] 5 Refills, Maintenance, 08/24/23 2:36:00 PM EST, [facility] #[id number], Partial fill upon patient request if the [...] 7:35:00 PM EDT, Route to Pharmacy Electronically, [facility] #[id number], Partial fill upon patient request if the prescription is for a schedule II opioid drug., 168, cm, 12/26/22 14:14:00 EDT, Height, 91.8, kg, 11/24/22 13:50:00 EDT, Dry Weight Start Date: 12/31/22 Status: Ordered Quantity: 100.0 Unit: capsule Repeat number: 4 Eucerin Daily Hydration topical lotion 1 application, Topically, 4 times a day, # 600 mL, 5 Refills, Maintenance, 09/01/23 4:25:00 PM EST, [facility] #[id number], Partial fill upon patient request if the [...] Refills, Maintenance, 04/04/24 3:39:00 PM EDT, Capsule, [facility] #[id number], Partial fill upon patient request if the [...] Refills, Maintenance, 04/04/24 3:39:00 PM EDT, Tablet, [facility] #[id number], Partial fill upon patient request if theprescription [...] AM EDT, 06/06/24 11:30:00 AM EDT, Tablet, [facility] #[id number], Partial fill uponpatient request if the prescription [...] Maintenance, 07/14/22 12:22:00 PM EST, REC Powder, [facility] #[id number], Partial fill upon patient request if the [...] 2 Refills, Maintenance, 10/29/22 3:56:00 PM EDT, [facility] #[id number], 166, cm, 10/16/22 10:45:00 EST, Height, 87, kg, 06/05/22 16:18:00 EDT, Dry Weight Start Date: 10/29/22 Status: Ordered Quantity: 50.0 Unit: tablet Repeat number: 1 NuLYTELY with Flavor Packs oral powder for reconstitution See Instructions, per GI office, # 4,000 mL, 0 Refills, Maintenance, 07/02/22 12:28:00 PM EST, [facility] #[id number], Partial fill upon patient request if the [...] 5 Refills, Maintenance, 05/10/24 4:06:00 PM EDT, [facility] #[id number], Rx in Lebanese, 168, cm, 05/10/24 15:44:00 EDT, Height, 89.5, [...] each Repeat number: 1 orthopedic mattress size joaquin orthopedic mattress size joaquin, See Instructions, # 1 each, Refills 0, [...] 0 Refills, Maintenance, 05/20/24 3:13:00 PM EDT, [facility] #07156, Partial fill upon patient request if the [...] Refills, Maintenance, 06/06/24 11:30:00 AM EDT, Tablet, [facility] #[id number], Partial fill upon patient request if the [...] dose in 2 hours if needed; in zambian do not use more than 2-3 x in a week to abort migraine. disp 9 tab every 30 days., # 9 tablet, 5 Refills, Maintenance, 06/06/24 11:30:00 AM EDT, [facility] #[id number], 9 tabs /month, 168, cm, 05/10/24 15:44:00 EDT, Height, 89.5, kg, 12/07/23 9:14:00 EDT, Dry Weight Start Date: 06/06/24 Status: Ordered Quantity: 9.0 Unit: tablet Repeat number: 6 Problem List Condition Confirmation Course Effective Dates [...] Team Personnel Name: Asha Feliz RN Position: [facility] RN Member Role: Primary Care Nurse Name: Kimber Mcclain RN Position: [facility] RN Member Role: Primary Care Nurse Name: Yoanna Nelson MD Position: [facility] Physician - Primary Care Member Role: PCP Address: [address] [place] [address] Telecom: Care Team Related Persons Name: DENYS GONZALES Name: EMILIANO YEH Insurance Providers Guarantor name: JUNE RICKS [facility] Health Plan Information #: 1 Payer: [facility] Member Number: NA Policy Number: NA Group Number: NA
--- OUTSIDE RECORDS SUMMARY | 2024-07-13 10:08 | XMS_ITS | Continuity of Care Document ---
Author Organization [facility] Address [address] [place] [address] [address] [place] [address]- Care Team Providers Care Playground Supervisor Name Role Phone Socorro Kingston MD, I Primary Care Physician [phone] Encounter [facility] Date(s): 09/19/22 - 09/26/[address] [place] [address]- Attending Physician: Nabil Lau MD Referring Physician: [...] tablet, 3 Refills, Maintenance, 05/04/22 13:25:00 EDT, [facility] #[id number], 166, cm, 03/17/22 10:16:00 EDT, Height, 92.6, [...] tablet, 1 Refills, Maintenance, 03/17/22 10:50:00 EDT, [facility] #[id number], Partial fill upon patient request if the [...] Refills, Maintenance, 07/14/22 12:22:00 EST, REC Powder, [facility] #[id number], Partial fill upon patient request if the prescription is for a schedule II o... Start Date: 07/14/22 Status: Ordered NuLYTELY with Flavor Packs oral powder for reconstitution See Instructions, per GI office, # 4,000 mL, 0 Refills, Maintenance, 07/02/22 12:28:00 EST, [facility] #[id number], Partial fill upon patient request if the prescription is for a schedule II opioid drug., per GI office, 166, cm, 06/05/22 16:18:00... Start Date: 07/02/22 Status: Ordered omeprazole 20 mg oral enteric coated capsule See Instructions, take 1 tablet by mouth 2 times a day, # 60 tablet, 2 Refills, Maintenance, 06/12/22 13:44:00 EDT, [facility] #[id number], Rx in Vatican Citizen, 166, cm, 06/05/22 16:18:00 EDT, Height,87, kg, 06/05/22 16:18:00 EDT, Dry Weight Start Date: 06/12/22 Status: Ordered riboflavin 100 mg oral tablet 2 TABS, By Mouth, 2 times a day, for headaches, # 60 tablet, 5 Refills, Maintenance, 08/04/22 8:40:00 EST, Tablet, [facility] #[id number], Partial fill upon patient request if the [...] TB tx. 2Pt referred by Dr. Witt-- [facility]. Pt did not keep sched appt. Case closed. Social History Social History Type Response Smoking Status Never smoker entered on: 11/23/14 Sex Patient Care team information Care Team Personnel Name: Socorro Kingston MD, I Position: [facility] Primary Care Physician Member Role: PCP Address: Address: [address] [place] [id number]- Name: Kimber Mcclain RN Position: [facility] RN Member Role: Primary Care Nurse Care Team Related Persons Name: DENYS GONZALES Address: [address] [place] [address] Name: EMILIANO YEH Address: [address] [place] [address]
--- OUTSIDE RECORDS SUMMARY | 2024-07-13 10:08 | XMS_ITS | Continuity of Care Document ---
Author Organization [facility] ter Address [address] [place] [id number]- Care Team Providers Care Turn Out Name Role Phone Yoanna Nelson MD Primary Care Physician [phone] Encounter [facility] Date(s): 01/16/23 - 03/18/[address] [id number] Attending Physician: Bolivar Nolan MD Admitting Physician: Bolivar Nolan MD Referring Physician: Omari Landry MD Allergies, Adverse Reactions, Alerts Substance Reaction [...] tablet, 3 Refills, Maintenance, 05/04/22 13:25:00 EDT, [facility] #[id number], 166, cm, 03/17/22 10:16:00 EDT, Height, 92.6, [...] tablet, 3 Refills, Maintenance, 10/24/22 13:37:00 EST, [facility] #[id number], Partial fill upon patient request if the prescription... Start Date: 10/24/22 Status: Ordered Colace sodium 100 mg oral capsule 100 mg, 1, capsule, By Mouth, 2 times a day, PRN, # 100 capsule, Refills 3, Tot. Refills 3, Maintenance, for constipation, 12/31/22 19:35:00 EDT, Route to Pharmacy Electronically, [facility] #[id number], Partial fill upon patient request if the [...] Refills, Maintenance, 07/14/22 12:22:00 EST, REC Powder, [facility] #[id number], Partial fill upon patient request if the prescription is for a schedule II o... Start Date: 07/14/22 Status: Ordered MiraLax oral powder for reconstitution = 17 Gm, By Mouth, Daily, dissolve in water before taking, # 255 Gm, 2 Refills, Acute 12/16/23 19:36:00 EDT, 12/31/22 19:35:00 EDT, REC Powder, [facility] #[id number], Partial fill upon patient request if the prescription is for a schedule II opi... Start Date: 12/31/22 Stop Date: 12/16/23 Status: Ordered naproxen 500 mg oral delayed release tablet See Instructions, TAKE 1 TABLET BY MOUTH TWICE DAILY TAKE WITH FOOD ONLY NEEDED FOR LOWER BACK PAIN. TRY NOT TO TAKE DAILY, # 50 tablet, 2 Refills, Maintenance, 10/29/22 15:56:00 EDT, [facility] #[id number], 166, cm, 10/16/22 10:45:00 EST, Hei... Start Date: 10/29/22 Status: Ordered NuLYTELY with Flavor Packs oral powder for reconstitution See Instructions, per GI office, # 4,000 mL, 0 Refills, Maintenance, 07/02/22 12:28:00 EST, [facility] #[id number], Partial fill upon patient request if the prescription is for a schedule II opioid drug., per GI office, 166, cm, 06/05/22 16:18:00... Start Date: 07/02/22 Status: Ordered omeprazole 20 mg oral enteric coated capsule See Instructions, take 1 tablet by mouth 2 times a day, # 60 tablet, 2 Refills, Maintenance, 06/12/22 13:44:00 EDT, [facility] #[id number], Rx in Cym[place], 166, cm, 06/05/22 16:18:00 EDT, Height,87, kg, 06/05/22 16:18:00 EDT, Dry Weight Start Date: 06/12/22 Status: Ordered riboflavin 100 mg oral tablet 2 TABS, By Mouth, 2 times a day, for headaches, # 60 tablet, 5 Refills, Maintenance, 08/04/22 8:40:00 EST, Tablet, [facility] #[id number], Partial fill upon patient request if the prescription is for a schedule II opioid drug., 166, cm, 08/04/22... Start Date: 08/04/22 Stop Date: 01/31/23 Status: Ordered SUMAtriptan 25 mg oral tablet 1 tablet = 25 mg, By Mouth, Daily, PRN as needed for migraine headache, may repeat dose in 2 hours if needed; in macedonian do not use more than 2-3 x [...] TB tx. 2Pt referred by Dr. Witt-- [facility]. Pt did not keep sched appt. Case closed. Social History Social History Type Response Smoking Status Never smoker entered on: 11/23/14 Sex Patient Care team information Care Team Personnel Name: Kimber Mcclain RN Position: [facility] RN Member Role: Primary Care Nurse Name: Yoanna Nelson MD Position: [facility] Physician - Primary Care Member Role: PCP Address: Address: [address] [place] [address]- Care Team Related Persons Name: OMARI GONZALES Address: [address] [place] [address] Name: EMILIANO YEH Address: [address] [place] [address]
[2024-07-13 10:37] VITALS: BP 121/76; PULSE 66; RESP 14; TEMP 36.6; O2SAT 97
== END 2024-07-13 10:44 | disposition home or self-care (01) ==
PROVIDERS: Emergency Provider Emergency Medicine Emergency Medical Services
DX: R07.89 Other chest pain (principal); J06.9 Acute upper respiratory infection, unspecified; R05.9 Cough, unspecified; Z03.818 Encounter for observation for suspected exposure to other biological agents ruled out; I10 Essential (primary) hypertension
CPT/HCPCS: 0241U; 71046; 80048; 84484; 85025; 93005; 99283

== ENCOUNTER → 2024-07-13 08:36 | Outpatient (BNV) | payer OTHER, SELFPAY | PROVIDERS: Emergency Provider Emergency Medicine Emergency Medical Services; Visit Provider Internal Medicine | DX: R07.9 Chest pain, unspecified (principal) | CPT/HCPCS: 93010 ==

== ENCOUNTER 2024-10-24 17:36 | Emergency (ER) | payer OTHER, SELFPAY ==
--- NOTE | ~2024-10-24 | XR_ITS ---
CLINICAL HISTORY: sob, cough, fevers Two views of the chest. COMPARISON: XR chest dated 07/13/24 at 09:27 EST FINDINGS: Normal heart and mediastinal contours. No consolidation. No pleural effusion or pneumothorax. Leftward curvature of the mid to lower thoracic spine. No fracture identified. IMPRESSION: 1. No consolidation. This document has been electronically signed by: Derrick Ng MD on 10/24/2024 18:28:57
[2024-10-24 17:45] VITALS: BP 134/87; PULSE 73; RESP 18; TEMP 36.9; O2SAT 99; BMI 29.9
--- NOTE | 2024-10-24 17:47 | ED.GENADULT ---
HPI - General Adult General Chief complaint: Upper Respiratory Symptoms Stated complaint: cough,sob,fever Time Seen by Provider: 10/24/24 23:00 Source: patient and conference interpreter Mode of arrival: ambulatory Limitations: no limitations History of Present Illness ED Provider: DR. Olsen HPI narrative: 64-year-old female with history of asthma conference interpreter service was used to obtain history, patient presented with one-week of headache, nonproductive cough, nasal congestion, and low-grade fever, no known sick contacts, no recent travel, no lower extremity swelling or tenderness. No history of cigarette smoking, no history of prolonged immobilization. Related Data Previous Rx's ?Medication ?Instructions ?Recorded amoxicillin 875 mg-potassium 1 tab PO BID 10 days #20 tabs 07/13/24 clavulanate 125 mg tablet azithromycin 250 mg tablet See Rx Instructions PO .COMPLEX #6 07/13/24 tabs albuterol sulfate 90 mcg/actuation 2 puff inhalation Q6H PRN 10/24/24 aerosol inhaler shortness of breath or wheezing #8.5 grams azithromycin 250 mg tablet See Rx Instructions PO .COMPLEX #6 10/24/24 (Zithromax Z-Jayson) tabs prednisone 20 mg tablet 20 mg PO BID #10 tabs 10/24/24 Allergies Allergy/AdvReac Type Severity Reaction Status Date / Time No Known Allergies Allergy Verified 10/24/24 17:47 Review of Systems Review of Systems: All other systems are reviewed and are negative Constitutional: Reports as per HPI and Reports no additional constitutional complaints Eyes: Reports as per HPI and Reports no additional eye complaints Reports system reviewed and no additional complaints, except as documented Cardiovascular: Reports as per HPI and Reports no additional cardiovascular complaints Respiratory: Reports as per HPI and Reports no additional respiratory complaints Gastrointestinal: Reports as per HPI and Reports no additional gastrointestinal complaints Genitourinary: Reports no additional female genitourinary complaints Musculoskeletal: Reports no additional musculoskeletal complaints Skin/Breast: Reports system reviewed and no additional complaints, except as docu Psychiatric: Reports no additional psychiatric complaints Endocrine: Reports no additional endocrine complaints Hematologic/Lymphatic: Reports no additional hematologic/lymphatic complaints Allergic/Immunologic: Reports no additional allergic/immunologic complaints Reports system reviewed and no additional complaints, except as documented and Reports Abnormal speech present [facility] Social History Social History Smoked in Last 30 Days: No Use of substances other than those prescribed or required for medical reasons: No Advance Directives: No Advance Directives Information Provided: No Do you have a plan to hurt others: No Plan Patient : No Physical Exam ED Vital Signs: Vital Signs - 24 hr 10/24/24 17:45 10/24/24 22:32 10/24/24 22:32 Temperature 98.5 F 97.8 F Pulse Rate 73 76 Respiratory Rate 18 16 Blood Pressure 134/87 143/84 H Pulse Oximetry 99 99 99 Oxygen Delivery Method Room Air Room Air BMI result Body Mass Index 29.9 Vital signs have been reviewed and appear to be correct. Blood pressure elevated. Heart rate normal. Respiratory rate normal. Temperature normal. Oxygen saturation normal. Appearance: Alert. Oriented X3. No acute distress. Head: Normal external exam. Normocephalic. Atraumatic. No Velasquez signs noted. No raccoon eyes noted Eyes: PERRLA. EOMI. Conjunctiva and sclera normal. Eyelids normal. ENT: TM's Normal. Pharynx normal. Uvula midline. Moist mucous membranes. No trismus noted. No drooling noted. No muffled voice noted. Neck: Normal inspection. Neck supple. FROM. No adenopathy. Thyroid Normal. No meningeal signs. No neck mass noted. CVS: Normal heart rate and rhythm. Heart sound normal. No murmurs noted. Pulses normal throughout. Respiratory: No respiratory distress. Painless inspiration. Breath sounds normal. Prolonged expiration, diffuse expiratory wheezing. No accessory muscle usage noted or decreased air movement noted. Abdomen: Soft and nontender. Bowel sounds normal in all 4 quadrants. No distention noted. No organomegaly noted. No visible injury noted. Back: No CVA tenderness. Full range of motion noted. Skin: Skin warm and dry. Normal skin color. Normal skin turgor. No rashes/lesions/lacerations noted. Extremities: No lower extremity edema. Extremities exhibit normal range of motion. Extremities nontender. no calf tenderness or swelling. Neuro: Oriented X 3. Cranial nerve exam: II-XII are grossly intact No motor deficit. No sensory deficit. Reflexes normal. Course Course Course Narrative: This is a Rapid Medical Examination (RME) performed by Daiana Jean Baptiste PA-C in triage. Full HPI, ROS, assessment and treatment plan per primary provider in the Main ED. 64 yo female hx asthma here for eval of headache, nasal congestion, lung pain, and fever (tmax 100.1) x1 week. taking tylenol - last dose 11am. no known sick contacts Plan: viral swabs, cxr Reevaluation(s) Reevaluation #1: 64-year-old female history of asthma, nonsmoker came in with upper respiratory infection symptoms, O2 sat is 99% on room air, unremarkable chest x-ray, negative upper respiratory viral panel will start on Z-Jayson, prednisone, albuterol. Time: 23:34 Medical Decision Making Differential Diagnosis Differential Diagnoses: The differential diagnosis associated with the presentation includes ( Pneumonia, pneumothorax, pleural effusion, RSV, influenza, COVID-19 infection.) Admission/Observation Consideration of admission/observation: Escalation of care including admission/observation considered Lab Data MDM Lab Attestation statement: I reviewed the patient's lab results. Labs: Lab Results 10/24/24 Range/Units 17:52 Influenza Type A (PCR) NEGATIVE (Negative) Influenza Type B (PCR) NEGATIVE (Negative) RSV RNA Qual (PCR) NEGATIVE (Negative) SARS-CoV-2 RNA (RT-PCR) NEGATIVE (Negative) Independent Interpretation I performed an independent interpretation of an: Plain X-Ray ( Chest: Unremarkable chest x-ray.) Radiology Impression Discussion of test interpretation with radiology: I have reviewed the radiologist's reading. Discharge Plan Discharge Clinical Impression: Bronchitis Patient Disposition: Home, Self-Care Instructions: Acute Bronchitis (ED) Additional Instructions: return if worsening of symptoms. Follow-up with the PCP. Prescriptions: New azithromycin [Zithromax Z-Jayson] 250 mg tablet See Rx Instructions .ROUTE .COMPLEX Qty: 6 0RF Rx Instructions: For 250 mg dose pack: take 500 mg today (day 1), then 250 mg for 4 days (days 2-5) prednisone 20 mg tablet 20 mg PO BID Qty: 10 0RF albuterol sulfate 90 mcg/actuation HFA aerosol inhaler 2 puff inhalation Q6H PRN (Reason: shortness of breath or wheezing) Qty: 8.5 0RF No Action azithromycin 250 mg tablet See Rx Instructions .ROUTE .COMPLEX Qty: 6 0RF Rx Instructions: For 250 mg dose pack: take 500 mg today (day 1), then 250 mg for 4 days (days 2-5) amoxicillin-pot clavulanate 875-125 mg tablet 1 tab PO BID 10 Days Qty: 20 0RF Print Language: British
[2024-10-24 18:54] LABS: Influenza A PCR NEGATIVE (Negative); Influenza B PCR NEGATIVE (Negative); Resp Syncy Virus RNA Qual PCR NEGATIVE (Negative); SARS COV2 PCR INHOUSE NEGATIVE (Negative)
[2024-10-24 22:32] VITALS: BP 143/84; PULSE 76; RESP 16; TEMP 36.6; O2SAT 99
--- OUTSIDE RECORDS SUMMARY | 2024-10-24 22:33 | XMS_ITS | Clinical Summary ---
Author Organization [facility] it Address [address] [place] [address] Care Team Providers Care Assembler Tester Name Role Phone Unavailable Primary Care Provider Unavailabl e Social History Tobacco Use Types Packs/Day Years Used Date Smoking Tobacco: Never Assessed Comments Unknown Sex and Gender Information Value Date Recorded Sex Assigned at Not on file Legal Sex Female 8:24 PM EST Gender Identity Not on file Sexual Orientation Not on file Plan of Treatment Health Maintenance Due Date Last Done Comments Breast Cancer Screening 1960 DTaP,Tdap,and Td Vaccines (1 - Tdap) 1980 Cervical Cancer Screening: P ap Smear 1982 Pneumococcal Vaccine: 50+ Ye ars (1 of 1 - PCV) 2011 Zoster Vaccines (1 of 2) 2011 Colorectal Cancer Screening: Colonoscopy 07/19/2022 Depression Screening 07/19/2022 HIV Screening 07/19/2022 Hepatitis C Screening 07/19/2022 Social Influencers of Health Screening 07/19/2022 COVID-19 Vaccine ( - 2023-2 5 season) 2024 Influenza Vaccine (#1) 2024 RSV Immunization Patients 60 + Years Old (1 - 1-dose 75+ series) 2036 HIB Vaccines Aged Out No longer eligi ble based on patient's age to complete this topic HPV Vaccines Aged Out No longer eligi ble based on patient's age to complete this topic Hepatitis A Vaccines Aged Out No long er eligible based on patient's age to complete this topic Hepatitis B Vaccines Aged Out No long er eligible based on patient's age to complete this topic IPV Vaccines Aged Out No longer eligi ble based on patient's age to complete this topic MMR Vaccines Aged Out No longer eligi ble based on patient's age to complete this topic Meningococcal ACWY Vaccine Aged Out N o longer eligible based on patient's age to complete this topic Meningococcal B Vacine Aged Out No lo nger eligible based on patient's age to complete this topic Pneumococcal Vaccine: Pediat rics (0 to 5 Years) and At-Risk Patients (6 to 64 Years) Aged Out No longer eligible b ased on patient's age to complete this topic RSV Immunization Patients Un aneesh 20 months Aged Out No longer eligible b ased on patient's age to complete this topic Varicella Vaccines Aged Out No longer eligible based on patient's age to complete this topic
--- OUTSIDE RECORDS SUMMARY | 2024-10-24 22:33 | XMS_ITS | Continuity of Care Document ---
Author Organization [facility] Address [address] [place] [address]- Care Team Providers Care Soda Jerker Name Role Phone Yoanna Nelson MD Primary Care Physician Encounter [facility] [id number] Date(s): 08/29/24 - 09/28/[address] [address]- Attending Physician: Eliane Stout Admitting Physician: Admtr, ArMele Referring Physician: Admtr, Ar8 Encounter Type: Triage Allergies, Adverse Reactions, Alerts [...] 1 Refills, Maintenance, 05/30/24 2:59:00 PM EDT, [facility] #[id number], 168, cm, 05/10/24 15:44:00 EDT, Height, 89.5, kg, 12/07/23 9:14:00 EDT, Dry Weight Start Date: 05/30/24 Status: Ordered Quantity: 90.0 Unit: tablet Repeat number: 2 ARIPiprazole 5 mg oral tablet 1, tablet, By Mouth, Daily, # 90 tablet, Refills 0, Tot. Refills 0, Maintenance, 07/28/24 1:11:00 PM EST, Route to Pharmacy Electronically, [facility] #[id number], 168, cm, 07/09/24 11:02:00 EST, Height, 89.5, kg, 12/07/23 9:14:00 EDT, Dry Weight Start Date: 07/28/24 Status: Ordered Quantity: 90.0 Unit: tablet Repeat number: 1 benzonatate 100 mg oral capsule 1 capsule = 100 mg, By Mouth, 3 times a day, # 42 capsule, 1 Refills, Maintenance, 06/13/24 3:17:00PM EDT, [facility] #[id number], Partial fill upon patient request if the [...] 5 Refills, Maintenance, 08/24/23 2:36:00 PM EST, [facility] #[id number], Partial fill upon patient request if the [...] Quantity: 60.0 Unit: tablet Repeat number: 6 cholestyramine 4 g/5.5 g oral powder for reconstitution = 4 Gm, By Mouth, 2 times a day, # 60 each, 0 Refills, Maintenance, 07/13/24 2:44:00 PM EST, REC Powder, [facility] #[id number], Partial fill upon patient request if the prescription is for a schedule II opioid drug., 168, cm, 07/09/24 11:02:00 EST, Height, 89.5, kg, 12/07/23 9:14:00 EDT, Dry Weight Start Date: 07/13/24 Stop Date: 08/12/24 Status: Ordered Quantity: 60.0 Unit: each Repeat number: 1 Colace sodium 100 mg oral capsule 100 mg, 1, capsule, By Mouth, 2 times a day, PRN, # 100 capsule, Refills 3, Tot. Refills 3, Maintenance, for constipation, 12/31/22 7:35:00 PM EDT, Route to Pharmacy Electronically, [facility] #[id number], Partial fill upon patient request if the prescription is for a schedule II opioid drug., 168, cm, 12/26/22 14:14:00 EDT, Height, 91.8, kg, 11/24/22 13:50:00 EDT, Dry Weight Start Date: 12/31/22 Status: Ordered Quantity: 100.0 Unit: capsule Repeat number: 4 Eucerin Daily Hydration topical lotion 1 application, Topically, 4 times a day, # 600 mL, 5 Refills, Maintenance, 09/01/23 4:25:00 PM EST, [facility] #[id number], Partial fill upon patient request if the prescription is for a scheduleII opioid drug., 1 application Topically 4 times a day,x30 days, 168, cm, 09/01/23 15:43:00 EST, Height, 91.8, kg, 11/24/22 13:50:00 EDT, Dry Weight Start Date: 09/01/23 Stop Date: 02/28/24 Status: Ordered Quantity: 600.0 Unit: mL Repeat number: 6 FLUoxetine 40 mg oral capsule 1 capsule, By Mouth, Daily, # 90 capsule, 1 Refills, Maintenance, 07/28/24 1:12:00 PM EST, [facility] #[id number], 168, cm, 07/09/24 11:02:00 EST, Height, 89.5, kg, 12/07/23 9:14:00 EDT, Dry Weight Start Date: 07/28/24 Status: Ordered Quantity: 90.0 Unit: capsule Repeat number: 2 hydrOXYzine hydrochloride 10 mg oral tablet 1 tablet = 10 mg, By Mouth, 4 times a day, PRN for anxiety, # 120 tablet, 2 Refills, Maintenance, 04/04/24 3:39:00 PM EDT, Tablet, [facility] #[id number], Partial fill upon patient request if theprescription [...] AM EDT, 06/06/24 11:30:00 AM EDT, Tablet, [facility] #[id number], Partial fill uponpatient request if the prescription [...] Maintenance, 07/14/22 12:22:00 PM EST, REC Powder, [facility] #[id number], Partial fill upon patient request if the [...] 2 Refills, Maintenance, 10/29/22 3:56:00 PM EDT, [facility] #[id number], 166, cm, 10/16/22 10:45:00 EST, Height, 87, kg, 06/05/22 16:18:00 EDT, Dry Weight Start Date: 10/29/22 Status: Ordered Quantity: 50.0 Unit: tablet Repeat number: 1 NuLYTELY with Flavor Packs oral powder for reconstitution See Instructions, per GI office, # 4,000 mL, 0 Refills, Maintenance, 07/02/22 12:28:00 PM EST, [facility] #[id number], Partial fill upon patient request if the [...] 5 Refills, Maintenance, 05/10/24 4:06:00 PM EDT, [facility] #[id number], Rx in Lithuanian, 168, cm, 05/10/24 15:44:00 EDT, Height, 89.5, [...] 0 Refills, Maintenance, 05/20/24 3:13:00 PM EDT, [facility] #[id number], Partial fill upon patient request if the [...] Refills, Maintenance, 06/06/24 11:30:00 AM EDT, Tablet, [facility] #[id number], Partial fill upon patient request if the [...] 5 Refills, Maintenance, 06/06/24 11:30:00 AM EDT, [facility] #[id number], 9 tabs /month, 168, cm, 05/10/24 15:44:00 EDT, Height, 89.5, kg, 12/07/23 9:14:00 EDT, Dry Weight Start Date: 06/06/24 Status: Ordered Quantity: 9.0 Unit: tablet Repeat number: 6 Ventolin HFA 108 mcg/inh inhalation aerosol with adapter 2 puffs, Inhalation, Every 6 hours, PRN NEEDED FOR WHEEZING/SHORTNESS OF BREATH, # 18 Gm, 5 Refills, Maintenance, 07/07/24 12:54:00 PM EST, [facility] #[id number], 168, cm, 06/13/24 15:13:00 EDT, Height, 89.5, [...] on: 11/23/14 Sex Sex Representation Female (finding) Note * DiSantis, Dina: PERFORM, SIGN, VERIFY Event Display: Patient Education/Instruction Authored Date: [id number] [facility] Clinical Summary Person Information Visit Date 04/25/2016 2:25 PM Name JUNE RICKS Age 56 Years 1960 12:00 AM PCP Archie Witt MD PCP Sex Female Race White Ethnicity / Language Lithuanian You can now view a summary of your hospital visit from the comfort of your home through a free online portal called for; to (do). for; to (do) is a website that allows you to securely view your medical information including discharge summary, medications and follow-up visits. You can also send a secure electronic message to your doctor???s office to request appointments, renew medicationsor just ask a question. You can enroll at [email or web address] or register during your next office visit. Smoking can increase your chances of developing chronic health problems and can cause harmful effects to other family members in your house. If you smoke, you are strongly encouraged to quit. Please call the [place] Smokers??? Helpline at 7-696-LXTE-NOW (or ) or log on to [email or web address] for more information. Reason for Visit: Allergy [...] primary care provider, you may find a [facility] provider by calling [facility] at [phone]. For information about the plan of care including goals and instructions for your diagnosis, please see the patient education orders section of this document. Patient Visit Summary: Future Appointments: Type Location Start Finish State [facility] 04/25/2016 2:25 PM 04/25/2016 2:50 PM Pending Follow-Up Instructions Patient Education Materials Additional Instructions: * Mary Hendrickson: PERFORM, SIGN, VERIFY Event Display: Patient Education/Instruction Authored Date: [id number] [facility] Clinical Summary Person Information Name [...] primary care provider, you may find a [facility] provider by calling [facility] at [phone]. Patient Education Information Follow-up Details: Patient Education Material: Patient Care team information Care Team Personnel Name: Asha Feliz RN Position: [facility] RN Member Role: Primary Care Nurse Name: Kimber Mcclain RN Position: [facility] RN Member Role: Primary Care Nurse Name: Yoanna Nelson MD Position: [facility] Physician - Primary Care Member Role: PCP Address: [address] [place] [address] Telecom: Care Team Related Persons Name: DENYS GONZALES Name: EMILIANO YEH Insurance Providers Guarantor name: [facility] Information #: 1 Payer: [facility] Member Number: NA Policy Number: NA Group Number: NA
--- OUTSIDE RECORDS SUMMARY | 2024-10-24 22:33 | XMS_ITS | Continuity of Care Document ---
Author Organization [facility] Address [address] [place] [address]- Care Team Providers Care Director Report Name Role Phone Yoanna Nelson MD Primary Care Physician [place] [facility] [place]): [place] - 09/28/[address] [address] Attending Physician: Not on Staff, Attending MD Encounter Type: Pre-OutPatient One Time Allergies, Adverse Reactions, Alerts Substance Criticality Severity [...] 1 Refills, Maintenance, 05/30/24 2:59:00 PM EDT, [facility] #[id number], 168, cm, 05/10/24 15:44:00 EDT, Height, 89.5, kg, 12/07/23 9:14:00 EDT, Dry Weight Start Date: 05/30/24 Status: Ordered Quantity: 90.0 Unit: tablet Repeat number: 2 ARIPiprazole 5 mg oral tablet 1, tablet, By Mouth, Daily, # 90 tablet, Refills 0, Tot. Refills 0, Maintenance, 07/28/24 1:11:00 PM EST, Route to Pharmacy Electronically, [facility] #[id number], 168, cm, 07/09/24 11:02:00 EST, Height, 89.5, kg, 12/07/23 9:14:00 EDT, Dry Weight Start Date: 07/28/24 Status: Ordered Quantity: 90.0 Unit: tablet Repeat number: 1 benzonatate 100 mg oral capsule 1 capsule = 100 mg, By Mouth, 3 times a day, # 42 capsule, 1 Refills, Maintenance, 06/13/24 3:17:00PM EDT, [facility] #[id number], Partial fill upon patient request if the [...] 5 Refills, Maintenance, 08/24/23 2:36:00 PM EST, [facility] #[id number], Partial fill upon patient request if the [...] Maintenance, 07/13/24 2:44:00 PM EST, REC Powder, [facility] #[id number], Partial fill upon patient request if the [...] 7:35:00 PM EDT, Route to Pharmacy Electronically, [facility] #[id number], Partial fill upon patient request if the prescription is for a schedule II opioid drug., 168, cm, 12/26/22 14:14:00 EDT, Height, 91.8, kg, 11/24/22 13:50:00 EDT, Dry Weight Start Date: 12/31/22 Status: Ordered Quantity: 100.0 Unit: capsule Repeat number: 4 Eucerin Daily Hydration topical lotion 1 application, Topically, 4 times a day, # 600 mL, 5 Refills, Maintenance, 09/01/23 4:25:00 PM EST, [facility] #[id number], Partial fill upon patient request if the [...] 1 Refills, Maintenance, 07/28/24 1:12:00 PM EST, [facility] #[id number], 168, cm, 07/09/24 11:02:00 EST, Height, 89.5, kg, 12/07/23 9:14:00 EDT, Dry Weight Start Date: 07/28/24 Status: Ordered Quantity: 90.0 Unit: capsule Repeat number: 2 hydrOXYzine hydrochloride 10 mg oral tablet 1 tablet = 10 mg, By Mouth, 4 times a day, PRN for anxiety, # 120 tablet, 2 Refills, Maintenance, 04/04/24 3:39:00 PM EDT, Tablet, [facility] #[id number], Partial fill upon patient request if theprescription [...] AM EDT, 06/06/24 11:30:00 AM EDT, Tablet, [facility] #[id number], Partial fill uponpatient request if the prescription [...] Maintenance, 07/14/22 12:22:00 PM EST, REC Powder, [facility] #[id number], Partial fill upon patient request if the [...] 2 Refills, Maintenance, 10/29/22 3:56:00 PM EDT, [facility] #[id number], 166, cm, 10/16/22 10:45:00 EST, Height, 87, kg, 06/05/22 16:18:00 EDT, Dry Weight Start Date: 10/29/22 Status: Ordered Quantity: 50.0 Unit: tablet Repeat number: 1 NuLYTELY with Flavor Packs oral powder for reconstitution See Instructions, per GI office, # 4,000 mL, 0 Refills, Maintenance, 07/02/22 12:28:00 PM EST, [facility] #[id number], Partial fill upon patient request if the [...] 5 Refills, Maintenance, 05/10/24 4:06:00 PM EDT, [facility] #[id number], Rx in [place], 168, cm, 05/10/24 15:44:00 EDT, Height, 89.5, [...] 0 Refills, Maintenance, 05/20/24 3:13:00 PM EDT, [facility] #[id number], Partial fill upon patient request if the [...] Refills, Maintenance, 06/06/24 11:30:00 AM EDT, Tablet, [facility] #[id number], Partial fill upon patient request if the [...] dose in 2 hours if needed; in gibralt[place] do not use more than 2-3 x in a week to abort migraine. disp 9 tab every 30 days., # 9 tablet, 5 Refills, Maintenance, 06/06/24 11:30:00 AM EDT, [facility] #[id number], 9 tabs /month, 168, cm, 05/10/24 15:44:00 EDT, Height, 89.5, kg, 12/07/23 9:14:00 EDT, Dry Weight Start Date: 06/06/24 Status: Ordered Quantity: 9.0 Unit: tablet Repeat number: 6 Ventolin HFA 108 mcg/inh inhalation aerosol with adapter 2 puffs, Inhalation, Every 6 hours, PRN NEEDED FOR WHEEZING/SHORTNESS OF BREATH, # 18 Gm, 5 Refills, Maintenance, 07/07/24 12:54:00 PM EST, [facility] #[id number], 168, cm, 06/13/24 15:13:00 EDT, Height, 89.5, [...] TB tx. 2Pt referred by Dr. Witt-- [facility]. Pt did not keep sched appt. Case closed. Social History Social History Type Response Smoking Status Never smoker entered on: 11/23/14 Sex Sex Representation Female (finding) Patient Care team information Care Team Personnel Name: Asha Feliz RN Position: [facility] RN Member Role: Primary Care Nurse Name: Kimber Mcclain RN Position: [facility] RN Member Role: Primary Care Nurse Name: Yoanna Nelson MD Position: [facility] Physician - Primary Care Member Role: PCP Address: [address] [place] [address] Telecom: Care Team Related Persons Name: DENYS GONZALES Name: EMILIANO YEH Insurance Providers Guarantor name: JUNE GOMEZ Health Plan Information #: 1 Payer: [facility] Member Number: [id number] Policy Number: NA Group Number: [id number] Health Plan Information #: 2 Payer: [employer] Member Number: [id number] Policy Number: NA Group Number: [id number]
[2024-10-25 00:17] VITALS: BP 113/76; PULSE 79; RESP 16; TEMP 35.9; O2SAT 97
[2024-10-25 00:27] VITALS: BP 113/76; PULSE 79; RESP 16; TEMP 35.9; O2SAT 97
== END 2024-10-25 00:28 | disposition home or self-care (01) ==
PROVIDERS: Physician Assistant Medical; Emergency Provider Emergency Medicine
DX: J40 Bronchitis, not specified as acute or chronic (principal); J45.909 Unspecified asthma, uncomplicated; Z03.818 Encounter for observation for suspected exposure to other biological agents ruled out
CPT/HCPCS: 0241U; 71046; 99283; 99284

== ENCOUNTER → 2024-10-24 17:47 | Outpatient (BNV) | payer OTHER, SELFPAY | PROVIDERS: Visit Provider Radiology Diagnostic Radiology | DX: R06.02 Shortness of breath (principal) | CPT/HCPCS: 71046 ==

== ENCOUNTER 2024-11-05 03:18 | Emergency (ER) | payer OTHER, SELFPAY ==
--- NOTE | ~2024-11-05 | XR_ITS ---
CLINICAL HISTORY: short of breath Chest X-ray, 2 Views COMPARISON: CR - XR CHEST 2V - 10/24/24 18:08 EDT FINDINGS: No consolidation. No pleural effusion. No pneumothorax. No cardiomegaly. No acute fracture. Thoracic dextroscoliosis. Thoracolumbar levoscoliosis. IMPRESSION: No acute findings. This document has been electronically signed by: Remy Camacho MD on 11/05/2024 04:49:37
[2024-11-05 03:22] VITALS: BP 122/82; PULSE 71; RESP 18; TEMP 36.5; O2SAT 97; BMI 31.0
[2024-11-05 07:24] LABS: Influenza A PCR NEGATIVE (Negative); Influenza B PCR NEGATIVE (Negative); Resp Syncy Virus RNA Qual PCR NEGATIVE (Negative); SARS COV2 PCR INHOUSE NEGATIVE (Negative)
--- NOTE | 2024-11-05 08:44 | ED.URI ---
HPI - URI/Sore Throat General Chief Complaint: Upper Respiratory Symptoms Stated Complaint: SOB Time Seen by Provider: 11/05/24 08:15 Source: patient, family and historic interpreter Mode of arrival: ambulatory Limitations: no limitations History of Present Illness ED Provider: DR. Olsen HPI Narrative: 65-year-old female with history of asthma seen recently for nonproductive cough, nasal congestion and low-grade fever was diagnosed with acute bronchitis patient was discharged with Z-Jayson, prednisone and albuterol, patient with known history of hypertension found that her blood pressure at home range from 120s to 140s which is high to the patient patient was instructed to stop prednisone which could be the reason of her blood pressure patient is on amlodipine otherwise patient has no headache, no blurry vision, no CP, no SOB. Related Data Previous Rx's ?Medication ?Instructions ?Recorded amoxicillin 875 mg-potassium 1 tab PO BID 10 days #20 tabs 07/13/24 clavulanate 125 mg tablet azithromycin 250 mg tablet See Rx Instructions PO .COMPLEX #6 07/13/24 tabs albuterol sulfate 90 mcg/actuation 2 puff inhalation Q6H PRN 10/24/24 aerosol inhaler shortness of breath or wheezing #8.5 grams azithromycin 250 mg tablet See Rx Instructions PO .COMPLEX #6 10/24/24 (Zithromax Z-Jayson) tabs prednisone 20 mg tablet 20 mg PO BID #10 tabs 10/24/24 Allergies Allergy/AdvReac Type Severity Reaction Status Date / Time No Known Allergies Allergy Verified 11/05/24 03:26 Review of Systems Review of Systems: All other systems are reviewed and are negative Constitutional: Reports as per HPI and Reports no additional constitutional complaints Eyes: Reports as per HPI and Reports no additional eye complaints Reports system reviewed and no additional complaints, except as documented Cardiovascular: Reports as per HPI and Reports no additional cardiovascular complaints Respiratory: Reports as per HPI and Reports no additional respiratory complaints Gastrointestinal: Reports as per HPI and Reports no additional gastrointestinal complaints Genitourinary: Reports no additional female genitourinary complaints Musculoskeletal: Reports no additional musculoskeletal complaints Skin/Breast: Reports system reviewed and no additional complaints, except as docu Psychiatric: Reports no additional psychiatric complaints Endocrine: Reports no additional endocrine complaints Hematologic/Lymphatic: Reports no additional hematologic/lymphatic complaints Allergic/Immunologic: Reports no additional allergic/immunologic complaints Reports system reviewed and no additional complaints, except as documented and Reports Abnormal speech present [facility] Social History Social History Advance Directives: No Advance Directives Information Provided: No Physical Exam Vital Signs: Vital Signs: Last Vital Signs Temp 97.7 F 11/05/24 03:22 Pulse 71 11/05/24 03:22 Resp 18 11/05/24 03:22 BP 122/82 11/05/24 03:22 Pulse Ox 97 11/05/24 03:22 O2 Del Method Room Air 11/05/24 03:22 BMI result Body Mass Index 31.0 Vital signs have been reviewed and appear to be correct. Blood pressure elevated. Heart rate normal. Respiratory rate normal. Temperature normal. Oxygen saturation normal. Appearance: Alert. Oriented X3. No acute distress. Head: Normal external exam. Normocephalic. Atraumatic. No Velasquez signs noted. No raccoon eyes noted Eyes: PERRLA. EOMI. Conjunctiva and sclera normal. Eyelids normal. ENT: TM's Normal. Pharynx normal. Uvula midline. Moist mucous membranes. No trismus noted. No drooling noted. No muffled voice noted. Neck: Normal inspection. Neck supple. FROM. No adenopathy. Thyroid Normal. No meningeal signs. No neck mass noted. CVS: Normal heart rate and rhythm. Heart sound normal. No murmurs noted. Pulses normal throughout. Respiratory: No respiratory distress. Painless inspiration. Breath sounds normal. No wheezes/rales/rhonchi noted. Chest nontender. No accessory muscle usage noted or decreased air movement noted. Abdomen: Soft and nontender. Bowel sounds normal in all 4 quadrants. No distention noted. No organomegaly noted. No visible injury noted. Back: No CVA tenderness. Full range of motion noted. Skin: Skin warm and dry. Normal skin color. Normal skin turgor. No rashes/lesions/lacerations noted. Extremities: No lower extremity edema. Extremities exhibit normal range of motion. Extremities nontender. Neuro: Oriented X 3. Cranial nerve exam: II-XII are grossly intact No motor deficit. No sensory deficit. Reflexes normal. Course Reevaluation(s) Reevaluation #1: VSS, no high blood pressure while in the emergency department, respiratory symptoms is getting better with the patient patient was instructed to discontinue taking prednisone. Time: 08:49 Medical Decision Making Differential Diagnosis Differential Diagnoses: The differential diagnosis associated with the presentation includes (Acute bronchitis, pneumonia, pneumothorax, pleural effusion, emergency hypertension, upper respiratory viral infection.) Admission/Observation Consideration of admission/observation: Escalation of care including admission/observation considered Lab Data MDM Lab Attestation statement: I reviewed the patient's lab results. Labs: Lab Results 11/05/24 Range/Units 06:47 Influenza Type A (PCR) NEGATIVE (Negative) Influenza Type B (PCR) NEGATIVE (Negative) RSV RNA Qual (PCR) NEGATIVE (Negative) SARS-CoV-2 RNA (RT-PCR) NEGATIVE (Negative) Independent Interpretation I performed an independent interpretation of an: Plain X-Ray (Chest: No acute findings.) Radiology Impression Discussion of test interpretation with radiology: I have reviewed the radiologist's reading. Discharge Plan Discharge Clinical Impression: Upper respiratory infection Patient Disposition: Home, Self-Care Instructions: Acute Bronchitis (ED) Prescriptions: No Action azithromycin 250 mg tablet See Rx Instructions .ROUTE .COMPLEX Qty: 6 0RF Rx Instructions: For 250 mg dose pack: take 500 mg today (day 1), then 250 mg for 4 days (days 2-5) amoxicillin-pot clavulanate 875-125 mg tablet 1 tab PO BID 10 Days Qty: 20 0RF azithromycin [Zithromax Z-Jayson] 250 mg tablet See Rx Instructions .ROUTE .COMPLEX Qty: 6 0RF Rx Instructions: For 250 mg dose pack: take 500 mg today (day 1), then 250 mg for 4 days (days 2-5) prednisone 20 mg tablet 20 mg PO BID Qty: 10 0RF albuterol sulfate 90 mcg/actuation HFA aerosol inhaler 2 puff inhalation Q6H PRN (Reason: shortness of breath or wheezing) Qty: 8.5 0RF Print Language: Portuguese
[2024-11-05 08:57] VITALS: BP 118/76; PULSE 74; RESP 20; TEMP 36.6; O2SAT 99
[2024-11-05 08:58] VITALS: BP 118/76; PULSE 74; RESP 20; TEMP 36.6; O2SAT 99
== END 2024-11-05 09:00 | disposition home or self-care (01) ==
PROVIDERS: Emergency Provider Emergency Medicine
DX: J06.9 Acute upper respiratory infection, unspecified (principal); Z03.818 Encounter for observation for suspected exposure to other biological agents ruled out; I10 Essential (primary) hypertension; J45.909 Unspecified asthma, uncomplicated
CPT/HCPCS: 0241U; 71046; 99283

== ENCOUNTER → 2024-11-05 03:40 | Outpatient (BNV) | payer OTHER, SELFPAY | PROVIDERS: Visit Provider Radiology Diagnostic Radiology | DX: R06.02 Shortness of breath (principal) | CPT/HCPCS: 71046 ==

== ENCOUNTER 2025-05-23 00:26 | Emergency (ER) | payer OTHER, SELFPAY ==
--- NOTE | 2025-05-23 | ECG_ITS ---
Test Reason : CP Blood Pressure : */* mmHG Vent. Rate : 76 BPM Atrial Rate : 76 BPM P-R Int : 164 ms QRS Dur : 74 ms QT Int : 390 ms P-R-T Axes : 55 12 24 degrees QTcB Int : 438 ms Normal sinus rhythm Normal ECG When compared with ECG of 13-Jul-2024 08:32, No significant change was found Referred By: Generic ED Physician Electronically Signed By: INES OSULLIVAN MD
--- NOTE | ~2025-05-23 | XR_ITS ---
CLINICAL HISTORY: pain 1 view abdomen Comparison: None provided Findings: No pneumoperitoneum or pneumatosis. No dilated loops of bowel or evidence for bowel obstruction. A small amount of gas is identified over the expected location of the rectum. Moderate colonic stool burden. Surgical clips are visualized over the right upper abdominal quadrant, possibly consistent with prior cholecystectomy. No acute fractures. IMPRESSION: 1. Nonobstructed bowel-gas pattern. 2. Moderate colonic stool burden. This document has been electronically signed by: Joe Valentine MD on 05/23/2025 04:15:16
[2025-05-23 00:29] VITALS: BP 177/92; PULSE 82; RESP 18; TEMP 36.3; O2SAT 100; BMI 32.3
[2025-05-23 00:57] LABS: Hematocrit 36.9 % (37.0-47.0); Hemoglobin 12.7 g/dl (12.0-16.0); Imm Gran Abs Auto 0.01 X10*3/uL (0.00-0.03); Imm Gran Pct Auto 0.2 % (0.0-0.4); Lymphocytes Absolute Auto 2.2 X10*3/uL (1.2-4.9); MANUAL DIFF FLAG NO; Mean Corpuscular HGB Conc 34.4 g/dl (31.0-35.0); Mean Corpuscular Hemoglobin 29.7 pg (27.0-33.0); Mean Corpuscular Volume 86.2 fL (80.0-98.0); NRBC Abs Auto 0.000 X10*3/uL (0.0-0.012); NRBC Pct Auto 0.0 /100WBC (0.0-0.2); Platelet Count 273 X10*3/uL (160-400); Red Blood Count 4.28 X10*6/uL (4.20-5.50); White Blood Count 4.2 X10*3/uL (4.8-10.8)
[2025-05-23 00:58] LABS: Appearance Urine Clear; Glucose Urine UA Negative (Negative); PH 7.5 (5.0-9.0); Specific Gravity - Urine <= 1.005 (1.005-1.025); UMIC TRIGGER UACC YES
[2025-05-23 01:15] LABS: Alanine Aminotransferase 16 U/L (0-31); Albumin Level 4.5 g/dL (3.5-5.0); Alkaline Phosphatase 147 U/L (39-117); Anion Gap 13 (12-20); Aspartate Amino Transferase 21 U/L (5-31); Blood Urea Nitrogen 10 mg/dL (9-16); Calcium 9.2 mg/dL (8.4-10.2); Carbon Dioxide 26 mmol/L (22-29); Chloride 109 mmol/L (96-108); Creatinine Clr Calc Pharmacy 75.8; Estimated Glomerular Filt Rate > 60; Magnesium 2.5 mg/dL (1.6-2.6); Potassium 4.1 mmol/L (3.3-5.1); Sodium 144 mmol/L (135-145); Total Protein 7.4 g/dL (6.5-8.0)
[2025-05-23 01:19] LABS: NT Pro B Type Natriuretic Pept 101.8 pg/mL (<300); Troponin-I High Sensitivity < 2.7 ng/L (<3.5-17.0)
--- OUTSIDE RECORDS SUMMARY | 2025-05-23 03:47 | XMS_ITS | Clinical Summary ---
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 Name Role Phone Yoanna Nelson MD Primary Care Provider Social History Tobacco Use Types Packs/Day Years Used Date Smoking Tobacco: Never Assessed Comments Unknown Sex and Gender Information Value Date Recorded Sex Assigned at Not on file Legal Sex Female 8:24 PM EST Gender Identity Not on file Sexual Orientation Not on file Plan of Treatment Health Maintenance Due Date Last Done Comments Breast Cancer Screening 1961 Colorectal Cancer Screening: Colonoscopy 1961 DTaP,Tdap,and Td Vaccines (1 - Tdap) 1980 Cervical Cancer Screening: P ap Smear 1982 Pneumococcal Vaccine: 50+ Ye ars (1 of 1 - PCV) 2011 Zoster Vaccines (1 of 2) 2011 HIV Screening 07/19/2022 Hepatitis C Screening 07/19/2022 Social Influencers of Health Screening 07/19/2022 Depression Screening 08/17/2024 COVID-19 Vaccine (1 - 2023-2 5 season) 2025 Influenza Vaccine (#1) 2025 RSV Immunization Adult Patie nts (1 - 1-dose 75+ series) 2036 HIB [...] age to complete this topic Meningococcal B Vaccine Aged Out No l onger eligible based on patient's age to complete this topic RSV Immunization Patients Un aneesh 20 months Aged Out No longer eligible b ased on patient's age to complete this topic Varicella Vaccines Aged Out No longer eligible based on patient's age to complete this topic Insurance [facility] Care Teams 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
[2025-05-23 04:11] VITALS: BP 104/56; PULSE 64; RESP 16
[2025-05-23] MEDS: Sucralfate Oral Suspension 1 GM/10 ML ORAL.SUSP PO (04:13)
--- NOTE | 2025-05-23 04:58 | ED.GENADULT ---
HPI - General Adult General Chief complaint: General Medical Stated complaint: High BP Time Seen by Provider: 05/23/25 03:11 Source: patient and family Limitations: language barrier History of Present Illness ED Provider: Lo Loving PA-C HPI narrative: 65-year-old female with a history of hypertension presents with multiple complaints. Patient states she noted that her blood pressure was elevated at home. She concurrently had central chest discomfort, epigastric pain, indigestion and nausea. Associated abdominal bloating, increased urinary frequency. Denies active vomiting, inability to pass flatus, dysuria or fever. Related Data Previous Rx's ?Medication ?Instructions ?Recorded amoxicillin 875 mg-potassium 1 tab PO BID 10 days #20 tabs 07/13/24 clavulanate 125 mg tablet azithromycin 250 mg tablet See Rx Instructions PO .COMPLEX #6 07/13/24 tabs albuterol sulfate 90 mcg/actuation 2 puff inhalation Q6H PRN 10/24/24 aerosol inhaler shortness of breath or wheezing #8.5 grams azithromycin 250 mg tablet See Rx Instructions PO .COMPLEX #6 10/24/24 (Zithromax Z-Jayson) tabs prednisone 20 mg tablet 20 mg PO BID #10 tabs 10/24/24 sucralfate 100 mg/mL oral 10 ml PO QID PRN indigestion #300 05/23/25 suspension (Carafate) mL Allergies Allergy/AdvReac Type Severity Reaction Status Date / Time No Known Allergies Allergy Verified 05/23/25 00:34 Review of Systems Review of Systems: Yes all other systems are reviewed and are negative Constitutional: Constitutional: Denies fatigue and Denies fever(s) Cardiovascular: Cardiovascular: Reports chest pain and Denies dyspnea Respiratory: Respiratory: Denies dyspnea Gastrointestinal: Gastrointestinal: Reports abdominal pain, Reports bloating, Reports constipation, Reports dyspepsia, Reports heartburn, Reports nausea and Denies vomiting Genitourinary: Genitourinary: Denies dysuria and Reports urinary urgency Endocrine: Endocrine: Denies fatigue PMF Past Medical History Attestation statement: The following information was validated with the patient. Social History Social History Smoked in Last 30 Days: No Use of substances other than those prescribed or required for medical reasons: No Advance Directives: No Advance Directives Information Provided: Yes Patient : No Physical Exam ED Vital Signs: Vital Signs - 24 hr 05/23/25 00:29 05/23/25 04:11 Temperature 97.4 F Pulse Rate 82 64 Respiratory Rate 18 16 Blood Pressure 177/92 H 104/56 L Pulse Oximetry 100 Oxygen Delivery Method Room Air BMI result Body Mass Index 32.3 Const Other: Alert well-appearing Orientation/consciousness: patient oriented x3 Resp Effort & Inspection: normal respiratory effort Cardio Other: Normal peripheral perfusion GI Other: Soft nontender no guarding no overt distention Skin Other: Warm dry no rash Neuro General: patient oriented x3, gait normal, no focal motor deficits and CN's II-XI intact bilaterally Psych Other: Cooperative Medications Administered Discontinued Medications Generic Name Dose Route Start Last Admin Trade Name Freq PRN Reason Stop Dose Admin Sucralfate 1 gm 05/23/25 03:51 05/23/25 04:13 Sucralfate Oral Suspension 1 Gm/10 Ml Oral.Susp PO 05/23/25 03:52 1 gm ONCE ONE Administration Medical Decision Making Medical Decision Making MDM Narrative: 65-year-old female with a history of hypertension presents with multiple complaints. Patient states she noted that her blood pressure was elevated at home. She concurrently had central chest discomfort, epigastric pain, indigestion and nausea. Associated abdominal bloating, increased urinary frequency. Denies active vomiting, inability to pass flatus, dysuria or fever. Problem: Age, hypertension History: Per patient I have considered the following differential diagnoses: Constipation, bowel obstruction, poorly controlled reflux, ACS, UTI Plan: Patient having numerous complaints tonight. It sounds as if she may have a urinary tract infection, in addition to screening labs, urine obtained it is not infected. Given both central chest discomfort with the epigastric pain, and abdominal distention, she likely is constipated, this is triggering acid reflux, hence the central chest discomfort. We will give Carafate and obtain a KUB. ACS was considered, troponin EKG obtained. I have independently reviewed the following tests: Labs: No leukocytosis, not anemic, no electrolyte abnormality, troponin less than 2.7, urine not infected EKG: Normal sinus rhythm, rate of 76, no ischemic changes no ectopy KUB:Findings: No pneumoperitoneum or pneumatosis. No dilated loops of bowel or evidence for bowel obstruction. A small amount of gas is identified over the expected location of the rectum. Moderate colonic stool burden. Surgical clips are visualized over the right upper abdominal quadrant, possibly consistent with prior cholecystectomy. No acute fractures. IMPRESSION: 1. Nonobstructed bowel-gas pattern. 2. Moderate colonic stool burden. Differential Diagnosis Differential Diagnoses: The differential diagnosis associated with the presentation includes See medical decision-making Admission/Observation Consideration of admission/observation: Escalation of care including admission/observation considered Not applicable Lab Data MDM Lab Attestation statement: I reviewed the patient's lab results. 05/23/25 00:51 05/23/25 00:51 Labs: Lab Results 05/23/25 05/23/25 Range/Units 00:42 00:51 WBC 4.2 L (4.8-10.8) X10*3/uL RBC 4.28 (4.20-5.50) X10*6/uL Hgb 12.7 (12.0-16.0) g/dl Hct 36.9 L (37.0-47.0) % MCV 86.2 (80.0-98.0) fL MCH 29.7 (27.0-33.0) pg MCHC 34.4 (31.0-35.0) g/dl RDW 14.0 (11.0-16.0) % Plt Count 273 (160-400) X10*3/uL MPV 9.7 (9.4-12.3) fL Immature Gran % (Auto) 0.2 (0.0-0.4) % Neut % (Auto) 30.8 L (45-73) % Lymph % (Auto) 52.1 H (20-40) % [place] % (Auto) 8.8 (2-11) % Eos % (Auto) 6.4 H (0-4) % Baso % (Auto) 1.7 (0-2) % Lymph # (Auto) 2.2 (1.2-4.9) X10*3/uL [place] # (Auto) 0.4 (0.1-1.2) X10*3/uL Eos # (Auto) 0.3 (0.0-0.4) X10*3/uL Baso # (Auto) 0.1 (0.0-0.2) X10*3/uL Abs Immat Gran (auto) 0.01 (0.00-0.03) X10*3/uL Absolute Neuts (auto) 1.3 L (2.0-8.3) x10*3/uL Absolute Nucleated RBC 0.000 (0.0-0.012) X10*3/uL Nucleated RBC % (auto) 0.0 (0.0-0.2) /100WBC Sodium 144 (135-145) mmol/L Potassium 4.1 (3.3-5.1) mmol/L Chloride 109 H (96-108) mmol/L Carbon Dioxide 26 (22-29) mmol/L Anion Gap 13 (12-20) BUN 10 (9-16) mg/dL Creatinine 0.85 (0.5-1.4) mg/dL Estim Creat Clear Calc 75.8 Estimated GFR > 60 Random Glucose 93 (60-115) mg/dL Calcium 9.2 (8.4-10.2) mg/dL Magnesium 2.5 (1.6-2.6) mg/dL Total Bilirubin 0.5 (0.0-1.0) mg/dL AST 21 (5-31) U/L ALT 16 (0-31) U/L Alkaline Phosphatase 147 H (39-117) U/L Troponin I High Sens < 2.7 (<3.5-17.0) ng/L NT-Pro-B Natriuret Pep 101.8 (<300) pg/mL Total Protein 7.4 (6.5-8.0) g/dL Albumin 4.5 (3.5-5.0) g/dL Urine Color Yellow Urine Appearance Clear Urine pH 7.5 (5.0-9.0) Ur Specific [place] <= 1.005 (1.005-1.025) Urine Protein Negative (Neg-Trace) mg/dL Urine Glucose (UA) Negative (Negative) mg/dL Urine Ketones Negative (Negative) mg/dL Urine Blood Negative (Negative) Urine Nitrite Negative (Negative) Ur Leukocyte Esterase Trace H (Negative) Urine RBC 0-2 (0-2) /HPF Urine WBC 0-5 (0-5) /HPF Ur Squamous Epith Cells 0-2 (0-2) /HPF Urine Bacteria None Seen (None Seen) Hyaline Casts 0-2 (0-2) /LPF Independent Interpretation I performed an independent interpretation of an: EKG Radiology Impression Discussion of test interpretation with radiology: I have reviewed the radiologist's reading. Discharge Plan Discharge Clinical Impression: Chest pain due to GERD, Constipation Patient Disposition: Home, Self-Care Instructions: Constipation (ED), GERD (Gastroesophageal Reflux Disease) (ED), Noncardiac Chest Pain (ED) Additional Instructions: I do believe your upper abdominal and chest discomfort is secondary to poorly controlled acid reflux. I believe the acid reflux is likely triggered by the constipation that was found on the abdominal x-ray. For your upper abdominal discomfort, use the Carafate as needed. Do not eat 3 hours before bed. Some common food triggers are spicy food, acidic food, fatty greasy food, anything carbonated, alcohol and caffeine. Eating smaller meals throughout the day instead of 3 large meals can help prevent acid reflux symptoms as well. For the constipation, begin to use [id number] Colace, this is a stool softener, twice a day. Use [id number] MiraLax, 2 to 3 times a day, until you begin having multiple large volume bowel movements. All of your screening labs including a cardiac enzymes were normal, there were no concerning changes on the EKG. Follow up with your primary care as needed. Prescriptions: New sucralfate [Carafate] 100 mg/mL suspension 10 ml PO QID PRN (Reason: indigestion) Qty: 300 0RF Rx Instructions: swish in mouth and swallow; use after food/drink No Action azithromycin 250 mg tablet See Rx Instructions .ROUTE .COMPLEX Qty: 6 0RF Rx Instructions: For 250 mg dose pack: take 500 mg today (day 1), then 250 mg for 4 days (days 2-5) amoxicillin-pot clavulanate 875-125 mg tablet 1 tab PO BID 10 Days Qty: 20 0RF azithromycin [Zithromax Z-Jayson] 250 mg tablet See Rx Instructions .ROUTE .COMPLEX Qty: 6 0RF Rx Instructions: For 250 mg dose pack: take 500 mg today (day 1), then 250 mg for 4 days (days 2-5) prednisone 20 mg tablet 20 mg PO BID Qty: 10 0RF albuterol sulfate 90 mcg/actuation HFA aerosol inhaler 2 puff inhalation Q6H PRN (Reason: shortness of breath or wheezing) Qty: 8.5 0RF Print Language: Divehi
[2025-05-23 05:51] VITALS: BP 104/56; PULSE 64; RESP 16; TEMP 36.6; O2SAT 97
== END 2025-05-23 05:52 | disposition home or self-care (01) ==
PROVIDERS: Emergency Provider Emergency Medicine; PCP Internal Medicine
DX: R07.89 Other chest pain (principal); K21.9 Gastro-esophageal reflux disease without esophagitis; K59.00 Constipation, unspecified; R06.02 Shortness of breath; R10.22 Pelvic and perineal pain left side
CPT/HCPCS: 36415; 74018; 80053; 81001; 83735; 83880; 84484; 85025; 93005; 99283; 99284

== ENCOUNTER → 2025-05-23 00:43 | Outpatient (BNV) | payer OTHER, SELFPAY | PROVIDERS: Emergency Provider Emergency Medicine; PCP Internal Medicine; Visit Provider Internal Medicine Cardiovascular Disease | DX: R07.9 Chest pain, unspecified (principal) | CPT/HCPCS: 93010 ==

== ENCOUNTER → 2025-05-23 03:27 | Outpatient (BNV) | payer OTHER, SELFPAY | PROVIDERS: Emergency Provider Emergency Medicine; PCP Internal Medicine; Visit Provider Radiology Diagnostic Radiology | DX: K59.00 Constipation, unspecified (principal) | CPT/HCPCS: 74018 ==